=== PATIENT | female | born 1940 | race Caucasian/White ===

== ENCOUNTER 2017-07-03 17:58 | Inpatient (IN) | END 2017-07-06 17:55 | disposition home health service (06) | DRG 195 ==

== ENCOUNTER 2018-05-29 17:25 | Inpatient (IN) | payer MEDICARE, OTHER ==
[~2018-05-29] VITALS: Ht 157.5 cm; Wt 59.3 kg
[~2018-05-29 17:25] MED LIST: GUAI-637 PO; LANT3I SC; LEVO750T25 PO; SITA1TAB5 PO; [UNRECOGNIZED DRUG - OTHER] BOTH EYES
[2018-05-29] MEDS ORDERED: AZITHROMYCIN 500MG/NS (PMX) 250 ML IV STA (17:35)
[2018-05-29] MEDS ORDERED: SODIUM CHLORIDE 0.9% 1L BAG IV* STA ×2 (17:35→19:38)
[2018-05-29] MEDS ORDERED: CEFTRIAXONE 1 GM/50 ML (PMX) 50 ML IVPB STA (17:35)
[2018-05-29] MEDS ORDERED: NITROGLYCERIN (SL) 0.4 MG TAB ONE (18:00)
[2018-05-29] MEDS ORDERED: NITROGLYCERIN (SL) 0.4 MG TAB SL ONE (18:30)
[2018-05-29] MEDS ORDERED: MELO7.5T38 PO (19:45)
[2018-05-29] MEDS ORDERED: ERGO500013 PO (19:46)
[2018-05-29] MEDS ORDERED: ASPI-817 PO (19:47)
[2018-05-29] MEDS ORDERED: CANA100T PO (19:48)
--- NOTE | 2018-05-29 19:49 | ERD ---
ER Documentation Chief Complaint Chief Complaint SOB; ABDOMINAL PAIN HPI 77-year-old female with a history of diabetes and hypertension presenting with complaints of shortness of breath that has been going on chronically but worsened today acutely. She denies any associated chest pain or abdominal pain. No associated fevers or chills. She has not been coughing from what her son is telling me. History is somewhat limited due to the patient's respiratory distress. Per her son at bedside, the patient had a recent admission for pneumonia and a prior admission for "fluid in her lungs" that had to be taken out with what sounds like a chest tube. To his knowledge, she does not have any heart problems. ROS Limited due to respiratory distress Medications Home Meds Reported Medications [Blood Pressure] No Conflict Check, 1 CAP PO DAILY 05/29/18 Omeprazole* (Omeprazole*) 40 Mg Capsule.dr, 40 MG PO DAILY, #30 CAP 05/29/18 [Insulin] No Conflict Check, 18 UNITS SQ QAM PATIENT CAN'T REMEMBER HER INSULIN NAME,BUT IN HER EXTERNAL MEDS SHE HAS A ( TOUJEO 300UNIT/1ML AND TRULICITY 1.5MG/0.5ML) 05/29/18 Canagliflozin (Invokana) 100 Mg Tablet, 100 MG PO DAILY, TAB 05/29/18 Aspirin* (Aspirin* EC) 81 Mg Tablet.dr, 81 MG PO DAILY, TAB 05/29/18 Ergocalciferol (Vitamin D2) (VITAMIN D2) 50,000 Unit Capsule, 47565 UNIT PO Q MON, CAP 05/29/18 Meloxicam* (Meloxicam*) 7.5 Mg Tablet, 7.5 MG PO DAILY, #30 TAB 05/29/18 Discontinued Scripts Guaifenesin* (Robitussin*) 100 Mg/5 Ml Syrup, 200 MG PO Q4H PRN for COUGH, #1 BOTTLE Prov:ANAHI VERDUGO S. 07/06/17 [Carboxymethylcellulose Oph] 1 DROP SOLN No Conflict Check, 1 DROP BOTH EYES TID, #1 BOTTLE Prov:CHRIS VERDUGOEEP S. 07/06/17 Insulin Glargine* (Lantus*) 100 Unit/Ml Soln, 13 UNIT SC DAILY@08 for 30 Days, #1 BOTTLE Prov:ANAHI VERDUGO S. 07/06/17 Levofloxacin* (Levaquin*) 750 Mg Tablet, 750 MG PO DAILY@06, #6 TAB Prov:ANAHI VERDUGO S. 07/06/17 Sitagliptin Phos/Metformin HCl (Janumet 50-1,000 mg Tablet) 1 Each Tablet, 1 TAB PO DAILY, #30 2 Refills Prov:CHRIS VERDUGOEEP S. 07/06/17 Allergies Allergies: Coded Allergies: ketorolac (Verified Allergy, Severe, 05/29/18) PMhx/Soc History of Surgery: Yes (CSECTION) Anesthesia Reaction: No Hx Neurological Disorder: No Hx Respiratory Disorders: No Hx Cardiac Disorders: Yes (Hypertension) Hx Psychiatric Problems: No Hx Miscellaneous Medical Probl: Yes (Diabetes) Hx Alcohol Use: No Hx Substance Use: No Hx Tobacco Use: No Smoking Status: Never smoker FmHx Unable to obtain Physical Exam Vitals Vital Signs Date Temp Pulse Resp B/P (MAP) Pulse Ox O2 O2 Flow FiO2 Time Delivery Rate 05/29/18 96 100 50 19:00 05/29/18 99.4 100 25 123/91 99 BIPAP 18:30 (102) 05/29/18 105 99 50 17:50 05/29/18 99.4 110 36 131/70 55 17:26 (90) Physical Exam Const: In severe respiratory distress, no diaphoresis Head: Atraumatic Eyes: Normal Conjunctiva ENT: Dry mucous membranes. Normal External Ears, Nose and Mouth. Neck: Full range of motion. No meningismus. Resp: Significantly tachypneic. Belly breathing with retractions noted. Breath sounds are clear bilaterally with no obvious wheezing, rales, or rhonchi. Cardio: Tachycardic with regular rhythm, no murmurs. 2+ distal pulses in all 4 extremities Abd: Soft, non tender, non distended. Normal bowel sounds Skin: No petechiae or rashes Back: No midline or flank tenderness Ext: No cyanosis, or edema Neur: Awake and alert, normal speech, no facial asymmetry, moving all extr emities Psych: Normal Mood and Affect Result Diagram: 05/29/18180705/29/181807 Results 24 hrs Laboratory Tests Test 05/29/18 17:35 05/29/18 17:47 05/29/18 18:05 05/29/18 18:08 Blood Gas Blood arterial Specimen Source Arterial Blood 05/29/2018 7:20:1 Date Drawn 3 PM Arterial Blood 7.436 pH (Temp corrected) Arterial Blood 39.6 mmhg pCO2 (Temp correct) Arterial Blood 85.8 mmHG pO2 (Temp corrected) Arterial Blood 26.1 mmol/L HCO3 Arterial Blood 1.8 mmol/L Base Excess Arterial Blood 96.5 mmHG Oxygen Saturatio n Reuben Test ACCEPTAB Arterial Blood Right Radial Gas Puncture Site Arterial 0.4 % Blood Carboxyhem oglobin Arterial Blood 0.3 % Methemoglobin Blood Gas A-a O2 226.2 mmHg Differential Oxyhemoglobin 95.8 % Percent Blood Gas 37.0 C Temperature Blood Gas 14.0 Respiration Rate Blood Gas Actual 48 Respiration Rate Blood Gas MASK - BIPAP Modality FiO2 50.0 % Blood Gas 15/5 IPAP/EPAP Ratio Blood Gas MG Notified Whom Blood Gas 05/29/2018 7:30:5 Notified Time 5 PM POC Venous 2.0 mmol/L Lactate Hemoglobin A1c 10.9 % B-Type 385 PG/ML Natriuretic Peptide White Blood 13.0 10^3/ul Count Red Blood Count 4.62 10^6/ul Hemoglobin 13.9 g/dl Hematocrit 42.8 % Mean Corpuscular 92.6 fl Volume Mean Corpuscular 30.1 pg Hemoglobin Mean Corpuscular 32.5 g/dl Hemoglobin Yoli nt Red Cell 15.2 % Distribution Width Platelet Count 278 10^3/UL Mean Platelet 12.3 fl Volume Immature 0.300 % Granulocytes % Neutrophils % 63.9 % Lymphocytes % 27.8 % Monocytes % 6.9 % Eosinophils % 0.6 % Basophils % 0.5 % Nucleated Red 0.0 /100WBC Blood Cells % Immature 0.040 10^3/ul Granulocytes # Neutrophils # 8.3 10^3/ul Lymphocytes # 3.6 10^3/ul Monocytes # 0.9 10^3/ul Eosinophils # 0.1 10^3/ul Basophils # 0.1 10^3/ul Nucleated Red 0.0 10^3/ul Blood Cells # Prothrombin Time 13.1 Sec Prothrombin Time 1.0 Ratio INR 0.98 International Normalized Ratio Activated 35.3 Sec Partial Thrombop last Time Sodium Level 136 mmol/L Potassium Level 4.3 mmol/L Chloride Level 98 mmol/L Carbon Dioxide 25 mmol/L Level Anion Gap 13 Blood Urea 15 mg/dl Nitrogen Creatinine 0.62 mg/dl Est Glomerular mL/min Filtrat Rate mL/min Glucose Level 269 mg/dl Calcium Level 9.6 mg/dl Total Bilirubin 0.4 mg/dl Direct Bilirubin 0.00 mg/dl Indirect 0.4 mg/dl Bilirubin Aspartate Amino 61 IU/L Transf (AST/SGOT ) Alanine 35 IU/L Aminotransferase (ALT/SGPT) Alkaline 215 IU/L Phosphatase Troponin I < 0.012 ng/ml Total Protein 8.2 g/dl Albumin 3.7 g/dl Globulin 4.50 g/dl Albumin/Globulin 0.82 Ratio Current Medications Medications Dose Sig/Jannet Start Time Status Last (Trade) Ordered Route PRN Stop Time Admin Dose Reason Admin Sodium 1,950 ml BOLUS OVER 2 05/29/18 DC 05/29/18 Chloride HOURS STAT 17:35 18:01 (NS) IV* 05/29/18 17:38 Ceftriaxone 50 ml @ ONCE STAT 05/29/18 DC 05/29/18 Sodium 100 mls/hr IVPB 17:35 18:01 05/29/18 18:04 Azithromycin 250 ml @ ONCE STAT 05/29/18 DC 05/29/18 250 mls/hr IV 17:35 18:49 05/29/18 18:34 25 tab STK-MED 05/29/18 DC Nitroglycerin ONCE .ROUTE 18:00 05/29/18 18:01 (Nitroglyceri n (Sl Tab) 0.4 Mg) 1 tab ONCE ONCE 05/29/18 DC 05/29/18 Nitroglycerin SL 18:30 18:33 05/29/18 18:31 (Nitroglyceri n (Sl Tab) 0.4 Mg) Sodium 1,950 ml BOLUS OVER 2 05/29/18 DC 05/29/18 Chloride HOURS STAT 19:38 19:38 (NS) IV* 05/29/18 19:40 Procedures/MDM EMERGENT LABS AND DIAGNOSTIC STUDIES: Lab Results above were reviewed and interpreted by me. CBC: no anemia or evidence of infection CMP: No evidence of clinically significant electrolyte abnormality, acidosis, renal failure, hypoglycemia, liver disease, or biliary obstruction Troponin within normal limits, not indicative of cardiac ischemia Lactate within normal limits without evidence of sepsis or tissue hypoperfusion BNP is within normal limits ABG on BiPAP without evidence of acidosis or alkalosis. Normal CO2 and O2 12-lead EKG was interpreted by Flaco Fraser MD: Normal Sinus Rhythm Normal axis Normal intervals No acute ST or T wave changes suggestive of acute ischemia or STEMI. Radiology Results as interpreted by Radiology below were reviewed by Portia Fraser MD: Chest x-ray: IMPRESSION: Mild Cardiomegaly. Extensive bilateral upper lobe and lower lobe interstitial infiltrates, worsened since the prior study. Initial Nursing notes reviewed. Previous Medical Records requested via the Electronic Health Record. EMERGENCY DEPARTMENT COURSE / MEDICAL DECISION MAKING: Admit MDM: Patient presented with severe respiratory distress and oxygen saturation down to 50% on room air. She was immediately placed on supplemental oxygen, then BiPAP. Her oxygenation did improve after this, however she remained tachypneic. I do believe that some of this has to do with anxiety. In any case, sepsis workup was initiated given her history of pneumonia and high suspicion for this recurring. Her chest x-ray did show bilateral infiltrates. It is difficult to tell if this is pneumonia versus fluid overload. However the patient does not appear fluid overloaded on exam. I reviewed her medical records and her last echocardiogram did not show any significant systolic dysfunction. She does have diastolic heart failure. She was treated with IV fluids, IV antibiotics, as well as nitroglycerin. Her ABG on BiPAP was unremarkable. However patient's symptoms have not stabilized, and the patient is at risk of rapid decompensation. The patient will be admitted for careful hydration, antibiotic therapy, and infectious source control. Severe Sepsis criteria: Infectious source: End organ damage indicated by: Acute Resp Failure (sat < 92% w/o oxygen) Sepsis Management: Time of recognition of severe sepsis: 1730 Within 3 hours of recognition: Blood cultures x 2 before broad-spectrum antibiotics:Yes 30 ml/kg NS bolus Completed Initial lactate 2 Repeat lactate 1.2 Septic Shock Assessment: Any lactic acid > 4.0 - No Persistent hypotension (SBP < 90 or 40 mmHg drop, MAP < 65) despite 30 mL/kg IV fluid bolus - No Accepting Care Team Current data and ongoing care discussed. Admitting Physician: Dr. [place] Cath Lab(s): Spoke with Dr. Jovel, patient's senior professional services consultant, who states that she would be the consulting physician not the primary. Outstanding Data: Cultures Critical Care Time: 60 minutes Treatments/Evaluations: Close monitoring and treatment of unstable vital signs, cardiorespiratory, and neurologic status, while maintaining tight balance of fluid, respiratory, and cardiac interventions. This includes the administration of emergency fluid management while maintaining close respiratory support as well as the provision of immediate and broad-spectrum antibiotic therapy, while performing a simultaneous assessment for possible sources in order to direct targeted therapy. This time includes discussing the case with the patient and the patients family.This time also includes the consideration for invasive and chemical support to prevent cardiopulmonary collapse. This time does not include all procedures stated elsewhere in this record. This time also includes reviewing old records, labs and radiological studies. This time includes examining and reexamining the patient. Additionally, this time also includes arranging care with admitting and consulting physicians. Departure Diagnosis: Primary Impression: Acute respiratory failure with hypoxia Additional Impressions: Bilateral pulmonary infiltrates on chest x-ray Hyperglycemia Condition: Serious BLAKE FRASER MD May 29, 2018 19:49
[2018-05-29] MEDS ORDERED: ACETAMINOPHEN 325 MG TAB PO PRN ×2 (20:00→20:30)
[2018-05-29] MEDS ORDERED: ONDANSETRON 4 MG INJ IV PRN (20:00)
[2018-05-29] MEDS ORDERED: INSULIN SQ (20:03)
[2018-05-29] MEDS ORDERED: OMEP40CA6 PO (20:04)
[2018-05-29] MEDS ORDERED: BLOOD PRESSURE PO (20:07)
[2018-05-29] MEDS ORDERED: NACL 0.9% 3 ML SYG IV SCH (20:30)
[2018-05-29] MEDS ORDERED: BISACODYL (EC) 5 MG TAB PO PRN (20:30)
[2018-05-29] MEDS ORDERED: DOCUSATE SODIUM 100 MG CAP PO PRN (20:30)
[2018-05-29] MEDS ORDERED: GLUCOSE GEL 15 GRAM TUBE BUCCAL PRN (21:00)
[2018-05-29] MEDS ORDERED: GLUCAGON 1 MG INJ IM PRN (21:00)
[2018-05-29] MEDS ORDERED: GLUCOSE GEL 15 GRAM TUBE PO PRN ×2 (21:00)
[2018-05-29] MEDS ORDERED: DEXTROSE 50% 50 ML SYRINGE IV PRN ×2 (21:00)
[2018-05-29] MEDS ORDERED: LEVALBUTEROL (NEB) 1.25 MG/0.5 ML AMP HHN PRN (21:00)
[2018-05-29 21:11] VITALS: PULSE 91
[2018-05-29 21:16] VITALS: PULSE 86
[2018-05-29] MEDS: INSULIN ASPART [NOVOLOG] 3 ML PEN SC SCH (21:30)
[2018-05-29] MEDS ORDERED: INSULIN GLARGINE [LANTus] (100 UNITS/ML) SYG SC ONE (21:30)
[2018-05-29] MEDS: IPRATROPIUM (NEB) 0.5 MG/2.5 ML AMP HHN SCH (21:55)
[2018-05-29] MEDS: LEVALBUTEROL (NEB) 1.25 MG/0.5 ML AMP HHN SCH (21:55)
[2018-05-29 22:00] VITALS: Ht 157.5 cm; Wt 59.3 kg
--- NOTE | 2018-05-29 22:59 | HP ---
Date/Time of Note Date/Time of Note DATE: 05/29/18 TIME: 22:59 Assessment/Plan VTE Prophylaxis SCD applied (from Nsg): Yes Pharmacological prophylaxis: NA/contraindicated Pharm contraindication: low risk/ambulating Lines/Catheters IV Catheter Type (from Nrsg): Saline Lock Assessment/Plan Hospital Course This is a 77-year-old female being admitted to the telemetry floor for: #1 acute on chronic hypoxic respiratory failure: Possibly multifactorial secondary to underlying fibrosis, pneumonia, and/or possible pulmonary congestion. Given patient's history of fibrosis I feel this is most likely culprit at the current time. Will maintain the patient on BiPAP. I will start the patient on IV steroids with close monitoring of blood sugar levels. Scheduled nebulizers. Given that she is been hospitalized multiple times over the last few months and the fact that she has underlying lung disease I will put her on Zosyn and Levaquin. Will obtain sputum cultures. Will consult pulmonology. CT scan of the chest shows signs of infiltrates and possible edema versus ARDS. Patient is DNR/DNI will monitor her closely on BiPAP. We will also try a trial of Lasix 20 mg IV. #2 pulmonary fibrosis: We will need to confirm with patient's family regarding if she is on any chronic inhalers or medications for this. Will consult pulmonology. #3 community-acquired pneumonia: Given multiple recent hospital admissions as well as underlying lung disease we will put the patient on Levaquin and Zosyn please see #1. #4 cardiomegaly: There is questionable pulmonary congestion on the CT scan. W ill obtain echocardiogram to further evaluate. We will also give her a dose of Lasix 20 mg IV to see if this helps with her breathing as well. #5 diabetes mellitus: We will check hemoglobin A1c, resume home Lantus of 18 units, insulin sliding scale. We will need to adjust insulin regimen while in- house given that she is receiving steroids as well. #6 hypertension: PRN vasotec #7 DVT GI prophylaxis: SCDs, Protonix CODE STATUS: DNR/DNI. Patient does not wish to be intubated or resuscitated. She states that she witnessed her being intubated and she does not want go through that. Further treatment strategy will be implemented as per the clinical course Will consult case management to assist in obtaining any records from [facility] or [facility] regarding this patient. Result Diagram: 05/29/18 1808 05/29/18 1808 Results 24hrs Laboratory Tests Test 05/29/18 17:35 05/29/18 17:47 05/29/18 18:05 05/29/18 18:08 Blood Gas Blood arterial Specimen Source Arterial Blood 05/29/2018 7:20:1 Date Drawn 3 PM Arterial Blood pH 7.436 (Temp corrected) Arterial Blood 39.6 pCO2 (Temp correct) Arterial Blood 85.8 pO2 (Temp corrected) Arterial Blood 26.1 H HCO3 Arterial Blood 1.8 Base Excess Arterial Blood 96.5 Oxygen Saturation Reuben Test ACCEPTAB Arterial Blood Right Radial Gas Puncture Site Arterial 0.4 Blood Carboxyhemo globin Arterial Blood 0.3 Methemoglobin Blood Gas A-a O2 226.2 H Differential Oxyhemoglobin 95.8 Percent Blood Gas 37.0 Temperature Blood Gas 14.0 Respiration Rate Blood Gas Actual 48 Respiration Rate Blood Gas MASK - BIPAP Modality FiO2 50.0 Blood Gas 15/5 IPAP/EPAP Ratio Blood Gas MG Notified Whom Blood Gas 05/29/2018 7:30:5 Notified Time 5 PM POC Venous 2.0 Lactate Hemoglobin A1c 10.9 H B-Type 385 Natriuretic Peptide White Blood Count 13.0 #H Red Blood Count 4.62 Hemoglobin 13.9 Hematocrit 42.8 Mean Corpuscular 92.6 Volume Mean Corpuscular 30.1 Hemoglobin Mean Corpuscular 32.5 Hemoglobin Concen t Red Cell 15.2 H Distribution Width Platelet Count 278 # Mean Platelet 12.3 H Volume Immature 0.300 Granulocytes % Neutrophils % 63.9 Lymphocytes % 27.8 Monocytes % 6.9 Eosinophils % 0.6 Basophils % 0.5 Nucleated Red 0.0 Blood Cells % Immature 0.040 H Granulocytes # Neutrophils # 8.3 H Lymphocytes # 3.6 H Monocytes # 0.9 Eosinophils # 0.1 Basophils # 0.1 Nucleated Red 0.0 Blood Cells # Prothrombin Time 13.1 Prothrombin Time 1.0 Ratio INR International 0.98 Normalized Ratio Activated 35.3 H Partial Thrombopl ast Time Sodium Level 136 Potassium Level 4.3 Chloride Level 98 Carbon Dioxide 25 Level Anion Gap 13 Blood Urea 15 Nitrogen Creatinine 0.62 Est Glomerular Filtrat Rate mL/min Glucose Level 269 H Calcium Level 9.6 Total Bilirubin 0.4 Direct Bilirubin 0.00 Indirect 0.4 Bilirubin Aspartate Amino 61 H Transf (AST/SGOT) Alanine 35 Aminotransferase (ALT/SGPT) Alkaline 215 H Phosphatase Troponin I < 0.012 Total Protein 8.2 H Albumin 3.7 Globulin 4.50 H Albumin/Globulin 0.82 Ratio HPI/ROS Admit Date/Time Admit Date/Time May 29, 2018 at 19:47 Hx of Present Illness Chief complaint: Shortness of breath This is a 77-year-old female with a past medical history of pulmonary fibrosis who presented to the emergency department with complaints of shortness of breath. She states that this is been an on and off situation for the last few months. She states that she has been admitted to multiple hospitals including [facility]. She apparently had a lung procedure done as well which she does not know what it was but it has not seemed to help her either. She does report having productive phlegm. She denies any chest pain or nausea vomiting or diarrhea. Patient in the emergency department was noted to have a SPO2 of 55%. She was placed on BiPAP with good response. Patient was asked regarding CODE STATUS and she was adamant that she did not want to be intubated or have CPR performed her as her was intubated before in the past and she did not want to go through what he went through. Allergies: Ketorolac Medications: See TIA CARPIO Const: As per HPI Eyes : No pain discharge or redness or change in visual acuity ENT: No pain, sore throat, congestion, congestion, dysphagia or discharge Respiratory: As per HPI Cardiovascular: No chest pain, palpitation, PND, or edema GI : no change in appetite, abdominal pain, nausea, vomiting, diarrhea, constipation, or change in the color his stool Genitourinary: No dysuria, hematuria, flank pain , discharge or CVA tenderness Musculoskeletal: No joint pain, back pain, neck pain, restricted range of motion in neck or joints Skin: No rash, bruising or hives Neuro: No headache, dizziness, syncope, seizure, focal weakness Endocrine: No polyuria, polydipsia, temperature intolerance Psych: No hallucination, depression, anxiety or suicidal ideation PMH/Family/Social Past Medical History Diabetes mellitus, hypertension, pulmonary fibrosis Medications Current Medications Ondansetron HCl (Zofran Inj) 4 mg ER BRIDGE PRN IV NAUSEA/VOMITING; Start 05/29/18 at 20:00; Stop 05/30/18 at 19:59 Acetaminophen (Tylenol Tab) 650 mg ER BRIDGE PRN PO .MILD PAIN 1-3 OR TEMP; Start 05/29/18 at 20:00; Stop 05/30/18 at 19:59 IV Flush (NS 3 ml) 3 ml PER PROTOCOL IV ; Start 05/29/18 at 20:30 Acetaminophen (Tylenol Tab) 650 mg Q6H PRN PO .PAIN 1-3 OR TEMP; Start 05/29/18 at 20:30 Docusate Sodium (Colace) 100 mg Q12H PRN PO .CONSTIPATION; Start 05/29/18 at 20:30 Bisacodyl (Dulcolax) 5 mg DAILY PRN PO .CONSTIPATION; Start 05/29/18 at 20:30 Pantoprazole (Protonix Tab) 40 mg DAILY@06 PO ; Start 05/30/18 at 06:00 Enoxaparin Sodium (Lovenox) 40 mg DAILY SC ; Start 05/30/18 at 09:00 Levalbuterol (Xopenex Neb) 1.25 mg Q4H RESP THERAPY HHN Last administered on 05/29/18at 21:55; Admin Dose 1.25 MG; Start 05/29/18 at 21:00 Ipratropium Jbphh (Atrovent 0.02% (Neb)) 0.5 mg Q4HWA RESP THERAPY HHN Last administered on 05/29/18at 21:55; Admin Dose 0.5 MG; Start 05/29/18 at 21:00 Levalbuterol (Xopenex Neb) 1.25 mg Q4H RESP THERAPY PRN HHN WHEEZING; Start 05/29/18 at 21:00 Diagnostic Test (Pha) (Accu-Chek) 1 ea 02 XX ; Start 05/30/18 at 02:00 Insulin Aspart (Novolog Insulin Pen) NOVOLOG *MILD* ALGORITHM WITH MEALS BEDTIME SC ; Start 05/29/18 at 21:30 Miscellaneous Information 1 ea NOTE XX ; Start 05/29/18 at 21:00 Glucose (Glutose) 15 gm Q15M PRN PO DECREASED GLUCOSE; Start 05/29/18 at 21:00 Glucose (Glutose) 22.5 gm Q15M PRN PO DECREASED GLUCOSE; Start 05/29/18 at 21:00 Dextrose (D50w Syringe) 25 ml Q15M PRN IV DECREASED GLUCOSE; Start 05/29/18 at 21:00 Dextrose (D50w Syringe) 50 ml Q15M PRN IV DECREASED GLUCOSE; Start 05/29/18 at 21:00 Glucagon (Glucagen) 1 mg Q15M PRN IM DECREASED GLUCOSE; Start 05/29/18 at 21:00 Glucose (Glutose) 15 gm Q15M PRN BUCCAL DECREASED GLUCOSE; Start 05/29/18 at 21:00 Coded Allergies: ketorolac (Verified Allergy, Severe, 05/29/18) Past Surgical History x1 Family History Significant Family History: no pertinent family hx Social History Alcohol Use: none Smoking Status: Never smoker Drug Use: none Exam/Review of Systems Vital Signs Vitals Vital Signs Date Temp Pulse Resp B/P (MAP) Pulse Ox O2 O2 Flow FiO2 Time Delivery Rate 05/29/18 86 96 50 21:16 05/29/18 99.3 22 136/98 BIPAP 20:56 (111) Exam Exam General: Patient is currently sitting in bed she does appear to be in mild respiratory distress, she also appears to be anxious, currently on BiPAP. She is able to speak in full sentences. HEENT: Atraumatic, normocephalic. The pupils are equal, round and reactive. Extraocular motor are intact Neck: Supple with full range of motion. No rigidity or meningismus Chest: Nontender Lungs: Crackles bilaterally, coarse breath sounds, increased work of breathing, currently on BiPAP Heart: Normal S1-S2, Regular rhythm and rate. Abdomen: Soft , nontender, nondistended , bowel sounds are present. No guarding no rebound tenderness , No masses or organomegaly. No costovertebral temporal angle mass Extremities: Normal to inspection, no edema no cyanosis Neurologic: Normal mental status, speech normal, cranial nerves II through XII are intact, motor and sensory are intact, Psych: Patient does appear to be anxious Additional Comments PROCEDURE: XR Chest. CLINICAL INDICATION: Chest pain TECHNIQUE: Single portable view of the chest was obtained COMPARISON: CR CHEST 04/03/2018 FINDINGS: The heart is enlarged. There are extensive bilateral upper lobe and lower lobe interstitial infiltrates. There is a small right pleural effusion. There is no pneumothorax. RPTAT: AA IMPRESSION: Mild Cardiomegaly. Extensive bilateral upper lobe and lower lobe interstitial infiltrates, worsened since the prior study. .Jack Branham MD, MD Date Time Electronically viewed and signed by .Jack Branham MD, MD on 05/29/2018 17:58 .S/ CC: BLAKE JEFFERSON MD [id number] PROCEDURE: CT Chest Without Intravenous Contrast CLINICAL INDICATION: Hypoxia. Infiltrates. TECHNIQUE: Axial computed tomography images of the chest without intravenous contrast. Sagittal and coronal reformatted images were created and reviewed. CTDIvol (mGy) = 10.63; total DLP (mGy-cm) = 361.64. This CT exam was performed using on e or more of the following dose reduction techniques: automated exposure control, adjustment of the mA and/or kV according to patient size, and/or use of iterative reconstruction technique. DICOM images are available. COMPARISON: None FINDINGS: LUNGS: Diffuse bilateral interstitial disease. Superimposed confluent airspace disease throughout both lungs. Findings may represent infection/p neumonia versus severe pulmonary edema versus ARDS. PLEURAL SPACE: Unremarkable. Unremarkable. No pneumothorax. HEART: Cardiomegaly is present. No significant pericardial effusion. BONES/JOINTS: Subacute fracture of the right lateral fifth rib. No acute osseous abnormality. No dislocation. SOFT TISSUES: Unremarkable. VASCULATURE: Atherosclerosis of the aorta. Mild coronary arterial calcifications. LYMPH NODES: Nonspecific mediastinal lymph nodes are noted, measuring up to 9 mm short axis. IMPRESSION: Diffuse bilateral interstitial disease. Superimposed confluent airspace disease throughout both lungs. Findings may represent infection/pneumonia versus severe pulmonary edema versus ARDS. RPTAT: [facility] Justo Larkin Physician Date Time Electronically viewed and signed by Justo Larkin Physician Poly[employer]er on 05/29/2018 22:27 RmC/ CC: AARON MCRAE [id number] AARON MCRAE May 29, 2018 22:59
[2018-05-29] MEDS ORDERED: METHYLPREDNISOLONE 125 MG INJ IV ONE (23:00)
[2018-05-29 23:23] VITALS: PULSE 105
[2018-05-30] VITALS (12 sets, daily range): BP systolic 121–156; BP diastolic 58–91; PULSE 67–94; RESP 16–20
[2018-05-30] MEDS: PIPER-TAZO 3.375 GM IV (PMX) 100 ML IVPB SCH ×4 (00:51→18:29)
[2018-05-30] MEDS ORDERED: LEVOFLOXACIN 750MG/D5W (PMX) 150 ML IVPB SCH (01:00)
[2018-05-30] MEDS: LEVALBUTEROL (NEB) 1.25 MG/0.5 ML AMP HHN SCH ×7 (01:23→23:50)
[2018-05-30] MEDS: ACCU-CHEK XX SCH (02:00)
[2018-05-30] MEDS ORDERED: ACCU-CHEK XX SCH (02:00)
[2018-05-30] MEDS ORDERED: LORAZEPAM 2 MG INJ IV ONE ×2 (02:30→09:00)
[2018-05-30] MEDS ORDERED: FUROSEMIDE 20 MG INJ IV ONE (03:00)
[2018-05-30] MEDS: PANTOPRAZOLE (EC) 40 MG TAB PO SCH (06:02)
[2018-05-30] MEDS: INSULIN ASPART [NOVOLOG] 3 ML PEN SC SCH ×5 (07:55→21:44)
[2018-05-30] MEDS: IPRATROPIUM (NEB) 0.5 MG/2.5 ML AMP HHN SCH ×4 (09:50→20:28)
[2018-05-30] MEDS: ENOXAPARIN 40 MG/0.4 ML SYG SC SCH (10:02)
[2018-05-30] MEDS: METHYLPREDNISOLONE 40 MG INJ IV SCH ×3 (11:32→22:05)
--- NOTE | 2018-05-30 13:58 | CONS ---
DATE OF ADMISSION: 05/29/2018 DATE OF CONSULTATION: REASON FOR CONSULTATION: Respiratory distress. Thank you, Dr. Houston, for this consultation. HISTORY OF PRESENT ILLNESS: This is a 77-year-old lady with a history of idiopathic pulmonary fibros is, admitted with increasing respiratory distress, orthopnea, PND, and congestion. Found to have dif fuse interstitial lung disease with possible pneumonia versus pulmonary edema on chest x-ray and CT. PAST MEDICAL HISTORY: As above. MEDICATIONS: Per chart. ALLERGIES: NONE KNOWN. SOCIAL HISTORY: Nonsmoker, no alcohol, no history of drug use. FAMILY HISTORY: Noncontributory. REVIEW OF SYSTEMS: A 12-point review of systems negative other than that mentioned above. PHYSICAL EXAMINATION: GENERAL: Elderly appearing lady in mild distress with accessory muscle use. VITAL SIGNS: Currently afebrile, pulse is 79, blood pressure 132/65, O2 saturation 93% on 4 L nasal cannula. NECK: Supple. No JVD or lymphadenopathy. CARDIAC: S1, S2. No added sounds or murmurs. CHEST: Diminished air entry bilaterally. ABDOMEN: Soft, nontender. No guarding or rebound. EXTREMITIES: No cyanosis, clubbing, or edema. NEUROLOGIC: Generalized weakness. No focal deficits. LABORATORY DATA: White count 13, hemoglobin 13.9, platelets within normal limits. Chemistry: BUN 1 5, creatinine 0.62. ABG: pH 7.41, PCO2 of 41, PO2 of 70, bicarbonate was within normal limits. IMPRESSION AND PLAN: 1. Acute hypoxemic respiratory failure, likely secondary to acute exacerbation of idiopathic pulmona ry fibrosis. 2. Chronic hypoxemic respiratory failure. 3. Possible diastolic heart failure. 4. Diabetes mellitus. 5. Possible superimposed pneumonia. The patient will require: 1. Steroids. 2. Antibiotics. 3. Aspiration precautions. 4. Supplemental oxygen. 5. Glycemic management. 6. Deep venous thrombosis (DVT) and gastrointestinal (GI) prophylaxis. Of note, the patient's code status is DO NOTE RESUSCITATE (DNR)/DO NOTE INTUBATE (DNI). The patient may benefit from a Burton evaluation. Dictated By: DIANE LR MD SV/NTS Conf#: [id number] DID#: [id number] CC: AARON HOUSTON MD;*EndCC*
--- NOTE | 2018-05-30 14:46 | PN ---
Date/Time of Note Date/Time of Note DATE: 05/30/18 TIME: 14:38 Assessment/Plan VTE Prophylaxis Risk score (from Ns)>0 risk: 5 SCD applied (from Ns): Yes Pharmacological prophylaxis: LMWH Lines/Catheters IV Catheter Type (from Nrs): Peripheral IV Assessment/Plan Assessment/Plan 1. Acute on chronic respiratory failure, pulmonary fibrosis related, on O2 and steroid, follow up with pulmonology 2. Pulmonary fibrosis, on steroid 3. DM, on insulin, hyperglycemia due to steroid, lantus is increased 4. Hypertension, controlled 5. DVT prophylaxis: lovenox 6. CODE STATUS: DNR/DNI. Result Diagram: 05/29/18 1808 05/29/18 1808 Results 24hrs Laboratory Tests Test 05/29/18 17:35 05/29/18 17:47 05/29/18 18:05 05/29/18 18:08 Blood Gas Blood arterial Specimen Source Arterial Blood 05/29/2018 7:20: Date Drawn 13 PM Arterial Blood 7.436 pH (Temp corrected) Arterial Blood 39.6 pCO2 (Temp correct) Arterial Blood 85.8 pO2 (Temp corrected) Arterial Blood 26.1 H HCO3 Arterial Blood 1.8 Base Excess Arterial Blood 96.5 Oxygen Saturatio n Reuben Test ACCEPTAB Arterial Blood Right Radial Gas Puncture Site Arterial 0.4 Blood Carboxyhem oglobin Arterial Blood 0.3 Methemoglobin Blood Gas A-a O2 226.2 H Differential Oxyhemoglobin 95.8 Percent Blood Gas 37.0 Temperature Blood Gas 14.0 Respiration Rate Blood Gas Actual 48 Respiration Rate Blood Gas MASK - BIPAP Modality FiO2 50.0 Blood Gas 15/5 IPAP/EPAP Ratio Blood Gas MG Notified Whom Blood Gas 05/29/2018 7:30: Notified Time 55 PM POC Venous 2.0 Lactate Hemoglobin A1c 10.9 H B-Type 385 Natriuretic Peptide White Blood 13.0 #H Count Red Blood Count 4.62 Hemoglobin 13.9 Hematocrit 42.8 Mean Corpuscular 92.6 Volume Mean Corpuscular 30.1 Hemoglobin Mean Corpuscular 32.5 Hemoglobin Yoli nt Red Cell 15.2 H Distribution Width Platelet Count 278 # Mean Platelet 12.3 H Volume Immature 0.300 Granulocytes % Neutrophils % 63.9 Lymphocytes % 27.8 Monocytes % 6.9 Eosinophils % 0.6 Basophils % 0.5 Nucleated Red 0.0 Blood Cells % Immature 0.040 H Granulocytes # Neutrophils # 8.3 H Lymphocytes # 3.6 H Monocytes # 0.9 Eosinophils # 0.1 Basophils # 0.1 Nucleated Red 0.0 Blood Cells # Prothrombin Time 13.1 Prothrombin Time 1.0 Ratio INR 0.98 International Normalized Ratio Activated 35.3 H Partial Thrombop last Time Sodium Level 136 Potassium Level 4.3 Chloride Level 98 Carbon Dioxide 25 Level Anion Gap 13 Blood Urea 15 Nitrogen Creatinine 0.62 Est Glomerular Filtrat Rate mL/min Glucose Level 269 H Calcium Level 9.6 Total Bilirubin 0.4 Direct Bilirubin 0.00 Indirect 0.4 Bilirubin Aspartate Amino 61 H Transf (AST/SGOT ) Alanine 35 Aminotransferase (ALT/SGPT) Alkaline 215 H Phosphatase Troponin I < 0.012 Total Protein 8.2 H Albumin 3.7 Globulin 4.50 H Albumin/Globulin 0.82 Ratio Test 05/29/18 22:24 05/29/18 23:25 05/30/18 02:05 05/30/18 05:50 Lactic Acid 1.2 Level Bedside Glucose 120 Blood Gas Blood arterial Specimen Source Arterial Blood 05/30/2018 2:10: Date Drawn 34 AM Arterial Blood 7.418 pH (Temp corrected) Arterial Blood 41.4 pCO2 (Temp correct) Arterial Blood 70.7 L pO2 (Temp corrected) Arterial Blood 26.1 H HCO3 Arterial Blood 1.5 Base Excess Arterial Blood 93.8 L Oxygen Saturatio n Reuben Test ACCEPTAB Arterial Blood Right Radial Gas Puncture Site Arterial 0.5 Blood Carboxyhem oglobin Arterial Blood 0.1 Methemoglobin Blood Gas A-a O2 239.2 H Differential Oxyhemoglobin 93.2 Percent Blood Gas 37.0 Temperature Blood Gas Actual 14 Respiration Rate Blood Gas MASK - BIPAP Modality FiO2 50.0 Blood Gas High 50.0 PEEP Setting Blood Gas 15/5 IPAP/EPAP Ratio Blood Gas [facility] Notified Whom Blood Gas 05/30/2018 2:22: Notified Time 05 AM Magnesium Level 2.1 Triglycerides 75 Level Cholesterol 158 Level LDL Cholesterol, 114 Calculated HDL Cholesterol 29 L Cholesterol/HDL 5.4 Ratio Thyroid 0.361 L Stimulating Hormone (TSH) Test 05/30/18 08:25 05/30/18 11:57 05/30/18 11:59 Bedside Glucose 138 > 595 *H 252 H Subjective 24 Hr Interval Summary Free Text/Dictation lethargic, no distress Exam/Review of Systems Exam Vitals Vital Signs Date Temp Pulse Resp B/P (MAP) Pulse Ox O2 O2 Flow FiO2 Time Delivery Rate 05/30/18 70 13:39 05/30/18 20 96 Nasal 4.0 13:33 Cannula 05/30/18 97.5 132/65 11:41 (87) 05/30/18 60 05:16 Constitutional: alert Head: normocephalic, atraumatic Eyes: nl conjunctiva, EOMI, nl lids, PERRL ENMT: nl external ears & nose, nl lips & teeth, nl nasal mucosa & septum Neck: supple, non-tender Respiratory: clear to auscultation, normal air movement Cardiovascular: regular rate and rhythm, nl pulses; No bruits, No diastolic murmur, No edema, No gallop, No irregular rhythm, No jugular venous distention (JVD), No murmurs/extra sounds, No rub, No systolic murmur, No S3, No S4, No other Gastrointestinal: soft, nl liver, spleen, non-tender Musculoskeletal: nl extremities to inspection Extremities: normal pulses; No calf tenderness, No cyanosis, No clubbing, No edema, No pitting pedal edema, No palpable cord, No tenderness, No other Neurological: [employer] II-XII intact, lethargic, other (moves all extremities) Results Results 24hrs Laboratory Tests Test 05/29/18 17:35 05/29/18 17:47 05/29/18 18:05 05/29/18 18:08 Blood Gas Blood arterial Specimen Source Arterial Blood 05/29/2018 7:20: Date Drawn 13 PM Arterial Blood 7.436 pH (Temp corrected) Arterial Blood 39.6 pCO2 (Temp correct) Arterial Blood 85.8 pO2 (Temp corrected) Arterial Blood 26.1 H HCO3 Arterial Blood 1.8 Base Excess Arterial Blood 96.5 Oxygen Saturatio n Reuben Test ACCEPTAB Arterial Blood Right Radial Gas Puncture Site Arterial 0.4 Blood Carboxyhem oglobin Arterial Blood 0.3 Methemoglobin Blood Gas A-a O2 226.2 H Differential Oxyhemoglobin 95.8 Percent Blood Gas 37.0 Temperature Blood Gas 14.0 Respiration Rate Blood Gas Actual 48 Respiration Rate Blood Gas MASK - BIPAP Modality FiO2 50.0 Blood Gas 15/5 IPAP/EPAP Ratio Blood Gas MG Notified Whom Blood Gas 05/29/2018 7:30: Notified Time 55 PM POC Venous 2.0 Lactate Hemoglobin A1c 10.9 H B-Type 385 Natriuretic Peptide White Blood 13.0 #H Count Red Blood Count 4.62 Hemoglobin 13.9 Hematocrit 42.8 Mean Corpuscular 92.6 Volume Mean Corpuscular 30.1 Hemoglobin Mean Corpuscular 32.5 Hemoglobin Yoli nt Red Cell 15.2 H Distribution Width Platelet Count 278 # Mean Platelet 12.3 H Volume Immature 0.300 Granulocytes % Neutrophils % 63.9 Lymphocytes % 27.8 Monocytes % 6.9 Eosinophils % 0.6 Basophils % 0.5 Nucleated Red 0.0 Blood Cells % Immature 0.040 H Granulocytes # Neutrophils # 8.3 H Lymphocytes # 3.6 H Monocytes # 0.9 Eosinophils # 0.1 Basophils # 0.1 Nucleated Red 0.0 Blood Cells # Prothrombin Time 13.1 Prothrombin Time 1.0 Ratio INR 0.98 International Normalized Ratio Activated 35.3 H Partial Thrombop last Time Sodium Level 136 Potassium Level 4.3 Chloride Level 98 Carbon Dioxide 25 Level Anion Gap 13 Blood Urea 15 Nitrogen Creatinine 0.62 Est Glomerular Filtrat Rate mL/min Glucose Level 269 H Calcium Level 9.6 Total Bilirubin 0.4 Direct Bilirubin 0.00 Indirect 0.4 Bilirubin Aspartate Amino 61 H Transf (AST/SGOT ) Alanine 35 Aminotransferase (ALT/SGPT) Alkaline 215 H Phosphatase Troponin I < 0.012 Total Protein 8.2 H Albumin 3.7 Globulin 4.50 H Albumin/Globulin 0.82 Ratio Test 05/29/18 22:24 05/29/18 23:25 05/30/18 02:05 05/30/18 05:50 Lactic Acid 1.2 Level Bedside Glucose 120 Blood Gas Blood arterial Specimen Source Arterial Blood 05/30/2018 2:10: Date Drawn 34 AM Arterial Blood 7.418 pH (Temp corrected) Arterial Blood 41.4 pCO2 (Temp correct) Arterial Blood 70.7 L pO2 (Temp corrected) Arterial Blood 26.1 H HCO3 Arterial Blood 1.5 Base Excess Arterial Blood 93.8 L Oxygen Saturatio n Reuben Test ACCEPTAB Arterial Blood Right Radial Gas Puncture Site Arterial 0.5 Blood Carboxyhem oglobin Arterial Blood 0.1 Methemoglobin Blood Gas A-a O2 239.2 H Differential Oxyhemoglobin 93.2 Percent Blood Gas 37.0 Temperature Blood Gas Actual 14 Respiration Rate Blood Gas MASK - BIPAP Modality FiO2 50.0 Blood Gas High 50.0 PEEP Setting Blood Gas 15/5 IPAP/EPAP Ratio Blood Gas [facility] Notified Whom Blood Gas 05/30/2018 2:22: Notified Time 05 AM Magnesium Level 2.1 Triglycerides 75 Level Cholesterol 158 Level LDL Cholesterol, 114 Calculated HDL Cholesterol 29 L Cholesterol/HDL 5.4 Ratio Thyroid 0.361 L Stimulating Hormone (TSH) Test 05/30/18 08:25 05/30/18 11:57 05/30/18 11:59 Bedside Glucose 138 > 595 *H 252 H Medications Medication Current Medications Ondansetron HCl (Zofran Inj) 4 mg ER BRIDGE PRN IV NAUSEA/VOMITING; Start 05/29/18 at 20:00; Stop 05/30/18 at 19:59 Acetaminophen (Tylenol Tab) 650 mg ER BRIDGE PRN PO .MILD PAIN 1-3 OR TEMP; Start 05/29/18 at 20:00; Stop 05/30/18 at 19:59 IV Flush (NS 3 ml) 3 ml PER PROTOCOL IV ; Start 05/29/18 at 20:30 Acetaminophen (Tylenol Tab) 650 mg Q6H PRN PO .PAIN 1-3 OR TEMP; Start 05/29/18 at 20:30 Docusate Sodium (Colace) 100 mg Q12H PRN PO .CONSTIPATION; Start 05/29/18 at 20:30 Bisacodyl (Dulcolax) 5 mg DAILY PRN PO .CONSTIPATION; Start 05/29/18 at 20:30 Pantoprazole (Protonix Tab) 40 mg DAILY@06 PO Last administered on 05/30/18at 06:02; Admin Dose 40 MG; Start 05/30/18 at 06:00 Enoxaparin Sodium (Lovenox) 40 mg DAILY SC Last administered on 05/30/18at 10:02; Admin Dose 40 MG; Start 05/30/18 at 09:00 Levalbuterol (Xopenex Neb) 1.25 mg Q4H RESP THERAPY HHN Last administered on 05/30/18at 13:27; Admin Dose 1.25 MG; Start 05/29/18 at 21:00 Ipratropium Bogard (Atrovent 0.02% (Neb)) 0.5 mg Q4HWA RESP THERAPY HHN Last administered on 05/30/18at 13:26; Admin Dose 0.5 MG; Start 05/29/18 at 21:00 Levalbuterol (Xopenex Neb) 1.25 mg Q4H RESP THERAPY PRN HHN WHEEZING; Start 05/29/18 at 21:00 Miscellaneous Information 1 ea NOTE XX ; Start 05/29/18 at 21:00 Glucose (Glutose) 15 gm Q15M PRN PO DECREASED GLUCOSE; Start 05/29/18 at 21:00 Glucose (Glutose) 22.5 gm Q15M PRN PO DECREASED GLUCOSE; Start 05/29/18 at 21:00 Dextrose (D50w Syringe) 25 ml Q15M PRN IV DECREASED GLUCOSE; Start 05/29/18 at 21:00 Dextrose (D50w Syringe) 50 ml Q15M PRN IV DECREASED GLUCOSE; Start 05/29/18 at 21:00 Glucagon (Glucagen) 1 mg Q15M PRN IM DECREASED GLUCOSE; Start 05/29/18 at 21:00 Glucose (Glutose) 15 gm Q15M PRN BUCCAL DECREASED GLUCOSE; Start 05/29/18 at 21:00 Diagnostic Test (Pha) (Accu-Chek) 1 ea 02 XX ; Start 05/30/18 at 02:00 Insulin Aspart (Novolog Insulin Pen) NOVOLOG *MODERATE* ALGORITHM WITH MEALS BEDTIME SC Last administered on 05/30/18at 12:08; Admin Dose 6 UNIT; Start 05/30/18 at 07:55 Levofloxacin/ Dextrose 150 ml @ 100 mls/hr Q24H IVPB Last administered on 05/30/18at 02:12; Admin Dose 100 MLS/HR; Start 05/30/18 at 01:00 Piperacillin Sod/ Tazobactam Sod 100 ml @ 200 mls/hr Q6 IVPB Last administered on 05/30/18at 06:01; Admin Dose 200 MLS/HR; Start 05/30/18 at 00:00 Insulin Glargine (Lantus) 18 units DAILY@2000 SC ; Start 05/30/18 at 20:00 Enalaprilat (Vasotec Iv) 1.25 mg Q4H PRN IV ELEVATED SYSTOLIC BP; Start 05/30/18 at 03:00 Methylprednisolone Sodium Succinate (Solu-Medrol) 30 mg Q8 IV Last administered on 05/30/18at 11:32; Admin Dose 30 MG; Start 05/30/18 at 08:00 AUSTYN NAJERA MD May 30, 2018 14:46
--- NOTE | 2018-05-30 17:03 | RADRPT ---
Echocardiogram Report Patient Name: CARISSA TARIQPatient ID: [id number] : 1940 (77y 6m)Study Date: 05/30/2018 7:10:39 AM Gender: FAccession #: [id number] Tech: Brendan Medina RUST Location: 51 Ref.Physician: AARON MCRAE Height(Cm): BSA: Weight(Kg): Quality: AdequateAccount #: Procedures: Echocardiographic Report: Transthoracic echocardiogram with complete 2D, M-Mode, and doppler examination. Indications: Cardiomegaly. Measurements: 2D/M Mode Doppler Measurement Value Normal Range Measurement Value Normal Range LVIDd 2D 3.3 [ 3.8 - 5.2 ] cm AV Peak Severiano 1.5 [ 100.0 - 170.0 ] cm/sec LVIDs 2D 2.4 [ 2.2 - 3.5 ] cm AV Peak PG 10.0 [ 2.0 - 9.0 ] mmHg LVPWd 2D 1.1 [ 0.6 - 0.9 ] cm LVOT Peak Severiano 1.1 [ 70.0 - 110.0 ] cm/sec IVSd 2D 1.2 [ 0.6 - 0.9 ] cm LVOT Peak PG 5.0 [ 2.0 - 6.0 ] mmHg AoR Diam 2D 2.3 [ 2.3 - 3.1 ] cm MV E Peak Severiano 0.7 [ 60.0 - 130.0 ] cm/sec EDV 2D 43.2 [ 46.0 - 106.0 ] ml MV A Peak Severiano 1.0 [ 100.0 - 120.0 ] cm/sec ESV 2D 19.5 [ 14.0 - 42.0 ] ml MV E/A 0.7 [ 0.8 - 1.5 ] ratio EF 2D 54.9 [ 54.0 - 74.0 ] percent MV Decel Time 268 [ 104 - 258 ] msec LA Dimen 2D 3.0 [ 2.7 - 3.8 ] cm Lat E` Severiano 0.1 [ 10.0 - 15.0 ] cm/sec Lateral E/E` 9.7 [ 1.0 - 2.0 ] ratio MV E/A 0.7 [ 0.8 - 1.5 ] ratio TR Peak Severiano 3.6 [ 100.0 - 280.0 ] cm/sec TR Peak PG 51.0 mmHg RVSP 54.0 [ 10.0 - 36.0 ] mmHg RA Pressure 3.0 mmHg Findings: Left Ventricle: Normal left ventricular systolic function. Normal left ventricular cavity size. Mild concentric left ventricular hypertrophy. Ejection fraction is visually estimated at 65 %. Tissue Doppler/Mitral Doppler indices are consistent with impaired relaxation (Stage I diastolic dysfunction). Right Ventricle: Normal right ventricular size. Normal right ventricular systolic function. Left Atrium: The left atrium is normal in size. Right Atrium: The right atrium is normal in size. Mitral Valve: Normal appearance of the mitral valve. Moderate mitral annular calcification. Trace mitral regurgitation. Aortic Valve: No significant aortic stenosis or insufficiency. Aortic cusps appear mildly calcified. Tricuspid Valve: Normal appearance of the tricuspid valve. Estimated peak PA systolic pressure 54 mmHg. There is mild to moderate tricuspid regurgitation. Pulmonic Valve: Pulmonic valve not well visualized. Pericardium: Normal pericardium with no significant pericardial effusion. Aorta: Normal aortic root. IVC: Normal IVC with respiratory collapse, however patient on bipap. Conclusions: Normal left ventricular systolic function. Normal left ventricular cavity size. Mild concentric left ventricular hypertrophy. Ejection fraction is visually estimated at 65 %. Tissue Doppler/Mitral Doppler indices are consistent with impaired relaxation (Stage I diastolic dysfunction). Normal right ventricular size. Normal right ventricular systolic function. The left atrium is normal in size. The right atrium is normal in size. Estimated peak PA systolic pressure 54 mmHg. There is mild to moderate tricuspid regurgitation. No significant valvular stenosis or regurgitation seen of remaining visualized valves. Normal pericardium with no significant pericardial effusion. Electronically Signed By: Shad Bower 2018-05-30 17:02:48 PDT
[2018-05-30] MEDS ORDERED: INSULIN GLARGINE [LANTus] (100 UNITS/ML) SYG SC SCH (20:00)
[2018-05-30] MEDS ORDERED: INSULIN ASPART [NOVOLOG] 3 ML PEN SC ONE (21:10)
[2018-05-30] MEDS: INSULIN GLARGINE [LANTus] (100 UNITS/ML) SYG SC SCH (21:40)
[2018-05-31] VITALS (12 sets, daily range): BP systolic 132–165; BP diastolic 64–78; PULSE 67–99; RESP 20–22
[2018-05-31] MEDS: PIPER-TAZO 3.375 GM IV (PMX) 100 ML IVPB SCH ×4 (00:17→18:32)
[2018-05-31] MEDS: ACCU-CHEK XX SCH (02:00)
[2018-05-31] MEDS: LEVALBUTEROL (NEB) 1.25 MG/0.5 ML AMP HHN SCH ×5 (04:22→20:59)
[2018-05-31] MEDS: METHYLPREDNISOLONE 40 MG INJ IV SCH ×2 (06:54→13:10)
[2018-05-31] MEDS: PANTOPRAZOLE (EC) 40 MG TAB PO SCH (06:54)
[2018-05-31] MEDS: INSULIN ASPART [NOVOLOG] 3 ML PEN SC SCH ×4 (07:54→22:02)
[2018-05-31] MEDS: IPRATROPIUM (NEB) 0.5 MG/2.5 ML AMP HHN SCH ×4 (08:30→20:59)
[2018-05-31] MEDS: ENOXAPARIN 40 MG/0.4 ML SYG SC SCH (08:58)
--- NOTE | 2018-05-31 11:35 | PN ---
Date/Time of Note Date/Time of Note DATE: 05/31/18 TIME: 11:28 Assessment/Plan VTE Prophylaxis Risk score (from Ns)>0 risk: 5 SCD applied (from Ns): Yes Pharmacological prophylaxis: LMWH Lines/Catheters IV Catheter Type (from [facility], [place]): Peripheral IV Assessment/Plan Assessment/Plan 1. Acute on chronic respiratory failure, pulmonary fibrosis related, on O2 and steroid, follow up with pulmonology 2. Pneumonia, on zosyn 3. Pulmonary fibrosis, on steroid 4. DM, on insulin, hyperglycemia due to steroid, lantus is increased 5. Hypertension, controlled 6. DVT prophylaxis: lovenox 7. CODE STATUS: DNR/DNI. Result Diagram: 05/31/18 0645 05/31/1845 Results 24hrs Laboratory Tests Test 05/30/18 11:57 05/30/18 11:59 05/30/18 18:07 05/30/18 20:28 Bedside Glucose > 595 *H 252 H 299 H 464 *H Test 05/31/18 01:44 05/31/18 06:45 05/31/18 07:00 05/31/18 07:54 Bedside Glucose 250 H 140 White Blood Count 15.6 H Red Blood Count 3.88 L Hemoglobin 11.4 L Hematocrit 36.0 L Mean Corpuscular 92.8 Volume Mean Corpuscular 29.4 Hemoglobin Mean Corpuscular 31.7 L Hemoglobin Concen t Red Cell 15.2 H Distribution Width Platelet Count 274 Mean Platelet 11.9 H Volume Immature 0.400 Granulocytes % Neutrophils % 79.9 H Lymphocytes % 13.9 L Monocytes % 5.7 Eosinophils % 0.0 Basophils % 0.1 Nucleated Red 0.0 Blood Cells % Immature 0.070 H Granulocytes # Neutrophils # 12.5 H Lymphocytes # 2.2 Monocytes # 0.9 Eosinophils # 0.0 Basophils # 0.0 Nucleated Red 0.0 Blood Cells # Sodium Level 140 Potassium Level 3.9 Chloride Level 104 Carbon Dioxide 29 Level Anion Gap 7 Blood Urea 21 H Nitrogen Creatinine 0.57 Est Glomerular Filtrat Rate mL/min Glucose Level 160 # Calcium Level 8.7 Phosphorus Level 3.8 Magnesium Level 2.2 Blood Gas Blood arterial Specimen Source Arterial Blood 05/31/2018 7:59:3 Date Drawn 6 AM Arterial Blood pH 7.439 (Temp corrected) Arterial Blood 38.4 pCO2 (Temp correct) Arterial Blood 70.3 L pO2 (Temp corrected) Arterial Blood 25.4 HCO3 Arterial Blood 1.4 Base Excess Arterial Blood 93.8 L Oxygen Saturation Reuben Test ACCEPTAB Arterial Blood Right Radial Gas Puncture Site Arterial 0.5 Blood Carboxyhemo globin Arterial Blood 0.3 Methemoglobin Blood Gas A-a O2 264.7 H Differential Oxyhemoglobin 93.0 Percent Blood Gas 37.0 Temperature Blood Gas NASAL CANNULA Modality FiO2 53.0 Blood Gas TM Notified Whom Blood Gas 05/31/2018 8:13:1 Notified Time 6 AM Subjective 24 Hr Interval Summary Free Text/Dictation still with shortness of breath, cough with white sputum Exam/Review of Systems Exam Vitals Vital Signs Date Temp Pulse Resp B/P (MAP) Pulse Ox O2 O2 Flow FiO2 Time Delivery Rate 05/31/18 20 98 7.0 08:52 05/31/18 67 08:25 05/31/18 97.7 134/73 Nasal 07:32 (93) Cannula 05/31/18 60 02:20 Intake and Output 05/30/18 05/30/18 05/31/18 1515:00 23:00 07:00 IntakeIntake Total 400 ml 900 ml BalanceBalance 400 ml 900 ml Constitutional: alert, oriented, well developed Head: normocephalic, atraumatic Eyes: nl conjunctiva, EOMI, nl lids ENMT: nl external ears & nose, nl lips & teeth, nl nasal mucosa & septum Neck: supple, non-tender Respiratory: clear to auscultation, normal air movement Cardiovascular: regular rate and rhythm, nl pulses; No bruits, No diastolic murmur, No edema, No gallop, No irregular rhythm, No jugular venous distention (JVD), No murmurs/extra sounds, No rub, No systolic murmur, No S3, No S4, No other Gastrointestinal: soft, nl liver, spleen, non-tender; No ascites, No bowel sounds, No distended, No firm, No hepatomegaly, No mass, No rebound or guarding, No splenomegaly, No surgical scars, No tender, No other Musculoskeletal: nl extremities to inspection Extremities: normal pulses; No calf tenderness, No cyanosis, No clubbing, No edema, No pitting pedal edema, No palpable cord, No tenderness, No other Neurological: CHEF UNDER II-XII intact, nl mental status, nl speech, nl strength Results Results 24hrs Laboratory Tests Test 05/30/18 11:57 05/30/18 11:59 05/30/18 18:07 05/30/18 20:28 Bedside Glucose > 595 *H 252 H 299 H 464 *H Test 05/31/18 01:44 05/31/18 06:45 05/31/18 07:00 05/31/18 07:54 Bedside Glucose 250 H 140 White Blood Count 15.6 H Red Blood Count 3.88 L Hemoglobin 11.4 L Hematocrit 36.0 L Mean Corpuscular 92.8 Volume Mean Corpuscular 29.4 Hemoglobin Mean Corpuscular 31.7 L Hemoglobin Concen t Red Cell 15.2 H Distribution Width Platelet Count 274 Mean Platelet 11.9 H Volume Immature 0.400 Granulocytes % Neutrophils % 79.9 H Lymphocytes % 13.9 L Monocytes % 5.7 Eosinophils % 0.0 Basophils % 0.1 Nucleated Red 0.0 Blood Cells % Immature 0.070 H Granulocytes # Neutrophils # 12.5 H Lymphocytes # 2.2 Monocytes # 0.9 Eosinophils # 0.0 Basophils # 0.0 Nucleated Red 0.0 Blood Cells # Sodium Level 140 Potassium Level 3.9 Chloride Level 104 Carbon Dioxide 29 Level Anion Gap 7 Blood Urea 21 H Nitrogen Creatinine 0.57 Est Glomerular Filtrat Rate mL/min Glucose Level 160 # Calcium Level 8.7 Phosphorus Level 3.8 Magnesium Level 2.2 Blood Gas Blood arterial Specimen Source Arterial Blood 05/31/2018 7:59:3 Date Drawn 6 AM Arterial Blood pH 7.439 (Temp corrected) Arterial Blood 38.4 pCO2 (Temp correct) Arterial Blood 70.3 L pO2 (Temp corrected) Arterial Blood 25.4 HCO3 Arterial Blood 1.4 Base Excess Arterial Blood 93.8 L Oxygen Saturation Reuben Test ACCEPTAB Arterial Blood Right Radial Gas Puncture Site Arterial 0.5 Blood Carboxyhemo globin Arterial Blood 0.3 Methemoglobin Blood Gas A-a O2 264.7 H Differential Oxyhemoglobin 93.0 Percent Blood Gas 37.0 Temperature Blood Gas NASAL CANNULA Modality FiO2 53.0 Blood Gas TM Notified Whom Blood Gas 05/31/2018 8:13:1 Notified Time 6 AM Medications Medication Current Medications IV Flush (NS 3 ml) 3 ml PER PROTOCOL IV ; Start 05/29/18 at 20:30 Acetaminophen (Tylenol Tab) 650 mg Q6H PRN PO .PAIN 1-3 OR TEMP; Start 05/29/18 at 20:30 Docusate Sodium (Colace) 100 mg Q12H PRN PO .CONSTIPATION; Start 05/29/18 at 20:30 Bisacodyl (Dulcolax) 5 mg DAILY PRN PO .CONSTIPATION; Start 05/29/18 at 20:30 Pantoprazole (Protonix Tab) 40 mg DAILY@06 PO Last administered on 05/31/18at 06:54; Admin Dose 40 MG; Start 05/30/18 at 06:00 Enoxaparin Sodium (Lovenox) 40 mg DAILY SC Last administered on 05/31/18at 08:58; Admin Dose 40 MG; Start 05/30/18 at 09:00 Levalbuterol (Xopenex Neb) 1.25 mg Q4H RESP THERAPY HHN Last administered on 05/31/18at 08:30; Admin Dose 1.25 MG; Start 05/29/18 at 21:00 Ipratropium [place] (Atrovent 0.02% (Neb)) 0.5 mg Q4HWA RESP THERAPY HHN Last administered on 05/31/18at 08:30; Admin Dose 0.5 MG; Start 05/29/18 at 21:00 Levalbuterol (Xopenex Neb) 1.25 mg Q4H RESP THERAPY PRN HHN WHEEZING; Start 05/29/18 at 21:00 Miscellaneous Information 1 ea NOTE XX ; Start 05/29/18 at 21:00 Glucose (Glutose) 15 gm Q15M PRN PO DECREASED GLUCOSE; Start 05/29/18 at 21:00 Glucose (Glutose) 22.5 gm Q15M PRN PO DECREASED GLUCOSE; Start 05/29/18 at 21:00 Dextrose (D50w Syringe) 25 ml Q15M PRN IV DECREASED GLUCOSE; Start 05/29/18 at 21:00 Dextrose (D50w Syringe) 50 ml Q15M PRN IV DECREASED GLUCOSE; Start 05/29/18 at 21:00 Glucagon (Glucagen) 1 mg Q15M PRN IM DECREASED GLUCOSE; Start 05/29/18 at 21:00 Glucose (Glutose) 15 gm Q15M PRN BUCCAL DECREASED GLUCOSE; Start 05/29/18 at 21:00 Diagnostic Test (Pha) (Accu-Chek) 1 ea 02 XX Last administered on 05/31/18at 0 2:00; Admin Dose 1 EA; Start 05/30/18 at 02:00 Insulin Aspart (Novolog Insulin Pen) NOVOLOG *MODERATE* ALGORITHM WITH MEALS BEDTIME SC Last administered on 05/30/18at 21:44; Admin Dose 4 UNIT; Start 05/30/18 at 07:55 Piperacillin Sod/ Tazobactam Sod 100 ml @ 200 mls/hr Q6 IVPB Last administered on 05/31/18at 06:54; Admin Dose 200 MLS/HR; Start 05/30/18 at 00:00 Insulin Glargine (Lantus) 18 units DAILY@2000 SC Last administered on 05/30/18at 21:40; Admin Dose 18 UNITS; Start 05/30/18 at 20:00 Enalaprilat (Vasotec Iv) 1.25 mg Q4H PRN IV ELEVATED SYSTOLIC BP; Start 05/30/18 at 03:00 Methylprednisolone Sodium Succinate (Solu-Medrol) 30 mg Q8 IV Last administered on 05/31/18at 06:54; Admin Dose 30 MG; Start 05/30/18 at 08:00 Guaifenesin/ Dextromethorphan (Robitussin Dm Liquid Cup) 5 ml Q4H PRN PO COUGH; Start 05/31/18 at 00:30 AUSTYN NAJERA MD May 31, 2018 11:35
[2018-05-31] MEDS: GUAIFENESIN/DM 5ML CUP PO PRN (12:02)
--- NOTE | 2018-05-31 13:43 | CONS ---
Consult Date/Type/Reason Admit Date/Time May 29, 2018 at 19:47 Initial Consult Date Type of Consult Pulmonary Date/Time of Note DATE: 05/31/18 TIME: 13:42 Subjective still with some shortness of breath but better. Objective Vital Signs Date Temp Pulse Resp B/P (MAP) Pulse Ox O2 O2 Flow FiO2 Time Delivery Rate 05/31/18 75 12:32 05/31/18 97.2 22 135/64 92 Nasal 11:30 (87) Cannula 05/31/18 7.0 08:52 05/31/18 60 02:20 Intake and Output 05/30/18 05/30/18 05/31/18 1515:00 23:00 07:00 IntakeIntake Total 400 ml 900 ml BalanceBalance 400 ml 900 ml Exam PHYSICAL EXAMINATION: GENERAL: Elderly appearing lady in mild distress with accessory muscle use. VITAL SIGNS: NECK: Supple. No JVD or lymphadenopathy. CARDIAC: S1, S2. No added sounds or murmurs. CHEST: Diminished air entry bilaterally. ABDOMEN: Soft, nontender. No guarding or rebound. EXTREMITIES: No cyanosis, clubbing, or edema. NEUROLOGIC: Generalized weakness. No focal deficits. Results/Medications Result Diagram: 05/31/18 0645 05/31/18 0645 Results 24 hrs Laboratory Tests Test 05/30/18 18:07 05/30/18 20:28 05/31/18 01:44 05/31/18 06:45 Bedside Glucose 299 H 464 *H 250 H White Blood Count 15.6 H Red Blood Count 3.88 L Hemoglobin 11.4 L Hematocrit 36.0 L Mean Corpuscular 92.8 Volume Mean Corpuscular 29.4 Hemoglobin Mean Corpuscular 31.7 L Hemoglobin Concen t Red Cell 15.2 H Distribution Width Platelet Count 274 Mean Platelet 11.9 H Volume Immature 0.400 Granulocytes % Neutrophils % 79.9 H Lymphocytes % 13.9 L Monocytes % 5.7 Eosinophils % 0.0 Basophils % 0.1 Nucleated Red 0.0 Blood Cells % Immature 0.070 H Granulocytes # Neutrophils # 12.5 H Lymphocytes # 2.2 Monocytes # 0.9 Eosinophils # 0.0 Basophils # 0.0 Nucleated Red 0.0 Blood Cells # Sodium Level 140 Potassium Level 3.9 Chloride Level 104 Carbon Dioxide 29 Level Anion Gap 7 Blood Urea 21 H Nitrogen Creatinine 0.57 Est Glomerular Filtrat Rate mL/min Glucose Level 160 # Calcium Level 8.7 Phosphorus Level 3.8 Magnesium Level 2.2 Test 05/31/18 07:00 05/31/18 07:54 05/31/18 11:48 Blood Gas Blood arterial Specimen Source Arterial Blood 05/31/2018 7:59:3 Date Drawn 6 AM Arterial Blood pH 7.439 (Temp corrected) Arterial Blood 38.4 pCO2 (Temp correct) Arterial Blood 70.3 L pO2 (Temp corrected) Arterial Blood 25.4 HCO3 Arterial Blood 1.4 Base Excess Arterial Blood 93.8 L Oxygen Saturation Reuben Test ACCEPTAB Arterial Blood Right Radial Gas Puncture Site Arterial 0.5 Blood Carboxyhemo globin Arterial Blood 0.3 Methemoglobin Blood Gas A-a O2 264.7 H Differential Oxyhemoglobin 93.0 Percent Blood Gas 37.0 Temperature Blood Gas NASAL CANNULA Modality FiO2 53.0 Blood Gas TM Notified Whom Blood Gas 05/31/2018 8:13:1 Notified Time 6 AM Bedside Glucose 140 210 Medications Current Medications IV Flush (NS 3 ml) 3 ml PER PROTOCOL IV ; Start 05/29/18 at 20:30 Acetaminophen (Tylenol Tab) 650 mg Q6H PRN PO .PAIN 1-3 OR TEMP; Start 05/29/18 at 20:30 Docusate Sodium (Colace) 100 mg Q12H PRN PO .CONSTIPATION; Start 05/29/18 at 20:30 Bisacodyl (Dulcolax) 5 mg DAILY PRN PO .CONSTIPATION; Start 05/29/18 at 20:30 Pantoprazole (Protonix Tab) 40 mg DAILY@06 PO Last administered on 05/31/18at 06 :54; Admin Dose 40 MG; Start 05/30/18 at 06:00 Enoxaparin Sodium (Lovenox) 40 mg DAILY SC Last administered on 05/31/18at 08:58; Admin Dose 40 MG; Start 05/30/18 at 09:00 Levalbuterol (Xopenex Neb) 1.25 mg Q4H RESP THERAPY HHN Last administered on 05/31/18at 13:39; Admin Dose 1.25 MG; Start 05/29/18 at 21:00 Ipratropium [place] (Atrovent 0.02% (Neb)) 0.5 mg Q4HWA RESP THERAPY HHN Last administered on 05/31/18 13:39; Admin Dose 0.5 MG; Start 05/29/18 at 21:00 Levalbuterol (Xopenex Neb) 1.25 mg Q4H RESP THERAPY PRN HHN WHEEZING; Start 05/29/18 at 21:00 Miscellaneous Information 1 ea NOTE XX ; Start 05/29/18 at 21:00 Glucose (Glutose) 15 gm Q15M PRN PO DECREASED GLUCOSE; Start 05/29/18 at 21:00 Glucose (Glutose) 22.5 gm Q15M PRN PO DECREASED GLUCOSE; Start 05/29/18 at 21:00 Dextrose (D50w Syringe) 25 ml Q15M PRN IV DECREASED GLUCOSE; Start 05/29/18 at 21:00 Dextrose (D50w Syringe) 50 ml Q15M PRN IV DECREASED GLUCOSE; Start 05/29/18 at 21:00 Glucagon (Glucagen) 1 mg Q15M PRN IM DECREASED GLUCOSE; Start 05/29/18 at 21:00 Glucose (Glutose) 15 gm Q15M PRN BUCCAL DECREASED GLUCOSE; Start 05/29/18 at 21:00 Diagnostic Test (Pha) (Accu-Chek) 1 ea 02 XX Last administered on 05/31/18at 02:00; Admin Dose 1 EA; Start 05/30/18 at 02:00 Insulin Aspart (Novolog Insulin Pen) NOVOLOG *MODERATE* ALGORITHM WITH MEALS BEDTIME SC Last administered on 05/31/18at 11:59; Admin Dose 4 UNIT; Start 05/30/18 at 07:55 Piperacillin Sod/ Tazobactam Sod 100 ml @ 200 mls/hr Q6 IVPB Last administered on 05/31/18at 12:02; Admin Dose 200 MLS/HR; Start 05/30/18 at 00:00 Insulin Glargine (Lantus) 18 units DAILY@2000 SC Last administered on 05/30/18 21:40; Admin Dose 18 UNITS; Start 05/30/18 at 20:00 Enalaprilat (Vasotec Iv) 1.25 mg Q4H PRN IV ELEVATED SYSTOLIC BP; Start 05/30/18 at 03:00 Methylprednisolone Sodium Succinate (Solu-Medrol) 30 mg Q8 IV Last administered on 05/31/18at 13:10; Admin Dose 30 MG; Start 05/30/18 at 08:00 Guaifenesin/ Dextromethorphan (Robitussin Dm Liquid Cup) 5 ml Q4H PRN PO COUGH Last administered on 05/31/18at 12:02; Admin Dose 5 ML; Start 05/31/18 at 00:30 Assessment/Plan Hospital Course (Demo Recall) IMPRESSION AND PLAN: 1. Acute hypoxemic respiratory failure, likely secondary to acute exacerbation of idiopathic pulmonary fibrosis. 2. Chronic hypoxemic respiratory failure. 3. Possible diastolic heart failure. 4. Diabetes mellitus. 5. Possible superimposed pneumonia. The patient will require: 1. Steroids. 2. Antibiotics. 3. Aspiration precautions. 4. Supplemental oxygen. 5. Glycemic management. 6. Deep venous thrombosis (DVT) and gastrointestinal (GI) prophylaxis. lorna [email or web address]. DIANE LR MD, [facility] May 31, 2018 13:43
[2018-05-31] MEDS: FUROSEMIDE 40 MG INJ IV SCH (17:03)
[2018-05-31] MEDS: INSULIN GLARGINE [LANTus] (100 UNITS/ML) SYG SC SCH (20:14)
[2018-06-01] VITALS (11 sets, daily range): BP systolic 138–169; BP diastolic 65–87; PULSE 60–88; RESP 17–20
[2018-06-01] MEDS: METHYLPREDNISOLONE 40 MG INJ IV SCH ×4 (00:34→21:09)
[2018-06-01] MEDS: PIPER-TAZO 3.375 GM IV (PMX) 100 ML IVPB SCH ×4 (00:34→17:11)
[2018-06-01] MEDS: LEVALBUTEROL (NEB) 1.25 MG/0.5 ML AMP HHN SCH ×6 (01:24→20:05)
[2018-06-01] MEDS: ACCU-CHEK XX SCH (01:32)
[2018-06-01] MEDS: PANTOPRAZOLE (EC) 40 MG TAB PO SCH (05:53)
[2018-06-01] MEDS: ENOXAPARIN 40 MG/0.4 ML SYG SC SCH (08:12)
[2018-06-01] MEDS: FUROSEMIDE 40 MG INJ IV SCH (08:18)
[2018-06-01] MEDS: IPRATROPIUM (NEB) 0.5 MG/2.5 ML AMP HHN SCH ×4 (08:39→20:05)
[2018-06-01] MEDS: INSULIN ASPART [NOVOLOG] 3 ML PEN SC SCH ×5 (09:07→21:12)
--- NOTE | 2018-06-01 09:43 | CONS ---
Assessment/Plan Assessment/Plan Assessment/Plan (Daily) Assessment and recommendations; 1. Patient with history of IPF admitted for IPF exacerbation with possibly superimposed pneumonia, difficult to make out for any acute infiltrative changes on a background of diffuse fibrotic changes. Patient however clinically still in a tenuous condition on high flow nasal cannula at 70% FiO2. Continue current supportive care. Prognosis is very poor. Consultation Date/Type/Reason Admit Date/Time May 29, 2018 at 19:47 Initial Consult Date Type of Consult Pulmonary Reason for Consultation Patient's condition is tenuous at best. Still on fairly high FiO2 via high flow nasal cannula. Patient however denies any shortness of breath at rest. Any coughing or wheezing. General exam; elderly lady, awake and alert. Currently in no distress. Date/Time of Note DATE: 06/01/18 TIME: 09:41 Exam/Review of Systems Exam Vitals Vital Signs Date Temp Pulse Resp B/P (MAP) Pulse Ox O2 O2 Flow FiO2 Time Delivery Rate 06/01/18 70 08:41 06/01/18 74 20 97 08:39 06/01/18 98.3 169/84 Nasal 08:10 (112) Cannula 05/31/18 15.0 21:41 Intake and Output 05/31/18 05/31/18 06/01/18 1414:59 22:59 06:59 IntakeIntake Total 100 ml 820 ml BalanceBalance 100 ml 820 ml Exam H EENT exam; supple neck, no JVD. No lymphadenopathy. Midline trachea. No thyromegaly. Patient has few remaining carious teeth. Chest exam; bilateral crackles. S1-S2 audible, no murmurs. Regular rhythm. Abdomen exam; soft, no organomegaly. Bowel sounds audible. Scaphoid. Extremity exam; no peripheral edema clubbing. [employer] exam; no focal deficit. Results Result Diagram: 06/01/18 0625 06/01/18 0625 Results 24hrs Laboratory Tests Test 05/31/18 11:48 05/31/18 17:04 05/31/18 20:39 05/31/18 23:00 Bedside Glucose 210 141 308 H Blood Gas Blood arterial Specimen Source Arterial Blood 05/31/2018 11:32: Date Drawn 27 PM Arterial Blood pH 7.426 (Temp corrected) Arterial Blood 46.1 H pCO2 (Temp correct) Arterial Blood 275.3 H pO2 (Temp corrected) Arterial Blood 29.6 H HCO3 Arterial Blood 4.5 H Base Excess Arterial Blood 99.2 Oxygen Saturation Reuben Test ACCEPTAB Arterial Blood Right Radial Gas Puncture Site Arterial 0.3 Blood Carboxyhemo globin Arterial Blood 0.2 Methemoglobin Blood Gas A-a O2 391.6 H Differential Oxyhemoglobin 98.7 Percent Blood Gas 37.0 Temperature Blood Gas Actual 22 Respiration Rate Blood Gas HFNC Modality FiO2 100.0 Blood Gas KB Notified Whom Blood Gas 05/31/2018 11:43: Notified Time 22 PM Test 06/01/18 01:24 06/01/18 06:25 06/01/18 07:48 Bedside Glucose 260 H 153 White Blood Count 13.0 H Red Blood Count 4.21 Hemoglobin 12.1 Hematocrit 38.6 Mean Corpuscular 91.7 Volume Mean Corpuscular 28.7 L Hemoglobin Mean Corpuscular 31.3 L Hemoglobin Concen t Red Cell 15.2 H Distribution Width Platelet Count 286 Mean Platelet 11.4 H Volume Immature 0.500 H Granulocytes % Neutrophils % 71.1 Lymphocytes % 22.9 Monocytes % 5.3 Eosinophils % 0.1 Basophils % 0.1 Nucleated Red 0.0 Blood Cells % Immature 0.060 H Granulocytes # Neutrophils # 9.2 H Lymphocytes # 3.0 H Monocytes # 0.7 Eosinophils # 0.0 Basophils # 0.0 Nucleated Red 0.0 Blood Cells # Sodium Level 140 Potassium Level 3.4 L Chloride Level 102 Carbon Dioxide 33 H Level Anion Gap 5 Blood Urea 18 Nitrogen Creatinine 0.56 Est Glomerular Filtrat Rate mL/min Glucose Level 194 Calcium Level 9.0 Total Bilirubin 0.2 Direct Bilirubin 0.00 Indirect 0.2 Bilirubin Aspartate Amino 33 Transf (AST/SGOT) Alanine 32 Aminotransferase (ALT/SGPT) Alkaline 125 H Phosphatase Total Protein 6.7 Albumin 2.9 L Globulin 3.80 H Albumin/Globulin 0.76 Ratio Medications Medication Current Medications IV Flush (NS 3 ml) 3 ml PER PROTOCOL IV ; Start 05/29/18 at 20:30 Acetaminophen (Tylenol Tab) 650 mg Q6H PRN PO .PAIN 1-3 OR TEMP; Start 05/29/18 at 20:30 Docusate Sodium (Colace) 100 mg Q12H PRN PO .CONSTIPATION; Start 05/29/18 at 20:30 Bisacodyl (Dulcolax) 5 mg DAILY PRN PO .CONSTIPATION; Start 05/29/18 at 20:30 Pantoprazole (Protonix Tab) 40 mg DAILY@06 PO Last administered on 06/01/18at 05:53; Admin Dose 40 MG; Start 05/30/18 at 06:00 Enoxaparin Sodium (Lovenox) 40 mg DAILY SC Last administered on 06/01/18at 08:12; Admin Dose 40 MG; Start 05/30/18 at 09:00 Levalbuterol (Xopenex Neb) 1.25 mg Q4H RESP THERAPY HHN Last administered on 06/01/18at 08:39; Admin Dose 1.25 MG; Start 05/29/18 at 21:00 Ipratropium [place] (Atrovent 0.02% (Neb)) 0.5 mg Q4HWA RESP THERAPY HHN Last administered on 06/01/18at 08:39; Admin Dose 0.5 MG; Start 05/29/18 at 21:00 Levalbuterol (Xopenex Neb) 1.25 mg Q4H RESP THERAPY PRN HHN WHEEZING; Start 05/29/18 at 21:00 Miscellaneous Information 1 ea NOTE XX ; Start 05/29/18 at 21:00 Glucose (Glutose) 15 gm Q15M PRN PO DECREASED GLUCOSE; Start 05/29/18 at 21:00 Glucose (Glutose) 22.5 gm Q15M PRN PO DECREASED GLUCOSE; Start 05/29/18 at 21:00 Dextrose (D50w Syringe) 25 ml Q15M PRN IV DECREASED GLUCOSE; Start 05/29/18 at 21:00 Dextrose (D50w Syringe) 50 ml Q15M PRN IV DECREASED GLUCOSE; Start 05/29/18 at 21:00 Glucagon (Glucagen) 1 mg Q15M PRN IM DECREASED GLUCOSE; Start 05/29/18 at 21:00 Glucose (Glutose) 15 gm Q15M PRN BUCCAL DECREASED GLUCOSE; Start 05/29/18 at 21:00 Diagnostic Test (Pha) (Accu-Chek) 1 ea 02 XX Last administered on 06/01/18at 01:32; Admin Dose 1 EA; Start 05/30/18 at 02:00 Insulin Aspart (Novolog Insulin Pen) NOVOLOG *MODERATE* ALGORITHM WITH MEALS BEDTIME SC Last administered on 06/01/18 09:07; Admin Dose 2 UNIT; Start 05/30/18 at 07:55 Piperacillin Sod/ Tazobactam Sod 100 ml @ 200 mls/hr Q6 IVPB Last administered on 06/01/18 05:53; Admin Dose 200 MLS/HR; Start 05/30/18 at 00:00 Insulin Glargine (Lantus) 18 units DAILY@2000 SC Last administered on 05/31/18 20:14; Admin Dose 18 UNITS; Start 05/30/18 at 20:00 Enalaprilat (Vasotec Iv) 1.25 mg Q4H PRN IV ELEVATED SYSTOLIC BP; Start 05/30/18 at 03:00 Methylprednisolone Sodium Succinate (Solu-Medrol) 30 mg Q8 IV Last administered on 06/01/18 05:53; Admin Dose 30 MG; Start 05/30/18 at 08:00 Guaifenesin/ Dextromethorphan (Robitussin Dm Liquid Cup) 5 ml Q4H PRN PO COUGH Last administered on 05/31/18 12:02; Admin Dose 5 ML; Start 05/31/18 at 00:30 Furosemide (Lasix) 40 mg DAILY IV Last administered on 06/01/18 08:18; Admin Dose 40 MG; Start 05/31/18 at 14:00 Potassium Chloride 100 ml @ 50 mls/hr Q2H IVPB ; Start 06/01/18 at 09:45; Stop 06/01/18 at 13:44 LLUVIA MARQUEZ Jun 01, 2018 09:43
[2018-06-01] MEDS: POTASSIUM CHLORIDE 100 ML IVPB SCH ×3 (10:01→15:39)
--- NOTE | 2018-06-01 13:50 | PN ---
Date/Time of Note Date/Time of Note DATE: 06/01/18 TIME: 13:42 Assessment/Plan VTE Prophylaxis Risk score (from Ns)>0 risk: 3 SCD applied (from Ns): Yes Pharmacological prophylaxis: LMWH Lines/Catheters IV Catheter Type (from Nrs): Peripheral IV Assessment/Plan Assessment/Plan 1. Acute on chronic respiratory failure - secondary to pulmonary fibrosis - Pulmonology on board and appreciate recommendations. continue current treatment. On high flow 70% but appears in distress and will request RT to increase to 80%. Titrate down as tolerated - Continue on IV steroids, nebs, and antibiotics 2. Pneumonia - on antibiotics. With cough but clear sputum - supportive care 3. hx IPF - steroids, nebs 4. Diabetes mellitus - will continue insulin, ISS and accuchecks - will add Novolog 70/30 to be given with solumedrol doses 5. HTN - stable 6. Disposition - Continue weaning O2 as tolerated. Pending [place] evaluation. If patient continues with high FIO2 requirement, may need to discuss palliative options with family Result Diagram: 06/01/1825 06/01/1825 Results 24hrs Laboratory Tests Test 05/31/18 17:04 05/31/18 20:39 05/31/18 23:00 06/01/18 01:24 Bedside Glucose 141 308 H 260 H Blood Gas Blood arterial Specimen Source Arterial Blood 05/31/2018 11:32: Date Drawn 27 PM Arterial Blood pH 7.426 (Temp corrected) Arterial Blood 46.1 H pCO2 (Temp correct) Arterial Blood 275.3 H pO2 (Temp corrected) Arterial Blood 29.6 H HCO3 Arterial Blood 4.5 H Base Excess Arterial Blood 99.2 Oxygen Saturation Reuben Test ACCEPTAB Arterial Blood Right Radial Gas Puncture Site Arterial 0.3 Blood Carboxyhemo globin Arterial Blood 0.2 Methemoglobin Blood Gas A-a O2 391.6 H Differential Oxyhemoglobin 98.7 Percent Blood Gas 37.0 Temperature Blood Gas Actual 22 Respiration Rate Blood Gas HFNC Modality FiO2 100.0 Blood Gas KB Notified Whom Blood Gas 05/31/2018 11:43: Notified Time 22 PM Test 06/01/18 06:25 06/01/18 07:48 06/01/18 11:56 White Blood Count 13.0 H Red Blood Count 4.21 Hemoglobin 12.1 Hematocrit 38.6 Mean Corpuscular 91.7 Volume Mean Corpuscular 28.7 L Hemoglobin Mean Corpuscular 31.3 L Hemoglobin Concen t Red Cell 15.2 H Distribution Width Platelet Count 286 Mean Platelet 11.4 H Volume Immature 0.500 H Granulocytes % Neutrophils % 71.1 Lymphocytes % 22.9 Monocytes % 5.3 Eosinophils % 0.1 Basophils % 0.1 Nucleated Red 0.0 Blood Cells % Immature 0.060 H Granulocytes # Neutrophils # 9.2 H Lymphocytes # 3.0 H Monocytes # 0.7 Eosinophils # 0.0 Basophils # 0.0 Nucleated Red 0.0 Blood Cells # Sodium Level 140 Potassium Level 3.4 L Chloride Level 102 Carbon Dioxide 33 H Level Anion Gap 5 Blood Urea 18 Nitrogen Creatinine 0.56 Est Glomerular Filtrat Rate mL/min Glucose Level 194 Calcium Level 9.0 Total Bilirubin 0.2 Direct Bilirubin 0.00 Indirect 0.2 Bilirubin Aspartate Amino 33 Transf (AST/SGOT) Alanine 32 Aminotransferase (ALT/SGPT) Alkaline 125 H Phosphatase Total Protein 6.7 Albumin 2.9 L Globulin 3.80 H Albumin/Globulin 0.76 Ratio Bedside Glucose 153 304 H Subjective 24 Hr Interval Summary Free Text/Dictation Patient complaining of cough with clear sputum and "spasms" in her abdomen. After FIO2 decreased, patient experienced abdominal spasms with inhalation. Exam/Review of Systems Exam Vitals Vital Signs Date Temp Pulse Resp B/P (MAP) Pulse Ox O2 O2 Flow FiO2 Time Delivery Rate 06/01/18 99 80 13:28 06/01/18 78 20 13:28 06/01/18 98.4 149/72 Nasal 12:00 (97) Cannula 05/31/18 15.0 21:41 Intake and Output 05/31/18 05/31/18 06/01/18 1515:00 23:00 07:00 IntakeIntake Total 100 ml 820 ml BalanceBalance 100 ml 820 ml Exam General: Patient is a pleasant female, mild respiratory discomfort Neck: Supple Chest: Nontender Lungs: Diminished, crackles bilaterally. no wheezing Heart: Normal S1-S2, Regular rhythm and rate. No murmur, S3, or S4 Abdomen: Soft , nontender, nondistended , bowel sounds are present. No guarding no rebound tenderness Extremities: Normal to inspection, no edema no cyanosis Results Results 24hrs Laboratory Tests Test 05/31/18 17:04 05/31/18 20:39 05/31/18 23:00 06/01/18 01:24 Bedside Glucose 141 308 H 260 H Blood Gas Blood arterial Specimen Source Arterial Blood 05/31/2018 11:32: Date Drawn 27 PM Arterial Blood pH 7.426 (Temp corrected) Arterial Blood 46.1 H pCO2 (Temp correct) Arterial Blood 275.3 H pO2 (Temp corrected) Arterial Blood 29.6 H HCO3 Arterial Blood 4.5 H Base Excess Arterial Blood 99.2 Oxygen Saturation Reuben Test ACCEPTAB Arterial Blood Right Radial Gas Puncture Site Arterial 0.3 Blood Carboxyhemo globin Arterial Blood 0.2 Methemoglobin Blood Gas A-a O2 391.6 H Differential Oxyhemoglobin 98.7 Percent Blood Gas 37.0 Temperature Blood Gas Actual 22 Respiration Rate Blood Gas HFNC Modality FiO2 100.0 Blood Gas KB Notified Whom Blood Gas 05/31/2018 11:43: Notified Time 22 PM Test 06/01/18 06:25 06/01/18 07:48 06/01/18 11:56 White Blood Count 13.0 H Red Blood Count 4.21 Hemoglobin 12.1 Hematocrit 38.6 Mean Corpuscular 91.7 Volume Mean Corpuscular 28.7 L Hemoglobin Mean Corpuscular 31.3 L Hemoglobin Concen t Red Cell 15.2 H Distribution Width Platelet Count 286 Mean Platelet 11.4 H Volume Immature 0.500 H Granulocytes % Neutrophils % 71.1 Lymphocytes % 22.9 Monocytes % 5.3 Eosinophils % 0.1 Basophils % 0.1 Nucleated Red 0.0 Blood Cells % Immature 0.060 H Granulocytes # Neutrophils # 9.2 H Lymphocytes # 3.0 H Monocytes # 0.7 Eosinophils # 0.0 Basophils # 0.0 Nucleated Red 0.0 Blood Cells # Sodium Level 140 Potassium Level 3.4 L Chloride Level 102 Carbon Dioxide 33 H Level Anion Gap 5 Blood Urea 18 Nitrogen Creatinine 0.56 Est Glomerular Filtrat Rate mL/min Glucose Level 194 Calcium Level 9.0 Total Bilirubin 0.2 Direct Bilirubin 0.00 Indirect 0.2 Bilirubin Aspartate Amino 33 Transf (AST/SGOT) Alanine 32 Aminotransferase (ALT/SGPT) Alkaline 125 H Phosphatase Total Protein 6.7 Albumin 2.9 L Globulin 3.80 H Albumin/Globulin 0.76 Ratio Bedside Glucose 153 304 H Medications Medication Current Medications IV Flush (NS 3 ml) 3 ml PER PROTOCOL IV ; Start 05/29/18 at 20:30 Acetaminophen (Tylenol Tab) 650 mg Q6H PRN PO .PAIN 1-3 OR TEMP; Start 05/29/18 at 20:30 Docusate Sodium (Colace) 100 mg Q12H PRN PO .CONSTIPATION; Start 05/29/18 at 20:30 Bisacodyl (Dulcolax) 5 mg DAILY PRN PO .CONSTIPATION; Start 05/29/18 at 20:30 Pantoprazole (Protonix Tab) 40 mg DAILY@06 PO Last administered on 06/01/18at 05:53; Admin Dose 40 MG; Start 05/30/18 at 06:00 Enoxaparin Sodium (Lovenox) 40 mg DAILY SC Last administered on 06/01/18at 08:12; Admin Dose 40 MG; Start 05/30/18 at 09:00 Levalbuterol (Xopenex Neb) 1.25 mg Q4H RESP THERAPY HHN Last administered on 06/01/18at 13:27; Admin Dose 1.25 MG; Start 05/29/18 at 21:00 Ipratropium [place] (Atrovent 0.02% (Neb)) 0.5 mg Q4HWA RESP THERAPY HHN Last administered on 06/01/18at 13:27; Admin Dose 0.5 MG; Start 05/29/18 at 21:00 Levalbuterol (Xopenex Neb) 1.25 mg Q4H RESP THERAPY PRN HHN WHEEZING; Start 05/29/18 at 21:00 Miscellaneous Information 1 ea NOTE XX ; Start 05/29/18 at 21:00 Glucose (Glutose) 15 gm Q15M PRN PO DECREASED GLUCOSE; Start 05/29/18 at 21:00 Glucose (Glutose) 22.5 gm Q15M PRN PO DECREASED GLUCOSE; Start 05/29/18 at 21:00 Dextrose (D50w Syringe) 25 ml Q15M PRN IV DECREASED GLUCOSE; Start 05/29/18 at 21:00 Dextrose (D50w Syringe) 50 ml Q15M PRN IV DECREASED GLUCOSE; Start 05/29/18 at 21:00 Glucagon (Glucagen) 1 mg Q15M PRN IM DECREASED GLUCOSE; Start 05/29/18 at 21:00 Glucose (Glutose) 15 gm Q15M PRN BUCCAL DECREASED GLUCOSE; Start 05/29/18 at 21:00 Diagnostic Test (Pha) (Accu-Chek) 1 ea 02 XX Last administered on 06/01/18at 01:32; Admin Dose 1 EA; Start 05/30/18 at 02:00 Insulin Aspart (Novolog Insulin Pen) NOVOLOG *MODERATE* ALGORITHM WITH MEALS BEDTIME SC Last administered on 06/01/18 12:15; Admin Dose 10 UNIT; Start 05/30/18 at 07:55 Piperacillin Sod/ Tazobactam Sod 100 ml @ 200 mls/hr Q6 IVPB Last administered on 06/01/18 13:24; Admin Dose 200 MLS/HR; Start 05/30/18 at 00:00 Insulin Glargine (Lantus) 18 units DAILY@2000 SC Last administered on 05/31/18 20:14; Admin Dose 18 UNITS; Start 05/30/18 at 20:00 Enalaprilat (Vasotec Iv) 1.25 mg Q4H PRN IV ELEVATED SYSTOLIC BP; Start 05/30/18 at 03:00 Methylprednisolone Sodium Succinate (Solu-Medrol) 30 mg Q8 IV Last administered on 06/01/18 05:53; Admin Dose 30 MG; Start 05/30/18 at 08:00 Guaifenesin/ Dextromethorphan (Robitussin Dm Liquid Cup) 5 ml Q4H PRN PO COUGH Last administered on 05/31/18 12:02; Admin Dose 5 ML; Start 05/31/18 at 00:30 Furosemide (Lasix) 40 mg DAILY IV Last administered on 06/01/18 08:18; Admin Dose 40 MG; Start 05/31/18 at 14:00 Potassium Chloride 100 ml @ 50 mls/hr Q2H IVPB Last administered on 06/01/18 10:01; Admin Dose 50 MLS/HR; Start 06/01/18 at 09:45; Stop 06/01/18 at 13:44 MYRON HERNANDEZ MD Jun 01, 2018 13:50
[2018-06-01] MEDS ORDERED: INSULIN ASP PROT/ASPART (70/30) PEN SC SCH (14:00)
--- NOTE | 2018-06-01 14:13 | CONS ---
Assessment/Plan Assessment/Plan Hospital Course (Demo Recall) 77-year-old female with pulmonary fibrosis, HTN, type 2 DM who presented to the emergency department with complaints of shortness of breath. Recently she has been admitted to multiple hospitals including [facility] for similar complaints. She is now being admitted for increasing respiratory distress, orthopnea, PND, and congestion. Found to have diffuse interstitial lung disease with possible pneumonia versus pulmonary edema on chest x-ray and CT. Endocrine consulted for management of type 2 DM in the setting of steroid induced hyperglycemia. At home she takes 2 oral antihyperglycemic agents, one of them being invokana but at the time of interview she could not recall the name of the other medication. Type 2 DM with steroid induced hyperglycemia, currently on solumedrol -will discontinue Novolog mix 70/30 -continue [id number] units sc daily and moderate dose novolog correction scale AC and HS -start novolog 10 units TIDAC -check FS AC and HS -will monitor FS and adjust FS accordingly -once solumedrol dose decreases her insulin requirements will likely decrease Consultation Date/Type/Reason Admit Date/Time May 29, 2018 at 19:47 Date/Time of Note DATE: 06/01/18 TIME: 14:11 Hx of Present Illness 77-year-old female with pulmonary fibrosis, HTN, type 2 DM who presented to the emergency department with complaints of shortness of breath. Recently she has been admitted to multiple hospitals including [facility] for similar complaints. She is now being admitted for increasing respiratory distress, orthopnea, PND, and congestion. Found to have diffuse interstitial lung disease with possible pneumonia versus pulmonary edema on chest x-ray and CT. Endocrine consulted for management of type 2 DM in the setting of steroid induced hyperglycemia. At home she takes 2 oral antihyperglycemic agents, one of them being invokana but at the time of interview she could not recall the name of the other medication. Past Medical History Medical History: diabetes, hypertension, other (Idiopathic pulmonary fibrosis ) Home Meds Reported Medications [Blood Pressure] No Conflict Check, 1 CAP PO DAILY 05/29/18 Omeprazole* (Omeprazole*) 40 Mg Capsule.dr, 40 MG PO DAILY, #30 CAP 05/29/18 [Insulin] No Conflict Check, 18 UNITS SQ QAM PATIENT CAN'T REMEMBER HER INSULIN NAME,BUT IN HER EXTERNAL MEDS SHE HAS A ( TOUJEO 300UNIT/1ML AND TRULICITY 1.5MG/0.5ML) 05/29/18 Canagliflozin (Invokana) 100 Mg Tablet, 100 MG PO DAILY, TAB 05/29/18 Aspirin* (Aspirin* EC) 81 Mg Tablet.dr, 81 MG PO DAILY, TAB 05/29/18 Ergocalciferol (Vitamin D2) (VITAMIN D2) 50,000 Unit Capsule, 21998 UNIT PO Q MON, CAP 05/29/18 Meloxicam* (Meloxicam*) 7.5 Mg Tablet, 7.5 MG PO DAILY, #30 TAB 05/29/18 Discontinued Scripts Guaifenesin* (Robitussin*) 100 Mg/5 Ml Syrup, 200 MG PO Q4H PRN for COUGH, #1 BOTTLE Prov:ANAHI VERDUGO S. 07/06/17 [Carboxymethylcellulose Oph] 1 DROP SOLN No Conflict Check, 1 DROP BOTH EYES TID, #1 BOTTLE Prov:ANAHI VERDUGO S. 07/06/17 Insulin Glargine* (Lantus*) 100 Unit/Ml Soln, 13 UNIT SC DAILY@08 for 30 Days, #1 BOTTLE Prov:ANAHI VERDUGO S. 07/06/17 Levofloxacin* (Levaquin*) 750 Mg Tablet, 750 MG PO DAILY@06, #6 TAB Prov:ANAHI VERDUGO S. 07/06/17 Sitagliptin Phos/Metformin HCl (Janumet 50-1,000 mg Tablet) 1 Each Tablet, 1 TAB PO DAILY, #30 2 Refills Prov:ANAHI VERDUGO S. 07/06/17 Medications Current Medications IV Flush (NS 3 ml) 3 ml PER PROTOCOL IV ; Start 05/29/18 at 20:30 Acetaminophen (Tylenol Tab) 650 mg Q6H PRN PO .PAIN 1-3 OR TEMP; Start 05/29/18 at 20:30 Docusate Sodium (Colace) 100 mg Q12H PRN PO .CONSTIPATION; Start 05/29/18 at 20:30 Bisacodyl (Dulcolax) 5 mg DAILY PRN PO .CONSTIPATION; Start 05/29/18 at 20:30 Pantoprazole (Protonix Tab) 40 mg DAILY@06 PO Last administered on 06/01/18at 05:53; Admin Dose 40 MG; Start 05/30/18 at 06:00 Enoxaparin Sodium (Lovenox) 40 mg DAILY SC Last administered on 06/01/18at 08:12; Admin Dose 40 MG; Start 05/30/18 at 09:00 Levalbuterol (Xopenex Neb) 1.25 mg Q4H RESP THERAPY HHN Last administered on 06/01/18at 13:27; Admin Dose 1.25 MG; Start 05/29/18 at 21:00 Ipratropium [place] (Atrovent 0.02% (Neb)) 0.5 mg Q4HWA RESP THERAPY HHN Last administered on 06/01/18at 13:27; Admin Dose 0.5 MG; Start 05/29/18 at 21:00 Levalbuterol (Xopenex Neb) 1.25 mg Q4H RESP THERAPY PRN HHN WHEEZING; Start 05/29/18 at 21:00 Miscellaneous Information 1 ea NOTE XX ; Start 05/29/18 at 21:00 Glucose (Glutose) 15 gm Q15M PRN PO DECREASED GLUCOSE; Start 05/29/18 at 21:00 Glucose (Glutose) 22.5 gm Q15M PRN PO DECREASED GLUCOSE; Start 05/29/18 at 21:00 Dextrose (D50w Syringe) 25 ml Q15M PRN IV DECREASED GLUCOSE; Start 05/29/18 at 21:00 Dextrose (D50w Syringe) 50 ml Q15M PRN IV DECREASED GLUCOSE; Start 05/29/18 at 21:00 Glucagon (Glucagen) 1 mg Q15M PRN IM DECREASED GLUCOSE; Start 05/29/18 at 21:00 Glucose (Glutose) 15 gm Q15M PRN BUCCAL DECREASED GLUCOSE; Start 05/29/18 at 21:00 Diagnostic Test (Pha) (Accu-Chek) 1 ea 02 XX Last administered on 06/01/18at 01:32; Admin Dose 1 EA; Start 05/30/18 at 02:00 Insulin Aspart (Novolog Insulin Pen) NOVOLOG *MODERATE* ALGORITHM WITH MEALS BEDTIME SC Last administered on 06/01/18at 12:15; Admin Dose 10 UNIT; Start 05/30/18 at 07:55 Piperacillin Sod/ Tazobactam Sod 100 ml @ 200 mls/hr Q6 IVPB Last administered on 06/01/18at 13:24; Admin Dose 200 MLS/HR; Start 05/30/18 at 00:00 Insulin Glargine (Lantus) 18 units DAILY@2000 SC Last administered on 05/31/18at 20:14; Admin Dose 18 UNITS; Start 05/30/18 at 20:00 Enalaprilat (Vasotec Iv) 1.25 mg Q4H PRN IV ELEVATED SYSTOLIC BP; Start 05/30/18 at 03:00 Methylprednisolone Sodium Succinate (Solu-Medrol) 30 mg Q8 IV Last administered on 06/01/18at 05:53; Admin Dose 30 MG; Start 05/30/18 at 08:00 Guaifenesin/ Dextromethorphan (Robitussin Dm Liquid Cup) 5 ml Q4H PRN PO COUGH Last administered on 05/31/18at 12:02; Admin Dose 5 ML; Start 05/31/18 at 00:30 Furosemide (Lasix) 40 mg DAILY IV Last administered on 06/01/18at 08:18; Admin Dose 40 MG; Start 05/31/18 at 14:00 Insulin Aspart Prota 70%/Aspart 30% (Novolog Mix (70/ 30) Flexpen) 10 unit Q8 SC ; Start 06/01/18 at 14:00 Allergies: Coded Allergies: ketorolac (Verified Allergy, Severe, 05/29/18) Past Surgical History Past Surgical Hx: other Family History Significant Family History: no pertinent family hx Social History Alcohol Use: none Smoking Status: Never smoker Drug Use: none Exam/Review of Systems Exam Vitals Vital Signs Date Temp Pulse Resp B/P (MAP) Pulse Ox O2 O2 Flow FiO2 Time Delivery Rate 06/01/18 99 80 13:28 06/01/18 78 20 13:28 06/01/18 98.4 149/72 Nasal 12:00 (97) Cannula 05/31/18 15.0 21:41 Intake and Output 05/31/18 05/31/18 06/01/18 1515:00 23:00 07:00 IntakeIntake Total 100 ml 820 ml BalanceBalance 100 ml 820 ml Exam General: In mild respiratory distress. Skin appropriate for ethnicity Eye: Extraocular movements are intact, Normal conjunctiva. HENT: Normocephalic, atraumatic. Respiratory: Decreased breath sounds bilaterally, mild expiratory wheeze bilaterally, symmetrical chest wall expansion. Cardiovascular: S1, S2. No murmur. No LE edema Gastrointestinal: Soft, Non-tender, Non-distended, Normal bowel sounds. Integumentary: Warm to touch. Neurologic: Alert, Oriented. Cognition and Speech: Speech clear and coherent, Functional cognition intact. Psychiatric: Cooperative, Appropriate mood & affect. Results Result Diagram: 06/01/18 0625 06/01/18 0625 Results 24hrs Laboratory Tests Test 05/31/18 17:04 05/31/18 20:39 05/31/18 23:00 06/01/18 01:24 Bedside Glucose 141 308 H 260 H Blood Gas Blood arterial Specimen Source Arterial Blood 05/31/2018 11:32: Date Drawn 27 PM Arterial Blood pH 7.426 (Temp corrected) Arterial Blood 46.1 H pCO2 (Temp correct) Arterial Blood 275.3 H pO2 (Temp corrected) Arterial Blood 29.6 H HCO3 Arterial Blood 4.5 H Base Excess Arterial Blood 99.2 Oxygen Saturation Reuben Test ACCEPTAB Arterial Blood Right Radial Gas Puncture Site Arterial 0.3 Blood Carboxyhemo globin Arterial Blood 0.2 Methemoglobin Blood Gas A-a O2 391.6 H Differential Oxyhemoglobin 98.7 Percent Blood Gas 37.0 Temperature Blood Gas Actual 22 Respiration Rate Blood Gas HFNC Modality FiO2 100.0 Blood Gas KB Notified Whom Blood Gas 05/31/2018 11:43: Notified Time 22 PM Test 06/01/18 06:25 06/01/18 07:48 06/01/18 11:56 White Blood Count 13.0 H Red Blood Count 4.21 Hemoglobin 12.1 Hematocrit 38.6 Mean Corpuscular 91.7 Volume Mean Corpuscular 28.7 L Hemoglobin Mean Corpuscular 31.3 L Hemoglobin Concen t Red Cell 15.2 H Distribution Width Platelet Count 286 Mean Platelet 11.4 H Volume Immature 0.500 H Granulocytes % Neutrophils % 71.1 Lymphocytes % 22.9 Monocytes % 5.3 Eosinophils % 0.1 Basophils % 0.1 Nucleated Red 0.0 Blood Cells % Immature 0.060 H Granulocytes # Neutrophils # 9.2 H Lymphocytes # 3.0 H Monocytes # 0.7 Eosinophils # 0.0 Basophils # 0.0 Nucleated Red 0.0 Blood Cells # Sodium Level 140 Potassium Level 3.4 L Chloride Level 102 Carbon Dioxide 33 H Level Anion Gap 5 Blood Urea 18 Nitrogen Creatinine 0.56 Est Glomerular Filtrat Rate mL/min Glucose Level 194 Calcium Level 9.0 Total Bilirubin 0.2 Direct Bilirubin 0.00 Indirect 0.2 Bilirubin Aspartate Amino 33 Transf (AST/SGOT) Alanine 32 Aminotransferase (ALT/SGPT) Alkaline 125 H Phosphatase Total Protein 6.7 Albumin 2.9 L Globulin 3.80 H Albumin/Globulin 0.76 Ratio Bedside Glucose 153 304 H Medications Medication Current Medications IV Flush (NS 3 ml) 3 ml PER PROTOCOL IV ; Start 05/29/18 at 20:30 Acetaminophen (Tylenol Tab) 650 mg Q6H PRN PO .PAIN 1-3 OR TEMP; Start 05/29/18 at 20:30 Docusate Sodium (Colace) 100 mg Q12H PRN PO .CONSTIPATION; Start 05/29/18 at 20:30 Bisacodyl (Dulcolax) 5 mg DAILY PRN PO .CONSTIPATION; Start 05/29/18 at 20:30 Pantoprazole (Protonix Tab) 40 mg DAILY@06 PO Last administered on 06/01/18at 05:53; Admin Dose 40 MG; Start 05/30/18 at 06:00 Enoxaparin Sodium (Lovenox) 40 mg DAILY SC Last administered on 06/01/18at 08:12; Admin Dose 40 MG; Start 05/30/18 at 09:00 Levalbuterol (Xopenex Neb) 1.25 mg Q4H RESP THERAPY HHN Last administered on 06/01/18at 13:27; Admin Dose 1.25 MG; Start 05/29/18 at 21:00 Ipratropium [place] (Atrovent 0.02% (Neb)) 0.5 mg Q4HWA RESP THERAPY HHN Last administered on 06/01/18at 13:27; Admin Dose 0.5 MG; Start 05/29/18 at 21:00 Levalbuterol (Xopenex Neb) 1.25 mg Q4H RESP THERAPY PRN HHN WHEEZING; Start 05/29/18 at 21:00 Miscellaneous Information 1 ea NOTE XX ; Start 05/29/18 at 21:00 Glucose (Glutose) 15 gm Q15M PRN PO DECREASED GLUCOSE; Start 05/29/18 at 21:00 Glucose (Glutose) 22.5 gm Q15M PRN PO DECREASED GLUCOSE; Start 05/29/18 at 21:00 Dextrose (D50w Syringe) 25 ml Q15M PRN IV DECREASED GLUCOSE; Start 05/29/18 at 21:00 Dextrose (D50w Syringe) 50 ml Q15M PRN IV DECREASED GLUCOSE; Start 05/29/18 at 21:00 Glucagon (Glucagen) 1 mg Q15M PRN IM DECREASED GLUCOSE; Start 05/29/18 at 21:00 Glucose (Glutose) 15 gm Q15M PRN BUCCAL DECREASED GLUCOSE; Start 05/29/18 at 21:00 Diagnostic Test (Pha) (Accu-Chek) 1 ea 02 XX Last administered on 06/01/18at 01:32; Admin Dose 1 EA; Start 05/30/18 at 02:00 Insulin Aspart (Novolog Insulin Pen) NOVOLOG *MODERATE* ALGORITHM WITH MEALS BEDTIME SC Last administered on 06/01/18 12:15; Admin Dose 10 UNIT; Start 05/30/18 at 07:55 Piperacillin Sod/ Tazobactam Sod 100 ml @ 200 mls/hr Q6 IVPB Last administered on 06/01/18 13:24; Admin Dose 200 MLS/HR; Start 05/30/18 at 00:00 Insulin Glargine (Lantus) 18 units DAILY@2000 SC Last administered on 05/31/18 20:14; Admin Dose 18 UNITS; Start 05/30/18 at 20:00 Enalaprilat (Vasotec Iv) 1.25 mg Q4H PRN IV ELEVATED SYSTOLIC BP; Start 05/30/18 at 03:00 Methylprednisolone Sodium Succinate (Solu-Medrol) 30 mg Q8 IV Last administered on 06/01/18 05:53; Admin Dose 30 MG; Start 05/30/18 at 08:00 Guaifenesin/ Dextromethorphan (Robitussin Dm Liquid Cup) 5 ml Q4H PRN PO COUGH Last administered on 05/31/18 12:02; Admin Dose 5 ML; Start 05/31/18 at 00:30 Furosemide (Lasix) 40 mg DAILY IV Last administered on 06/01/18 08:18; Admin Dose 40 MG; Start 05/31/18 at 14:00 Insulin Aspart Prota 70%/Aspart 30% (Novolog Mix (70/ 30) Flexpen) 10 unit Q8 SC ; Start 06/01/18 at 14:00 CARL NAJERA MD Jun 01, 2018 14:12
[2018-06-01] MEDS ORDERED: POTASSIUM CHLORIDE 20 MEQ POWDER FOR ORAL SOLN PO ONE (17:00)
[2018-06-01] MEDS: GUAIFENESIN/DM 5ML CUP PO PRN (17:10)
[2018-06-01] MEDS: INSULIN GLARGINE [LANTus] (100 UNITS/ML) SYG SC SCH (21:12)
[2018-06-01] MEDS ORDERED: INSULIN ASPART [NOVOLOG] 3 ML PEN SC ONE (21:30)
[2018-06-01] MEDS ORDERED: ACCU-CHEK XX ONE (23:30)
[2018-06-02] VITALS (11 sets, daily range): BP systolic 131–176; BP diastolic 67–86; PULSE 53–80; RESP 18–20
[2018-06-02] MEDS: LEVALBUTEROL (NEB) 1.25 MG/0.5 ML AMP HHN SCH ×7 (00:25→21:36)
[2018-06-02] MEDS: PIPER-TAZO 3.375 GM IV (PMX) 100 ML IVPB SCH ×5 (00:31→23:19)
[2018-06-02] MEDS: ENALAPRILAT 1.25 MG INJ IV PRN (01:32)
[2018-06-02] MEDS: ACCU-CHEK XX SCH (01:43)
[2018-06-02] MEDS: PANTOPRAZOLE (EC) 40 MG TAB PO SCH (05:52)
[2018-06-02] MEDS: METHYLPREDNISOLONE 40 MG INJ IV SCH ×3 (05:52→21:34)
--- NOTE | 2018-06-02 08:29 | CONS ---
Assessment/Plan Assessment/Plan Assessment/Plan (Daily) Assessment and recommendations; 1. patient admitted with IPF exacerbation with possibly superimposed bilateral pneumonia with interval clinical improvement. Currently on 50% FiO2 via high flow nasal cannula. Continue current supportive care. Wean down FiO2 as tolerated. Consider transfer to rehab center. Consultation Date/Type/Reason Admit Date/Time May 29, 2018 at 19:47 Initial Consult Date Type of Consult Pulmonary Date/Time of Note DATE: 06/02/18 TIME: 08:27 24 HR Interval Summary Free Text/Dictation Patient's condition is improving. Currently on 50% FiO2 via high flow nasal cannula, down from 80% FiO2 yesterday. Patient denies any shortness of breath, coughing, wheezing. General exam; elderly female, awake alert, currently in no distress. Exam/Review of Systems Exam Vitals Vital Signs Date Temp Pulse Resp B/P (MAP) Pulse Ox O2 O2 Flow FiO2 Time Delivery Rate 06/02/18 98.2 57 18 156/79 91 Room Air 07:47 (104) 06/02/18 50 05:09 05/31/18 15.0 21:41 Intake and Output 06/01/18 06/01/18 06/02/18 1515:00 23:00 07:00 IntakeIntake Total 850 ml 700 ml OutputOutput Total 1000 ml BalanceBalance -150 ml 700 ml Exam H EENT exam; supple neck, no JVD. No lymphadenopathy. Midline trachea. No thyromegaly. Patient has 2 remaining carious teeth. Chest exam; bilateral crackles. S1-S2 audible, no murmurs. Regular rhythm. Abdomen exam; soft, nontender. No organomegaly. Bowel sounds audible. Extremity exam; no peripheral edema clubbing. 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 Results Result Diagram: 06/01/18 0625 06/01/18 0625 Results 24hrs Laboratory Tests Test 06/01/18 11:56 06/01/18 17:22 06/01/18 20:58 06/01/18 21:00 Bedside Glucose 304 H 244 H 525 *H 350 H Test 06/01/18 23:40 06/02/18 01:36 06/02/18 07:03 06/02/18 08:19 Bedside Glucose 309 H 234 H 210 White Blood Count Pending Red Blood Count Pending Hemoglobin Pending Hematocrit Pending Mean Corpuscular Pending Volume Mean Corpuscular Pending Hemoglobin Mean Corpuscular Pending Hemoglobin Concent Red Cell Pending Distribution Width Platelet Count Pending Mean Platelet Volume Pending Medications Medication Current Medications IV Flush (NS 3 ml) 3 ml PER PROTOCOL IV ; Start 05/29/18 at 20:30 Acetaminophen (Tylenol Tab) 650 mg Q6H PRN PO .PAIN 1-3 OR TEMP; Start 05/29/18 at 20:30 Docusate Sodium (Colace) 100 mg Q12H PRN PO .CONSTIPATION; Start 05/29/18 at 20:30 Bisacodyl (Dulcolax) 5 mg DAILY PRN PO .CONSTIPATION; Start 05/29/18 at 20:30 Pantoprazole (Protonix Tab) 40 mg DAILY@06 PO Last administered on 06/02/18at 05:52; Admin Dose 40 MG; Start 05/30/18 at 06:00 Enoxaparin Sodium (Lovenox) 40 mg DAILY SC Last administered on 06/01/18at 08:12; Admin Dose 40 MG; Start 05/30/18 at 09:00 Levalbuterol (Xopenex Neb) 1.25 mg Q4H RESP THERAPY HHN Last administered on 06/02/18at 05:09; Admin Dose 1.25 MG; Start 05/29/18 at 21:00 Ipratropium [place] (Atrovent 0.02% (Neb)) 0.5 mg Q4HWA RESP THERAPY HHN Last administered on 06/01/18at 20:05; Admin Dose 0.5 MG; Start 05/29/18 at 21:00 Levalbuterol (Xopenex Neb) 1.25 mg Q4H RESP THERAPY PRN HHN WHEEZING; Start 05/29/18 at 21:00 Miscellaneous Information 1 ea NOTE XX ; Start 05/29/18 at 21:00 Glucose (Glutose) 15 gm Q15M PRN PO DECREASED GLUCOSE; Start 05/29/18 at 21:00 Glucose (Glutose) 22.5 gm Q15M PRN PO DECREASED GLUCOSE; Start 05/29/18 at 21:00 Dextrose (D50w Syringe) 25 ml Q15M PRN IV DECREASED GLUCOSE; Start 05/29/18 at 21:00 Dextrose (D50w Syringe) 50 ml Q15M PRN IV DECREASED GLUCOSE; Start 05/29/18 at 21:00 Glucagon (Glucagen) 1 mg Q15M PRN IM DECREASED GLUCOSE; Start 05/29/18 at 21:00 Glucose (Glutose) 15 gm Q15M PRN BUCCAL DECREASED GLUCOSE; Start 05/29/18 at 21:00 Diagnostic Test (Pha) (Accu-Chek) 1 ea 02 XX Last administered on 06/02/18 01:43; Admin Dose 1 EA; Start 05/30/18 at 02:00 Insulin Aspart (Novolog Insulin Pen) NOVOLOG *MODERATE* ALGORITHM WITH MEALS BEDTIME SC Last administered on 06/01/18 21:12; Admin Dose 4 UNIT; Start 05/30/18 at 07:55 Piperacillin Sod/ Tazobactam Sod 100 ml @ 200 mls/hr Q6 IVPB Last administered on 06/02/18 05:46; Admin Dose 200 MLS/HR; Start 05/30/18 at 00:00 Insulin Glargine (Lantus) 18 units DAILY@2000 SC Last administered on 06/01/18 21:12; Admin Dose 18 UNITS; Start 05/30/18 at 20:00 Enalaprilat (Vasotec Iv) 1.25 mg Q4H PRN IV ELEVATED SYSTOLIC BP Last administered on 06/02/18 01:32; Admin Dose 1.25 MG; Start 05/30/18 at 03:00 Methylprednisolone Sodium Succinate (Solu-Medrol) 30 mg Q8 IV Last administered on 06/02/18 05:52; Admin Dose 30 MG; Start 05/30/18 at 08:00 Guaifenesin/ Dextromethorphan (Robitussin Dm Liquid Cup) 5 ml Q4H PRN PO COUGH Last administered on 06/01/18 17:10; Admin Dose 5 ML; Start 05/31/18 at 00:30 Furosemide (Lasix) 40 mg DAILY IV Last administered on 06/01/18 08:18; Admin Dose 40 MG; Start 05/31/18 at 14:00 Insulin Aspart (Novolog Insulin Pen) 10 unit WITH MEALS SC Last administered on 06/01/18 17:25; Admin Dose 10 UNIT; Start 06/01/18 at 17:55 LLUVIA MARQUEZ Jun 02, 2018 08:29
[2018-06-02] MEDS: INSULIN ASPART [NOVOLOG] 3 ML PEN SC SCH ×7 (08:33→20:51)
[2018-06-02] MEDS: ENOXAPARIN 40 MG/0.4 ML SYG SC SCH (08:35)
[2018-06-02] MEDS: FUROSEMIDE 40 MG INJ IV SCH (08:36)
[2018-06-02] MEDS: IPRATROPIUM (NEB) 0.5 MG/2.5 ML AMP HHN SCH ×5 (09:51→21:36)
--- NOTE | 2018-06-02 13:28 | PN ---
Date/Time of Note Date/Time of Note DATE: 06/02/18 TIME: 13:23 Assessment/Plan VTE Prophylaxis Risk score (from Ns)>0 risk: 4 SCD applied (from Ns): Yes Pharmacological prophylaxis: LMWH Lines/Catheters IV Catheter Type (from Nrs): Peripheral IV Urinary Cath still in place: No Assessment/Plan Assessment/Plan 1. Acute on chronic respiratory failure- improving - Patient is tolerating 50% O2 but experiencing abdominal spasms with each inspiration. Will try Baclofen as needed for relief. monitor for sedation - secondary to pulmonary fibrosis - Pulmonology on board and appreciate recommendations. continue current treatment. - Continue on IV steroids, nebs, and antibiotics 2. Pneumonia - on antibiotics. - supportive care 3. hx IPF - steroids, nebs 4. Diabetes mellitus - Endocrinology on board for management of hyperglycemia in setting of steroid use 5. HTN - stable 6. Disposition - Continue weaning O2 as tolerated. Pending [place] evaluation. Result Diagram: 06/02/18 0703 06/02/18 0703 Results 24hrs Laboratory Tests Test 06/01/18 17:22 06/01/18 20:58 06/01/18 21:00 06/01/18 23:40 Bedside Glucose 244 H 525 *H 350 H 309 H Test 06/02/18 01:36 06/02/18 07:03 06/02/18 08:19 06/02/18 12:11 Bedside Glucose 234 H 210 253 H White Blood Count 10.9 H Red Blood Count 4.21 Hemoglobin 12.5 Hematocrit 39.2 Mean Corpuscular 93.1 Volume Mean Corpuscular 29.7 Hemoglobin Mean Corpuscular 31.9 L Hemoglobin Concent Red Cell 14.6 H Distribution Width Platelet Count 280 Mean Platelet Volume 12.0 H Immature 0.500 H Granulocytes % Neutrophils % 71.6 Lymphocytes % 22.5 Monocytes % 5.3 Eosinophils % 0.0 Basophils % 0.1 Nucleated Red Blood 0.0 Cells % Immature 0.050 H Granulocytes # Neutrophils # 7.8 H Lymphocytes # 2.5 Monocytes # 0.6 Eosinophils # 0.0 Basophils # 0.0 Nucleated Red Blood 0.0 Cells # Sodium Level 137 Potassium Level 3.9 Chloride Level 98 Carbon Dioxide Level 31 Anion Gap 8 Blood Urea Nitrogen 23 H Creatinine 0.53 Est Glomerular Filtrat Rate mL/min Glucose Level 223 H Calcium Level 8.8 Total Bilirubin 0.4 Direct Bilirubin 0.00 Indirect Bilirubin 0.4 Aspartate Amino 36 Transf (AST/SGOT) Alanine 29 Aminotransferase (AL T/SGPT) Alkaline Phosphatase 112 Total Protein 6.5 Albumin 3.0 L Globulin 3.50 H Albumin/Globulin 0.85 Ratio Subjective 24 Hr Interval Summary Free Text/Dictation Patient complaining of discomfort in abdominal area given spasms noted with each inspiration. Denies any respiratory distress. Exam/Review of Systems Exam Vitals Vital Signs Date Temp Pulse Resp B/P (MAP) Pulse Ox O2 O2 Flow FiO2 Time Delivery Rate 06/02/18 80 12:01 06/02/18 98.6 18 145/73 92 Nasal 11:42 (97) Cannula 06/02/18 50 09:52 05/31/18 15.0 21:41 Intake and Output 06/01/18 06/01/18 06/02/18 1515:00 23:00 07:00 IntakeIntake Total 850 ml 700 ml OutputOutput Total 1000 ml BalanceBalance -150 ml 700 ml Exam General: Patient is a pleasant female, discomfort due to abdominal spasms Neck: Supple Chest: Nontender Lungs: Diminished, crackles bilaterally. no wheezing Heart: Normal S1-S2, Regular rhythm and rate. No murmur, S3, or S4 Abdomen: Soft , mildly tender, spasms noted with inspiration, nondistended , bowel sounds are present. No guarding no rebound tenderness Extremities: Normal to inspection, no edema no cyanosis Results Results 24hrs Laboratory Tests Test 06/01/18 17:22 06/01/18 20:58 06/01/18 21:00 06/01/18 23:40 Bedside Glucose 244 H 525 *H 350 H 309 H Test 06/02/18 01:36 06/02/18 07:03 06/02/18 08:19 06/02/18 12:11 Bedside Glucose 234 H 210 253 H White Blood Count 10.9 H Red Blood Count 4.21 Hemoglobin 12.5 Hematocrit 39.2 Mean Corpuscular 93.1 Volume Mean Corpuscular 29.7 Hemoglobin Mean Corpuscular 31.9 L Hemoglobin Concent Red Cell 14.6 H Distribution Width Platelet Count 280 Mean Platelet Volume 12.0 H Immature 0.500 H Granulocytes % Neutrophils % 71.6 Lymphocytes % 22.5 Monocytes % 5.3 Eosinophils % 0.0 Basophils % 0.1 Nucleated Red Blood 0.0 Cells % Immature 0.050 H Granulocytes # Neutrophils # 7.8 H Lymphocytes # 2.5 Monocytes # 0.6 Eosinophils # 0.0 Basophils # 0.0 Nucleated Red Blood 0.0 Cells # Sodium Level 137 Potassium Level 3.9 Chloride Level 98 Carbon Dioxide Level 31 Anion Gap 8 Blood Urea Nitrogen 23 H Creatinine 0.53 Est Glomerular Filtrat Rate mL/min Glucose Level 223 H Calcium Level 8.8 Total Bilirubin 0.4 Direct Bilirubin 0.00 Indirect Bilirubin 0.4 Aspartate Amino 36 Transf (AST/SGOT) Alanine 29 Aminotransferase (AL T/SGPT) Alkaline Phosphatase 112 Total Protein 6.5 Albumin 3.0 L Globulin 3.50 H Albumin/Globulin 0.85 Ratio Medications Medication Current Medications IV Flush (NS 3 ml) 3 ml PER PROTOCOL IV ; Start 05/29/18 at 20:30 Acetaminophen (Tylenol Tab) 650 mg Q6H PRN PO .PAIN 1-3 OR TEMP; Start 05/29/18 at 20:30 Docusate Sodium (Colace) 100 mg Q12H PRN PO .CONSTIPATION; Start 05/29/18 at 20:30 Bisacodyl (Dulcolax) 5 mg DAILY PRN PO .CONSTIPATION; Start 05/29/18 at 20:30 Pantoprazole (Protonix Tab) 40 mg DAILY@06 PO Last administered on 06/02/18at 05:52; Admin Dose 40 MG; Start 05/30/18 at 06:00 Enoxaparin Sodium (Lovenox) 40 mg DAILY SC Last administered on 06/02/18at 08:35; Admin Dose 40 MG; Start 05/30/18 at 09:00 Levalbuterol (Xopenex Neb) 1.25 mg Q4H RESP THERAPY HHN Last administered on 06/02/18at 12:08; Admin Dose 1.25 MG; Start 05/29/18 at 21:00 Ipratropium [place] (Atrovent 0.02% (Neb)) 0.5 mg Q4HWA RESP THERAPY HHN Last administered on 06/02/18at 12:08; Admin Dose 0.5 MG; Start 05/29/18 at 21:00 Levalbuterol (Xopenex Neb) 1.25 mg Q4H RESP THERAPY PRN HHN WHEEZING; Start 05/29/18 at 21:00 Miscellaneous Information 1 ea NOTE XX ; Start 05/29/18 at 21:00 Glucose (Glutose) 15 gm Q15M PRN PO DECREASED GLUCOSE; Start 05/29/18 at 21:00 Glucose (Glutose) 22.5 gm Q15M PRN PO DECREASED GLUCOSE; Start 05/29/18 at 21 :00 Dextrose (D50w Syringe) 25 ml Q15M PRN IV DECREASED GLUCOSE; Start 05/29/18 at 21:00 Dextrose (D50w Syringe) 50 ml Q15M PRN IV DECREASED GLUCOSE; Start 05/29/18 at 21:00 Glucagon (Glucagen) 1 mg Q15M PRN IM DECREASED GLUCOSE; Start 05/29/18 at 21:00 Glucose (Glutose) 15 gm Q15M PRN BUCCAL DECREASED GLUCOSE; Start 05/29/18 at 21:00 Diagnostic Test (Pha) (Accu-Chek) 1 ea 02 XX Last administered on 06/02/18at 01:43; Admin Dose 1 EA; Start 05/30/18 at 02:00 Insulin Aspart (Novolog Insulin Pen) NOVOLOG *MODERATE* ALGORITHM WITH MEALS BEDTIME SC Last administered on 06/02/18at 12:20; Admin Dose 6 UNIT; Start 05/30/18 at 07:55 Piperacillin Sod/ Tazobactam Sod 100 ml @ 200 mls/hr Q6 IVPB Last administered on 06/02/18at 12:20; Admin Dose 200 MLS/HR; Start 05/30/18 at 00:00 Enalaprilat (Vasotec Iv) 1.25 mg Q4H PRN IV ELEVATED SYSTOLIC BP Last administered on 06/02/18at 01:32; Admin Dose 1.25 MG; Start 05/30/18 at 03:00 Methylprednisolone Sodium Succinate (Solu-Medrol) 30 mg Q8 IV Last administered on 06/02/18at 05:52; Admin Dose 30 MG; Start 05/30/18 at 08:00 Guaifenesin/ Dextromethorphan (Robitussin Dm Liquid Cup) 5 ml Q4H PRN PO COUGH Last administered on 06/01/18at 17:10; Admin Dose 5 ML; Start 05/31/18 at 00:30 Furosemide (Lasix) 40 mg DAILY IV Last administered on 06/02/18at 08:36; Admin Dose 40 MG; Start 05/31/18 at 14:00 Insulin Aspart (Novolog Insulin Pen) 18 unit WITH MEALS SC Last administered on 06/02/18at 12:18; Admin Dose 18 UNIT; Start 06/02/18 at 11:50 Insulin Glargine (Lantus) 20 units DAILY@2000 SC ; Start 06/02/18 at 20:00 MYRON HERNANDEZ MD Jun 02, 2018 13:28
[2018-06-02] MEDS: BACLOFEN 10 MG TAB PO PRN (15:07)
--- NOTE | 2018-06-02 15:28 | CONS ---
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 Persistent hyperglycemia noted yesterday and this morning. She feels well and offers no complaints. Exam/Review of Systems Exam Vitals Vital Signs Date Temp Pulse Resp B/P (MAP) Pulse Ox O2 O2 Flow FiO2 Time Delivery Rate 06/02/18 96 50 12:08 06/02/18 71 26 12:08 06/02/18 98.6 145/73 Nasal 11:42 (97) Cannula 05/31/18 15.0 21:41 Intake and Output 06/01/18 06/01/18 06/02/18 1515:00 23:00 07:00 IntakeIntake Total 850 ml 700 ml OutputOutput Total 1000 ml BalanceBalance -150 ml 700 ml Exam General: Resting in bed, appears comfortable. Skin appropriate for ethnicity Eye: Extraocular movements are intact, Normal conjunctiva. HENT: Normocephalic, atraumatic. Respiratory: Decreased breath sounds bilaterally, symmetrical chest wall expansion. Cardiovascular: S1, S2. No murmur. No LE edema Gastrointestinal: Soft, Non-tender, Non-distended, Normal bowel sounds. Integumentary: Warm to touch. Neurologic: Alert, Oriented. Cognition and Speech: Speech clear and coherent, Functional cognition intact. Psychiatric: Cooperative, Appropriate mood & affect. Results Result Diagram: 06/02/18 0703 06/02/18 0703 Results 24hrs Laboratory Tests Test 06/01/18 17:22 06/01/18 20:58 06/01/18 21:00 06/01/18 23:40 Bedside Glucose 244 H 525 *H 350 H 309 H Test 06/02/18 01:36 06/02/18 07:03 06/02/18 08:06/02/18 12:11 Bedside Glucose 234 H 210 253 H White Blood Count 10.9 H Red Blood Count 4.21 Hemoglobin 12.5 Hematocrit 39.2 Mean Corpuscular 93.1 Volume Mean Corpuscular 29.7 Hemoglobin Mean Corpuscular 31.9 L Hemoglobin Concent Red Cell 14.6 H Distribution Width Platelet Count 280 Mean Platelet Volume 12.0 H Immature 0.500 H Granulocytes % Neutrophils % 71.6 Lymphocytes % 22.5 Monocytes % 5.3 Eosinophils % 0.0 Basophils % 0.1 Nucleated Red Blood 0.0 Cells % Immature 0.050 H Granulocytes # Neutrophils # 7.8 H Lymphocytes # 2.5 Monocytes # 0.6 Eosinophils # 0.0 Basophils # 0.0 Nucleated Red Blood 0.0 Cells # Sodium Level 137 Potassium Level 3.9 Chloride Level 98 Carbon Dioxide Level 31 Anion Gap 8 Blood Urea Nitrogen 23 H Creatinine 0.53 Est Glomerular Filtrat Rate mL/min Glucose Level 223 H Calcium Level 8.8 Total Bilirubin 0.4 Direct Bilirubin 0.00 Indirect Bilirubin 0.4 Aspartate Amino 36 Transf (AST/SGOT) Alanine 29 Aminotransferase (AL T/SGPT) Alkaline Phosphatase 112 Total Protein 6.5 Albumin 3.0 L Globulin 3.50 H Albumin/Globulin 0.85 Ratio Medications Medication Current Medications IV Flush (NS 3 ml) 3 ml PER PROTOCOL IV ; Start 05/29/18 at 20:30 Acetaminophen (Tylenol Tab) 650 mg Q6H PRN PO .PAIN 1-3 OR TEMP; Start 05/29/18 at 20:30 Docusate Sodium (Colace) 100 mg Q12H PRN PO .CONSTIPATION; Start 05/29/18 at 20:30 Bisacodyl (Dulcolax) 5 mg DAILY PRN PO .CONSTIPATION; Start 05/29/18 at 20:30 Pantoprazole (Protonix Tab) 40 mg DAILY@06 PO Last administered on 06/02/18at 05:52; Admin Dose 40 MG; Start 05/30/18 at 06:00 Enoxaparin Sodium (Lovenox) 40 mg DAILY SC Last administered on 06/02/18at 08:35; Admin Dose 40 MG; Start 05/30/18 at 09:00 Levalbuterol (Xopenex Neb) 1.25 mg Q4H RESP THERAPY HHN Last administered on 06/02/18at 12:08; Admin Dose 1.25 MG; Start 05/29/18 at 21:00 Ipratropium [place] (Atrovent 0.02% (Neb)) 0.5 mg Q4HWA RESP THERAPY HHN Last administered on 06/02/18at 12:08; Admin Dose 0.5 MG; Start 05/29/18 at 21:00 Levalbuterol (Xopenex Neb) 1.25 mg Q4H RESP THERAPY PRN HHN WHEEZING; Start 05/29/18 at 21:00 Miscellaneous Information 1 ea NOTE XX ; Start 05/29/18 at 21:00 Glucose (Glutose) 15 gm Q15M PRN PO DECREASED GLUCOSE; Start 05/29/18 at 21:00 Glucose (Glutose) 22.5 gm Q15M PRN PO DECREASED GLUCOSE; Start 05/29/18 at 21:00 Dextrose (D50w Syringe) 25 ml Q15M PRN IV DECREASED GLUCOSE; Start 05/29/18 at 21:00 Dextrose (D50w Syringe) 50 ml Q15M PRN IV DECREASED GLUCOSE; Start 05/29/18 at 21:00 Glucagon (Glucagen) 1 mg Q15M PRN IM DECREASED GLUCOSE; Start 05/29/18 at 21:00 Glucose (Glutose) 15 gm Q15M PRN BUCCAL DECREASED GLUCOSE; Start 05/29/18 at 21:00 Diagnostic Test (Pha) (Accu-Chek) 1 ea 02 XX Last administered on 06/02/18at 01:43; Admin Dose 1 EA; Start 05/30/18 at 02:00 Insulin Aspart (Novolog Insulin Pen) NOVOLOG *MODERATE* ALGORITHM WITH MEALS BEDTIME SC Last administered on 06/02/18at 12:20; Admin Dose 6 UNIT; Start 05/30/18 at 07:55 Piperacillin Sod/ Tazobactam Sod 100 ml @ 200 mls/hr Q6 IVPB Last administered on 06/02/18 12:20; Admin Dose 200 MLS/HR; Start 05/30/18 at 00:00 Enalaprilat (Vasotec Iv) 1.25 mg Q4H PRN IV ELEVATED SYSTOLIC BP Last administered on 06/02/18at 01:32; Admin Dose 1.25 MG; Start 05/30/18 at 03:00 Methylprednisolone Sodium Succinate (Solu-Medrol) 30 mg Q8 IV Last administered on 06/02/18 14:12; Admin Dose 30 MG; Start 05/30/18 at 08:00 Guaifenesin/ Dextromethorphan (Robitussin Dm Liquid Cup) 5 ml Q4H PRN PO COUGH Last administered on 06/01/18 17:10; Admin Dose 5 ML; Start 05/31/18 at 00:30 Furosemide (Lasix) 40 mg DAILY IV Last administered on 06/02/18at 08:36; Admin Dose 40 MG; Start 05/31/18 at 14:00 Insulin Aspart (Novolog Insulin Pen) 18 unit WITH MEALS SC Last administered on 06/02/18 12:18; Admin Dose 18 UNIT; Start 06/02/18 at 11:50 Insulin Glargine (Lantus) 20 units DAILY@2000 SC ; Start 06/02/18 at 20:00 Baclofen (Lioresal) 5 mg TID PRN PO abdominal spasms Last administered on 06/02/18at 15:07; Admin Dose 5 MG; Start 06/02/18 at 13:30 CARL NAJERA MD Jun 02, 2018 15:28
[2018-06-02] MEDS ORDERED: INSULIN GLARGINE [LANTus] (100 UNITS/ML) SYG SC SCH (20:00)
[2018-06-02] MEDS: GUAIFENESIN/DM 5ML CUP PO PRN (22:41)
[2018-06-03] VITALS (11 sets, daily range): BP systolic 110–190; BP diastolic 57–90; PULSE 53–84; RESP 18–20
[2018-06-03] MEDS: LEVALBUTEROL (NEB) 1.25 MG/0.5 ML AMP HHN SCH ×7 (00:17→21:19)
[2018-06-03] MEDS: ACCU-CHEK XX SCH (02:24)
[2018-06-03] MEDS: ENALAPRILAT 1.25 MG INJ IV PRN (04:32)
[2018-06-03] MEDS: PANTOPRAZOLE (EC) 40 MG TAB PO SCH (05:03)
[2018-06-03] MEDS: PIPER-TAZO 3.375 GM IV (PMX) 100 ML IVPB SCH ×3 (05:03→17:57)
[2018-06-03] MEDS: METHYLPREDNISOLONE 40 MG INJ IV SCH ×3 (05:05→21:04)
[2018-06-03] MEDS ORDERED: hydrALAzine 20 MG INJ IV ONE (07:00)
[2018-06-03] MEDS: INSULIN ASPART [NOVOLOG] 3 ML PEN SC SCH ×7 (07:36→21:00)
[2018-06-03] MEDS: FUROSEMIDE 40 MG INJ IV SCH (08:17)
[2018-06-03] MEDS: ENOXAPARIN 40 MG/0.4 ML SYG SC SCH (08:18)
[2018-06-03] MEDS: IPRATROPIUM (NEB) 0.5 MG/2.5 ML AMP HHN SCH ×4 (08:58→21:19)
[2018-06-03] MEDS: BACLOFEN 10 MG TAB PO PRN (10:11)
--- NOTE | 2018-06-03 11:02 | PN ---
Date/Time of Note Date/Time of Note DATE: 06/03/18 TIME: 10:59 Assessment/Plan VTE Prophylaxis Risk score (from Ns)>0 risk: 5 SCD applied (from Ns): Yes Pharmacological prophylaxis: LMWH Lines/Catheters IV Catheter Type (from [facility] [place] Urinary Cath still in place: No Assessment/Plan Assessment/Plan 1. Acute on chronic respiratory failure, pulmonary fibrosis related, still on 30 L/min O2 and steroid, follow up with pulmonology 2. Pneumonia, on zosyn 3. Pulmonary fibrosis, on steroid 4. DM, on insulin, hyperglycemia due to steroid, better controlled 5. Hypertension, controlled 6. DVT prophylaxis: lovenox 7. CODE STATUS: DNR/DNI. 8. Abdominal US for pulsatile feeling on abdomen Result Diagram: 06/03/18 0651 06/03/18 0651 Results 24hrs Laboratory Tests Test 06/02/18 12:11 06/02/18 17:26 06/02/18 20:35 06/03/18 02:07 Bedside Glucose 253 H 204 385 H 265 H Test 06/03/18 06:51 06/03/18 07:31 White Blood Count 10.2 Red Blood Count 4.28 Hemoglobin 12.5 Hematocrit 39.4 Mean Corpuscular 92.1 Volume Mean Corpuscular 29.2 Hemoglobin Mean Corpuscular 31.7 L Hemoglobin Concent Red Cell 14.4 Distribution Width Platelet Count 298 Mean Platelet Volume 11.4 H Immature 0.400 Granulocytes % Neutrophils % 75.7 Lymphocytes % 19.7 Monocytes % 4.1 Eosinophils % 0.0 Basophils % 0.1 Nucleated Red Blood 0.0 Cells % Immature 0.040 H Granulocytes # Neutrophils # 7.7 H Lymphocytes # 2.0 Monocytes # 0.4 Eosinophils # 0.0 Basophils # 0.0 Nucleated Red Blood 0.0 Cells # Sodium Level 136 Potassium Level 3.9 Chloride Level 100 Carbon Dioxide Level 31 Anion Gap 5 Blood Urea Nitrogen 26 H Creatinine 0.48 Est Glomerular Filtrat Rate mL/min Glucose Level 219 Calcium Level 9.0 Total Bilirubin 0.4 Direct Bilirubin 0.00 Indirect Bilirubin 0.4 Aspartate Amino 34 Transf (AST/SGOT) Alanine 38 Aminotransferase (AL T/SGPT) Alkaline Phosphatase 105 Total Protein 6.4 Albumin 2.8 L Globulin 3.60 H Albumin/Globulin 0.77 Ratio Bedside Glucose 180 Subjective 24 Hr Interval Summary Free Text/Dictation pulsatile feeling on abdomen, no pain Exam/Review of Systems Exam Vitals Vital Signs Date Temp Pulse Resp B/P (MAP) Pulse Ox O2 O2 Flow FiO2 Time Delivery Rate 06/03/18 98 45 08:59 06/03/18 71 08:01 06/03/18 98.3 20 113/57 07:30 (75) 06/03/18 Nasal 00:17 Cannula 05/31/18 15.0 21:41 Intake and Output 06/02/18 06/02/18 06/03/18 1515:00 23:00 07:00 IntakeIntake Total 100 ml 700 ml 850 ml BalanceBalance 100 ml 700 ml 850 ml Constitutional: alert, oriented, well developed Head: normocephalic, atraumatic Eyes: nl conjunctiva, EOMI, nl lids ENMT: nl external ears & nose, nl lips & teeth, nl nasal mucosa & septum Neck: supple, non-tender Respiratory: clear to auscultation, normal air movement Cardiovascular: regular rate and rhythm, nl pulses; No bruits, No diastolic murmur, No edema, No gallop, No irregular rhythm, No jugular venous distention (JVD), No murmurs/extra sounds, No rub, No systolic murmur, No S3, No S4, No other Gastrointestinal: soft, nl liver, spleen, non-tender Musculoskeletal: nl extremities to inspection Extremities: normal pulses; No calf tenderness, No cyanosis, No clubbing, No edema, No pitting pedal edema, No palpable cord, No tenderness, No other Neurological: [employer]IC[employer] II-XII intact, nl mental status, nl speech, nl strength Results Results 24hrs Laboratory Tests Test 06/02/18 12:11 06/02/18 17:26 06/02/18 20:35 06/03/18 02:07 Bedside Glucose 253 H 204 385 H 265 H Test 06/03/18 06:51 06/03/18 07:31 White Blood Count 10.2 Red Blood Count 4.28 Hemoglobin 12.5 Hematocrit 39.4 Mean Corpuscular 92.1 Volume Mean Corpuscular 29.2 Hemoglobin Mean Corpuscular 31.7 L Hemoglobin Concent Red Cell 14.4 Distribution Width Platelet Count 298 Mean Platelet Volume 11.4 H Immature 0.400 Granulocytes % Neutrophils % 75.7 Lymphocytes % 19.7 Monocytes % 4.1 Eosinophils % 0.0 Basophils % 0.1 Nucleated Red Blood 0.0 Cells % Immature 0.040 H Granulocytes # Neutrophils # 7.7 H Lymphocytes # 2.0 Monocytes # 0.4 Eosinophils # 0.0 Basophils # 0.0 Nucleated Red Blood 0.0 Cells # Sodium Level 136 Potassium Level 3.9 Chloride Level 100 Carbon Dioxide Level 31 Anion Gap 5 Blood Urea Nitrogen 26 H Creatinine 0.48 Est Glomerular Filtrat Rate mL/min Glucose Level 219 Calcium Level 9.0 Total Bilirubin 0.4 Direct Bilirubin 0.00 Indirect Bilirubin 0.4 Aspartate Amino 34 Transf (AST/SGOT) Alanine 38 Aminotransferase (AL T/SGPT) Alkaline Phosphatase 105 Total Protein 6.4 Albumin 2.8 L Globulin 3.60 H Albumin/Globulin 0.77 Ratio Bedside Glucose 180 Medications Medication Current Medications IV Flush (NS 3 ml) 3 ml PER PROTOCOL IV ; Start 05/29/18 at 20:30 Acetaminophen (Tylenol Tab) 650 mg Q6H PRN PO .PAIN 1-3 OR TEMP; Start 05/29/18 at 20:30 Docusate Sodium (Colace) 100 mg Q12H PRN PO .CONSTIPATION; Start 05/29/18 at 20:30 Bisacodyl (Dulcolax) 5 mg DAILY PRN PO .CONSTIPATION; Start 05/29/18 at 20:30 Pantoprazole (Protonix Tab) 40 mg DAILY@06 PO Last administered on 06/03/18at 05:03; Admin Dose 40 MG; Start 05/30/18 at 06:00 Enoxaparin Sodium (Lovenox) 40 mg DAILY SC Last administered on 06/03/18at 08:18; Admin Dose 40 MG; Start 05/30/18 at 09:00 Levalbuterol (Xopenex Neb) 1.25 mg Q4H RESP THERAPY HHN Last administered on 06/03/18at 04:56; Admin Dose 1.25 MG; Start 05/29/18 at 21:00 Ipratropium [place] (Atrovent 0.02% (Neb)) 0.5 mg Q4HWA RESP THERAPY HHN Last administered on 06/02/18at 21:36; Admin Dose 0.5 MG; Start 05/29/18 at 21:00 Levalbuterol (Xopenex Neb) 1.25 mg Q4H RESP THERAPY PRN HHN WHEEZING; Start 05/29/18 at 21:00 Miscellaneous Information 1 ea NOTE XX ; Start 05/29/18 at 21:00 Glucose (Glutose) 15 gm Q15M PRN PO DECREASED GLUCOSE; Start 05/29/18 at 21:00 Glucose (Glutose) 22.5 gm Q15M PRN PO DECREASED GLUCOSE; Start 05/29/18 at 21:00 Dextrose (D50w Syringe) 25 ml Q15M PRN IV DECREASED GLUCOSE; Start 05/29/18 at 21:00 Dextrose (D50w Syringe) 50 ml Q15M PRN IV DECREASED GLUCOSE; Start 05/29/18 at 21:00 Glucagon (Glucagen) 1 mg Q15M PRN IM DECREASED GLUCOSE; Start 05/29/18 at 21:00 Glucose (Glutose) 15 gm Q15M PRN BUCCAL DECREASED GLUCOSE; Start 05/29/18 at 21:00 Diagnostic Test (Pha) (Accu-Chek) 1 ea 02 XX Last administered on 06/03/18at 02:24; Admin Dose 1 EA; Start 05/30/18 at 02:00 Insulin Aspart (Novolog Insulin Pen) NOVOLOG *MODERATE* ALGORITHM WITH MEALS BEDTIME SC Last administered on 06/03/18at 07:36; Admin Dose 2 UNIT; Start 05/30/18 at 07:55 Piperacillin Sod/ Tazobactam Sod 100 ml @ 200 mls/hr Q6 IVPB Last administered on 06/03/18at 05:03; Admin Dose 200 MLS/HR; Start 05/30/18 at 00:00 Enalaprilat (Vasotec Iv) 1.25 mg Q4H PRN IV ELEVATED SYSTOLIC BP Last administered on 06/03/18at 04:32; Admin Dose 1.25 MG; Start 05/30/18 at 03:00 Methylprednisolone Sodium Succinate (Solu-Medrol) 30 mg Q8 IV Last administered on 06/03/18at 05:05; Admin Dose 30 MG; Start 05/30/18 at 08:00 Guaifenesin/ Dextromethorphan (Robitussin Dm Liquid Cup) 5 ml Q4H PRN PO COUGH Last administered on 06/02/18at 22:41; Admin Dose 5 ML; Start 05/31/18 at 00:30 Furosemide (Lasix) 40 mg DAILY IV Last administered on 06/03/18at 08:17; Admin Dose 40 MG; Start 05/31/18 at 14:00 Insulin Aspart (Novolog Insulin Pen) 18 unit WITH MEALS SC Last administered on 06/03/18at 07:37; Admin Dose 18 UNIT; Start 06/02/18 at 11:50 Insulin Glargine (Lantus) 20 units DAILY@2000 SC Last administered on 06/02/18at 20:52; Admin Dose 20 UNITS; Start 06/02/18 at 20:00 Baclofen (Lioresal) 5 mg TID PRN PO abdominal spasms Last administered on 06/03/18at 10:11; Admin Dose 5 MG; Start 06/02/18 at 13:30 AUSTYN NAJERA MD Jun 03, 2018 11:02
--- NOTE | 2018-06-03 14:23 | CONS ---
Consult Date/Type/Reason Admit Date/Time May 29, 2018 at 19:47 Initial Consult Date Type of Consult Pulmonary Date/Time of Note DATE: 06/03/18 TIME: 14:15 Subjective Patient comfortable. Still continues high flow O2. Objective Vital Signs Date Temp Pulse Resp B/P (MAP) Pulse Ox O2 O2 Flow FiO2 Time Delivery Rate 06/03/18 98 45 13:50 06/03/18 68 34 13:50 06/03/18 98.4 127/57 12:01 (80) 06/03/18 Nasal 00:17 Cannula 05/31/18 15.0 21:41 Intake and Output 06/02/18 06/02/18 06/03/18 1515:00 23:00 07:00 IntakeIntake Total 100 ml 700 ml 850 ml BalanceBalance 100 ml 700 ml 850 ml Exam PHYSICAL EXAMINATION: GENERAL: Elderly lady on high flow O2 VITAL SIGNS: NECK: Supple. No JVD or lymphadenopathy. CARDIAC: S1, S2, no added sounds or murmurs. CHEST: Diminished air entry bilaterally. Bilateral rales ABDOMEN: Soft, nontender. No guarding or rebound. EXTREMITIES: No cyanosis, clubbing, or edema. NEUROLOGIC: Grossly intact. No focal deficits. Vent Setting Fraction of Inspired Oxygen pe: 45 Results/Medications Result Diagram: 06/03/18 0651 06/03/18 0651 Results 24 hrs Laboratory Tests Test 06/02/18 17:26 06/02/18 20:35 06/03/18 02:07 06/03/18 06:51 Bedside Glucose 204 385 H 265 H White Blood Count 10.2 Red Blood Count 4.28 Hemoglobin 12.5 Hematocrit 39.4 Mean Corpuscular 92.1 Volume Mean Corpuscular 29.2 Hemoglobin Mean Corpuscular 31.7 L Hemoglobin Concent Red Cell 14.4 Distribution Width Platelet Count 298 Mean Platelet 11.4 H Volume Immature 0.400 Granulocytes % Neutrophils % 75.7 Lymphocytes % 19.7 Monocytes % 4.1 Eosinophils % 0.0 Basophils % 0.1 Nucleated Red 0.0 Blood Cells % Immature 0.040 H Granulocytes # Neutrophils # 7.7 H Lymphocytes # 2.0 Monocytes # 0.4 Eosinophils # 0.0 Basophils # 0.0 Nucleated Red 0.0 Blood Cells # Sodium Level 136 Potassium Level 3.9 Chloride Level 100 Carbon Dioxide 31 Level Anion Gap 5 Blood Urea 26 H Nitrogen Creatinine 0.48 Est Glomerular Filtrat Rate mL/min Glucose Level 219 Calcium Level 9.0 Total Bilirubin 0.4 Direct Bilirubin 0.00 Indirect Bilirubin 0.4 Aspartate Amino 34 Transf (AST/SGOT) Alanine 38 Aminotransferase ( ALT/SGPT) Alkaline 105 Phosphatase Total Protein 6.4 Albumin 2.8 L Globulin 3.60 H Albumin/Globulin 0.77 Ratio Test 06/03/18 07:31 06/03/18 11:47 06/03/18 12:29 Bedside Glucose 180 288 H Lab Scanned Report REFERENCE LAB Medications Current Medications IV Flush (NS 3 ml) 3 ml PER PROTOCOL IV ; Start 05/29/18 at 20:30 Acetaminophen (Tylenol Tab) 650 mg Q6H PRN PO .PAIN 1-3 OR TEMP; Start 05/29/18 at 20:30 Docusate Sodium (Colace) 100 mg Q12H PRN PO .CONSTIPATION; Start 05/29/18 at 20:30 Bisacodyl (Dulcolax) 5 mg DAILY PRN PO .CONSTIPATION; Start 05/29/18 at 20:30 Pantoprazole (Protonix Tab) 40 mg DAILY@06 PO Last administered on 06/03/18at 05:03; Admin Dose 40 MG; Start 05/30/18 at 06:00 Enoxaparin Sodium (Lovenox) 40 mg DAILY SC Last administered on 06/03/18at 08 :18; Admin Dose 40 MG; Start 05/30/18 at 09:00 Levalbuterol (Xopenex Neb) 1.25 mg Q4H RESP THERAPY HHN Last administered on 06/03/18at 13:52; Admin Dose 1.25 MG; Start 05/29/18 at 21:00 Ipratropium [place] (Atrovent 0.02% (Neb)) 0.5 mg Q4HWA RESP THERAPY HHN Last administered on 06/03/18at 13:52; Admin Dose 0.5 MG; Start 05/29/18 at 21:00 Levalbuterol (Xopenex Neb) 1.25 mg Q4H RESP THERAPY PRN HHN WHEEZING; Start 05/29/18 at 21:00 Miscellaneous Information 1 ea NOTE XX ; Start 05/29/18 at 21:00 Glucose (Glutose) 15 gm Q15M PRN PO DECREASED GLUCOSE; Start 05/29/18 at 21:00 Glucose (Glutose) 22.5 gm Q15M PRN PO DECREASED GLUCOSE; Start 05/29/18 at 21:00 Dextrose (D50w Syringe) 25 ml Q15M PRN IV DECREASED GLUCOSE; Start 05/29/18 at 21:00 Dextrose (D50w Syringe) 50 ml Q15M PRN IV DECREASED GLUCOSE; Start 05/29/18 at 21:00 Glucagon (Glucagen) 1 mg Q15M PRN IM DECREASED GLUCOSE; Start 05/29/18 at 21:00 Glucose (Glutose) 15 gm Q15M PRN BUCCAL DECREASED GLUCOSE; Start 05/29/18 at 21:00 Diagnostic Test (Pha) (Accu-Chek) 1 ea 02 XX Last administered on 06/03/18 02:24; Admin Dose 1 EA; Start 05/30/18 at 02:00 Insulin Aspart (Novolog Insulin Pen) NOVOLOG *MODERATE* ALGORITHM WITH MEALS BEDTIME SC Last administered on 06/03/18 11:58; Admin Dose 8 UNIT; Start 05/30/18 at 07:55 Piperacillin Sod/ Tazobactam Sod 100 ml @ 200 mls/hr Q6 IVPB Last administered on 06/03/18 13:06; Admin Dose 200 MLS/HR; Start 05/30/18 at 00:00 Enalaprilat (Vasotec Iv) 1.25 mg Q4H PRN IV ELEVATED SYSTOLIC BP Last administered on 06/03/18 04:32; Admin Dose 1.25 MG; Start 05/30/18 at 03:00 Methylprednisolone Sodium Succinate (Solu-Medrol) 30 mg Q8 IV Last administered on 06/03/18 13:06; Admin Dose 30 MG; Start 05/30/18 at 08:00 Guaifenesin/ Dextromethorphan (Robitussin Dm Liquid Cup) 5 ml Q4H PRN PO COUGH Last administered on 06/02/18 22:41; Admin Dose 5 ML; Start 05/31/18 at 00:30 Furosemide (Lasix) 40 mg DAILY IV Last administered on 06/03/18 08:17; Admin Dose 40 MG; Start 05/31/18 at 14:00 Insulin Aspart (Novolog Insulin Pen) 18 unit WITH MEALS SC Last administered on 4/22/19at 11:59; Admin Dose 18 UNIT; Start 06/02/18 at 11:50 Insulin Glargine (Lantus) 20 units DAILY@2000 SC Last administered on 06/02/18at 20:52; Admin Dose 20 UNITS; Start 06/02/18 at 20:00 Baclofen (Lioresal) 5 mg TID PRN PO abdominal spasms Last administered on 06/03/18at 10:11; Admin Dose 5 MG; Start 06/02/18 at 13:30 Assessment/Plan Hospital Course (Demo Recall) IMPRESSION 1. Acute hypoxemic respiratory failure, likely secondary to acute exacerbation of idiopathic pulmonary fibrosis. 2. Chronic hypoxemic respiratory failure. 3. Possible diastolic heart failure. 4. Diabetes mellitus. 5. Possible superimposed pneumonia. Plan 1. Steroids. 2. Antibiotics. 3. Aspiration precautions. 4. Supplemental oxygen. 5. Glycemic management. 6. Deep venous thrombosis (DVT) and gastrointestinal (GI) prophylaxis. lorna [email or web address]. DIANE LR MD, [facility] Jun 03, 2018 14:23
--- NOTE | 2018-06-03 17:46 | CONS ---
Assessment/Plan Assessment/Plan Problems: (1) Hyperglycemia Status: Acute Comment: Going to tie dosing of NPH insulin to the Solu-Medrol and continue with her other insulins. This should allow us to cover for the steroid-induced derangements and keep the sugars relatively controlled Consultation Date/Type/Reason Admit Date/Time May 29, 2018 at 19:47 Initial Consult Date June 01 2018 Type of Consult Endocrinology Reason for Consultation Steroid-induced hyperglycemia in a patient with known diabetes mellitus type 2 on a multiple daily injection regimen Requesting Provider: MYRON HERNANDEZ MD Date/Time of Note DATE: 06/03/18 TIME: 17:43 24 HR Interval Summary Free Text/Dictation Elderly female reports that she is still having shortness of breath. Detailed Summary Endocrine: no complaints Exam/Review of Systems Exam Vitals Vital Signs Date Temp Pulse Resp B/P (MAP) Pulse Ox O2 O2 Flow FiO2 Time Delivery Rate 06/03/18 84 16:01 06/03/18 98.0 18 132/59 98 15:51 (83) 06/03/18 45 13:50 06/03/18 Nasal 00:17 Cannula 05/31/18 15.0 21:41 Intake and Output 06/02/18 06/02/18 06/03/18 1515:00 23:00 07:00 IntakeIntake Total 100 ml 700 ml 850 ml BalanceBalance 100 ml 700 ml 850 ml Constitutional: alert, oriented Respiratory: crackles/rales Cardiovascular: regular rate and rhythm, nl pulses Results Result Diagram: 06/03/18 0651 06/03/18 0651 Results 24hrs Laboratory Tests Test 06/02/18 20:35 06/03/18 02:07 06/03/18 06:51 06/03/18 07:31 Bedside Glucose 385 H 265 H 180 White Blood Count 10.2 Red Blood Count 4.28 Hemoglobin 12.5 Hematocrit 39.4 Mean Corpuscular 92.1 Volume Mean Corpuscular 29.2 Hemoglobin Mean Corpuscular 31.7 L Hemoglobin Concent Red Cell 14.4 Distribution Width Platelet Count 298 Mean Platelet 11.4 H Volume Immature 0.400 Granulocytes % Neutrophils % 75.7 Lymphocytes % 19.7 Monocytes % 4.1 Eosinophils % 0.0 Basophils % 0.1 Nucleated Red 0.0 Blood Cells % Immature 0.040 H Granulocytes # Neutrophils # 7.7 H Lymphocytes # 2.0 Monocytes # 0.4 Eosinophils # 0.0 Basophils # 0.0 Nucleated Red 0.0 Blood Cells # Sodium Level 136 Potassium Level 3.9 Chloride Level 100 Carbon Dioxide 31 Level Anion Gap 5 Blood Urea 26 H Nitrogen Creatinine 0.48 Est Glomerular Filtrat Rate mL/min Glucose Level 219 Calcium Level 9.0 Total Bilirubin 0.4 Direct Bilirubin 0.00 Indirect Bilirubin 0.4 Aspartate Amino 34 Transf (AST/SGOT) Alanine 38 Aminotransferase ( ALT/SGPT) Alkaline 105 Phosphatase Total Protein 6.4 Albumin 2.8 L Globulin 3.60 H Albumin/Globulin 0.77 Ratio Test 06/03/18 11:47 06/03/18 12:29 06/03/18 17:06 Bedside Glucose 288 H 140 Lab Scanned Report REFERENCE LAB Medications Medication Current Medications IV Flush (NS 3 ml) 3 ml PER PROTOCOL IV ; Start 05/29/18 at 20:30 Acetaminophen (Tylenol Tab) 650 mg Q6H PRN PO .PAIN 1-3 OR TEMP; Start 05/29/18 at 20:30 Docusate Sodium (Colace) 100 mg Q12H PRN PO .CONSTIPATION; Start 05/29/18 at 20:30 Bisacodyl (Dulcolax) 5 mg DAILY PRN PO .CONSTIPATION; Start 05/29/18 at 20:30 Pantoprazole (Protonix Tab) 40 mg DAILY@06 PO Last administered on 06/03/18at 05:03; Admin Dose 40 MG; Start 05/30/18 at 06:00 Enoxaparin Sodium (Lovenox) 40 mg DAILY SC Last administered on 06/03/18at 08:18; Admin Dose 40 MG; Start 05/30/18 at 09:00 Levalbuterol (Xopenex Neb) 1.25 mg Q4H RESP THERAPY HHN Last administered on 06/03/18 13:52; Admin Dose 1.25 MG; Start 05/29/18 at 21:00 Ipratropium [place] (Atrovent 0.02% (Neb)) 0.5 mg Q4HWA RESP THERAPY HHN Last administered on 06/03/18 13:52; Admin Dose 0.5 MG; Start 05/29/18 at 21:00 Levalbuterol (Xopenex Neb) 1.25 mg Q4H RESP THERAPY PRN HHN WHEEZING; Start 05/29/18 at 21:00 Miscellaneous Information 1 ea NOTE XX ; Start 05/29/18 at 21:00 Glucose (Glutose) 15 gm Q15M PRN PO DECREASED GLUCOSE; Start 05/29/18 at 21:00 Glucose (Glutose) 22.5 gm Q15M PRN PO DECREASED GLUCOSE; Start 05/29/18 at 21 :00 Dextrose (D50w Syringe) 25 ml Q15M PRN IV DECREASED GLUCOSE; Start 05/29/18 at 21:00 Dextrose (D50w Syringe) 50 ml Q15M PRN IV DECREASED GLUCOSE; Start 05/29/18 at 21:00 Glucagon (Glucagen) 1 mg Q15M PRN IM DECREASED GLUCOSE; Start 05/29/18 at 21:00 Glucose (Glutose) 15 gm Q15M PRN BUCCAL DECREASED GLUCOSE; Start 05/29/18 at 21:00 Diagnostic Test (Pha) (Accu-Chek) 1 ea 02 XX Last administered on 06/03/18at 02:24; Admin Dose 1 EA; Start 05/30/18 at 02:00 Insulin Aspart (Novolog Insulin Pen) NOVOLOG *MODERATE* ALGORITHM WITH MEALS BEDTIME SC Last administered on 06/03/18at 11:58; Admin Dose 8 UNIT; Start 05/30/18 at 07:55 Piperacillin Sod/ Tazobactam Sod 100 ml @ 200 mls/hr Q6 IVPB Last administered on 06/03/18 13:06; Admin Dose 200 MLS/HR; Start 05/30/18 at 00:00 Enalaprilat (Vasotec Iv) 1.25 mg Q4H PRN IV ELEVATED SYSTOLIC BP Last administered on 06/03/18at 04:32; Admin Dose 1.25 MG; Start 05/30/18 at 03:00 Methylprednisolone Sodium Succinate (Solu-Medrol) 30 mg Q8 IV Last administered on 06/03/18 13:06; Admin Dose 30 MG; Start 05/30/18 at 08:00 Guaifenesin/ Dextromethorphan (Robitussin Dm Liquid Cup) 5 ml Q4H PRN PO COUGH Last administered on 06/02/18at 22:41; Admin Dose 5 ML; Start 05/31/18 at 00:30 Furosemide (Lasix) 40 mg DAILY IV Last administered on 06/03/18at 08:17; Admin Dose 40 MG; Start 05/31/18 at 14:00 Insulin Aspart (Novolog Insulin Pen) 18 unit WITH MEALS SC Last administered on 06/03/18at 17:13; Admin Dose 18 UNIT; Start 06/02/18 at 11:50 Insulin Glargine (Lantus) 20 units DAILY@2000 SC Last administered on 06/02/18at 20:52; Admin Dose 20 UNITS; Start 06/02/18 at 20:00 Baclofen (Lioresal) 5 mg TID PRN PO abdominal spasms Last administered on 06/03/18at 10:11; Admin Dose 5 MG; Start 06/02/18 at 13:30 JORDI WANG MD Jun 03, 2018 17:46
[2018-06-03] MEDS: NPH, HUMAN INSULIN ISOPHANE 3ML VIAL SC SCH (21:14)
[2018-06-03] MEDS: INSULIN GLARGINE [LANTus] (100 UNITS/ML) SYG SC SCH (21:14)
[2018-06-04] VITALS (12 sets, daily range): BP systolic 128–171; BP diastolic 66–81; PULSE 54–87; RESP 18–22
[2018-06-04] MEDS: PIPER-TAZO 3.375 GM IV (PMX) 100 ML IVPB SCH ×5 (00:25→23:06)
[2018-06-04] MEDS: LEVALBUTEROL (NEB) 1.25 MG/0.5 ML AMP HHN SCH ×6 (00:54→21:27)
[2018-06-04] MEDS: ACCU-CHEK XX SCH (02:00)
[2018-06-04] MEDS ORDERED: hydrALAzine 20 MG INJ IV ONE (04:00)
[2018-06-04] MEDS: METHYLPREDNISOLONE 40 MG INJ IV SCH ×3 (06:10→22:03)
[2018-06-04] MEDS: PANTOPRAZOLE (EC) 40 MG TAB PO SCH (06:14)
[2018-06-04] MEDS: NPH, HUMAN INSULIN ISOPHANE 3ML VIAL SC SCH ×3 (07:01→22:15)
[2018-06-04] MEDS: INSULIN ASPART [NOVOLOG] 3 ML PEN SC SCH ×7 (07:29→22:15)
[2018-06-04] MEDS: ENOXAPARIN 40 MG/0.4 ML SYG SC SCH (08:26)
[2018-06-04] MEDS: BACLOFEN 10 MG TAB PO PRN ×2 (08:27→11:10)
[2018-06-04] MEDS: FUROSEMIDE 40 MG INJ IV SCH (08:28)
[2018-06-04] MEDS: IPRATROPIUM (NEB) 0.5 MG/2.5 ML AMP HHN SCH ×4 (09:04→21:27)
--- NOTE | 2018-06-04 13:08 | PN ---
Date/Time of Note Date/Time of Note DATE: 06/04/18 TIME: 13:06 Assessment/Plan VTE Prophylaxis Risk score (from Ns)>0 risk: 5 SCD applied (from Ns): Yes Pharmacological prophylaxis: LMWH Lines/Catheters IV Catheter Type (from Nrs): Saline Lock Urinary Cath still in place: No Assessment/Plan Assessment/Plan 1. Acute on chronic respiratory failure, pulmonary fibrosis related, still on 30 L/min O2 and steroid, follow up with pulmonology 2. Pneumonia, on zosyn 3. Pulmonary fibrosis, on steroid 4. DM, on insulin, hyperglycemia due to steroid, better controlled 5. Hypertension, controlled 6. DVT prophylaxis: lovenox 7. CODE STATUS: DNR/DNI. Result Diagram: 06/04/1861906/04/18619 Results 24hrs Laboratory Tests Test 06/03/18 17:06 06/03/18 21:02 06/04/18 06:13 06/04/18 06:20 Bedside Glucose 140 160 175 White Blood Count 11.9 H Red Blood Count 4.68 Hemoglobin 13.9 Hematocrit 43.1 Mean Corpuscular 92.1 Volume Mean Corpuscular 29.7 Hemoglobin Mean Corpuscular 32.3 Hemoglobin Concent Red Cell 14.6 H Distribution Width Platelet Count 363 # Mean Platelet Volume 11.9 H Immature 0.500 H Granulocytes % Neutrophils % 68.4 Lymphocytes % 26.0 Monocytes % 5.0 Eosinophils % 0.0 Basophils % 0.1 Nucleated Red Blood 0.0 Cells % Immature 0.060 H Granulocytes # Neutrophils # 8.1 H Lymphocytes # 3.1 H Monocytes # 0.6 Eosinophils # 0.0 Basophils # 0.0 Nucleated Red Blood 0.0 Cells # Sodium Level 139 Potassium Level 4.0 Chloride Level 99 Carbon Dioxide Level 35 H Anion Gap 5 Blood Urea Nitrogen 31 H Creatinine 0.61 Est Glomerular Filtrat Rate mL/min Glucose Level 207 Calcium Level 9.4 Total Bilirubin 0.3 Direct Bilirubin 0.00 Indirect Bilirubin 0.3 Aspartate Amino 28 Transf (AST/SGOT) Alanine 40 Aminotransferase (AL T/SGPT) Alkaline Phosphatase 101 Total Protein 6.7 Albumin 2.9 L Globulin 3.80 H Albumin/Globulin 0.76 Ratio Test 06/04/18 07:23 06/04/18 11:47 Bedside Glucose 178 284 H Subjective 24 Hr Interval Summary Free Text/Dictation still with shortness of breath Exam/Review of Systems Exam Vitals Vital Signs Date Temp Pulse Resp B/P (MAP) Pulse Ox O2 O2 Flow FiO2 Time Delivery Rate 06/04/18 98.0 74 18 148/75 95 11:51 (99) 06/04/18 40 09:11 06/03/18 Nasal 00:17 Cannula 05/31/18 15.0 21:41 Intake and Output 06/03/18 06/03/18 06/04/18 1414:59 22:59 06:59 IntakeIntake Total 100 ml 800 ml 200 ml OutputOutput Total 1200 ml BalanceBalance 100 ml -400 ml 200 ml Constitutional: alert, oriented, well developed Psych: no complaints, nl mood/affect Head: normocephalic, atraumatic Eyes: nl conjunctiva, EOMI, nl lids, PERRL ENMT: nl external ears & nose, nl lips & teeth, nl nasal mucosa & septum Neck: supple, non-tender Respiratory: clear to auscultation, normal air movement Cardiovascular: regular rate and rhythm, nl pulses; No bruits, No diastolic murmur, No edema, No gallop, No irregular rhythm, No jugular venous distention (JVD), No murmurs/extra sounds, No rub, No systolic murmur, No S3, No S4, No other Gastrointestinal: soft, nl liver, spleen, non-tender Musculoskeletal: nl extremities to inspection Extremities: normal pulses; No calf tenderness, No cyanosis, No clubbing, No edema, No pitting pedal edema, No palpable cord, No tenderness, No other Neurological: REMODELER II-XII intact, nl mental status, nl speech, nl strength Results Results 24hrs Laboratory Tests Test 06/03/18 17:06 06/03/18 21:02 06/04/18 06:13 06/04/18 06:20 Bedside Glucose 140 160 175 White Blood Count 11.9 H Red Blood Count 4.68 Hemoglobin 13.9 Hematocrit 43.1 Mean Corpuscular 92.1 Volume Mean Corpuscular 29.7 Hemoglobin Mean Corpuscular 32.3 Hemoglobin Concent Red Cell 14.6 H Distribution Width Platelet Count 363 # Mean Platelet Volume 11.9 H Immature 0.500 H Granulocytes % Neutrophils % 68.4 Lymphocytes % 26.0 Monocytes % 5.0 Eosinophils % 0.0 Basophils % 0.1 Nucleated Red Blood 0.0 Cells % Immature 0.060 H Granulocytes # Neutrophils # 8.1 H Lymphocytes # 3.1 H Monocytes # 0.6 Eosinophils # 0.0 Basophils # 0.0 Nucleated Red Blood 0.0 Cells # Sodium Level 139 Potassium Level 4.0 Chloride Level 99 Carbon Dioxide Level 35 H Anion Gap 5 Blood Urea Nitrogen 31 H Creatinine 0.61 Est Glomerular Filtrat Rate mL/min Glucose Level 207 Calcium Level 9.4 Total Bilirubin 0.3 Direct Bilirubin 0.00 Indirect Bilirubin 0.3 Aspartate Amino 28 Transf (AST/SGOT) Alanine 40 Aminotransferase (AL T/SGPT) Alkaline Phosphatase 101 Total Protein 6.7 Albumin 2.9 L Globulin 3.80 H Albumin/Globulin 0.76 Ratio Test 06/04/18 07:23 06/04/18 11:47 Bedside Glucose 178 284 H Medications Medication Current Medications IV Flush (NS 3 ml) 3 ml PER PROTOCOL IV ; Start 05/29/18 at 20:30 Acetaminophen (Tylenol Tab) 650 mg Q6H PRN PO .PAIN 1-3 OR TEMP; Start 05/29/18 at 20:30 Docusate Sodium (Colace) 100 mg Q12H PRN PO .CONSTIPATION; Start 05/29/18 at 20:30 Bisacodyl (Dulcolax) 5 mg DAILY PRN PO .CONSTIPATION; Start 05/29/18 at 20:30 Pantoprazole (Protonix Tab) 40 mg DAILY@06 PO Last administered on 06/04/18at 06:14; Admin Dose 40 MG; Start 05/30/18 at 06:00 Enoxaparin Sodium (Lovenox) 40 mg DAILY SC Last administered on 06/04/18 08:26; Admin Dose 40 MG; Start 05/30/18 at 09:00 Levalbuterol (Xopenex Neb) 1.25 mg Q4H RESP THERAPY HHN Last administered on 06/04/18 09:04; Admin Dose 1.25 MG; Start 05/29/18 at 21:00 Ipratropium [place] (Atrovent 0.02% (Neb)) 0.5 mg Q4HWA RESP THERAPY HHN Last administered on 06/04/18 09:04; Admin Dose 0.5 MG; Start 05/29/18 at 21:00 Levalbuterol (Xopenex Neb) 1.25 mg Q4H RESP THERAPY PRN HHN WHEEZING; Start 05/29/18 at 21:00 Miscellaneous Information 1 ea NOTE XX ; Start 05/29/18 at 21:00 Glucose (Glutose) 15 gm Q15M PRN PO DECREASED GLUCOSE; Start 05/29/18 at 21:00 Glucose (Glutose) 22.5 gm Q15M PRN PO DECREASED GLUCOSE; Start 05/29/18 at 21:00 Dextrose (D50w Syringe) 25 ml Q15M PRN IV DECREASED GLUCOSE; Start 05/29/18 at 21:00 Dextrose (D50w Syringe) 50 ml Q15M PRN IV DECREASED GLUCOSE; Start 05/29/18 at 21:00 Glucagon (Glucagen) 1 mg Q15M PRN IM DECREASED GLUCOSE; Start 05/29/18 at 21:00 Glucose (Glutose) 15 gm Q15M PRN BUCCAL DECREASED GLUCOSE; Start 05/29/18 at 21:00 Diagnostic Test (Pha) (Accu-Chek) 1 ea 02 XX Last administered on 06/03/18at 02:24; Admin Dose 1 EA; Start 05/30/18 at 02:00 Insulin Aspart (Novolog Insulin Pen) NOVOLOG *MODERATE* ALGORITHM WITH MEALS BEDTIME SC Last administered on 06/04/18at 11:49; Admin Dose 8 UNIT; Start 05/30/18 at 07:55 Piperacillin Sod/ Tazobactam Sod 100 ml @ 200 mls/hr Q6 IVPB Last administered on 06/04/18at 11:10; Admin Dose 200 MLS/HR; Start 05/30/18 at 00:00 Enalaprilat (Vasotec Iv) 1.25 mg Q4H PRN IV ELEVATED SYSTOLIC BP Last administered on 06/03/18at 04:32; Admin Dose 1.25 MG; Start 05/30/18 at 03:00 Methylprednisolone Sodium Succinate (Solu-Medrol) 30 mg Q8 IV Last administered on 06/04/18at 06:10; Admin Dose 30 MG; Start 05/30/18 at 08:00 Guaifenesin/ Dextromethorphan (Robitussin Dm Liquid Cup) 5 ml Q4H PRN PO COUGH Last administered on 06/02/18at 22:41; Admin Dose 5 ML; Start 05/31/18 at 00:30 Furosemide (Lasix) 40 mg DAILY IV Last administered on 06/04/18at 08:28; Admin Dose 40 MG; Start 05/31/18 at 14:00 Baclofen (Lioresal) 5 mg TID PRN PO abdominal spasms Last administered on 06/04/18at 11:10; Admin Dose 5 MG; Start 06/02/18 at 13:30 Insulin Human NPH (Humulin N) 8 unit Q8 SC Last administered on 06/04/18at 07:01; Admin Dose 8 UNIT; Start 06/03/18 at 22:00 Insulin Aspart (Novolog Insulin Pen) 15 unit WITH MEALS SC Last administered on 06/04/18at 11:50; Admin Dose 15 UNIT; Start 06/04/18 at 07:55 Insulin Glargine (Lantus) 18 units DAILY@2000 SC Last administered on 06/03/18at 21:14; Admin Dose 18 UNITS; Start 06/03/18 at 20:00 AUSTYN NAJERA MD Jun 04, 2018 13:08
--- NOTE | 2018-06-04 15:19 | CONS ---
Consult Date/Type/Reason Admit Date/Time May 29, 2018 at 19:47 Initial Consult Date Type of Consult Pulmonary Requesting Provider: MYRON HERNANDEZ MD Date/Time of Note DATE: 06/04/18 TIME: 15:18 Subjective Patient is comfortable this morning Objective Vital Signs Date Temp Pulse Resp B/P (MAP) Pulse Ox O2 O2 Flow FiO2 Time Delivery Rate 06/04/18 92 26 94 13:30 06/04/18 40 13:30 06/04/18 98.0 148/75 11:51 (99) 06/03/18 Nasal 00:17 Cannula 05/31/18 15.0 21:41 Intake and Output 06/03/18 06/03/18 06/04/18 1515:00 23:00 07:00 IntakeIntake Total 100 ml 800 ml 200 ml OutputOutput Total 1200 ml BalanceBalance 100 ml -400 ml 200 ml Exam PHYSICAL EXAMINATION: GENERAL: Elderly lady on high flow O2 VITAL SIGNS: NECK: Supple. No JVD or lymphadenopathy. CARDIAC: S1, S2, no added sounds or murmurs. CHEST: Diminished air entry bilaterally. Bilateral rales ABDOMEN: Soft, nontender. No guarding or rebound. EXTREMITIES: No cyanosis, clubbing, or edema. NEUROLOGIC: Grossly intact. No focal deficits. Vent Setting Fraction of Inspired Oxygen pe: 40 Results/Medications Result Diagram: 06/04/18 0620 06/04/18 0620 Results 24 hrs Laboratory Tests Test 06/03/18 17:06 06/03/18 21:02 06/04/18 06:13 06/04/18 06:20 Bedside Glucose 140 160 175 White Blood Count 11.9 H Red Blood Count 4.68 Hemoglobin 13.9 Hematocrit 43.1 Mean Corpuscular 92.1 Volume Mean Corpuscular 29.7 Hemoglobin Mean Corpuscular 32.3 Hemoglobin Concent Red Cell 14.6 H Distribution Width Platelet Count 363 # Mean Platelet Volume 11.9 H Immature 0.500 H Granulocytes % Neutrophils % 68.4 Lymphocytes % 26.0 Monocytes % 5.0 Eosinophils % 0.0 Basophils % 0.1 Nucleated Red Blood 0.0 Cells % Immature 0.060 H Granulocytes # Neutrophils # 8.1 H Lymphocytes # 3.1 H Monocytes # 0.6 Eosinophils # 0.0 Basophils # 0.0 Nucleated Red Blood 0.0 Cells # Sodium Level 139 Potassium Level 4.0 Chloride Level 99 Carbon Dioxide Level 35 H Anion Gap 5 Blood Urea Nitrogen 31 H Creatinine 0.61 Est Glomerular Filtrat Rate mL/min Glucose Level 207 Calcium Level 9.4 Total Bilirubin 0.3 Direct Bilirubin 0.00 Indirect Bilirubin 0.3 Aspartate Amino 28 Transf (AST/SGOT) Alanine 40 Aminotransferase (AL T/SGPT) Alkaline Phosphatase 101 Total Protein 6.7 Albumin 2.9 L Globulin 3.80 H Albumin/Globulin 0.76 Ratio Test 06/04/18 07:23 06/04/18 11:47 Bedside Glucose 178 284 H Medications Current Medications IV Flush (NS 3 ml) 3 ml PER PROTOCOL IV ; Start 05/29/18 at 20:30 Acetaminophen (Tylenol Tab) 650 mg Q6H PRN PO .PAIN 1-3 OR TEMP; Start 05/29/18 at 20:30 Docusate Sodium (Colace) 100 mg Q12H PRN PO .CONSTIPATION; Start 05/29/18 at 20:30 Bisacodyl (Dulcolax) 5 mg DAILY PRN PO .CONSTIPATION; Start 05/29/18 at 20:30 Pantoprazole (Protonix Tab) 40 mg DAILY@06 PO Last administered on 06/04/18at 06:14; Admin Dose 40 MG; Start 05/30/18 at 06:00 Enoxaparin Sodium (Lovenox) 40 mg DAILY SC Last administered on 06/04/18at 08:26; Admin Dose 40 MG; Start 05/30/18 at 09:00 Levalbuterol (Xopenex Neb) 1.25 mg Q4H RESP THERAPY HHN Last administered on 06/04/18at 13:28; Admin Dose 1.25 MG; Start 05/29/18 at 21:00 Ipratropium [place] (Atrovent 0.02% (Neb)) 0.5 mg Q4HWA RESP THERAPY HHN Last administered on 06/04/18at 13:28; Admin Dose 0.5 MG; Start 05/29/18 at 21:00 Levalbuterol (Xopenex Neb) 1.25 mg Q4H RESP THERAPY PRN HHN WHEEZING; Start 05/29/18 at 21:00 Miscellaneous Information 1 ea NOTE XX ; Start 05/29/18 at 21:00 Glucose (Glutose) 15 gm Q15M PRN PO DECREASED GLUCOSE; Start 05/29/18 at 21:00 Glucose (Glutose) 22.5 gm Q15M PRN PO DECREASED GLUCOSE; Start 05/29/18 at 21:00 Dextrose (D50w Syringe) 25 ml Q15M PRN IV DECREASED GLUCOSE; Start 05/29/18 at 21:00 Dextrose (D50w Syringe) 50 ml Q15M PRN IV DECREASED GLUCOSE; Start 05/29/18 at 21:00 Glucagon (Glucagen) 1 mg Q15M PRN IM DECREASED GLUCOSE; Start 05/29/18 at 21:00 Glucose (Glutose) 15 gm Q15M PRN BUCCAL DECREASED GLUCOSE; Start 05/29/18 at 21:00 Diagnostic Test (Pha) (Accu-Chek) 1 ea 02 XX Last administered on 06/03/18 02: 24; Admin Dose 1 EA; Start 05/30/18 at 02:00 Insulin Aspart (Novolog Insulin Pen) NOVOLOG *MODERATE* ALGORITHM WITH MEALS BEDTIME SC Last administered on 06/04/18 11:49; Admin Dose 8 UNIT; Start at 07:55 Piperacillin Sod/ Tazobactam Sod 100 ml @ 200 mls/hr Q6 IVPB Last administered on 06/04/18 11:10; Admin Dose 200 MLS/HR; Start 05/30/18 at 00:00 Enalaprilat (Vasotec Iv) 1.25 mg Q4H PRN IV ELEVATED SYSTOLIC BP Last administered on 06/03/18 04:32; Admin Dose 1.25 MG; Start 05/30/18 at 03:00 Methylprednisolone Sodium Succinate (Solu-Medrol) 30 mg Q8 IV Last administered on 06/04/18 13:36; Admin Dose 30 MG; Start 05/30/18 at 08:00 Guaifenesin/ Dextromethorphan (Robitussin Dm Liquid Cup) 5 ml Q4H PRN PO COUGH Last administered on 06/02/18 22:41; Admin Dose 5 ML; Start 05/31/18 at 00:30 Furosemide (Lasix) 40 mg DAILY IV Last administered on 06/04/18 08:28; Admin Dose 40 MG; Start 05/31/18 at 14:00 Baclofen (Lioresal) 5 mg TID PRN PO abdominal spasms Last administered on 06/04/18 11:10; Admin Dose 5 MG; Start 06/02/18 at 13:30 Insulin Human NPH (Humulin N) 8 unit Q8 SC Last administered on 06/04/18 14:40; Admin Dose 8 UNIT; Start 06/03/18 at 22:00 Insulin Aspart (Novolog Insulin Pen) 15 unit WITH MEALS SC Last administered on 06/04/18 11:50; Admin Dose 15 UNIT; Start 06/04/18 at 07:55 Insulin Glargine (Lantus) 18 units DAILY@2000 SC Last administered on 06/03/18 21:14; Admin Dose 18 UNITS; Start 06/03/18 at 20:00 Assessment/Plan Hospital Course (Demo Recall) IMPRESSION 1. Acute hypoxemic respiratory failure, likely secondary to acute exacerbation of idiopathic pulmonary fibrosis. 2. Chronic hypoxemic respiratory failure. 3. Possible diastolic heart failure. 4. Diabetes mellitus. 5. Possible superimposed pneumonia. Plan 1. Steroids. DC dose 2. Antibiotics. 3. Aspiration precautions. 4. Supplemental oxygen. 5. Glycemic management. 6. Deep venous thrombosis (DVT) and gastrointestinal (GI) prophylaxis. rothman evjimmie pending. DIANE LR MD, [facility] Jun 04, 2018 15:19
--- NOTE | 2018-06-04 18:22 | CONS ---
Assessment/Plan Assessment/Plan Problems: (1) Hyperglycemia Status: Acute Comment: Glycemia is improved. I will adjust the dosing on the NPH and follow her along. Consultation Date/Type/Reason Admit Date/Time May 29, 2018 at 19:47 Initial Consult Date June 01 2018 Type of Consult Endocrinology Reason for Consultation Diabetes mellitus type 2 out of control driven by dosing of steroids Requesting Provider: MYRON HERNANDEZ MD Date/Time of Note DATE: 06/04/18 TIME: 18:20 24 HR Interval Summary Free Text/Dictation Patient reports no new complaints but remains short of breath Exam/Review of Systems Exam Vitals Vital Signs Date Temp Pulse Resp B/P (MAP) Pulse Ox O2 O2 Flow FiO2 Time Delivery Rate 06/04/18 68 20 98 17:14 06/04/18 40 17:14 06/04/18 98.1 128/67 15:32 (87) 06/03/18 Nasal 00:17 Cannula 05/31/18 15.0 21:41 Intake and Output 06/03/18 06/03/18 06/04/18 1515:00 23:00 07:00 IntakeIntake Total 100 ml 800 ml 200 ml OutputOutput Total 1200 ml BalanceBalance 100 ml -400 ml 200 ml Exam No change in exam Constitutional: alert, oriented Results Result Diagram: 06/04/18 0620 06/04/18 0620 Results 24hrs Laboratory Tests Test 06/03/18 21:02 06/04/18 06:13 06/04/18 06:20 06/04/18 07:23 Bedside Glucose 160 175 178 White Blood Count 11.9 H Red Blood Count 4.68 Hemoglobin 13.9 Hematocrit 43.1 Mean Corpuscular 92.1 Volume Mean Corpuscular 29.7 Hemoglobin Mean Corpuscular 32.3 Hemoglobin Concent Red Cell 14.6 H Distribution Width Platelet Count 363 # Mean Platelet Volume 11.9 H Immature 0.500 H Granulocytes % Neutrophils % 68.4 Lymphocytes % 26.0 Monocytes % 5.0 Eosinophils % 0.0 Basophils % 0.1 Nucleated Red Blood 0.0 Cells % Immature 0.060 H Granulocytes # Neutrophils # 8.1 H Lymphocytes # 3.1 H Monocytes # 0.6 Eosinophils # 0.0 Basophils # 0.0 Nucleated Red Blood 0.0 Cells # Sodium Level 139 Potassium Level 4.0 Chloride Level 99 Carbon Dioxide Level 35 H Anion Gap 5 Blood Urea Nitrogen 31 H Creatinine 0.61 Est Glomerular Filtrat Rate mL/min Glucose Level 207 Calcium Level 9.4 Total Bilirubin 0.3 Direct Bilirubin 0.00 Indirect Bilirubin 0.3 Aspartate Amino 28 Transf (AST/SGOT) Alanine 40 Aminotransferase (AL T/SGPT) Alkaline Phosphatase 101 Total Protein 6.7 Albumin 2.9 L Globulin 3.80 H Albumin/Globulin 0.76 Ratio Test 06/04/18 11:47 06/04/18 17:31 Bedside Glucose 284 H 170 Medications Medication Current Medications IV Flush (NS 3 ml) 3 ml PER PROTOCOL IV ; Start 05/29/18 at 20:30 Acetaminophen (Tylenol Tab) 650 mg Q6H PRN PO .PAIN 1-3 OR TEMP; Start 05/29/18 at 20:30 Docusate Sodium (Colace) 100 mg Q12H PRN PO .CONSTIPATION; Start 05/29/18 at 20:30 Bisacodyl (Dulcolax) 5 mg DAILY PRN PO .CONSTIPATION; Start 05/29/18 at 20:30 Pantoprazole (Protonix Tab) 40 mg DAILY@06 PO Last administered on 06/04/18at 06:14; Admin Dose 40 MG; Start 05/30/18 at 06:00 Enoxaparin Sodium (Lovenox) 40 mg DAILY SC Last administered on 06/04/18at 08:26; Admin Dose 40 MG; Start 05/30/18 at 09:00 Levalbuterol (Xopenex Neb) 1.25 mg Q4H RESP THERAPY HHN Last administered on 06/04/18at 17:13; Admin Dose 1.25 MG; Start 05/29/18 at 21:00 Ipratropium [place] (Atrovent 0.02% (Neb)) 0.5 mg Q4HWA RESP THERAPY HHN Last administered on 06/04/18at 17:13; Admin Dose 0.5 MG; Start 05/29/18 at 21:00 Levalbuterol (Xopenex Neb) 1.25 mg Q4H RESP THERAPY PRN HHN WHEEZING; Start 05/29/18 at 21:00 Miscellaneous Information 1 ea NOTE XX ; Start 05/29/18 at 21:00 Glucose (Glutose) 15 gm Q15M PRN PO DECREASED GLUCOSE; Start 05/29/18 at 21:00 Glucose (Glutose) 22.5 gm Q15M PRN PO DECREASED GLUCOSE; Start 05/29/18 at 21:00 Dextrose (D50w Syringe) 25 ml Q15M PRN IV DECREASED GLUCOSE; Start 05/29/18 at 21:00 Dextrose (D50w Syringe) 50 ml Q15M PRN IV DECREASED GLUCOSE; Start 05/29/18 at 21:00 Glucagon (Glucagen) 1 mg Q15M PRN IM DECREASED GLUCOSE; Start 05/29/18 at 21:00 Glucose (Glutose) 15 gm Q15M PRN BUCCAL DECREASED GLUCOSE; Start 05/29/18 at 21:00 Diagnostic Test (Pha) (Accu-Chek) 1 ea 02 XX Last administered on 06/03/18 02:24; Admin Dose 1 EA; Start 05/30/18 at 02:00 Insulin Aspart (Novolog Insulin Pen) NOVOLOG *MODERATE* ALGORITHM WITH MEALS BEDTIME SC Last administered on 06/04/18 17:36; Admin Dose 2 UNIT; Start 05/30/18 at 07:55 Piperacillin Sod/ Tazobactam Sod 100 ml @ 200 mls/hr Q6 IVPB Last administered on 06/04/18 17:32; Admin Dose 200 MLS/HR; Start 05/30/18 at 00:00 Enalaprilat (Vasotec Iv) 1.25 mg Q4H PRN IV ELEVATED SYSTOLIC BP Last administered on 06/03/18 04:32; Admin Dose 1.25 MG; Start 05/30/18 at 03:00 Methylprednisolone Sodium Succinate (Solu-Medrol) 30 mg Q8 IV Last administered on 06/04/18 13:36; Admin Dose 30 MG; Start 05/30/18 at 08:00 Guaifenesin/ Dextromethorphan (Robitussin Dm Liquid Cup) 5 ml Q4H PRN PO COUGH Last administered on 06/02/18 22:41; Admin Dose 5 ML; Start 05/31/18 at 00:30 Furosemide (Lasix) 40 mg DAILY IV Last administered on 06/04/18 08:28; Admin Dose 40 MG; Start 05/31/18 at 14:00 Baclofen (Lioresal) 5 mg TID PRN PO abdominal spasms Last administered on 4/23/19at 11:10; Admin Dose 5 MG; Start 06/02/18 at 13:30 Insulin Human NPH (Humulin N) 8 unit Q8 SC Last administered on 06/04/18at 14:40; Admin Dose 8 UNIT; Start 06/03/18 at 22:00 Insulin Aspart (Novolog Insulin Pen) 15 unit WITH MEALS SC Last administered on 06/04/18at 17:35; Admin Dose 15 UNIT; Start 06/04/18 at 07:55 Insulin Glargine (Lantus) 18 units DAILY@2000 SC Last administered on 06/03/18at 21:14; Admin Dose 18 UNITS; Start 06/03/18 at 20:00 JORDI WANG MD Jun 04, 2018 18:21
[2018-06-04] MEDS: INSULIN GLARGINE [LANTus] (100 UNITS/ML) SYG SC SCH (22:15)
[2018-06-05] VITALS (11 sets, daily range): BP systolic 124–154; BP diastolic 67–71; PULSE 55–96; RESP 22
[2018-06-05] MEDS: ACCU-CHEK XX SCH (02:00)
[2018-06-05] MEDS: LEVALBUTEROL (NEB) 1.25 MG/0.5 ML AMP HHN SCH ×7 (02:00→23:59)
[2018-06-05] MEDS: METHYLPREDNISOLONE 40 MG INJ IV SCH ×3 (05:30→21:24)
[2018-06-05] MEDS: PIPER-TAZO 3.375 GM IV (PMX) 100 ML IVPB SCH (05:30)
[2018-06-05] MEDS: PANTOPRAZOLE (EC) 40 MG TAB PO SCH (05:30)
[2018-06-05] MEDS: NPH, HUMAN INSULIN ISOPHANE 3ML VIAL SC SCH ×3 (05:55→21:31)
[2018-06-05] MEDS: INSULIN ASPART [NOVOLOG] 3 ML PEN SC SCH ×7 (07:59→20:41)
[2018-06-05] MEDS: FUROSEMIDE 40 MG INJ IV SCH (08:07)
[2018-06-05] MEDS: ENOXAPARIN 40 MG/0.4 ML SYG SC SCH (08:10)
[2018-06-05] MEDS: GUAIFENESIN/DM 5ML CUP PO PRN (09:32)
[2018-06-05] MEDS: IPRATROPIUM (NEB) 0.5 MG/2.5 ML AMP HHN SCH ×4 (09:38→20:20)
--- NOTE | 2018-06-05 10:30 | CONS ---
Assessment/Plan Assessment/Plan Assessment/Plan (Daily) Assessment and recommendations; 1. Patient admitted with IPF exacerbation with significant interval improvement, still requiring high flow nasal cannula at 50% FiO2, 40 L/min. 2. Possibly some element of superimposed pneumonia. Discontinue Zosyn. Continue other supportive measures. Patient awaiting transfer to rehab center. Prognosis is guarded to poor. Consultation Date/Type/Reason Admit Date/Time May 29, 2018 at 19:47 Initial Consult Date Type of Consult Pulmonary Requesting Provider: MYRON HERNANDEZ MD Date/Time of Note DATE: 06/05/18 TIME: 10:29 24 HR Interval Summary Free Text/Dictation Patient's condition is stable overall. Denies any shortness of breath at rest. Any coughing, wheezing, sputum production. Any fever or chills. General exam; elderly lady, sitting in a chair by bedside. Awake and alert. Currently in no distress. Exam/Review of Systems Exam Vitals Vital Signs Date Temp Pulse Resp B/P (MAP) Pulse Ox O2 O2 Flow FiO2 Time Delivery Rate 06/05/18 95 50 09:44 06/05/18 82 20 Nasal 09:43 Cannula 06/05/18 97.9 153/71 07:32 (98) Intake and Output 06/04/18 06/04/18 06/05/18 1515:00 23:00 07:00 IntakeIntake Total 500 ml 600 ml 400 ml OutputOutput Total 1200 ml BalanceBalance 500 ml -600 ml 400 ml Exam H EENT exam; supple neck, no JVD. No lymphadenopathy. Midline trachea. No thyromegaly. Pharynx is clear. Patient has a few remaining carious teeth. Chest exam; bilateral crackles. S1-S2 audible, no murmurs. Regular rhythm. Abdomen exam; soft, nontender. No organomegaly. Bowel sounds audible. Extremity exam; no peripheral edema. 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 Results Result Diagram: 06/05/18 0645 06/04/18 0620 Results 24hrs Laboratory Tests Test 06/04/18 11:47 06/04/18 17:31 06/04/18 21:57 06/05/18 03:10 Bedside Glucose 284 H 170 292 H 213 Test 06/05/18 05:32 06/05/18 06:45 06/05/18 07:36 Bedside Glucose 172 189 White Blood Count 10.8 Red Blood Count 4.47 Hemoglobin 13.0 Hematocrit 40.8 Mean Corpuscular 91.3 Volume Mean Corpuscular 29.1 Hemoglobin Mean Corpuscular 31.9 L Hemoglobin Concent Red Cell 14.7 H Distribution Width Platelet Count 335 Mean Platelet Volume 11.7 H Immature 0.400 Granulocytes % Neutrophils % 73.5 Lymphocytes % 21.5 Monocytes % 4.5 Eosinophils % 0.0 Basophils % 0.1 Nucleated Red Blood 0.0 Cells % Immature 0.040 H Granulocytes # Neutrophils # 8.0 H Lymphocytes # 2.3 Monocytes # 0.5 Eosinophils # 0.0 Basophils # 0.0 Nucleated Red Blood 0.0 Cells # Medications Medication Current Medications IV Flush (NS 3 ml) 3 ml PER PROTOCOL IV ; Start 05/29/18 at 20:30 Acetaminophen (Tylenol Tab) 650 mg Q6H PRN PO .PAIN 1-3 OR TEMP; Start 05/29/18 at 20:30 Docusate Sodium (Colace) 100 mg Q12H PRN PO .CONSTIPATION; Start 05/29/18 at 20:30 Bisacodyl (Dulcolax) 5 mg DAILY PRN PO .CONSTIPATION; Start 05/29/18 at 20:30 Pantoprazole (Protonix Tab) 40 mg DAILY@06 PO Last administered on 06/05/18at 05:30; Admin Dose 40 MG; Start 05/30/18 at 06:00 Enoxaparin Sodium (Lovenox) 40 mg DAILY SC Last administered on 06/05/18at 08:10; Admin Dose 40 MG; Start 05/30/18 at 09:00 Levalbuterol (Xopenex Neb) 1.25 mg Q4H RESP THERAPY HHN Last administered on 06/05/18at 09:40; Admin Dose 1.25 MG; Start 05/29/18 at 21:00 Ipratropium [place] (Atrovent 0.02% (Neb)) 0.5 mg Q4HWA RESP THERAPY HHN Last administered on 06/05/18at 09:38; Admin Dose 0.5 MG; Start 05/29/18 at 21:00 Levalbuterol (Xopenex Neb) 1.25 mg Q4H RESP THERAPY PRN HHN WHEEZING; Start 05/29/18 at 21:00 Miscellaneous Information 1 ea NOTE XX ; Start 05/29/18 at 21:00 Glucose (Glutose) 15 gm Q15M PRN PO DECREASED GLUCOSE; Start 05/29/18 at 21:00 Glucose (Glutose) 22.5 gm Q15M PRN PO DECREASED GLUCOSE; Start 05/29/18 at 21:00 Dextrose (D50w Syringe) 25 ml Q15M PRN IV DECREASED GLUCOSE; Start 05/29/18 at 21:00 Dextrose (D50w Syringe) 50 ml Q15M PRN IV DECREASED GLUCOSE; Start 05/29/18 at 21:00 Glucagon (Glucagen) 1 mg Q15M PRN IM DECREASED GLUCOSE; Start 05/29/18 at 21:00 Glucose (Glutose) 15 gm Q15M PRN BUCCAL DECREASED GLUCOSE; Start 05/29/18 at 21:00 Diagnostic Test (Pha) (Accu-Chek) 1 ea 02 XX Last administered on 06/03/18at 02:24; Admin Dose 1 EA; Start 05/30/18 at 02:00 Insulin Aspart (Novolog Insulin Pen) NOVOLOG *MODERATE* ALGORITHM WITH MEALS BEDTIME SC Last administered on 06/05/18 07:59; Admin Dose 4 UNIT; Start 05/30/18 at 07:55 Piperacillin Sod/ Tazobactam Sod 100 ml @ 200 mls/hr Q6 IVPB Last administered on 06/05/18 05:30; Admin Dose 200 MLS/HR; Start 05/30/18 at 00:00 Enalaprilat (Vasotec Iv) 1.25 mg Q4H PRN IV ELEVATED SYSTOLIC BP Last administered on 06/03/18 04:32; Admin Dose 1.25 MG; Start 05/30/18 at 03:00 Methylprednisolone Sodium Succinate (Solu-Medrol) 30 mg Q8 IV Last administered on 06/05/18 05:30; Admin Dose 30 MG; Start 05/30/18 at 08:00 Guaifenesin/ Dextromethorphan (Robitussin Dm Liquid Cup) 5 ml Q4H PRN PO COUGH Last administered on 06/05/18 09:32; Admin Dose 5 ML; Start 05/31/18 at 00:30 Furosemide (Lasix) 40 mg DAILY IV Last administered on 06/05/18 08:07; Admin Dose 40 MG; Start 05/31/18 at 14:00 Baclofen (Lioresal) 5 mg TID PRN PO abdominal spasms Last administered on 06/04/18at 11:10; Admin Dose 5 MG; Start 06/02/18 at 13:30 Insulin Aspart (Novolog Insulin Pen) 15 unit WITH MEALS SC Last administered on 06/05/18at 07:59; Admin Dose 15 UNIT; Start 06/04/18 at 07:55 Insulin Glargine (Lantus) 18 units DAILY@2000 SC Last administered on 06/04/18at 22:15; Admin Dose 18 UNITS; Start 06/03/18 at 20:00 Insulin Human NPH (Humulin N) 10 unit Q8 SC Last administered on 06/05/18at 05:55; Admin Dose 10 UNIT; Start 06/04/18 at 22:00 LLUVIA MARQUEZ Jun 05, 2018 10:30
--- NOTE | 2018-06-05 13:26 | PN ---
Date/Time of Note Date/Time of Note DATE: 06/05/18 TIME: 13:23 Assessment/Plan VTE Prophylaxis Risk score (from [facility] [place])>0 risk: 5 SCD applied (from [facility]): Yes Pharmacological prophylaxis: LMWH Lines/Catheters IV Catheter Type (from [facility]): [place] Urinary Cath still in place: No Assessment/Plan Assessment/Plan 1. Acute on chronic respiratory failure, pulmonary fibrosis related, on 35 L/min O2 2. Pneumonia, treated 3. Pulmonary fibrosis, on steroid 4. DM, on insulin 5. Hypertension, controlled 6. DVT prophylaxis: lovenox 7. CODE STATUS: DNR/DNI. 8. Discharge plan to [facility] Result Diagram: 06/05/18 0645 06/04/18 0620 Results 24hrs Laboratory Tests Test 06/04/18 17:31 06/04/18 21:57 06/05/18 03:10 06/05/18 05:32 Bedside Glucose 170 292 H 213 172 Test 06/05/18 06:45 06/05/18 07:36 06/05/18 12:11 White Blood Count 10.8 Red Blood Count 4.47 Hemoglobin 13.0 Hematocrit 40.8 Mean Corpuscular 91.3 Volume Mean Corpuscular 29.1 Hemoglobin Mean Corpuscular 31.9 L Hemoglobin Concent Red Cell 14.7 H Distribution Width Platelet Count 335 Mean Platelet Volume 11.7 H Immature 0.400 Granulocytes % Neutrophils % 73.5 Lymphocytes % 21.5 Monocytes % 4.5 Eosinophils % 0.0 Basophils % 0.1 Nucleated Red Blood 0.0 Cells % Immature 0.040 H Granulocytes # Neutrophils # 8.0 H Lymphocytes # 2.3 Monocytes # 0.5 Eosinophils # 0.0 Basophils # 0.0 Nucleated Red Blood 0.0 Cells # Bedside Glucose 189 208 Subjective 24 Hr Interval Summary Free Text/Dictation shortness of breath, afebrile Exam/Review of Systems Exam Vitals Vital Signs Date Temp Pulse Resp B/P (MAP) Pulse Ox O2 O2 Flow FiO2 Time Delivery Rate 06/05/18 66 12:45 06/05/18 95 50 11:19 06/05/18 97.7 22 129/68 High Flow 11:14 (88) Intake and Output 06/04/18 06/04/18 06/05/18 1414:59 22:59 06:59 IntakeIntake Total 500 ml 600 ml 400 ml OutputOutput Total 1200 ml BalanceBalance 500 ml -600 ml 400 ml Constitutional: alert, oriented, well developed Psych: no complaints, nl mood/affect Head: normocephalic, atraumatic Eyes: nl conjunctiva, EOMI, nl lids ENMT: nl external ears & nose, nl lips & teeth, nl nasal mucosa & septum Neck: supple, non-tender Respiratory: clear to auscultation, normal air movement; No congested cough, No crackles/rales, No diminished breath sounds, No intercostal retraction, No labored breathing, No respirations, No tactile fremitus, No wheezing, No other Cardiovascular: regular rate and rhythm, nl pulses; No bruits, No diastolic murmur, No edema, No gallop, No irregular rhythm, No jugular venous distention (JVD), No murmurs/extra sounds, No rub, No systolic murmur, No S3, No S4, No other Gastrointestinal: nl liver, spleen, non-tender; No soft, No ascites, No bowel sounds, No distended, No firm, No hepatomegaly, No mass, No rebound or guarding, No splenomegaly, No surgical scars, No tender, No other Musculoskeletal: nl extremities to inspection Extremities: normal pulses; No calf tenderness, No cyanosis, No clubbing, No edema, No pitting pedal edema, No palpable cord, No tenderness, No other Neurological: 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 intact, nl mental status, nl speech Results Results 24hrs Laboratory Tests Test 06/04/18 17:31 06/04/18 21:57 06/05/18 03:10 06/05/18 05:32 Bedside Glucose 170 292 H 213 172 Test 06/05/18 06:45 06/05/18 07:36 06/05/18 12:11 White Blood Count 10.8 Red Blood Count 4.47 Hemoglobin 13.0 Hematocrit 40.8 Mean Corpuscular 91.3 Volume Mean Corpuscular 29.1 Hemoglobin Mean Corpuscular 31.9 L Hemoglobin Concent Red Cell 14.7 H Distribution Width Platelet Count 335 Mean Platelet Volume 11.7 H Immature 0.400 Granulocytes % Neutrophils % 73.5 Lymphocytes % 21.5 Monocytes % 4.5 Eosinophils % 0.0 Basophils % 0.1 Nucleated Red Blood 0.0 Cells % Immature 0.040 H Granulocytes # Neutrophils # 8.0 H Lymphocytes # 2.3 Monocytes # 0.5 Eosinophils # 0.0 Basophils # 0.0 Nucleated Red Blood 0.0 Cells # Bedside Glucose 189 208 Medications Medication Current Medications IV Flush (NS 3 ml) 3 ml PER PROTOCOL IV ; Start 05/29/18 at 20:30 Acetaminophen (Tylenol Tab) 650 mg Q6H PRN PO .PAIN 1-3 OR TEMP; Start 05/29/18 at 20:30 Docusate Sodium (Colace) 100 mg Q12H PRN PO .CONSTIPATION; Start 05/29/18 at 20:30 Bisacodyl (Dulcolax) 5 mg DAILY PRN PO .CONSTIPATION; Start 05/29/18 at 20:30 Pantoprazole (Protonix Tab) 40 mg DAILY@06 PO Last administered on 06/05/18at 05:30; Admin Dose 40 MG; Start 05/30/18 at 06:00 Enoxaparin Sodium (Lovenox) 40 mg DAILY SC Last administered on 06/05/18at 08:10; Admin Dose 40 MG; Start 05/30/18 at 09:00 Levalbuterol (Xopenex Neb) 1.25 mg Q4H RESP THERAPY HHN Last administered on 06/05/18at 09:40; Admin Dose 1.25 MG; Start 05/29/18 at 21:00 Ipratropium [place] (Atrovent 0.02% (Neb)) 0.5 mg Q4HWA RESP THERAPY HHN Last administered on 06/05/18at 09:38; Admin Dose 0.5 MG; Start 05/29/18 at 21:00 Levalbuterol (Xopenex Neb) 1.25 mg Q4H RESP THERAPY PRN HHN WHEEZING; Start 05/29/18 at 21:00 Miscellaneous Information 1 ea NOTE XX ; Start 05/29/18 at 21:00 Glucose (Glutose) 15 gm Q15M PRN PO DECREASED GLUCOSE; Start 05/29/18 at 21:00 Glucose (Glutose) 22.5 gm Q15M PRN PO DECREASED GLUCOSE; Start 05/29/18 at 21:00 Dextrose (D50w Syringe) 25 ml Q15M PRN IV DECREASED GLUCOSE; Start 05/29/18 at 21:00 Dextrose (D50w Syringe) 50 ml Q15M PRN IV DECREASED GLUCOSE; Start 05/29/18 at 21:00 Glucagon (Glucagen) 1 mg Q15M PRN IM DECREASED GLUCOSE; Start 05/29/18 at 21:00 Glucose (Glutose) 15 gm Q15M PRN BUCCAL DECREASED GLUCOSE; Start 05/29/18 at 21:00 Diagnostic Test (Pha) (Accu-Chek) 1 ea 02 XX Last administered on 06/03/18 02:24; Admin Dose 1 EA; Start 05/30/18 at 02:00 Insulin Aspart (Novolog Insulin Pen) NOVOLOG *MODERATE* ALGORITHM WITH MEALS BEDTIME SC Last administered on 06/05/18 12:23; Admin Dose 4 UNIT; Start 05/30/18 at 07:55 Enalaprilat (Vasotec Iv) 1.25 mg Q4H PRN IV ELEVATED SYSTOLIC BP Last administered on 06/03/18 04:32; Admin Dose 1.25 MG; Start 05/30/18 at 03:00 Methylprednisolone Sodium Succinate (Solu-Medrol) 30 mg Q8 IV Last administered on 06/05/18 05:30; Admin Dose 30 MG; Start 05/30/18 at 08:00 Guaifenesin/ Dextromethorphan (Robitussin Dm Liquid Cup) 5 ml Q4H PRN PO COUGH Last administered on 06/05/18 09:32; Admin Dose 5 ML; Start 05/31/18 at 00:30 Furosemide (Lasix) 40 mg DAILY IV Last administered on 06/05/18 08:07; Admin Dose 40 MG; Start 05/31/18 at 14:00 Baclofen (Lioresal) 5 mg TID PRN PO abdominal spasms Last administered on 06/04/18 11:10; Admin Dose 5 MG; Start 06/02/18 at 13:30 Insulin Aspart (Novolog Insulin Pen) 15 unit WITH MEALS SC Last administered on 06/05/18 12:23; Admin Dose 15 UNIT; Start 06/04/18 at 07:55 Insulin Glargine (Lantus) 18 units DAILY@2000 SC Last administered on 06/04/18 22:15; Admin Dose 18 UNITS; Start 06/03/18 at 20:00 Insulin Human NPH (Humulin N) 10 unit Q8 SC Last administered on 06/05/18at 05:55; Admin Dose 10 UNIT; Start 06/04/18 at 22:00 AUSTYN NAJERA MD Jun 05, 2018 13:26
[2018-06-05] MEDS: BACLOFEN 10 MG TAB PO PRN (15:03)
--- NOTE | 2018-06-05 18:04 | CONS ---
Assessment/Plan Assessment/Plan Problems: (1) Hyperglycemia Status: Acute Comment: Glucoses are coming into line. We will continue to adjust the NPH dosage. 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 Requesting Provider: MYRON HERNANDEZ MD Date/Time of Note DATE: 06/05/18 TIME: 18:03 24 HR Interval Summary Free Text/Dictation Patient without subjective change in how she feels Detailed Summary Endocrine: no complaints Exam/Review of Systems Exam Vitals Vital Signs Date Temp Pulse Resp B/P (MAP) Pulse Ox O2 O2 Flow FiO2 Time Delivery Rate 06/05/18 95 45 17:35 06/05/18 88 20 Nasal 17:34 Cannula 06/05/18 97.8 144/67 15:44 (92) Intake and Output 06/04/18 06/04/18 06/05/18 1515:00 23:00 07:00 IntakeIntake Total 500 ml 600 ml 400 ml OutputOutput Total 1200 ml BalanceBalance 500 ml -600 ml 400 ml Exam No change in exam Results Result Diagram: 06/05/18 0645 06/04/18 0620 Results 24hrs Laboratory Tests Test 06/04/18 21:57 06/05/18 03:10 06/05/18 05:32 06/05/18 06:45 Bedside Glucose 292 H 213 172 White Blood Count 10.8 Red Blood Count 4.47 Hemoglobin 13.0 Hematocrit 40.8 Mean Corpuscular 91.3 Volume Mean Corpuscular 29.1 Hemoglobin Mean Corpuscular 31.9 L Hemoglobin Concent Red Cell 14.7 H Distribution Width Platelet Count 335 Mean Platelet Volume 11.7 H Immature 0.400 Granulocytes % Neutrophils % 73.5 Lymphocytes % 21.5 Monocytes % 4.5 Eosinophils % 0.0 Basophils % 0.1 Nucleated Red Blood 0.0 Cells % Immature 0.040 H Granulocytes # Neutrophils # 8.0 H Lymphocytes # 2.3 Monocytes # 0.5 Eosinophils # 0.0 Basophils # 0.0 Nucleated Red Blood 0.0 Cells # Test 06/05/18 07:36 06/05/18 12:11 06/05/18 14:50 06/05/18 17:02 Bedside Glucose 189 208 222 H 158 Medications Medication Current Medications IV Flush (NS 3 ml) 3 ml PER PROTOCOL IV ; Start 05/29/18 at 20:30 Acetaminophen (Tylenol Tab) 650 mg Q6H PRN PO .PAIN 1-3 OR TEMP; Start 05/29/18 at 20:30 Docusate Sodium (Colace) 100 mg Q12H PRN PO .CONSTIPATION; Start 05/29/18 at 20:30 Bisacodyl (Dulcolax) 5 mg DAILY PRN PO .CONSTIPATION; Start 05/29/18 at 20:30 Pantoprazole (Protonix Tab) 40 mg DAILY@06 PO Last administered on 06/05/18at 05:30; Admin Dose 40 MG; Start 05/30/18 at 06:00 Enoxaparin Sodium (Lovenox) 40 mg DAILY SC Last administered on 06/05/18at 08:10; Admin Dose 40 MG; Start 05/30/18 at 09:00 Levalbuterol (Xopenex Neb) 1.25 mg Q4H RESP THERAPY HHN Last administered on 06/05/18at 17:32; Admin Dose 1.25 MG; Start 05/29/18 at 21:00 Ipratropium [place] (Atrovent 0.02% (Neb)) 0.5 mg Q4HWA RESP THERAPY HHN Last administered on 06/05/18at 17:32; Admin Dose 0.5 MG; Start 05/29/18 at 21:00 Levalbuterol (Xopenex Neb) 1.25 mg Q4H RESP THERAPY PRN HHN WHEEZING; Start 05/29/18 at 21:00 Miscellaneous Information 1 ea NOTE XX ; Start 05/29/18 at 21:00 Glucose (Glutose) 15 gm Q15M PRN PO DECREASED GLUCOSE; Start 05/29/18 at 21:00 Glucose (Glutose) 22.5 gm Q15M PRN PO DECREASED GLUCOSE; Start 05/29/18 at 21:00 Dextrose (D50w Syringe) 25 ml Q15M PRN IV DECREASED GLUCOSE; Start 05/29/18 at 21:00 Dextrose (D50w Syringe) 50 ml Q15M PRN IV DECREASED GLUCOSE; Start 05/29/18 at 21:00 Glucagon (Glucagen) 1 mg Q15M PRN IM DECREASED GLUCOSE; Start 05/29/18 at 21:00 Glucose (Glutose) 15 gm Q15M PRN BUCCAL DECREASED GLUCOSE; Start 05/29/18 at 21:00 Diagnostic Test (Pha) (Accu-Chek) 1 ea 02 XX Last administered on 06/03/18 02:24; Admin Dose 1 EA; Start 05/30/18 at 02:00 Insulin Aspart (Novolog Insulin Pen) NOVOLOG *MODERATE* ALGORITHM WITH MEALS BEDTIME SC Last administered on 06/05/18 17:28; Admin Dose 2 UNIT; Start 05/30/18 at 07:55 Enalaprilat (Vasotec Iv) 1.25 mg Q4H PRN IV ELEVATED SYSTOLIC BP Last administered on 06/03/18 04:32; Admin Dose 1.25 MG; Start 05/30/18 at 03:00 Methylprednisolone Sodium Succinate (Solu-Medrol) 30 mg Q8 IV Last administered on 06/05/18 15:18; Admin Dose 30 MG; Start 05/30/18 at 08:00 Guaifenesin/ Dextromethorphan (Robitussin Dm Liquid Cup) 5 ml Q4H PRN PO COUGH Last administered on 06/05/18 09:32; Admin Dose 5 ML; Start 05/31/18 at 00:30 Furosemide (Lasix) 40 mg DAILY IV Last administered on 06/05/18 08:07; Admin Dose 40 MG; Start 05/31/18 at 14:00 Baclofen (Lioresal) 5 mg TID PRN PO abdominal spasms Last administered on 06/05/18 15:03; Admin Dose 5 MG; Start 06/02/18 at 13:30 Insulin Aspart (Novolog Insulin Pen) 15 unit WITH MEALS SC Last administered on 06/05/18 17:29; Admin Dose 15 UNIT; Start 06/04/18 at 07:55 Insulin Glargine (Lantus) 18 units DAILY@2000 SC Last administered on 06/04/18 22:15; Admin Dose 18 UNITS; Start 06/03/18 at 20:00 Insulin Human NPH (Humulin N) 10 unit Q8 SC Last administered on 06/05/18 15:21; Admin Dose 10 UNIT; Start 06/04/18 at 22:00 JORDI WANG MD Jun 05, 2018 18:04
[2018-06-05] MEDS: INSULIN GLARGINE [LANTus] (100 UNITS/ML) SYG SC SCH (20:46)
[2018-06-06] VITALS (9 sets, daily range): BP systolic 120–180; BP diastolic 62–79; PULSE 58–98; RESP 20–22
[2018-06-06] MEDS: ACCU-CHEK XX SCH (01:11)
[2018-06-06] MEDS: LEVALBUTEROL (NEB) 1.25 MG/0.5 ML AMP HHN SCH ×5 (04:03→21:11)
[2018-06-06] MEDS: METHYLPREDNISOLONE 40 MG INJ IV SCH ×3 (05:21→21:47)
[2018-06-06] MEDS: PANTOPRAZOLE (EC) 40 MG TAB PO SCH (05:21)
[2018-06-06] MEDS: NPH, HUMAN INSULIN ISOPHANE 3ML VIAL SC SCH ×2 (05:39→21:47)
[2018-06-06] MEDS: FUROSEMIDE 40 MG INJ IV SCH (08:13)
[2018-06-06] MEDS: ENALAPRILAT 1.25 MG INJ IV PRN (08:14)
[2018-06-06] MEDS: INSULIN ASPART [NOVOLOG] 3 ML PEN SC SCH ×7 (08:19→20:58)
[2018-06-06] MEDS: ENOXAPARIN 40 MG/0.4 ML SYG SC SCH (08:19)
[2018-06-06] MEDS: IPRATROPIUM (NEB) 0.5 MG/2.5 ML AMP HHN SCH ×4 (09:35→21:11)
[2018-06-06] MEDS: BACLOFEN 10 MG TAB PO PRN ×2 (10:15→18:37)
--- NOTE | 2018-06-06 10:46 | CONS ---
Assessment/Plan Assessment/Plan Assessment/Plan (Daily) Assessment and recommendations; 1. Patient admitted for acute exacerbation with persistent hypercapnic and hypoxemic respiratory failure. 2. Status post treatment for presumed pneumonia. 3. History of diabetes. 4. Possibly mild CHF as well. Continue current supportive care. Wean down FiO2 as tolerated. Prognosis is poor. Consultation Date/Type/Reason Admit Date/Time May 29, 2018 at 19:47 Initial Consult Date Type of Consult Pulmonary Requesting Provider: MYRON HERNANDEZ MD Date/Time of Note DATE: 06/06/18 TIME: 10:44 24 HR Interval Summary Free Text/Dictation Patient's condition is tenuous at best. Still on fairly high FiO2 via high flow nasal cannula. Patient denies any shortness of breath at rest. But gets dyspneic on minimal exertion. General exam; elderly lady, awake and alert. Currently in no distress. Exam/Review of Systems Exam Vitals Vital Signs Date Temp Pulse Resp B/P (MAP) Pulse Ox O2 O2 Flow FiO2 Time Delivery Rate 06/06/18 66 20 94 Nasal 40 08:46 Cannula 06/06/18 97.0 180/79 07:41 (112) Intake and Output 06/05/18 06/05/18 06/06/18 1515:00 23:00 07:00 IntakeIntake Total 720 ml 280 ml OutputOutput Total 1050 ml 600 ml BalanceBalance -330 ml -320 ml Exam H ENT exam; supple neck, no JVD. No lymphadenopathy. Midline trachea. No thyromegaly. Patient is edentulous. No neck masses. Chest exam; bilateral crackles. S1-S2 audible, no murmurs. Regular rhythm. Abdomen exam; soft, nontender. No organomegaly. Bowel sound audible. Extremity exam; no peripheral edema. 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 Results Result Diagram: 06/05/18 0645 06/04/18 0620 Results 24hrs Laboratory Tests Test 06/05/18 12:11 06/05/18 14:50 06/05/18 17:02 06/05/18 20:40 Bedside Glucose 208 222 H 158 115 Test 06/06/18 07:37 Bedside Glucose 151 Medications Medication Current Medications IV Flush (NS 3 ml) 3 ml PER PROTOCOL IV ; Start 05/29/18 at 20:30 Acetaminophen (Tylenol Tab) 650 mg Q6H PRN PO .PAIN 1-3 OR TEMP; Start 05/29/18 at 20:30 Docusate Sodium (Colace) 100 mg Q12H PRN PO .CONSTIPATION; Start 05/29/18 at 20:30 Bisacodyl (Dulcolax) 5 mg DAILY PRN PO .CONSTIPATION; Start 05/29/18 at 20:30 Pantoprazole (Protonix Tab) 40 mg DAILY@06 PO Last administered on 06/06/18at 05:21; Admin Dose 40 MG; Start 05/30/18 at 06:00 Enoxaparin Sodium (Lovenox) 40 mg DAILY SC Last administered on 06/06/18at 08:19; Admin Dose 40 MG; Start 05/30/18 at 09:00 Levalbuterol (Xopenex Neb) 1.25 mg Q4H RESP THERAPY HHN Last administered on 06/05/18at 23:59; Admin Dose 1.25 MG; Start 05/29/18 at 21:00 Ipratropium [place] (Atrovent 0.02% (Neb)) 0.5 mg Q4HWA RESP THERAPY HHN Last administered on 06/05/18at 20:20; Admin Dose 0.5 MG; Start 05/29/18 at 21:00 Levalbuterol (Xopenex Neb) 1.25 mg Q4H RESP THERAPY PRN HHN WHEEZING; Start 05/29/18 at 21:00 Miscellaneous Information 1 ea NOTE XX ; Start 05/29/18 at 21:00 Glucose (Glutose) 15 gm Q15M PRN PO DECREASED GLUCOSE; Start 05/29/18 at 21:00 Glucose (Glutose) 22.5 gm Q15M PRN PO DECREASED GLUCOSE; Start 05/29/18 at 21:00 Dextrose (D50w Syringe) 25 ml Q15M PRN IV DECREASED GLUCOSE; Start 05/29/18 at 21:00 Dextrose (D50w Syringe) 50 ml Q15M PRN IV DECREASED GLUCOSE; Start 05/29/18 at 21:00 Glucagon (Glucagen) 1 mg Q15M PRN IM DECREASED GLUCOSE; Start 05/29/18 at 21:00 Glucose (Glutose) 15 gm Q15M PRN BUCCAL DECREASED GLUCOSE; Start 05/29/18 at 21:00 Diagnostic Test (Pha) (Accu-Chek) 1 ea 02 XX Last administered on 06/03/18 02:24; Admin Dose 1 EA; Start 05/30/18 at 02:00 Insulin Aspart (Novolog Insulin Pen) NOVOLOG *MODERATE* ALGORITHM WITH MEALS BEDTIME SC Last administered on 06/06/18 08:20; Admin Dose 2 UNIT; Start 05/30/18 at 07:55 Enalaprilat (Vasotec Iv) 1.25 mg Q4H PRN IV ELEVATED SYSTOLIC BP Last administered on 06/06/18 08:14; Admin Dose 1.25 MG; Start 05/30/18 at 03:00 Methylprednisolone Sodium Succinate (Solu-Medrol) 30 mg Q8 IV Last administered on 06/06/18 05:21; Admin Dose 30 MG; Start 05/30/18 at 08:00 Guaifenesin/ Dextromethorphan (Robitussin Dm Liquid Cup) 5 ml Q4H PRN PO COUGH Last administered on 06/05/18 09:32; Admin Dose 5 ML; Start 05/31/18 at 00:30 Furosemide (Lasix) 40 mg DAILY IV Last administered on 06/06/18 08:13; Admin Dose 40 MG; Start 05/31/18 at 14:00 Baclofen (Lioresal) 5 mg TID PRN PO abdominal spasms Last administered on 06/06/18 10:15; Admin Dose 5 MG; Start 06/02/18 at 13:30 Insulin Aspart (Novolog Insulin Pen) 15 unit WITH MEALS SC Last administered on 06/06/18 08:19; Admin Dose 15 UNIT; Start 06/04/18 at 07:55 Insulin Glargine (Lantus) 18 units DAILY@2000 SC Last administered on 06/05/18 20:46; Admin Dose 18 UNITS; Start 06/03/18 at 20:00 Insulin Human NPH (Humulin N) 12 unit Q8 SC Last administered on 06/06/18 05:39; Admin Dose 12 UNIT; Start 06/05/18 at 22:00 LLUVIA MARQUEZ Jun 06, 2018 10:46
--- NOTE | 2018-06-06 14:05 | CONS ---
Assessment/Plan Assessment/Plan Problems: (1) Hyperglycemia Status: Acute Comment: Is coming into line nicely. I will make further adjustment of the NPH dosing. Consultation Date/Type/Reason Admit Date/Time May 29, 2018 at 19:47 Initial Consult Date June 01 2018 Type of Consult Endocrinology Reason for Consultation Diabetes mellitus type 2 with hyperglycemia driven by high-dose steroid treatment for idiopathic pulmonary fibrosis Requesting Provider: MYRON HERNANDEZ MD Date/Time of Note DATE: 06/06/18 TIME: 14:04 24 HR Interval Summary Free Text/Dictation Patient reports still short of breath. Detailed Summary Endocrine: no complaints Exam/Review of Systems Exam Vitals Vital Signs Date Temp Pulse Resp B/P (MAP) Pulse Ox O2 O2 Flow FiO2 Time Delivery Rate 06/06/18 98.0 98 22 129/62 96 High Flow 12:08 (84) 06/06/18 40 11:54 Intake and Output 06/05/18 06/05/18 06/06/18 1515:00 23:00 07:00 IntakeIntake Total 720 ml 280 ml OutputOutput Total 1050 ml 600 ml BalanceBalance -330 ml -320 ml Constitutional: alert, oriented Cardiovascular: regular rate and rhythm, nl pulses Gastrointestinal: soft, nl liver, spleen, non-tender Results Result Diagram: 06/05/18 0645 06/04/18 0620 Results 24hrs Laboratory Tests Test 06/05/18 14:50 06/05/18 17:02 06/05/18 20:40 06/06/18 07:37 Bedside Glucose 222 H 158 115 151 Test 06/06/18 12:01 06/06/18 14:01 Bedside Glucose 218 174 Medications Medication Current Medications IV Flush (NS 3 ml) 3 ml PER PROTOCOL IV ; Start 05/29/18 at 20:30 Acetaminophen (Tylenol Tab) 650 mg Q6H PRN PO .PAIN 1-3 OR TEMP; Start 05/29/18 at 20:30 Docusate Sodium (Colace) 100 mg Q12H PRN PO .CONSTIPATION; Start 05/29/18 at 20:30 Bisacodyl (Dulcolax) 5 mg DAILY PRN PO .CONSTIPATION; Start 05/29/18 at 20:30 Pantoprazole (Protonix Tab) 40 mg DAILY@06 PO Last administered on 06/06/18at 05:21; Admin Dose 40 MG; Start 05/30/18 at 06:00 Enoxaparin Sodium (Lovenox) 40 mg DAILY SC Last administered on 06/06/18at 08:19; Admin Dose 40 MG; Start 05/30/18 at 09:00 Levalbuterol (Xopenex Neb) 1.25 mg Q4H RESP THERAPY HHN Last administered on 06/06/18at 12:06; Admin Dose 1.25 MG; Start 05/29/18 at 21:00 Ipratropium [place] (Atrovent 0.02% (Neb)) 0.5 mg Q4HWA RESP THERAPY HHN Last administered on 06/06/18at 11:54; Admin Dose 0.5 MG; Start 05/29/18 at 21:00 Levalbuterol (Xopenex Neb) 1.25 mg Q4H RESP THERAPY PRN HHN WHEEZING; Start 05/29/18 at 21:00 Miscellaneous Information 1 ea NOTE XX ; Start 05/29/18 at 21:00 Glucose (Glutose) 15 gm Q15M PRN PO DECREASED GLUCOSE; Start 05/29/18 at 21:00 Glucose (Glutose) 22.5 gm Q15M PRN PO DECREASED GLUCOSE; Start 05/29/18 at 21:00 Dextrose (D50w Syringe) 25 ml Q15M PRN IV DECREASED GLUCOSE; Start 05/29/18 at 21:00 Dextrose (D50w Syringe) 50 ml Q15M PRN IV DECREASED GLUCOSE; Start 05/29/18 at 21:00 Glucagon (Glucagen) 1 mg Q15M PRN IM DECREASED GLUCOSE; Start 05/29/18 at 21:00 Glucose (Glutose) 15 gm Q15M PRN BUCCAL DECREASED GLUCOSE; Start 05/29/18 at 21:00 Diagnostic Test (Pha) (Accu-Chek) 1 ea 02 XX Last administered on 06/03/18at 02:24; Admin Dose 1 EA; Start 05/30/18 at 02:00 Insulin Aspart (Novolog Insulin Pen) NOVOLOG *MODERATE* ALGORITHM WITH MEALS BEDTIME SC Last administered on 06/06/18at 12:36; Admin Dose 4 UNIT; Start 05/30/18 at 07:55 Enalaprilat (Vasotec Iv) 1.25 mg Q4H PRN IV ELEVATED SYSTOLIC BP Last administered on 06/06/18 08:14; Admin Dose 1.25 MG; Start 05/30/18 at 03:00 Methylprednisolone Sodium Succinate (Solu-Medrol) 30 mg Q8 IV Last administered on 06/06/18 05:21; Admin Dose 30 MG; Start 05/30/18 at 08:00 Guaifenesin/ Dextromethorphan (Robitussin Dm Liquid Cup) 5 ml Q4H PRN PO COUGH Last administered on 06/05/18 09:32; Admin Dose 5 ML; Start 05/31/18 at 00:30 Furosemide (Lasix) 40 mg DAILY IV Last administered on 06/06/18 08:13; Admin Dose 40 MG; Start 05/31/18 at 14:00 Baclofen (Lioresal) 5 mg TID PRN PO abdominal spasms Last administered on 10:15; Admin Dose 5 MG; Start 06/02/18 at 13:30 Insulin Aspart (Novolog Insulin Pen) 15 unit WITH MEALS SC Last administered on 06/06/18 12:36; Admin Dose 15 UNIT; Start 06/04/18 at 07:55 Insulin Glargine (Lantus) 18 units DAILY@2000 SC Last administered on 06/05/18 20:46; Admin Dose 18 UNITS; Start 06/03/18 at 20:00 Insulin Human NPH (Humulin N) 12 unit Q8 SC Last administered on 06/06/18 05:39; Admin Dose 12 UNIT; Start 06/05/18 at 22:00 JORDI WANG MD Jun 06, 2018 14:05
--- NOTE | 2018-06-06 14:25 | PN ---
Date/Time of Note Date/Time of Note DATE: 06/06/18 TIME: 14:23 Assessment/Plan VTE Prophylaxis Risk score (from Ns)>0 risk: 4 [place] [facility] Pharmacological prophylaxis: LMWH Lines/Catheters IV Catheter Type (from [facility]): [place] Urinary Cath still in place: No Assessment/Plan Assessment/Plan 1. Chronic respiratory failure, pulmonary fibrosis related, on 35 L/min O2 2. Pneumonia, treated 3. Pulmonary fibrosis, on steroid, chronic, poor prognosis, explained to patient through educational sign language interpreter 4. DM, on insulin 5. Hypertension, controlled 6. DVT prophylaxis: lovenox 7. CODE STATUS: DNR/DNI. 8. Discharge plan to [place] Result Diagram: 06/05/18 0645 06/04/18 0620 Results 24hrs Laboratory Tests Test 06/05/18 14:50 06/05/18 17:02 06/05/18 20:40 06/06/18 07:37 Bedside Glucose 222 H 158 115 151 Test 06/06/18 12:01 06/06/18 14:01 Bedside Glucose 218 174 Subjective 24 Hr Interval Summary Free Text/Dictation sob Exam/Review of Systems Exam Vitals Vital Signs Date Temp Pulse Resp B/P (MAP) Pulse Ox O2 O2 Flow FiO2 Time Delivery Rate 06/06/18 78 20 98 Nasal 40 14:06 Cannula 06/06/18 98.0 129/62 12:08 (84) Intake and Output 06/05/18 06/05/18 06/06/18 1414:59 22:59 06:59 IntakeIntake Total 720 ml 280 ml OutputOutput Total 1050 ml 600 ml BalanceBalance -330 ml -320 ml Constitutional: alert, oriented, well developed Head: normocephalic, atraumatic Eyes: nl conjunctiva, EOMI, nl lids, PERRL ENMT: nl external ears & nose, nl lips & teeth, nl nasal mucosa & septum Neck: supple, non-tender Respiratory: clear to auscultation, normal air movement Cardiovascular: regular rate and rhythm, nl pulses; No bruits, No diastolic murmur, No edema, No gallop, No irregular rhythm, No jugular venous distention (JVD), No murmurs/extra sounds, No rub, No systolic murmur, No S3, No S4, No other Gastrointestinal: soft, nl liver, spleen, distended Musculoskeletal: nl extremities to inspection Extremities: normal pulses; No calf tenderness, No cyanosis, No clubbing, No edema, No pitting pedal edema, No palpable cord, No tenderness, No other Neurological: HOOP CUTTER II-XII intact, nl mental status, nl speech, nl strength Results Results 24hrs Laboratory Tests Test 06/05/18 14:50 06/05/18 17:02 06/05/18 20:40 06/06/18 07:37 Bedside Glucose 222 H 158 115 151 Test 06/06/18 12:01 06/06/18 14:01 Bedside Glucose 218 174 Medications Medication Current Medications IV Flush (NS 3 ml) 3 ml PER PROTOCOL IV ; Start 05/29/18 at 20:30 Acetaminophen (Tylenol Tab) 650 mg Q6H PRN PO .PAIN 1-3 OR TEMP; Start 05/29/18 at 20:30 Docusate Sodium (Colace) 100 mg Q12H PRN PO .CONSTIPATION; Start 05/29/18 at 20:30 Bisacodyl (Dulcolax) 5 mg DAILY PRN PO .CONSTIPATION; Start 05/29/18 at 20:30 Pantoprazole (Protonix Tab) 40 mg DAILY@06 PO Last administered on 06/06/18at 05:21; Admin Dose 40 MG; Start 05/30/18 at 06:00 Enoxaparin Sodium (Lovenox) 40 mg DAILY SC Last administered on 06/06/18at 08:19; Admin Dose 40 MG; Start 05/30/18 at 09:00 Levalbuterol (Xopenex Neb) 1.25 mg Q4H RESP THERAPY HHN Last administered on 06/06/18at 12:06; Admin Dose 1.25 MG; Start 05/29/18 at 21:00 Ipratropium [place] (Atrovent 0.02% (Neb)) 0.5 mg Q4HWA RESP THERAPY HHN Last administered on 06/06/18at 11:54; Admin Dose 0.5 MG; Start 05/29/18 at 21:00 Levalbuterol (Xopenex Neb) 1.25 mg Q4H RESP THERAPY PRN HHN WHEEZING; Start 05/29/18 at 21:00 Miscellaneous Information 1 ea NOTE XX ; Start 05/29/18 at 21:00 Glucose (Glutose) 15 gm Q15M PRN PO DECREASED GLUCOSE; Start 05/29/18 at 21:00 Glucose (Glutose) 22.5 gm Q15M PRN PO DECREASED GLUCOSE; Start 05/29/18 at 21:00 Dextrose (D50w Syringe) 25 ml Q15M PRN IV DECREASED GLUCOSE; Start 05/29/18 at 21:00 Dextrose (D50w Syringe) 50 ml Q15M PRN IV DECREASED GLUCOSE; Start 05/29/18 at 21:00 Glucagon (Glucagen) 1 mg Q15M PRN IM DECREASED GLUCOSE; Start 05/29/18 at 21:00 Glucose (Glutose) 15 gm Q15M PRN BUCCAL DECREASED GLUCOSE; Start 05/29/18 at 21:00 Diagnostic Test (Pha) (Accu-Chek) 1 ea 02 XX Last administered on 06/03/18 02:24; Admin Dose 1 EA; Start 05/30/18 at 02:00 Insulin Aspart (Novolog Insulin Pen) NOVOLOG *MODERATE* ALGORITHM WITH MEALS BEDTIME SC Last administered on 06/06/18 12:36; Admin Dose 4 UNIT; Start 05/13 09/30 at 07:55 Enalaprilat (Vasotec Iv) 1.25 mg Q4H PRN IV ELEVATED SYSTOLIC BP Last administered on 06/06/18 08:14; Admin Dose 1.25 MG; Start 05/30/18 at 03:00 Methylprednisolone Sodium Succinate (Solu-Medrol) 30 mg Q8 IV Last administered on 06/06/18 14:15; Admin Dose 30 MG; Start 05/30/18 at 08:00 Guaifenesin/ Dextromethorphan (Robitussin Dm Liquid Cup) 5 ml Q4H PRN PO COUGH Last administered on 06/05/18 09:32; Admin Dose 5 ML; Start 05/31/18 at 00:30 Furosemide (Lasix) 40 mg DAILY IV Last administered on 06/06/18 08:13; Admin Dose 40 MG; Start 05/31/18 at 14:00 Baclofen (Lioresal) 5 mg TID PRN PO abdominal spasms Last administered on 06/06/18 10:15; Admin Dose 5 MG; Start 06/02/18 at 13:30 Insulin Aspart (Novolog Insulin Pen) 15 unit WITH MEALS SC Last administered on 06/06/18at 12:36; Admin Dose 15 UNIT; Start 06/04/18 at 07:55 Insulin Glargine (Lantus) 18 units DAILY@2000 SC Last administered on 06/05/18at 20:46; Admin Dose 18 UNITS; Start 06/03/18 at 20:00 Insulin Human NPH (Humulin N) 13 unit Q8 SC ; Start 06/06/18 at 22:00 AUSTYN NAJERA MD Jun 06, 2018 14:25
[2018-06-06] MEDS ORDERED: NOVO3I SC ×2 (15:46)
[2018-06-06] MEDS ORDERED: PRED20TA PO (15:46)
[2018-06-06] MEDS ORDERED: Insulin Glargine SC (15:46)
[2018-06-06] MEDS ORDERED: ENOX40DI2 SC (15:46)
--- NOTE | 2018-06-06 15:51 | DS ---
Date/Time of Note Date/Time of Note DATE: 06/06/18 TIME: 15:48 Discharge Summary Admission/Discharge Info Admit Date/Time May 29, 2018 at 19:47 Discharge Date/Time Discharge Diagnosis 1. Chronic respiratory failure, pulmonary fibrosis related, on 35 L/min O2 2. Pneumonia, treated 3. Pulmonary fibrosis, chronic, poor prognosis, taper down prednisone per pulmonology 4. DM, on insulin 5. Hypertension, controlled 6. DVT prophylaxis: lovenox 7. CODE STATUS: DNR/DNI. Patient Condition: Stable Hospital Course This is a 77-year-old female with a past medical history of pulmonary fibrosis who presented to the emergency department with complaints of shortness of breath. She states that this is been an on and off situation for the last few months. She states that she has been admitted to multiple hospitals including [facility] [place]. She apparently had a lung procedure done as well which she does not know what it was but it has not seemed to help her either. She does report having productive phlegm. She denies any chest pain or nausea vomiting or diarrhea. Patient in the emergency department was noted to have a SPO2 of 55%. She was placed on BiPAP with good response. Patientis treated with antibiotics with zosyn and steroid with SoluMedrol, patient still on O2 35 L/min. Condition, treatment and poor prognosis are discussed with patient. Patient will be transferred to [place] for further treatment. Prednisone will be tapered off per tax manager. Home Meds Active Scripts Prednisone (Prednisone) 20 Mg Tablet, 20 MG PO BID for 7 Days, TAB Prov:AUSTYN NAJERA MD 06/06/18 [Insulin Glargine] 100 UNITS/ML SOLN No Conflict Check, 18 UNITS SC DAILY@1999 for 10 Days Prov:AUSTYN NAJERA MD 06/06/18 Insulin Aspart* (Novolog Insulin Pen*) 100 Unit/Ml Soln, 0 UNIT SC WITH MEALS BEDTIME for 10 Days Prov:AUSTYN NAJERA MD 06/06/18 Insulin Aspart* (Novolog Insulin Pen*) 100 Unit/Ml Soln, 15 UNIT SC WITH MEALS for 10 Days Prov:AUSTYN NAJERA MD 06/06/18 Enoxaparin Sodium* (Enoxaparin Sodium*) 40 Mg/0.4 Ml Syringe, 40 MG SC DAILY for 10 Days Prov:AUSTYN NAJERA MD 06/06/18 Reported Medications Omeprazole* (Omeprazole*) 40 Mg Capsule.dr, 40 MG PO DAILY, #30 CAP 05/29/18 Canagliflozin (Invokana) 100 Mg Tablet, 100 MG PO DAILY, TAB 05/29/18 Aspirin* (Aspirin* EC) 81 Mg Tablet.dr, 81 MG PO DAILY, TAB 05/29/18 Ergocalciferol (Vitamin D2) (VITAMIN D2) 50,000 Unit Capsule, 77506 UNIT PO Q MON, CAP 05/29/18 Discontinued Reported Medications [Blood Pressure] No Conflict Check, 1 CAP PO DAILY 05/29/18 [Insulin] No Conflict Check, 18 UNITS SQ QAM PATIENT CAN'T REMEMBER HER INSULIN NAME,BUT IN HER EXTERNAL MEDS SHE HAS A ( TOUJEO 300UNIT/1ML AND TRULICITY 1.5MG/0.5ML) 05/29/18 Meloxicam* (Meloxicam*) 7.5 Mg Tablet, 7.5 MG PO DAILY, #30 TAB 05/29/18 Follow-up Plan PCP and pulmonology Primary Care Provider Mayra Jovel MD Pending Labs Laboratory Tests Test 06/05/18 17:02 06/05/18 20:40 06/06/18 07:37 06/06/18 12:01 Bedside 158 115 151 218 Glucose mg/dL (70-220) mg/dL (70-220) mg/dL (70-220) mg/dL (70-220) Test 06/06/18 14:01 Bedside 174 Glucose mg/dL (70-220) AUSTYN NAJERA MD Jun 06, 2018 15:51
[2018-06-06] MEDS: INSULIN GLARGINE [LANTus] (100 UNITS/ML) SYG SC SCH (19:59)
[2018-06-07] VITALS (8 sets, daily range): BP systolic 120–165; BP diastolic 68–79; PULSE 57–101; RESP 18–22
[2018-06-07] MEDS: LEVALBUTEROL (NEB) 1.25 MG/0.5 ML AMP HHN SCH ×5 (00:56→17:23)
[2018-06-07] MEDS: ACCU-CHEK XX SCH (02:00)
[2018-06-07] MEDS: PANTOPRAZOLE (EC) 40 MG TAB PO SCH (06:01)
[2018-06-07] MEDS: METHYLPREDNISOLONE 40 MG INJ IV SCH (06:02)
[2018-06-07] MEDS: NPH, HUMAN INSULIN ISOPHANE 3ML VIAL SC SCH (06:46)
[2018-06-07] MEDS: INSULIN ASPART [NOVOLOG] 3 ML PEN SC SCH ×5 (08:10→17:46)
[2018-06-07] MEDS: FUROSEMIDE 40 MG INJ IV SCH (08:42)
[2018-06-07] MEDS: ENOXAPARIN 40 MG/0.4 ML SYG SC SCH (08:48)
[2018-06-07] MEDS: IPRATROPIUM (NEB) 0.5 MG/2.5 ML AMP HHN SCH ×3 (09:33→17:23)
--- NOTE | 2018-06-07 10:36 | CONS ---
Assessment/Plan Assessment/Plan Assessment/Plan (Daily) Assessment and recommendations; 1. Patient admitted for IPF exacerbation with persistent hypoxemia. 2. Status post treatment for presumed pneumonia. 3. Mild CHF. 4. Diabetes. Continue current supportive care. Consider transfer to rehab center. Prognosis is poor. Consultation Date/Type/Reason Admit Date/Time May 29, 2018 at 19:47 Initial Consult Date Type of Consult Pulmonary Requesting Provider: MYRON HERNANDEZ MD Date/Time of Note DATE: 06/07/18 TIME: 10:34 24 HR Interval Summary Free Text/Dictation Patient's condition is tenuous at best. Still on high flow nasal cannula at 40% FiO2 30 L/min. Patient does complain of dyspnea at very minimal exertion. General exam; elderly woman, sitting in a chair by bedside currently in no distr ess. Exam/Review of Systems Exam Vitals Vital Signs Date Temp Pulse Resp B/P (MAP) Pulse Ox O2 O2 Flow FiO2 Time Delivery Rate 06/07/18 40 09:50 06/07/18 98 09:33 06/07/18 79 22 09:33 06/07/18 98.1 165/79 High Flow 07:16 (107) Intake and Output 06/06/18 06/06/18 06/07/18 1515:00 23:00 07:00 IntakeIntake Total 820 ml BalanceBalance 820 ml Exam H EENT exam; supple neck, no JVD. No lymphadenopathy. Midline trachea. No thyromegaly. Patient does have multiple carious teeth. Chest exam; bilateral crackles. S1-S2 audible, no murmurs. Regular rhythm. Abdomen exam; soft, no organomegaly. Bowel sounds are audible. Extremity exam; no peripheral edema or clubbing. UI APPLICATION DEVELOPER exam; no focal deficit. Results Result Diagram: 06/05/18 0645 06/04/18 0620 Results 24hrs Laboratory Tests Test 06/06/18 12:01 06/06/18 14:01 06/06/18 17:12 06/06/18 20:42 Bedside Glucose 218 174 138 346 H Test 06/07/18 01:59 06/07/18 07:43 Bedside Glucose 201 171 Medications Medication Current Medications IV Flush (NS 3 ml) 3 ml PER PROTOCOL IV ; Start 05/29/18 at 20:30 Acetaminophen (Tylenol Tab) 650 mg Q6H PRN PO .PAIN 1-3 OR TEMP; Start 05/29/18 at 20:30 Docusate Sodium (Colace) 100 mg Q12H PRN PO .CONSTIPATION; Start 05/29/18 at 20:30 Bisacodyl (Dulcolax) 5 mg DAILY PRN PO .CONSTIPATION; Start 05/29/18 at 20:30 Pantoprazole (Protonix Tab) 40 mg DAILY@06 PO Last administered on 06/07/18at 06:01; Admin Dose 40 MG; Start 05/30/18 at 06:00 Enoxaparin Sodium (Lovenox) 40 mg DAILY SC Last administered on 06/07/18at 08:48; Admin Dose 40 MG; Start 05/30/18 at 09:00 Levalbuterol (Xopenex Neb) 1.25 mg Q4H RESP THERAPY HHN Last administered on 06/07/18at 09:34; Admin Dose 1.25 MG; Start 05/29/18 at 21:00 Ipratropium [place] (Atrovent 0.02% (Neb)) 0.5 mg Q4HWA RESP THERAPY HHN Last administered on 06/07/18at 09:33; Admin Dose 0.5 MG; Start 05/29/18 at 21:00 Levalbuterol (Xopenex Neb) 1.25 mg Q4H RESP THERAPY PRN HHN WHEEZING; Start 05/29/18 at 21:00 Miscellaneous Information 1 ea NOTE XX ; Start 05/29/18 at 21:00 Glucose (Glutose) 15 gm Q15M PRN PO DECREASED GLUCOSE; Start 05/29/18 at 21:00 Glucose (Glutose) 22.5 gm Q15M PRN PO DECREASED GLUCOSE; Start 05/29/18 at 21:00 Dextrose (D50w Syringe) 25 ml Q15M PRN IV DECREASED GLUCOSE; Start 05/29/18 at 21:00 Dextrose (D50w Syringe) 50 ml Q15M PRN IV DECREASED GLUCOSE; Start 05/29/18 at 21:00 Glucagon (Glucagen) 1 mg Q15M PRN IM DECREASED GLUCOSE; Start 05/29/18 at 21:00 Glucose (Glutose) 15 gm Q15M PRN BUCCAL DECREASED GLUCOSE; Start 05/29/18 at 21:00 Diagnostic Test (Pha) (Accu-Chek) 1 ea 02 XX Last administered on 06/03/18 02:24; Admin Dose 1 EA; Start 05/30/18 at 02:00 Insulin Aspart (Novolog Insulin Pen) NOVOLOG *MODERATE* ALGORITHM WITH MEALS B EDTIME SC Last administered on 06/07/18 08:10; Admin Dose 2 UNIT; Start 05/30/18 at 07:55 Enalaprilat (Vasotec Iv) 1.25 mg Q4H PRN IV ELEVATED SYSTOLIC BP Last administered on 06/06/18 08:14; Admin Dose 1.25 MG; Start 05/30/18 at 03:00 Methylprednisolone Sodium Succinate (Solu-Medrol) 30 mg Q8 IV Last administered on 06/07/18 06:02; Admin Dose 30 MG; Start 05/30/18 at 08:00 Guaifenesin/ Dextromethorphan (Robitussin Dm Liquid Cup) 5 ml Q4H PRN PO COUGH Last administered on 06/05/18 09:32; Admin Dose 5 ML; Start 05/31/18 at 00:30 Furosemide (Lasix) 40 mg DAILY IV Last administered on 06/07/18 08:42; Admin Dose 40 MG; Start 05/31/18 at 14:00 Baclofen (Lioresal) 5 mg TID PRN PO abdominal spasms Last administered on 06/06/18 18:37; Admin Dose 5 MG; Start 06/02/18 at 13:30 Insulin Aspart (Novolog Insulin Pen) 15 unit WITH MEALS SC Last administered on 06/07/18 08:10; Admin Dose 15 UNIT; Start 06/04/18 at 07:55 Insulin Glargine (Lantus) 18 units DAILY@2000 SC Last administered on 06/06/18 19:59; Admin Dose 18 UNITS; Start 06/03/18 at 20:00 Insulin Human NPH (Humulin N) 13 unit Q8 SC Last administered on 06/07/18 06:46; Admin Dose 13 UNIT; Start 06/06/18 at 22:00 LLUVIA MARQUEZ Jun 07, 2018 10:36
[2018-06-07] MEDS: BACLOFEN 10 MG TAB PO PRN (11:53)
--- NOTE | 2018-06-07 14:39 | CONS ---
Assessment/Plan Assessment/Plan Problems: (1) Hyperglycemia Status: Acute Comment: Sugar control is come into line better. There is still a bit of room to work on make further adjustment of the NPH dosing. Consultation Date/Type/Reason Admit Date/Time May 29, 2018 at 19:47 Initial Consult Date June 01 2018 Type of Consult Endocrinology Reason for Consultation Diabetes mellitus type 2 with hyperglycemia induced by high-dose steroids being used to treat interstitial pulmonary fibrosis Requesting Provider: MYRON HERNANDEZ MD Date/Time of Note DATE: 06/07/18 TIME: 14:38 24 HR Interval Summary Free Text/Dictation No new changes Detailed Summary Endocrine: no complaints Exam/Review of Systems Exam Vitals Vital Signs Date Temp Pulse Resp B/P (MAP) Pulse Ox O2 O2 Flow FiO2 Time Delivery Rate 06/07/18 98 40 12:17 06/07/18 81 18 Nasal 12:17 Cannula 06/07/18 97.9 147/74 10:58 (98) Intake and Output 06/06/18 06/06/18 06/07/18 1515:00 23:00 07:00 IntakeIntake Total 820 ml BalanceBalance 820 ml Exam No change in exam Results Result Diagram: 06/05/18 0645 06/04/18 0620 Results 24hrs Laboratory Tests Test 06/06/18 17:12 06/06/18 20:42 06/07/18 01:59 06/07/18 07:43 Bedside Glucose 138 346 H 201 171 Test 06/07/18 11:44 Bedside Glucose 249 H Medications Medication Current Medications IV Flush (NS 3 ml) 3 ml PER PROTOCOL IV ; Start 05/29/18 at 20:30 Acetaminophen (Tylenol Tab) 650 mg Q6H PRN PO .PAIN 1-3 OR TEMP; Start 05/29/18 at 20:30 Docusate Sodium (Colace) 100 mg Q12H PRN PO .CONSTIPATION; Start 05/29/18 at 20:30 Bisacodyl (Dulcolax) 5 mg DAILY PRN PO .CONSTIPATION; Start 05/29/18 at 20:30 Pantoprazole (Protonix Tab) 40 mg DAILY@06 PO Last administered on 06/07/18at 06:01; Admin Dose 40 MG; Start 05/30/18 at 06:00 Enoxaparin Sodium (Lovenox) 40 mg DAILY SC Last administered on 06/07/18at 08 :48; Admin Dose 40 MG; Start 05/30/18 at 09:00 Levalbuterol (Xopenex Neb) 1.25 mg Q4H RESP THERAPY HHN Last administered on 06/07/18at 12:17; Admin Dose 1.25 MG; Start 05/29/18 at 21:00 Ipratropium [place] (Atrovent 0.02% (Neb)) 0.5 mg Q4HWA RESP THERAPY HHN Last administered on 06/07/18at 12:17; Admin Dose 0.5 MG; Start 05/29/18 at 21:00 Levalbuterol (Xopenex Neb) 1.25 mg Q4H RESP THERAPY PRN HHN WHEEZING; Start 05/29/18 at 21:00 Miscellaneous Information 1 ea NOTE XX ; Start 05/29/18 at 21:00 Glucose (Glutose) 15 gm Q15M PRN PO DECREASED GLUCOSE; Start 05/29/18 at 21:00 Glucose (Glutose) 22.5 gm Q15M PRN PO DECREASED GLUCOSE; Start 05/29/18 at 21:00 Dextrose (D50w Syringe) 25 ml Q15M PRN IV DECREASED GLUCOSE; Start 05/29/18 at 21:00 Dextrose (D50w Syringe) 50 ml Q15M PRN IV DECREASED GLUCOSE; Start 05/29/18 at 21:00 Glucagon (Glucagen) 1 mg Q15M PRN IM DECREASED GLUCOSE; Start 05/29/18 at 21:00 Glucose (Glutose) 15 gm Q15M PRN BUCCAL DECREASED GLUCOSE; Start 05/29/18 at 21:00 Diagnostic Test (Pha) (Accu-Chek) 1 ea 02 XX Last administered on 06/03/18at 02:24; Admin Dose 1 EA; Start 05/30/18 at 02:00 Insulin Aspart (Novolog Insulin Pen) NOVOLOG *MODERATE* ALGORITHM WITH MEALS BEDTIME SC Last administered on 06/07/18at 11:56; Admin Dose 6 UNIT; Start 05/30/18 at 07:55 Enalaprilat (Vasotec Iv) 1.25 mg Q4H PRN IV ELEVATED SYSTOLIC BP Last administered on 06/06/18 08:14; Admin Dose 1.25 MG; Start 05/30/18 at 03:00 Guaifenesin/ Dextromethorphan (Robitussin Dm Liquid Cup) 5 ml Q4H PRN PO COUGH Last administered on 06/05/18 09:32; Admin Dose 5 ML; Start 05/31/18 at 00:30 Furosemide (Lasix) 40 mg DAILY IV Last administered on 06/07/18 08:42; Admin Dose 40 MG; Start 05/31/18 at 14:00 Baclofen (Lioresal) 5 mg TID PRN PO abdominal spasms Last administered on 11:53; Admin Dose 5 MG; Start 06/02/18 at 13:30 Insulin Aspart (Novolog Insulin Pen) 15 unit WITH MEALS SC Last administered on 06/07/18 11:56; Admin Dose 15 UNIT; Start 06/04/18 at 07:55 Insulin Glargine (Lantus) 18 units DAILY@2000 SC Last administered on 06/06/18 19:59; Admin Dose 18 UNITS; Start 06/03/18 at 20:00 Insulin Human NPH (Humulin N) 13 unit Q8 SC Last administered on 06/07/18 06:46; Admin Dose 13 UNIT; Start 06/06/18 at 22:00 Methylprednisolone Sodium Succinate (Solu-Medrol) 30 mg BID IV ; Start 06/07/18 at 21:00 JORDI WANG MD Jun 07, 2018 14:39
--- NOTE | 2018-06-07 14:40 | PN ---
Date/Time of Note Date/Time of Note DATE: 06/07/18 TIME: 14:28 Assessment/Plan VTE Prophylaxis Risk score (from Nsg)>0 risk: 5 SCD applied (from Nsg): Yes Pharmacological prophylaxis: LMWH Lines/Catheters IV Catheter Type (from Nrsg): Saline Lock Urinary Cath still in place: No Assessment/Plan Hospital Course This is a 77-year-old female with a past medical history of pulmonary fibrosis who presented to the emergency department with complaints of shortness of breath. She states that this is been an on and off situation for the last few months. She states that she has been admitted to multiple hospitals including [facility] at [place]. She apparently had a lung procedure done as well which she does not know what it was but it has not seemed to help her either. She does report having productive phlegm. She denies any chest pain or nausea vomiting or diarrhea. Patient in the emergency department was noted to have a SPO2 of 55%. She was placed on BiPAP with good response. Patientis treated with antibiotics with zosyn and steroid with SoluMedrol, p atient still on O2 35 L/min. Condition, treatment and poor prognosis are discussed with patient. Patient will be transferred to [place] for further treatment. Prednisone will be tapered off per supervisor sewer system. Assessment/Plan 1. Chronic respiratory failure, pulmonary fibrosis related, on 25 L/min O2 2. Pneumonia, treated 3. Pulmonary fibrosis, chronic, poor prognosis, taper down prednisone per pulmonology 4. DM, on insulin 5. Hypertension, controlled 6. DVT prophylaxis: lovenox 7. CODE STATUS: DNR/DNI. 8. Awaiting for bed in [place] Result Diagram: 06/05/18 0645 06/04/18 0620 Results 24hrs Laboratory Tests Test 06/06/18 17:12 06/06/18 20:42 06/07/18 01:59 06/07/18 07:43 Bedside Glucose 138 346 H 201 171 Test 06/07/18 11:44 Bedside Glucose 249 H Subjective 24 Hr Interval Summary Free Text/Dictation shortness of breath Exam/Review of Systems Exam Vitals Vital Signs Date Temp Pulse Resp B/P (MAP) Pulse Ox O2 O2 Flow FiO2 Time Delivery Rate 06/07/18 98 40 12:17 06/07/18 81 18 Nasal 12:17 Cannula 06/07/18 97.9 147/74 10:58 (98) Intake and Output 06/06/18 06/06/18 06/07/18 1515:00 23:00 07:00 IntakeIntake Total 820 ml BalanceBalance 820 ml Constitutional: alert, oriented, well developed Psych: no complaints, nl mood/affect Head: normocephalic, atraumatic Eyes: nl conjunctiva, EOMI, nl lids ENMT: nl external ears & nose, nl lips & teeth, nl nasal mucosa & septum Neck: supple, non-tender Respiratory: clear to auscultation, normal air movement; No congested cough, No crackles/rales, No diminished breath sounds, No intercostal retraction, No labored breathing, No respirations, No tactile fremitus, No wheezing, No other Cardiovascular: regular rate and rhythm, nl pulses; No bruits, No diastolic murmur, No edema, No gallop, No irregular rhythm, No jugular venous distention (JVD), No murmurs/extra sounds, No rub, No systolic murmur, No S3, No S4, No other Gastrointestinal: soft, nl liver, spleen Musculoskeletal: nl extremities to inspection Extremities: normal pulses; No calf tenderness, No cyanosis, No clubbing, No edema, No pitting pedal edema, No palpable cord, No tenderness, No other 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, nl mental status, nl speech, nl strength Results Results 24hrs Laboratory Tests Test 06/06/18 17:12 06/06/18 20:42 06/07/18 01:59 06/07/18 07:43 Bedside Glucose 138 346 H 201 171 Test 06/07/18 11:44 Bedside Glucose 249 H Medications Medication Current Medications IV Flush (NS 3 ml) 3 ml PER PROTOCOL IV ; Start 05/29/18 at 20:30 Acetaminophen (Tylenol Tab) 650 mg Q6H PRN PO .PAIN 1-3 OR TEMP; Start 05/29/18 at 20:30 Docusate Sodium (Colace) 100 mg Q12H PRN PO .CONSTIPATION; Start 05/29/18 at 20:30 Bisacodyl (Dulcolax) 5 mg DAILY PRN PO .CONSTIPATION; Start 05/29/18 at 20:30 Pantoprazole (Protonix Tab) 40 mg DAILY@06 PO Last administered on 06/07/18at 06:01; Admin Dose 40 MG; Start 05/30/18 at 06:00 Enoxaparin Sodium (Lovenox) 40 mg DAILY SC Last administered on 06/07/18at 08:48; Admin Dose 40 MG; Start 05/30/18 at 09:00 Levalbuterol (Xopenex Neb) 1.25 mg Q4H RESP THERAPY HHN Last administered on 06/07/18at 12:17; Admin Dose 1.25 MG; Start 05/29/18 at 21:00 Ipratropium Mcclave (Atrovent 0.02% (Neb)) 0.5 mg Q4HWA RESP THERAPY HHN Last administered on 06/07/18at 12:17; Admin Dose 0.5 MG; Start 05/29/18 at 21:00 Levalbuterol (Xopenex Neb) 1.25 mg Q4H RESP THERAPY PRN HHN WHEEZING; Start 05/29/18 at 21:00 Miscellaneous Information 1 ea NOTE XX ; Start 05/29/18 at 21:00 Glucose (Glutose) 15 gm Q15M PRN PO DECREASED GLUCOSE; Start 05/29/18 at 21:00 Glucose (Glutose) 22.5 gm Q15M PRN PO DECREASED GLUCOSE; Start 05/29/18 at 21:00 Dextrose (D50w Syringe) 25 ml Q15M PRN IV DECREASED GLUCOSE; Start 05/29/18 at 21:00 Dextrose (D50w Syringe) 50 ml Q15M PRN IV DECREASED GLUCOSE; Start 05/29/18 at 21:00 Glucagon (Glucagen) 1 mg Q15M PRN IM DECREASED GLUCOSE; Start 05/29/18 at 21:00 Glucose (Glutose) 15 gm Q15M PRN BUCCAL DECREASED GLUCOSE; Start 05/29/18 at 21:00 Diagnostic Test (Pha) (Accu-Chek) 1 ea 02 XX Last administered on 06/03/18at 02:24; Admin Dose 1 EA; Start 05/30/18 at 02:00 Insulin Aspart (Novolog Insulin Pen) NOVOLOG *MODERATE* ALGORITHM WITH MEALS BEDTIME SC Last administered on 06/07/18at 11:56; Admin Dose 6 UNIT; Start 05/30/18 at 07:55 Enalaprilat (Vasotec Iv) 1.25 mg Q4H PRN IV ELEVATED SYSTOLIC BP Last administered on 06/06/18 08:14; Admin Dose 1.25 MG; Start 05/30/18 at 03:00 Methylprednisolone Sodium Succinate (Solu-Medrol) 30 mg Q8 IV Last administered on 06/07/18 06:02; Admin Dose 30 MG; Start 05/30/18 at 08:00 Guaifenesin/ Dextromethorphan (Robitussin Dm Liquid Cup) 5 ml Q4H PRN PO COUGH Last administered on 06/05/18 09:32; Admin Dose 5 ML; Start 05/31/18 at 00:30 Furosemide (Lasix) 40 mg DAILY IV Last administered on 06/07/18 08:42; Admin Dose 40 MG; Start 05/31/18 at 14:00 Baclofen (Lioresal) 5 mg TID PRN PO abdominal spasms Last administered on 06/07/18 11:53; Admin Dose 5 MG; Start 06/02/18 at 13:30 Insulin Aspart (Novolog Insulin Pen) 15 unit WITH MEALS SC Last administered on 06/07/18 11:56; Admin Dose 15 UNIT; Start 06/04/18 at 07:55 Insulin Glargine (Lantus) 18 units DAILY@2000 SC Last administered on 06/06/18 19:59; Admin Dose 18 UNITS; Start 06/03/18 at 20:00 Insulin Human NPH (Humulin N) 13 unit Q8 SC Last administered on 06/07/18 06:46; Admin Dose 13 UNIT; Start 06/06/18 at 22:00 AUSTYN NAJERA MD Jun 07, 2018 14:38
--- NOTE | 2018-06-07 15:08 | DS ---
Date/Time of Note Date/Time of Note DATE: 06/07/18 TIME: 15:08 Discharge Summary Admission/Discharge Info Admit Date/Time May 29, 2018 at 19:47 Discharge Date/Time Discharge Diagnosis 1. Chronic respiratory failure, pulmonary fibrosis related, on 35 L/min O2 2. Pneumonia, treated 3. Pulmonary fibrosis, chronic, poor prognosis, taper down prednisone per pulmonology 4. DM, on insulin 5. Hypertension, controlled 6. DVT prophylaxis: lovenox 7. CODE STATUS: DNR/DNI. Patient Condition: Stable Hospital Course This is a 77-year-old female with a past medical history of pulmonary fibrosis who presented to the emergency department with complaints of shortness of breath. She states that this is been an on and off situation for the last few months. She states that she has been admitted to multiple hospitals including [facility] at [email or web address]. She apparently had a lung procedure done as well which she does not know what it was but it has not seemed to help her either. She does report having productive phlegm. She denies any chest pain or nausea vomiting or diarrhea. Patient in the emergency department was noted to have a SPO2 of 55%. She was placed on BiPAP with good response. Patient is treated with antibiotics with zosyn and steroid with SoluMedrol, patient still on O2 25 L/min. Condition, treatment and poor prognosis are discussed with patient. Patient will be transferred to [place] for further treatment. Prednisone will be tapered off per wave solder offbearer. Home Meds Active Scripts Prednisone (Prednisone) 20 Mg Tablet, 20 MG PO BID for 7 Days, TAB Prov:AUSTYN NAJERA MD 06/06/18 [Insulin Glargine] 100 UNITS/ML SOLN No Conflict Check, 18 UNITS SC DAILY@1999 for 10 Days Prov:AUSTYN NAJERA MD 06/06/18 Insulin Aspart* (Novolog Insulin Pen*) 100 Unit/Ml Soln, 0 UNIT SC WITH MEALS BEDTIME for 10 Days Prov:AUSTYN NAJERA MD 06/06/18 Insulin Aspart* (Novolog Insulin Pen*) 100 Unit/Ml Soln, 15 UNIT SC WITH MEALS for 10 Days Prov:AUSTYN NAJERA MD 06/06/18 Enoxaparin Sodium* (Enoxaparin Sodium*) 40 Mg/0.4 Ml Syringe, 40 MG SC DAILY for 10 Days Prov:AUSTYN NAJERA MD 06/06/18 Reported Medications Omeprazole* (Omeprazole*) 40 Mg Capsule., 40 MG PO DAILY, #30 CAP 05/29/18 Canagliflozin (Invokana) 100 Mg Tablet, 100 MG PO DAILY, TAB 05/29/18 Aspirin* (Aspirin* EC) 81 Mg Tablet.dr, 81 MG PO DAILY, TAB 05/29/18 Ergocalciferol (Vitamin D2) (VITAMIN D2) 50,000 Unit Capsule, 93541 UNIT PO Q MON, CAP 05/29/18 Discontinued Reported Medications [Blood Pressure] No Conflict Check, 1 CAP PO DAILY 05/29/18 [Insulin] No Conflict Check, 18 UNITS SQ QAM PATIENT CAN'T REMEMBER HER INSULIN NAME,BUT IN HER EXTERNAL MEDS SHE HAS A ( TOUJEO 300UNIT/1ML AND TRULICITY 1.5MG/0.5ML) 05/29/18 Meloxicam* (Meloxicam*) 7.5 Mg Tablet, 7.5 MG PO DAILY, #30 TAB 05/29/18 Follow-up Plan PCP and pulmonology Primary Care Provider Mayra Jovel MD Pending Labs Laboratory Tests Test 06/06/18 17:12 06/06/18 20:42 06/07/18 01:59 06/07/18 07:43 Bedside 138 346 201 171 Glucose mg/dL (70-220) mg/dL (70-220) mg/dL (70-220) mg/dL (70-220) Test 06/07/18 11:44 Bedside 249 Glucose mg/dL (70-220) AUSTYN NAJERA MD Jun 07, 2018 15:08
[2018-06-07] MEDS: GUAIFENESIN/DM 5ML CUP PO PRN (16:41)
[2018-06-07] MEDS ORDERED: METHYLPREDNISOLONE 40 MG INJ IV SCH (21:00)
[2018-06-07] MEDS ORDERED: NPH, HUMAN INSULIN ISOPHANE 3ML VIAL SC SCH (22:00)
== END 2018-06-07 17:50 | DRG 189 ==
LOC: EDBD → E/R 17:25 → TEL 19:47
PROVIDERS: ADMIT Family Medicine; ATTEND Internal Medicine
DX: J96.21 Acute and chronic respiratory failure with hypoxia (principal); J18.9 Pneumonia, unspecified organism; J84.112 Idiopathic pulmonary fibrosis; I10 Essential (primary) hypertension; I51.7 Cardiomegaly; E11.9 Type 2 diabetes mellitus without complications; Z66 Do not resuscitate; E11.65 Type 2 diabetes mellitus with hyperglycemia; Z79.4 Long term (current) use of insulin; T38.0X5A Adverse effect of glucocorticoids and synthetic analogues, initial encounter
CPT/HCPCS: 36415; 36600; 71045; 71250; 76775; 80048; 80053; 80061; 82803; 82962; 83036; 83605; 83735; 83880; 84100; 84443; 84484; 85025; 85610; 85730; 87275; 87276; 87279; 87280; 93005; 93306; 94640; 94660; 94664; 96374; 96375; J0360; J0456; J0696; J1650; J1815; J1817; J1940; J1956; J2060; J2543; J2920; J2930; J3480; J7030

== ENCOUNTER 2018-07-17 22:08 | Inpatient (IN) | payer MEDICARE, OTHER ==
[~2018-07-17] VITALS: Ht 149.9 cm; Wt 55.1 kg
[~2018-07-17 22:08] MED LIST changes: +ASPI-817 PO; +CANA100T PO; +ENOX40DI2 SC; +ERGO500013 PO; -GUAI-637 PO; +Insulin Glargine SC; -LANT3I SC; -LEVO750T25 PO; +NOVO3I SC; +OMEP40CA6 PO; +PRED20TA PO; -SITA1TAB5 PO; -[UNRECOGNIZED DRUG - OTHER] BOTH EYES
[2018-07-17 22:19] VITALS: Ht 149.9 cm; Wt 55.1 kg
[2018-07-17] MEDS ORDERED: FUROSEMIDE 40 MG INJ IV ONE (22:30)
[2018-07-17] MEDS ORDERED: ASPIRIN 81 MG TAB PO ONE (22:30)
[2018-07-17] MEDS ORDERED: ONDANSETRON 4 MG INJ IV STA (23:26)
[2018-07-17] MEDS ORDERED: morphine 4 MG/ML VIAL IV STA (23:26)
[2018-07-17] MEDS ORDERED: NITROGLYCERIN 2% 1 GM OINT PKT TD ONE (23:30)
[2018-07-18] VITALS (43 sets, daily range): BP systolic 75–126; BP diastolic 51–85; PULSE 63–160; RESP 18–35
[2018-07-18] MEDS ORDERED: SOD CHLORIDE 0.9% 250 ML IV ONE (00:30)
[2018-07-18] MEDS ORDERED: DILTIAZEM 25 MG INJ IV ONE (00:30)
[2018-07-18] MEDS ORDERED: DILTIAZEM-D5W 125MG/125ML DRIP 125 ML IV SCH ×2 (01:00→02:30)
[2018-07-18] MEDS ORDERED: HYDROCODONE/APAP (5/325) TAB PO PRN (02:30)
[2018-07-18] MEDS ORDERED: NITROGLYCERIN (SL) 0.4 MG TAB SL PRN (02:30)
[2018-07-18] MEDS ORDERED: morphine 2 MG INJ IV PRN (02:30)
[2018-07-18] MEDS ORDERED: DEXTROSE 50% 50 ML SYRINGE IV PRN ×2 (02:30)
[2018-07-18] MEDS ORDERED: GLUCOSE GEL 15 GRAM TUBE PO PRN ×2 (02:30)
[2018-07-18] MEDS ORDERED: GLUCAGON 1 MG INJ IM PRN (02:30)
[2018-07-18] MEDS ORDERED: DOCUSATE SODIUM 100 MG CAP PO PRN (02:30)
[2018-07-18] MEDS ORDERED: MAGNESIUM HYDROXIDE 30ML CUP PO PRN (02:30)
[2018-07-18] MEDS ORDERED: ONDANSETRON 4 MG INJ IV PRN (02:30)
[2018-07-18] MEDS ORDERED: ACETAMINOPHEN 325 MG TAB PO PRN (02:30)
[2018-07-18] MEDS ORDERED: GLUCOSE GEL 15 GRAM TUBE BUCCAL PRN (02:30)
[2018-07-18] MEDS ORDERED: NACL 0.9% 3 ML SYG IV SCH (02:30)
--- NOTE | 2018-07-18 02:48 | ERD ---
ER Documentation Chief Complaint Chief Complaint bib RA from home for respiratory distress HPI This is a very pleasant 69-year-old female by rescue from respiratory distress. Patient is DNR/DNI and has history of pulmonary fibrosis. According to the daughter, she became increasing short of breath today. No fevers no chills no nausea vomiting no chest pain. No other current complaints. No sick contacts. No recent travel. ROS All systems reviewed and are negative except as per history of present illness. Medications Home Meds Active Scripts Prednisone (Prednisone) 20 Mg Tablet, 20 MG PO BID for 7 Days, TAB Prov:AUSTYN NAJERA MD 06/06/18 [Insulin Glargine] 100 UNITS/ML SOLN No Conflict Check, 18 UNITS SC DAILY@2000 for 10 Days Prov:AUSTYN NAJERA MD 06/06/18 Insulin Aspart* (Novolog Insulin Pen*) 100 Unit/Ml Soln, 0 UNIT SC WITH MEALS BEDTIME for 10 Days Prov:AUSTYN NAJERA MD 06/06/18 Insulin Aspart* (Novolog Insulin Pen*) 100 Unit/Ml Soln, 15 UNIT SC WITH MEALS for 10 Days Prov:AUSTYN NAJERA MD 06/06/18 Enoxaparin Sodium* (Enoxaparin Sodium*) 40 Mg/0.4 Ml Syringe, 40 MG SC DAILY for 10 Days Prov:AUSTYN NAJERA MD 06/06/18 Reported Medications Omeprazole* (Omeprazole*) 40 Mg Capsule.dr, 40 MG PO DAILY, #30 CAP 05/29/18 Canagliflozin (Invokana) 100 Mg Tablet, 100 MG PO DAILY, TAB 05/29/18 Aspirin* (Aspirin* EC) 81 Mg Tablet.dr, 81 MG PO DAILY, TAB 05/29/18 Ergocalciferol (Vitamin D2) (VITAMIN D2) 50,000 Unit Capsule, 28494 UNIT PO Q MON, CAP 05/29/18 Allergies Allergies: Coded Allergies: ketorolac (Verified Allergy, Severe, 06/03/18) PMhx/Soc History of Surgery: Yes (C SECTION) Anesthesia Reaction: No Hx Neurological Disorder: No Hx Respiratory Disorders: Yes Hx Cardiac Disorders: Yes (Hypertension) Hx Psychiatric Problems: No Hx Miscellaneous Medical Probl: No Hx Alcohol Use: No Hx Substance Use: No Hx Tobacco Use: No Smoking Status: Never smoker Physical Exam Vitals Vital Signs Date Temp Pulse Resp B/P (MAP) Pulse Ox O2 O2 Flow FiO2 Time Delivery Rate 07/18/18 97.7 140 30 97/63 (74) 98 BIPAP 02:14 07/18/18 97.7 160 26 97/63 (74) 98 BIPAP 02:08 07/18/18 97.7 163 26 114/67 98 BIPAP 01:51 (83) 07/18/18 97.7 160 26 98/50 (66) 98 BIPAP 01:47 07/18/18 97.7 153 26 102/67 98 BIPAP 01:33 (79) 07/18/18 97.7 156 36 85/53 (64) 97 BIPAP 01:18 07/18/18 97.7 156 29 86/59 (68) 98 BIPAP 00:32 07/17/18 97.7 160 23 106/81 92 23:35 (89) 07/17/18 109 98 40 22:30 07/17/18 Nasal 5.0 22:20 Cannula 07/17/18 97.7 107 23 151/73 92 22:19 (99) Physical Exam Const: No acute distress Head: Atraumatic Eyes: Normal Conjunctiva ENT: Normal External Ears, Nose and Mouth. Neck: Full range of motion. No meningismus. Resp: Scattered rales bilaterally Cardio: Regular rate and rhythm, no murmurs Abd: Soft, non tender, non distended. Normal bowel sounds Skin: No petechiae or rashes Back: No midline or flank tenderness Ext: No cyanosis, or edema Neur: Awake and alert Psych: Normal Mood and Affect Result Diagram: 07/17/18224307/17/182243 Results 24 hrs Laboratory Tests Test 07/17/18 22:44 07/17/18 23:40 White Blood Count 16.6 10^3/ul Red Blood Count 4.37 10^6/ul Hemoglobin 12.7 g/dl Hematocrit 41.4 % Mean Corpuscular Volume 94.7 fl Mean Corpuscular Hemoglobin 29.1 pg Mean Corpuscular Hemoglobin Concent 30.7 g/dl Red Cell Distribution Width 15.6 % Platelet Count 222 10^3/UL Mean Platelet Volume 12.0 fl Immature Granulocytes % 0.500 % Neutrophils % 73.0 % Lymphocytes % 20.3 % Monocytes % 4.2 % Eosinophils % 1.8 % Basophils % 0.2 % Nucleated Red Blood Cells % 0.1 /100WBC Immature Granulocytes # 0.080 10^3/ul Neutrophils # 12.1 10^3/ul Lymphocytes # 3.4 10^3/ul Monocytes # 0.7 10^3/ul Eosinophils # 0.3 10^3/ul Basophils # 0.0 10^3/ul Nucleated Red Blood Cells # 0.0 10^3/ul Urine Color YELLOW Urine Clarity SLIGHTLY CLOUDY Urine pH 6.0 Urine Specific [place] 1.021 Urine Ketones 1+ mg/dL Urine Nitrite NEGATIVE mg/dL Urine Bilirubin NEGATIVE mg/dL Urine Urobilinogen NEGATIVE mg/dL Urine Leukocyte Esterase 1+ Lynda/ul Urine Microscopic RBC 4 /HPF Urine Microscopic WBC 12 /HPF Urine Squamous Epithelial Cells FEW /HPF Urine Mucus FEW /HPF Urine Hemoglobin NEGATIVE mg/dL Urine Glucose 3+ mg/dL Urine Total Protein 1+ mg/dl Sodium Level 137 mmol/L Potassium Level 3.9 mmol/L Chloride Level 96 mmol/L Carbon Dioxide Level 36 mmol/L Anion Gap 5 Blood Urea Nitrogen 26 mg/dl Creatinine 0.52 mg/dl Est Glomerular Filtrat Rate mL/min mL/min Glucose Level 350 mg/dl Calcium Level 9.0 mg/dl Total Bilirubin 0.4 mg/dl Direct Bilirubin 0.00 mg/dl Indirect Bilirubin 0.4 mg/dl Aspartate Amino Transf (AST/SGOT) 60 IU/L Alanine Aminotransferase (ALT/SGPT) 51 IU/L Alkaline Phosphatase 161 IU/L Troponin I 0.079 ng/ml B-Type Natriuretic Peptide 3060 PG/ML Total Protein 7.2 g/dl Albumin 3.3 g/dl Globulin 3.90 g/dl Albumin/Globulin Ratio 0.84 Lipase 84 U/L Blood Gas Specimen Source Blood arterial Arterial Blood Date Drawn 07/17/2018 11:38:21 PM Arterial Blood pH (Temp corrected) 7.420 Arterial Blood pCO2 (Temp correct) 48.1 mmhg Arterial Blood pO2 (Temp corrected) 71.4 mmHG Arterial Blood HCO3 30.5 mmol/L Arterial Blood Base Excess 5.1 mmol/L Arterial Blood Oxygen Saturation 94.7 mmHG Reuben Test N/A Arterial Blood Gas Puncture Site Right Brachial Arterial Blood Carboxyhemoglobin 0.2 % Arterial Blood Methemoglobin 0.2 % Blood Gas A-a O2 Differential 158.5 mmHg Oxyhemoglobin Percent 94.3 % Blood Gas Temperature 37.0 C Blood Gas Respiration Rate 16.0 Blood Gas Actual Respiration Rate 39 Blood Gas Modality MASK - BIPAP FiO2 40.0 % Blood Gas IPAP/EPAP Ratio 18/5 Blood Gas Notified Whom MG Blood Gas Notified Time 07/17/2018 11:43:52 PM Current Medications Medications Dose Sig/Jannet Start Time Status Last (Trade) Ordered Route PRN Stop Time Admin Dose Reason Admin Furosemide 60 mg ONCE ONCE 07/17/18 DC 07/17/18 (Lasix) IV 22:30 07/17/18 23:16 22:31 Aspirin 162 mg ONCE ONCE 07/17/18 DC 07/17/18 (Aspirin) PO 22:30 07/17/18 23:16 22:31 Morphine 4 mg ONCE STAT 07/17/18 DC 07/17/18 Sulfate IV 23:26 07/17/18 23:43 (morphine) 23:28 Ondansetron 4 mg ONCE STAT 07/17/18 DC 07/17/18 HCl (Zofran IV 23:26 07/17/18 23:43 Inj) 23:28 2 inch ONCE ONCE 07/17/18 DC 07/17/18 Nitroglycerin TD 23:30 07/17/18 23:42 23:31 (Nitroglyceri n 2% Oint) Diltiazem 10 mg ONCE ONCE 07/18/18 DC 07/18/18 HCl IV 00:30 07/18/18 00:15 (Cardizem Iv) 00:31 Sodium 250 ml @ Q1H ONCE 07/18/18 DC 07/18/18 Chloride 250 mls/hr IV 00:30 07/18/18 00:26 01:29 Diltiazem 125 ml @ 5 TITRATE IV 07/18/18 07/18/18 HCl mls/hr 01:00 01:13 IV Flush 3 ml PER 07/18/18 (NS 3 ml) PROTOCOL IV 02:30 Ondansetron 4 mg Q6H PRN 07/18/18 HCl (Zofran IV 02:30 Inj) NAUSEA/VOMITI NG 650 mg Q6H PRN 07/18/18 Acetaminophen PO .PAIN 1-3 02:30 (Tylenol OR TEMP Tab) 1 tab Q6H PRN 07/18/18 Acetaminophen PO .MOD PAIN 02:30 / 4-6 Hydrocodone Bitart ([place] (5/325)) Morphine 2 mg Q4H PRN 07/18/18 Sulfate IV .SEVERE 02:30 (morphine) PAIN 7-10 Docusate 100 mg Q12H PRN 07/18/18 Sodium PO 02:30 (Colace) .CONSTIPATION Magnesium 30 ml DAILY PRN 07/18/18 Hydroxide PO 02:30 (Milk Of Mag) .CONSTIPATION 40 mg DAILY@06 07/18/18 Pantoprazole IV 06:00 (Protonix Iv) Lorazepam 0.5 mg Q6H PRN 07/18/18 (Ativan) IV ANXIETY 02:30 Albuterol/ 3 ml Q4H RESP 07/18/18 Ipratropium THERAPY PRN 02:30 (Duoneb) HHN SHORTNESS OF BREATH Hydralazine 10 mg Q6H PRN 07/18/18 HCl IV ELEVATED 02:30 (Apresoline) BLOOD PRESSURE 1 tab Q5M PRN 07/18/18 Nitroglycerin SL ANGINA 02:30 (Nitroglyceri n (Sl Tab) 0.4 Mg) Insulin NOVOLOG Q4 SC 07/18/18 Aspart *MILD* 05:00 (Novolog ALGORI... Insulin Pen) Discontinue ONCE ONCE 07/18/18 Miscellaneous all previ... XX 02:30 07/18/18 02:31 Information (* Miscellaneous Pharmacy Order) Aspirin 81 mg DAILY PO 07/18/18 (Halfprin) 09:00 Enoxaparin 40 mg DAILY SC 07/18/18 Sodium 09:00 (Lovenox) 40 mg DAILY PO 07/18/18 UNV Miscellaneous 09:00 Information 18 units DAILY@199907/18/18 DC Miscellaneous SC 20:00 07/18/18 Information 20:00 Diltiazem 125 ml @ 5 TITRATE IV 07/18/18 HCl mls/hr 02:30 Insulin 18 units DAILY@199907/18/18 Glargine SC 20:00 (Lantus) 1 ea NOTE XX 07/18/18 Miscellaneous 02:30 Information Glucose 15 gm Q15M PRN 07/18/18 (Glutose) PO DECREASED 02:30 GLUCOSE Glucose 22.5 gm Q15M PRN 07/18/18 (Glutose) PO DECREASED 02:30 GLUCOSE Dextrose 25 ml Q15M PRN 07/18/18 (D50w IV DECREASED 02:30 Syringe) GLUCOSE Dextrose 50 ml Q15M PRN 07/18/18 (D50w IV DECREASED 02:30 Syringe) GLUCOSE Glucagon 1 mg Q15M PRN 07/18/18 (Glucagen) IM DECREASED 02:30 GLUCOSE Glucose 15 gm Q15M PRN 07/18/18 (Glutose) BUCCAL 02:30 DECREASED GLUCOSE Procedures/MDM EKG: Rate/Rhythm: Variable rate, irregular rhythm QRS, ST, T-waves: [No changes consistent w/ acute ischemia] Impression: Atrial fibrillation rapid ventricular response Chest X-ray 1V Interpreted by me: Soft Tissue: No acute abnormalities Bones: No acute abnormalities Mediastinum/Cardiac Silhouette/Lungs: Patient is fluid markings. Impression: CHF Emergency room course: Patient seen and evaluated. Was started on BiPAP immediately. Given Lasix morphine and started on Cardene drip for A. fib. Patient improved somewhat on BiPAP. Was given small fluid bolus that she became mildly hypotensive at one point. Blood pressure normalized. Heart rate normalized with Cardene drip. Hospitalist made aware of intensive care admission Patient's heart failure symptoms is concerning for acute decompensation and will require inpatient workup and monitoring. Further w/u for ischemia, arrhythmia, PE or dissection will be deferred to the inpatient team. Accepting Care Team: Current data and ongoing care discussed. Time: 2 AM Primary Provider: Hospitalist Consulting: Deferred to inpatient team Outstanding Data: none Critical Care: Time: 45 minutes, independent of any separately billable procedural time Treatments/Evaluations: Close monitoring and treatment of unstable vital signs, cardiorespiratory, and neurologic status, while maintaining tight balance of fluid, respiratory, and cardiac interventions. Departure Diagnosis: Primary Impression: Respiratory failure Chronicity: acute Respiratory failure complication: unspecified whether with hypoxia or hypercapnia Qualified Codes: J96.00 - Acute respiratory failure, unspecified whether with hypoxia or hypercapnia Additional Impression: Atrial fibrillation with RVR Condition: Critical GAUTAM CELESTE Jul 18, 2018 02:48
[2018-07-18] MEDS ORDERED: NOVO3I SC (03:09)
[2018-07-18] MEDS ORDERED: LORA10TA3 PO (03:09)
[2018-07-18] MEDS: LORAZEPAM 2 MG INJ IV PRN (03:13)
[2018-07-18] MEDS ORDERED: DIGOXIN 500 MCG INJ IV ONE ×2 (03:30→04:00)
[2018-07-18] MEDS ORDERED: PHENYLephrine 20MG IN 250 ML 250 ML IV SCH (03:40)
--- NOTE | 2018-07-18 04:10 | HP ---
Date/Time of Note Date/Time of Note DATE: 07/18/18 TIME: 04:04 Assessment/Plan VTE Prophylaxis SCD applied (from Nsg): No SCD contraindicated: other Pharmacological prophylaxis: LMWH Lines/Catheters IV Catheter Type (from Nrsg): Peripheral IV Assessment/Plan Hospital Course Assessment and plan: 77-year-old female past medical history of pulmonary fibrosis on home oxygen, diabetes, hypertension, , who presents with shortness of breath and tachycardia signs of A. fib with RVR. 1. Shortness of breath: Signs appear to be secondary to her pulmonary fibrosis. Family states she recently got breathing treatment machine at home and did receive 1 dose of Xopenex yesterday before coming to the ER. Apparently she uses home oxygen. -For now get pulmonary consult, continue oxygen mentation with BiPAP machine and try to wean off as tolerated -DuoNebs as needed, check TSH A1c lipid panel -Get palliative care consult given patient's long-standing history point fibrosis and the fact that she is DNR/DNI, also get PT and OT and speech therapy consults 2. A. fib with RVR: This appears to be new onset, likely secondary to patient's comorbidities including long-standing pulmonary fibrosis, also possibly a component of her receiving Xopenex yesterday? -Continue monitor for now, continue Cardizem drip, we have also added digoxin for now IV push, holding off on amiodarone at this time given patient's history of primary fibrosis -We will obtain cardiology consult as well 3. Hypertension: Again patient is actually hypotensive at this time -Continue pressor support Giovany-Synephrine, try to wean off once blood pressure improves if possible Result Diagram: 07/17/184 07/17/184 Results 24hrs Laboratory Tests Test 07/17/18 22:44 07/17/18 23:40 White Blood Count 16.6 #H Red Blood Count 4.37 Hemoglobin 12.7 Hematocrit 41.4 Mean Corpuscular Volume 94.7 Mean Corpuscular Hemoglobin 29.1 Mean Corpuscular Hemoglobin Concent 30.7 L Red Cell Distribution Width 15.6 H Platelet Count 222 # Mean Platelet Volume 12.0 H Immature Granulocytes % 0.500 H Neutrophils % 73.0 Lymphocytes % 20.3 Monocytes % 4.2 Eosinophils % 1.8 Basophils % 0.2 Nucleated Red Blood Cells % 0.1 H Immature Granulocytes # 0.080 H Neutrophils # 12.1 H Lymphocytes # 3.4 H Monocytes # 0.7 Eosinophils # 0.3 Basophils # 0.0 Nucleated Red Blood Cells # 0.0 Urine Color YELLOW Urine Clarity SLIGHTLY CLOUDY A Urine pH 6.0 Urine Specific [place] 1.021 Urine Ketones 1+ H Urine Nitrite NEGATIVE Urine Bilirubin NEGATIVE Urine Urobilinogen NEGATIVE Urine Leukocyte Esterase 1+ H Urine Microscopic RBC 4 Urine Microscopic WBC 12 H Urine Squamous Epithelial Cells FEW Urine Mucus FEW A Urine Hemoglobin NEGATIVE Urine Glucose 3+ H Urine Total Protein 1+ H Sodium Level 137 Potassium Level 3.9 Chloride Level 96 L Carbon Dioxide Level 36 H Anion Gap 5 Blood Urea Nitrogen 26 H Creatinine 0.52 Est Glomerular Filtrat Rate mL/min Glucose Level 350 H Hemoglobin A1c 9.0 H Calcium Level 9.0 Total Bilirubin 0.4 Direct Bilirubin 0.00 Indirect Bilirubin 0.4 Aspartate Amino Transf (AST/SGOT) 60 H Alanine Aminotransferase (ALT/SGPT) 51 Alkaline Phosphatase 161 H Troponin I 0.079 B-Type Natriuretic Peptide 3060 H Total Protein 7.2 Albumin 3.3 Globulin 3.90 H Albumin/Globulin Ratio 0.84 Lipase 84 Free Thyroxine 1.56 Blood Gas Specimen Source Blood arterial Arterial Blood Date Drawn 07/17/2018 11:38:21 PM Arterial Blood pH (Temp corrected) 7.420 Arterial Blood pCO2 (Temp correct) 48.1 H Arterial Blood pO2 (Temp corrected) 71.4 L Arterial Blood HCO3 30.5 H Arterial Blood Base Excess 5.1 H Arterial Blood Oxygen Saturation 94.7 L Reuben Test N/A Arterial Blood Gas Puncture Site Right Brachial Arterial Blood Carboxyhemoglobin 0.2 Arterial Blood Methemoglobin 0.2 Blood Gas A-a O2 Differential 158.5 H Oxyhemoglobin Percent 94.3 Blood Gas Temperature 37.0 Blood Gas Respiration Rate 16.0 Blood Gas Actual Respiration Rate 39 Blood Gas Modality MASK - BIPAP FiO2 40.0 Blood Gas IPAP/EPAP Ratio 18/5 Blood Gas Notified Whom MG Blood Gas Notified Time 07/17/2018 11:43:52 PM HPI/ROS Admit Date/Time Admit Date/Time Jul 18, 2018 at 01:51 Hx of Present Illness 77-year-old female past medical history of pulmonary fibrosis on home oxygen, diabetes, hypertension, , who presents with shortness of breath. Daughter states the patient has been having shortness of breath for the last 12 to 18 hours. Patient was recently at the emergency room at [facility] for similar symptoms and stayed there for a few hours but was discharged home. She had some mild phlegm nonproductive, no fevers or chills no upper lower GI bleeding no nausea vomiting no diarrhea constipation. When she came in today she was in respiratory distress and required BiPAP which she is still presently on, she was also found with atrial fibrillation with RVR and started on Cardizem drip. She is also now presently hypotensive and started on pressor support. Patient was last here to hospital from May 29 to June 06, 2018 for treatment of similar episode of respiratory failure secondary to pulmonary fibrosis. PMH/Family/Social Past Medical History Medications Current Medications Diltiazem HCl 125 ml @ 5 mls/hr TITRATE IV Last administered on 07/18/18at 01:13; Admin Dose 5 MLS/HR; Start 07/18/18 at 01:00 IV Flush (NS 3 ml) 3 ml PER PROTOCOL IV ; Start 07/18/18 at 02:30 Ondansetron HCl (Zofran Inj) 4 mg Q6H PRN IV NAUSEA/VOMITING; Start 07/18/18 at 02:30 Acetaminophen (Tylenol Tab) 650 mg Q6H PRN PO .PAIN 1-3 OR TEMP; Start 07/18/18 at 02:30 Acetaminophen/ Hydrocodone Bitart ([place] (5/325)) 1 tab Q6H PRN PO .MOD PAIN 4- 6; Start 07/18/18 at 02:30 Morphine Sulfate (morphine) 2 mg Q4H PRN IV .SEVERE PAIN 7-10; Start 07/18/18 at 02:30 Docusate Sodium (Colace) 100 mg Q12H PRN PO .CONSTIPATION; Start 07/18/18 at 02:30 Magnesium Hydroxide (Milk Of Mag) 30 ml DAILY PRN PO .CONSTIPATION; Start 07/18/18 at 02:30 Pantoprazole (Protonix Iv) 40 mg DAILY@06 IV ; Start 07/18/18 at 06:00 Lorazepam (Ativan) 0.5 mg Q6H PRN IV ANXIETY Last administered on 07/18/18at 03:13; Admin Dose 0.5 MG; Start 07/18/18 at 02:30 Albuterol/ Ipratropium (Duoneb) 3 ml Q4H RESP THERAPY PRN HHN SHORTNESS OF BREATH; Start 07/18/18 at 02:30 Hydralazine HCl (Apresoline) 10 mg Q6H PRN IV ELEVATED BLOOD PRESSURE; Start 07/18/18 at 02:30 Nitroglycerin (Nitroglycerin (Sl Tab) 0.4 Mg) 1 tab Q5M PRN SL ANGINA; Start 07/18/18 at 02:30 Insulin Aspart (Novolog Insulin Pen) NOVOLOG *MILD* ALGORI... Q4 SC ; Start 07/18/18 at 05:00 Aspirin (Halfprin) 81 mg DAILY PO ; Start 07/18/18 at 09:00 Enoxaparin Sodium (Lovenox) 40 mg DAILY SC ; Start 07/18/18 at 09:00 Miscellaneous Information 40 mg DAILY PO ; Start 07/18/18 at 09:00; Status UNV Diltiazem HCl 125 ml @ 5 mls/hr TITRATE IV ; Start 07/18/18 at 02:30 Insulin Glargine (Lantus) 18 units DAILY@2000 SC ; Start 07/18/18 at 20:00 Miscellaneous Information 1 ea NOTE XX ; Start 07/18/18 at 02:30 Glucose (Glutose) 15 gm Q15M PRN PO DECREASED GLUCOSE; Start 07/18/18 at 02:30 Glucose (Glutose) 22.5 gm Q15M PRN PO DECREASED GLUCOSE; Start 07/18/18 at 02:30 Dextrose (D50w Syringe) 25 ml Q15M PRN IV DECREASED GLUCOSE; Start 07/18/18 at 02:30 Dextrose (D50w Syringe) 50 ml Q15M PRN IV DECREASED GLUCOSE; Start 07/18/18 at 02:30 Glucagon (Glucagen) 1 mg Q15M PRN IM DECREASED GLUCOSE; Start 07/18/18 at 02:30 Glucose (Glutose) 15 gm Q15M PRN BUCCAL DECREASED GLUCOSE; Start 07/18/18 at 02:30 Phenylephrine HCl 250 ml @ 75 mls/hr TITRATE IV ; Start 07/18/18 at 03:40 Coded Allergies: ketorolac (Unverified Allergy, Severe, 07/18/18) Past Surgical History Past Surgical Hx: other () Family History Significant Family History: no pertinent family hx Social History Alcohol Use: none Smoking Status: Never smoker Drug Use: none Exam/Review of Systems Vital Signs Vitals Vital Signs Date Temp Pulse Resp B/P (MAP) Pulse Ox O2 O2 Flow FiO2 Time Delivery Rate 07/18/18 153 95 40 03:10 07/18/18 98.1 33 97/68 (78) BIPAP 03:00 07/17/18 5.0 22:20 Exam Exam GENERAL: lying in bed, on BiPAP HEENT: Pupils equal, round, and reactive to light. EOMI. NECK: Supple LUNGS: Distant breath sounds bilaterally HEART: Tachycardic heart rate ABDOMEN: Soft, nontender, non-distended. Positive bowel sounds in all four quadrants. No rebound or guarding. EXTREMITIES: No lower extremity edema bilaterally NEURO: No focal deficits ANAHI VERDUGO Jul 18, 2018 04:10
[2018-07-18] MEDS ORDERED: INSULIN ASPART [NOVOLOG] 3 ML PEN SC SCH (05:00)
[2018-07-18] MEDS: INSULIN ASPART [NOVOLOG] 3 ML PEN SC SCH ×5 (05:01→20:26)
[2018-07-18] MEDS ORDERED: PANTOPRAZOLE 40 MG INJ IV SCH (06:00)
--- NOTE | 2018-07-18 08:52 | CONS ---
Assessment/Plan Assessment/Plan Assessment/Plan (Daily) Chest x-ray showing diffuse fibrotic pattern due to IPF. Patient is currently on Cardizem drip 50 mg/h. Patient also was given intravenous Lasix in the ER. Assessment and recommendations; 1. patient admitted with shortness of breath due to A. fib with RVR. 2. IPF. 3. Hypotension, likely from diuretic administration. Administered normal saline 1000 mL IV x1. Wean down pressor support as tristen ated. Wean down Cardizem drip as tolerated as well. Consultation Date/Type/Reason Admit Date/Time Jul 18, 2018 at 01:51 Date of Consultation: Jul 18, 2018 Type of Consult Pulmonary/critical care Pulmonary consult requested for evaluation of chronic hypoxemia due to IPF. Patient admitted with A. fib with RVR. Patient is a pleasant 77-year-old lady who came into the hospital with a 2-day history of shortness of breath. Upon evaluation patient was in A. fib with RVR. Patient has been started on Cardizem drip and was given digoxin with good rate control with significant improvement in dyspnea. Patient complete a chronic mild cough without any sputum production or hemoptysis. Denies any recent fever chills or any other symptoms. By the time I saw her, patient was completely awake and alert and appeared in no distress whatsoever. Past medical history; 1. History of IPF, O2 dependent. 2. Chronic atrial fibrillation. 3. Diabetes. 4. Systemic hypertension. Medications; reviewed. Allergies; as outlined above. Social history; most of any smoking. No history of drug abuse. Family history; noncontributory. Patient does have a supportive family. 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 Review of systems; denies any headache, seizures, chest pain, angina, wheezing, complains of mild chronic cough. Denies any sputum production. Denies any wheezing. Denies any fever or chills. Denies any abdominal pain, nausea vomiting any weight loss. Denies any orthopnea. General exam; elderly lady, awake alert, currently in no distress. On 2 L nasal cannula. Date/Time of Note DATE: 07/18/18 TIME: 08:48 Past Medical History Home Meds Active Scripts Prednisone (Prednisone) 20 Mg Tablet, 20 MG PO BID for 7 Days, TAB Prov:AUSTNY NAJERA MD 06/06/18 [Insulin Glargine] 100 UNITS/ML SOLN No Conflict Check, 18 UNITS SC DAILY@2000 for 10 Days Prov:AUSTYN NAJERA MD 06/06/18 Enoxaparin Sodium* (Enoxaparin Sodium*) 40 Mg/0.4 Ml Syringe, 40 MG SC DAILY for 10 Days Prov:AUSTYN NAJERA MD 06/06/18 Reported Medications Loratadine* (Loratadine*) 10 Mg Tablet, 10 MG PO DAILY for 30 Days, #30 07/18/18 Insulin Aspart* (Novolog Insulin Pen*) 100 Unit/Ml Soln, 4 UNIT SC WITH BREAKFAST, EA 07/18/18 Omeprazole* (Omeprazole*) 40 Mg Capsule.dr, 40 MG PO DAILY, #30 CAP 05/29/18 Canagliflozin (Invokana) 100 Mg Tablet, 100 MG PO DAILY, TAB 05/29/18 Aspirin* (Aspirin* EC) 81 Mg Tablet.dr, 81 MG PO DAILY, TAB 05/29/18 Ergocalciferol (Vitamin D2) (VITAMIN D2) 50,000 Unit Capsule, 03028 UNIT PO Q MON, CAP 05/29/18 Discontinued Scripts Insulin Aspart* (Novolog Insulin Pen*) 100 Unit/Ml Soln, 0 UNIT SC WITH MEALS BEDTIME for 10 Days Prov:AUSTYN NAJERA MD 06/06/18 Insulin Aspart* (Novolog Insulin Pen*) 100 Unit/Ml Soln, 15 UNIT SC WITH MEALS f or 10 Days Prov:AUSTYN NAJERA MD 06/06/18 Medications Current Medications IV Flush (NS 3 ml) 3 ml PER PROTOCOL IV ; Start 07/18/18 at 02:30 Ondansetron HCl (Zofran Inj) 4 mg Q6H PRN IV NAUSEA/VOMITING; Start 07/18/18 at 02:30 Acetaminophen (Tylenol Tab) 650 mg Q6H PRN PO .PAIN 1-3 OR TEMP; Start 07/18/18 at 02:30 Acetaminophen/ Hydrocodone Bitart ([place] (5/325)) 1 tab Q6H PRN PO .MOD PAIN 4- 6; Start 07/18/18 at 02:30 Morphine Sulfate (morphine) 2 mg Q4H PRN IV .SEVERE PAIN 7-10; Start 07/18/18 at 02:30 Docusate Sodium (Colace) 100 mg Q12H PRN PO .CONSTIPATION; Start 07/18/18 at 02:30 Magnesium Hydroxide (Milk Of Mag) 30 ml DAILY PRN PO .CONSTIPATION; Start 07/18/18 at 02:30 Pantoprazole (Protonix Iv) 40 mg DAILY@06 IV Last administered on 07/18/18at 05:22; Admin Dose 40 MG; Start 07/18/18 at 06:00 Lorazepam (Ativan) 0.5 mg Q6H PRN IV ANXIETY Last administered on 07/18/18at 03:13; Admin Dose 0.5 MG; Start 07/18/18 at 02:30 Albuterol/ Ipratropium (Duoneb) 3 ml Q4H RESP THERAPY PRN HHN SHORTNESS OF BREATH; Start 07/18/18 at 02:30 Hydralazine HCl (Apresoline) 10 mg Q6H PRN IV ELEVATED BLOOD PRESSURE; Start 07/18/18 at 02:30 Nitroglycerin (Nitroglycerin (Sl Tab) 0.4 Mg) 1 tab Q5M PRN SL ANGINA; Start 07/18/18 at 02:30 Aspirin (Halfprin) 81 mg DAILY PO ; Start 07/18/18 at 09:00 Enoxaparin Sodium (Lovenox) 40 mg DAILY SC ; Start 07/18/18 at 09:00 Miscellaneous Information 40 mg DAILY PO ; Start 07/18/18 at 09:00; Status UNV Diltiazem HCl 125 ml @ 5 mls/hr TITRATE IV ; Start 07/18/18 at 02:30 Insulin Glargine (Lantus) 18 units DAILY@2000 SC ; Start 07/18/18 at 20:00 Miscellaneous Information 1 ea NOTE XX ; Start 07/18/18 at 02:30 Glucose (Glutose) 15 gm Q15M PRN PO DECREASED GLUCOSE; Start 07/18/18 at 02:30 Glucose (Glutose) 22.5 gm Q15M PRN PO DECREASED GLUCOSE; Start 07/18/18 at 02:30 Dextrose (D50w Syringe) 25 ml Q15M PRN IV DECREASED GLUCOSE; Start 07/18/18 at 02:30 Dextrose (D50w Syringe) 50 ml Q15M PRN IV DECREASED GLUCOSE; Start 07/18/18 at 02:30 Glucagon (Glucagen) 1 mg Q15M PRN IM DECREASED GLUCOSE; Start 07/18/18 at 02:30 Glucose (Glutose) 15 gm Q15M PRN BUCCAL DECREASED GLUCOSE; Start 07/18/18 at 02:30 Phenylephrine HCl 250 ml @ 75 mls/hr TITRATE IV Last administered on 07/18/18at 03:15; Admin Dose 37.5 MLS/HR; Start 07/18/18 at 03:40 Insulin Aspart (Novolog Insulin Pen) NOVOLOG *MODERATE* ALGORI... Q4 SC Last administered on 07/18/18at 05:01; Admin Dose 12 UNIT; Start 07/18/18 at 05:00 Allergies: Coded Allergies: ketorolac (Unverified Allergy, Severe, 07/18/18) Past Surgical History Past Surgical Hx: other () Social History Alcohol Use: none Smoking Status: Never smoker Drug Use: none Exam/Review of Systems Exam Vitals Vital Signs Date Temp Pulse Resp B/P (MAP) Pulse Ox O2 O2 Flow FiO2 Time Delivery Rate 07/18/18 108 24 105/81 96 06:45 (89) 07/18/18 BIPAP 06:00 07/18/18 40 05:40 07/18/18 98.5 04:00 07/17/18 5.0 22:20 Intake and Output 07/17/18 07/17/18 07/18/18 1515:00 23:00 07:00 IntakeIntake Total 216.25 ml OutputOutput Total 180 ml BalanceBalance 36.25 ml Exam H EENT exam; supple neck, no JVD. No lymphadenopathy. Midline trachea. No thyromegaly. Patient has multiple carious teeth. No neck masses. Pupils are small bilaterally. Chest exam; bilateral crackles. S1-S2 audible, no murmurs. Irregular rhythm. Abdomen exam; soft, no organomegaly. Nontender. Bowel sounds audible. Extremity exam; no peripheral edema clubbing. INSURANCE RISK MANAGER exam; no focal deficit. Results Result Diagram: 07/18/18 0630 07/18/18 0630 Results 24hrs Laboratory Tests Test 07/17/18 22:44 07/17/18 23:40 07/18/18 04:30 07/18/18 06:30 White Blood 16.6 #H 13.5 H Count Red Blood Count 4.37 4.16 L Hemoglobin 12.7 12.0 Hematocrit 41.4 39.6 Mean Corpuscular 94.7 95.2 Volume Mean Corpuscular 29.1 28.8 L Hemoglobin Mean Corpuscular 30.7 L 30.3 L Hemoglobin [place] nt Red Cell 15.6 H 16.0 H Distribution Width Platelet Count 222 # 240 Mean Platelet 12.0 H 12.5 H Volume Immature 0.500 H 0.600 H Granulocytes % Neutrophils % 73.0 78.9 H Lymphocytes % 20.3 14.2 L Monocytes % 4.2 5.5 Eosinophils % 1.8 0.4 Basophils % 0.2 0.4 Nucleated Red 0.1 H 0.0 Blood Cells % Immature 0.080 H 0.080 H Granulocytes # Neutrophils # 12.1 H 10.6 H Lymphocytes # 3.4 H 1.9 Monocytes # 0.7 0.7 Eosinophils # 0.3 0.1 Basophils # 0.0 0.1 Nucleated Red 0.0 0.0 Blood Cells # Urine Color YELLOW Urine Clarity SLIGHTLY CLOUDY A Urine pH 6.0 Urine Specific 1.021 [place] Urine Ketones 1+ H Urine Nitrite NEGATIVE Urine Bilirubin NEGATIVE Urine NEGATIVE Urobilinogen Urine Leukocyte 1+ H Esterase Urine 4 Microscopic RBC Urine 12 H Microscopic WBC Urine Squamous FEW Epithelial Cells Urine Mucus FEW A Urine Hemoglobin NEGATIVE Urine Glucose 3+ H Urine Total 1+ H Protein Sodium Level 137 136 Potassium Level 3.9 4.1 Chloride Level 96 L 95 L Carbon Dioxide 36 H 35 H Level Anion Gap 5 6 Blood Urea 26 H 28 H Nitrogen Creatinine 0.52 0.64 Est Glomerular Filtrat Rate mL/min Glucose Level 350 H 422 *H Hemoglobin A1c 9.0 H Calcium Level 9.0 8.4 Total Bilirubin 0.4 Direct Bilirubin 0.00 Indirect 0.4 Bilirubin Aspartate Amino 60 H Transf (AST/SGOT ) Alanine 51 Aminotransferase (ALT/SGPT) Alkaline 161 H Phosphatase Troponin I 0.079 B-Type 3060 H Natriuretic Peptide Total Protein 7.2 Albumin 3.3 Globulin 3.90 H Albumin/Globulin 0.84 Ratio Lipase 84 Free Thyroxine 1.56 Blood Gas Blood arterial Specimen Source Arterial Blood 07/17/2018 11:38:2 Date Drawn 1 PM Arterial Blood 7.420 pH (Temp corrected) Arterial Blood 48.1 H pCO2 (Temp correct) Arterial Blood 71.4 L pO2 (Temp corrected) Arterial Blood 30.5 H HCO3 Arterial Blood 5.1 H Base Excess Arterial Blood 94.7 L Oxygen Saturatio n Reuben Test N/A Arterial Blood Right Brachial Gas Puncture Site Arterial 0.2 Blood Carboxyhem oglobin Arterial Blood 0.2 Methemoglobin Blood Gas A-a O2 158.5 H Differential Oxyhemoglobin 94.3 Percent Blood Gas 37.0 Temperature Blood Gas 16.0 Respiration Rate Blood Gas Actual 39 Respiration Rate Blood Gas MASK - BIPAP Modality FiO2 40.0 Blood Gas 18/5 IPAP/EPAP Ratio Blood Gas MG Notified Whom Blood Gas 07/17/2018 11:43:5 Notified Time 2 PM Bedside Glucose 360 H Phosphorus Level 4.6 Magnesium Level 1.7 Medications Medication Current Medications IV Flush (NS 3 ml) 3 ml PER PROTOCOL IV ; Start 07/18/18 at 02:30 Ondansetron HCl (Zofran Inj) 4 mg Q6H PRN IV NAUSEA/VOMITING; Start 07/18/18 at 02:30 Acetaminophen (Tylenol Tab) 650 mg Q6H PRN PO .PAIN 1-3 OR TEMP; Start 07/18/18 at 02:30 Acetaminophen/ Hydrocodone Bitart ([place] (5/325)) 1 tab Q6H PRN PO .MOD PAIN 4- 6; Start 07/18/18 at 02:30 Morphine Sulfate (morphine) 2 mg Q4H PRN IV .SEVERE PAIN 7-10; Start 07/18/18 at 02:30 Docusate Sodium (Colace) 100 mg Q12H PRN PO .CONSTIPATION; Start 07/18/18 at 02:30 Magnesium Hydroxide (Milk Of Mag) 30 ml DAILY PRN PO .CONSTIPATION; Start 07/18/18 at 02:30 Pantoprazole (Protonix Iv) 40 mg DAILY@06 IV Last administered on 07/18/18at 05:22; Admin Dose 40 MG; Start 07/18/18 at 06:00 Lorazepam (Ativan) 0.5 mg Q6H PRN IV ANXIETY Last administered on 07/18/18at 03:13; Admin Dose 0.5 MG; Start 07/18/18 at 02:30 Albuterol/ Ipratropium (Duoneb) 3 ml Q4H RESP THERAPY PRN HHN SHORTNESS OF BREATH; Start 07/18/18 at 02:30 Hydralazine HCl (Apresoline) 10 mg Q6H PRN IV ELEVATED BLOOD PRESSURE; Start 07/18/18 at 02:30 Nitroglycerin (Nitroglycerin (Sl Tab) 0.4 Mg) 1 tab Q5M PRN SL ANGINA; Start 07/18/18 at 02:30 Aspirin (Halfprin) 81 mg DAILY PO ; Start 07/18/18 at 09:00 Enoxaparin Sodium (Lovenox) 40 mg DAILY SC ; Start 07/18/18 at 09:00 Miscellaneous Information 40 mg DAILY PO ; Start 07/18/18 at 09:00; Status UNV Diltiazem HCl 125 ml @ 5 mls/hr TITRATE IV ; Start 07/18/18 at 02:30 Insulin Glargine (Lantus) 18 units DAILY@2000 SC ; Start 07/18/18 at 20:00 Miscellaneous Information 1 ea NOTE XX ; Start 07/18/18 at 02:30 Glucose (Glutose) 15 gm Q15M PRN PO DECREASED GLUCOSE; Start 07/18/18 at 02:30 Glucose (Glutose) 22.5 gm Q15M PRN PO DECREASED GLUCOSE; Start 07/18/18 at 02:30 Dextrose (D50w Syringe) 25 ml Q15M PRN IV DECREASED GLUCOSE; Start 07/18/18 at 02:30 Dextrose (D50w Syringe) 50 ml Q15M PRN IV DECREASED GLUCOSE; Start 07/18/18 at 02:30 Glucagon (Glucagen) 1 mg Q15M PRN IM DECREASED GLUCOSE; Start 07/18/18 at 02:30 Glucose (Glutose) 15 gm Q15M PRN BUCCAL DECREASED GLUCOSE; Start 07/18/18 at 02: 30 Phenylephrine HCl 250 ml @ 75 mls/hr TITRATE IV Last administered on 07/18/18at 03:15; Admin Dose 37.5 MLS/HR; Start 07/18/18 at 03:40 Insulin Aspart (Novolog Insulin Pen) NOVOLOG *MODERATE* ALGORI... Q4 SC Last administered on 07/18/18at 05:01; Admin Dose 12 UNIT; Start 07/18/18 at 05:00 LLUVIA MARQUEZ Jul 18, 2018 08:52
[2018-07-18] MEDS: ASPIRIN (EC) 81 MG TAB PO SCH (08:54)
[2018-07-18] MEDS: ENOXAPARIN 40 MG/0.4 ML SYG SC SCH (08:55)
[2018-07-18] MEDS ORDERED: SOD CHLORIDE 0.9% 500 ML IV ONE (09:00)
[2018-07-18] MEDS ORDERED: NON-FORMULARY/PATIENT OWN MED (Omeprazole* 40 MG) PO SCH (09:00)
--- NOTE | 2018-07-18 16:15 | PN ---
Date/Time of Note Date/Time of Note DATE: 07/18/18 TIME: 16:00 Assessment/Plan VTE Prophylaxis Risk score (from Nsg)>0 risk: 5 SCD applied (from Nsg): Yes Pharmacological prophylaxis: LMWH Lines/Catheters IV Catheter Type (from [facility]): Peripheral IV Assessment/Plan Hospital Course Assessment and plan: 77-year-old female past medical history of pulmonary fibrosis on home oxygen, diabetes, hypertension, , who presents with shortness of breath and tachycardia signs of A. fib with RVR. 1. Acute on chronic hypoxemic and hypercapnic respiratory failure secondary to pulmonary fibrosis and mild pulmonary edema Status post diuresis Patient now saturating well on 2 L nasal cannula Pulmonology following Downgrade Patient with recent diagnosis of pulmonary fibrosis several months ago 2. A. fib with RVR-resolved Patient now in sinus DC Cardizem drip 3. Septic shock likely secondary to UTI Empiric Rocephin Follow-up cultures Now weaned off pressors 4. History of hypertension Hold home meds secondary to recent shock 5. Debility with dysphasia secondary to comorbidities Speech therapy evaluation appreciated, pills crushed and n.p.o. for now Prophylaxis: Lovenox DC planning: Downgrade to telemetry Result Diagram: 07/18/18 0630 07/18/18 0630 Results 24hrs Laboratory Tests Test 07/17/18 22:44 07/17/18 23:40 07/18/18 04:30 07/18/18 06:30 White Blood 16.6 #H 13.5 H Count Red Blood Count 4.37 4.16 L Hemoglobin 12.7 12.0 Hematocrit 41.4 39.6 Mean Corpuscular 94.7 95.2 Volume Mean Corpuscular 29.1 28.8 L Hemoglobin Mean Corpuscular 30.7 L 30.3 L Hemoglobin Yoli nt Red Cell 15.6 H 16.0 H Distribution Width Platelet Count 222 # 240 Mean Platelet 12.0 H 12.5 H Volume Immature 0.500 H 0.600 H Granulocytes % Neutrophils % 73.0 78.9 H Lymphocytes % 20.3 14.2 L Monocytes % 4.2 5.5 Eosinophils % 1.8 0.4 Basophils % 0.2 0.4 Nucleated Red 0.1 H 0.0 Blood Cells % Immature 0.080 H 0.080 H Granulocytes # Neutrophils # 12.1 H 10.6 H Lymphocytes # 3.4 H 1.9 Monocytes # 0.7 0.7 Eosinophils # 0.3 0.1 Basophils # 0.0 0.1 Nucleated Red 0.0 0.0 Blood Cells # Urine Color YELLOW Urine Clarity SLIGHTLY CLOUDY A Urine pH 6.0 Urine Specific 1.021 [place] Urine Ketones 1+ H Urine Nitrite NEGATIVE Urine Bilirubin NEGATIVE Urine NEGATIVE Urobilinogen Urine Leukocyte 1+ H Esterase Urine 4 Microscopic RBC Urine 12 H Microscopic WBC Urine Squamous FEW Epithelial Cells Urine Mucus FEW A Urine Hemoglobin NEGATIVE Urine Glucose 3+ H Urine Total 1+ H Protein Sodium Level 137 136 Potassium Level 3.9 4.1 Chloride Level 96 L 95 L Carbon Dioxide 36 H 35 H Level Anion Gap 5 6 Blood Urea 26 H 28 H Nitrogen Creatinine 0.52 0.64 Est Glomerular Filtrat Rate mL/min Glucose Level 350 H 422 *H Hemoglobin A1c 9.0 H Calcium Level 9.0 8.4 Total Bilirubin 0.4 Direct Bilirubin 0.00 Indirect 0.4 Bilirubin Aspartate Amino 60 H Transf (AST/SGOT ) Alanine 51 Aminotransferase (ALT/SGPT) Alkaline 161 H Phosphatase Troponin I 0.079 B-Type 3060 H Natriuretic Peptide Total Protein 7.2 Albumin 3.3 Globulin 3.90 H Albumin/Globulin 0.84 Ratio Lipase 84 Free Thyroxine 1.56 Blood Gas Blood arterial Specimen Source Arterial Blood 07/17/2018 11:38:2 Date Drawn 1 PM Arterial Blood 7.420 pH (Temp corrected) Arterial Blood 48.1 H pCO2 (Temp correct) Arterial Blood 71.4 L pO2 (Temp corrected) Arterial Blood 30.5 H HCO3 Arterial Blood 5.1 H Base Excess Arterial Blood 94.7 L Oxygen Saturatio n Reuben Test N/A Arterial Blood Right Brachial Gas Puncture Site Arterial 0.2 Blood Carboxyhem oglobin Arterial Blood 0.2 Methemoglobin Blood Gas A-a O2 158.5 H Differential Oxyhemoglobin 94.3 Percent Blood Gas 37.0 Temperature Blood Gas 16.0 Respiration Rate Blood Gas Actual 39 Respiration Rate Blood Gas MASK - BIPAP Modality FiO2 40.0 Blood Gas 18/5 IPAP/EPAP Ratio Blood Gas MG Notified Whom Blood Gas 07/17/2018 11:43:5 Notified Time 2 PM Bedside Glucose 360 H Phosphorus Level 4.6 Magnesium Level 1.7 Test 07/18/18 08:58 07/18/18 14:10 Bedside Glucose 292 H 241 H Subjective 24 Hr Interval Summary Constitutional: no complaints Exam/Review of Systems Exam Vitals Vital Signs Date Temp Pulse Resp B/P (MAP) Pulse Ox O2 O2 Flow FiO2 Time Delivery Rate 07/18/18 69 20 108/53 98 15:00 (71) 07/18/18 2.0 12:00 07/18/18 97.5 Nasal 12:00 Cannula 07/18/18 40 05:40 Intake and Output 07/17/18 07/17/18 07/18/18 1515:00 23:00 07:00 IntakeIntake Total 216.25 ml OutputOutput Total 240 ml BalanceBalance -23.75 ml Constitutional: alert Respiratory: clear to auscultation Cardiovascular: regular rate and rhythm Gastrointestinal: soft; No distended Musculoskeletal: nl extremities to inspection Results Results 24hrs Laboratory Tests Test 07/17/18 22:44 07/17/18 23:40 07/18/18 04:30 07/18/18 06:30 White Blood 16.6 #H 13.5 H Count Red Blood Count 4.37 4.16 L Hemoglobin 12.7 12.0 Hematocrit 41.4 39.6 Mean Corpuscular 94.7 95.2 Volume Mean Corpuscular 29.1 28.8 L Hemoglobin Mean Corpuscular 30.7 L 30.3 L Hemoglobin Yoli nt Red Cell 15.6 H 16.0 H Distribution Width Platelet Count 222 # 240 Mean Platelet 12.0 H 12.5 H Volume Immature 0.500 H 0.600 H Granulocytes % Neutrophils % 73.0 78.9 H Lymphocytes % 20.3 14.2 L Monocytes % 4.2 5.5 Eosinophils % 1.8 0.4 Basophils % 0.2 0.4 Nucleated Red 0.1 H 0.0 Blood Cells % Immature 0.080 H 0.080 H Granulocytes # Neutrophils # 12.1 H 10.6 H Lymphocytes # 3.4 H 1.9 Monocytes # 0.7 0.7 Eosinophils # 0.3 0.1 Basophils # 0.0 0.1 Nucleated Red 0.0 0.0 Blood Cells # Urine Color YELLOW Urine Clarity SLIGHTLY CLOUDY A Urine pH 6.0 Urine Specific 1.021 [place] Urine Ketones 1+ H Urine Nitrite NEGATIVE Urine Bilirubin NEGATIVE Urine NEGATIVE Urobilinogen Urine Leukocyte 1+ H Esterase Urine 4 Microscopic RBC Urine 12 H Microscopic WBC Urine Squamous FEW Epithelial Cells Urine Mucus FEW A Urine Hemoglobin NEGATIVE Urine Glucose 3+ H Urine Total 1+ H Protein Sodium Level 137 136 Potassium Level 3.9 4.1 Chloride Level 96 L 95 L Carbon Dioxide 36 H 35 H Level Anion Gap 5 6 Blood Urea 26 H 28 H Nitrogen Creatinine 0.52 0.64 Est Glomerular Filtrat Rate mL/min Glucose Level 350 H 422 *H Hemoglobin A1c 9.0 H Calcium Level 9.0 8.4 Total Bilirubin 0.4 Direct Bilirubin 0.00 Indirect 0.4 Bilirubin Aspartate Amino 60 H Transf (AST/SGOT ) Alanine 51 Aminotransferase (ALT/SGPT) Alkaline 161 H Phosphatase Troponin I 0.079 B-Type 3060 H Natriuretic Peptide Total Protein 7.2 Albumin 3.3 Globulin 3.90 H Albumin/Globulin 0.84 Ratio Lipase 84 Free Thyroxine 1.56 Blood Gas Blood arterial Specimen Source Arterial Blood 07/17/2018 11:38:2 Date Drawn 1 PM Arterial Blood 7.420 pH (Temp corrected) Arterial Blood 48.1 H pCO2 (Temp correct) Arterial Blood 71.4 L pO2 (Temp corrected) Arterial Blood 30.5 H HCO3 Arterial Blood 5.1 H Base Excess Arterial Blood 94.7 L Oxygen Saturatio n Reuben Test N/A Arterial Blood Right Brachial Gas Puncture Site Arterial 0.2 Blood Carboxyhem oglobin Arterial Blood 0.2 Methemoglobin Blood Gas A-a O2 158.5 H Differential Oxyhemoglobin 94.3 Percent Blood Gas 37.0 Temperature Blood Gas 16.0 Respiration Rate Blood Gas Actual 39 Respiration Rate Blood Gas MASK - BIPAP Modality FiO2 40.0 Blood Gas 18/5 IPAP/EPAP Ratio Blood Gas MG Notified Whom Blood Gas 07/17/2018 11:43:5 Notified Time 2 PM Bedside Glucose 360 H Phosphorus Level 4.6 Magnesium Level 1.7 Test 07/18/18 08:58 07/18/18 14:10 Bedside Glucose 292 H 241 H Medications Medication Current Medications IV Flush (NS 3 ml) 3 ml PER PROTOCOL IV ; Start 07/18/18 at 02:30 Ondansetron HCl (Zofran Inj) 4 mg Q6H PRN IV NAUSEA/VOMITING; Start 07/18/18 at 02:30 Acetaminophen (Tylenol Tab) 650 mg Q6H PRN PO .PAIN 1-3 OR TEMP; Start 07/18/18 at 02:30 Acetaminophen/ Hydrocodone Bitart ([place] (5/325)) 1 tab Q6H PRN PO .MOD PAIN 4- 6; Start 07/18/18 at 02:30 Morphine Sulfate (morphine) 2 mg Q4H PRN IV .SEVERE PAIN 7-10; Start 07/18/18 at 02:30 Docusate Sodium (Colace) 100 mg Q12H PRN PO .CONSTIPATION; Start 07/18/18 at 02:30 Magnesium Hydroxide (Milk Of Mag) 30 ml DAILY PRN PO .CONSTIPATION; Start 07/18/18 at 02:30 Lorazepam (Ativan) 0.5 mg Q6H PRN IV ANXIETY Last administered on 07/18/18at 03:13; Admin Dose 0.5 MG; Start 07/18/18 at 02:30 Albuterol/ Ipratropium (Duoneb) 3 ml Q4H RESP THERAPY PRN HHN SHORTNESS OF BREATH; Start 07/18/18 at 02:30 Hydralazine HCl (Apresoline) 10 mg Q6H PRN IV ELEVATED BLOOD PRESSURE; Start 07/18/18 at 02:30 Nitroglycerin (Nitroglycerin (Sl Tab) 0.4 Mg) 1 tab Q5M PRN SL ANGINA; Start 07/18/18 at 02:30 Aspirin (Halfprin) 81 mg DAILY PO Last administered on 07/18/18at 08:54; Admin Dose 81 MG; Start 07/18/18 at 09:00 Enoxaparin Sodium (Lovenox) 40 mg DAILY SC Last administered on 07/18/18at 08:55; Admin Dose 40 MG; Start 07/18/18 at 09:00 Miscellaneous Information 1 ea NOTE XX ; Start 07/18/18 at 02:30 Glucose (Glutose) 15 gm Q15M PRN PO DECREASED GLUCOSE; Start 07/18/18 at 02:30 Glucose (Glutose) 22.5 gm Q15M PRN PO DECREASED GLUCOSE; Start 07/18/18 at 02:30 Dextrose (D50w Syringe) 25 ml Q15M PRN IV DECREASED GLUCOSE; Start 07/18/18 at 02:30 Dextrose (D50w Syringe) 50 ml Q15M PRN IV DECREASED GLUCOSE; Start 07/18/18 at 02:30 Glucagon (Glucagen) 1 mg Q15M PRN IM DECREASED GLUCOSE; Start 07/18/18 at 02:30 Glucose (Glutose) 15 gm Q15M PRN BUCCAL DECREASED GLUCOSE; Start 07/18/18 at 02:30 Insulin Aspart (Novolog Insulin Pen) NOVOLOG *MODERATE* ALGORI... Q4 SC Last administered on 07/18/18at 14:17; Admin Dose 6 UNIT; Start 07/18/18 at 05:00 Pantoprazole (Protonix Tab) 40 mg DAILY@06 PO ; Start 07/19/18 at 06:00 Insulin Glargine (Lantus) 18 units DAILY@2000 SC ; Start 07/18/18 at 16:00; Stop 07/27/18 at 15:59 LUIS GOODMAN Jul 18, 2018 16:10
[2018-07-18] MEDS: CEFTRIAXONE 1 GM/50 ML (PMX) 50 ML IVPB SCH (16:40)
[2018-07-18] MEDS: INSULIN GLARGINE [LANTus] (100 UNITS/ML) SYG SC SCH (17:18)
--- NOTE | 2018-07-18 18:15 | CONS ---
Assessment/Plan Assessment/Plan Hospital Course (Demo Recall) Paroxysmal atrial fibrillation: CHADSVASC is 4 but with pt's frail condition and likely palliative/hospice, will defer anticoagulation. Now back in sinus. Acute on chronic respiratory failure: Underlying pulmonary fibrosis exacerbated by afib with RVR. Agree that she does not have CHF Shock: transient and possibly from volume depletion and afib with RVR. Resolved Pulmonary fibrosis -no cardiac meds necessary at this time -if back in afib with RVR and BP low, can give digoxin load 500mcg followed by 250mcg x 2 6 hours apart -ok for tele Consultation Date/Type/Reason Admit Date/Time Jul 18, 2018 at 01:51 Date of Consultation: Jul 18, 2018 Type of Consult Cardiology Reason for Consultation Cardiology Requesting Provider: ANAHI VERDUGO Date/Time of Note DATE: 07/18/18 TIME: 18:08 Hx of Present Illness 77 yo F with a h/o pulmonary fibrosis, DM, who presented with dyspnea and was found to have respiratory failure requiring BiPAP, afib with RVR, and hypo tension requiring pressor support. Overnight she was placed on diltiazem drip, given one dose of IV digoxin, and was on phenylephrine. She was also given lasix in the ED but then IVF today. This am she converted to sinus. At bedside, the pt is very comfortable and down to 2L NC. She remains in sinus. Friend is at bedside unable to assess Past Medical History per hPI Home Meds Active Scripts Prednisone (Prednisone) 20 Mg Tablet, 20 MG PO BID for 7 Days, TAB Prov:AUSTYN NAJERA MD 06/06/18 [Insulin Glargine] 100 UNITS/ML SOLN No Conflict Check, 18 UNITS SC DAILY@1999 for 10 Days Prov:AUSTYN NAJERA MD 06/06/18 Enoxaparin Sodium* (Enoxaparin Sodium*) 40 Mg/0.4 Ml Syringe, 40 MG SC DAILY for 10 Days Prov:AUSTYN NAJERA MD 06/06/18 Reported Medications Loratadine* (Loratadine*) 10 Mg Tablet, 10 MG PO DAILY for 30 Days, #30 07/18/18 Insulin Aspart* (Novolog Insulin Pen*) 100 Unit/Ml Soln, 4 UNIT SC WITH BREAKFAST, EA 07/18/18 Omeprazole* (Omeprazole*) 40 Mg Capsule.dr, 40 MG PO DAILY, #30 CAP 05/29/18 Canagliflozin (Invokana) 100 Mg Tablet, 100 MG PO DAILY, TAB 05/29/18 Aspirin* (Aspirin* EC) 81 Mg Tablet.dr, 81 MG PO DAILY, TAB 05/29/18 Ergocalciferol (Vitamin D2) (VITAMIN D2) 50,000 Unit Capsule, 94490 UNIT PO Q MON, CAP 05/29/18 Discontinued Scripts Insulin Aspart* (Novolog Insulin Pen*) 100 Unit/Ml Soln, 0 UNIT SC WITH MEALS BEDTIME for 10 Days Prov:AUSTYN NAJERA MD 06/06/18 Insulin Aspart* (Novolog Insulin Pen*) 100 Unit/Ml Soln, 15 UNIT SC WITH MEALS for 10 Days Prov:AUSTYN NAJERA MD 06/06/18 Medications Current Medications IV Flush (NS 3 ml) 3 ml PER PROTOCOL IV ; Start 07/18/18 at 02:30 Ondansetron HCl (Zofran Inj) 4 mg Q6H PRN IV NAUSEA/VOMITING; Start 07/18/18 at 02:30 Acetaminophen (Tylenol Tab) 650 mg Q6H PRN PO .PAIN 1-3 OR TEMP; Start 07/18/18 at 02:30 Acetaminophen/ Hydrocodone Bitart ([place] (5/325)) 1 tab Q6H PRN PO .MOD PAIN 4- 6; Start 07/18/18 at 02:30 Morphine Sulfate (morphine) 2 mg Q4H PRN IV .SEVERE PAIN 7-10; Start 07/18/18 at 02:30 Docusate Sodium (Colace) 100 mg Q12H PRN PO .CONSTIPATION; Start 07/18/18 at 02:30 Magnesium Hydroxide (Milk Of Mag) 30 ml DAILY PRN PO .CONSTIPATION; Start 07/18/18 at 02:30 Lorazepam (Ativan) 0.5 mg Q6H PRN IV ANXIETY Last administered on 07/18/18at 03:13; Admin Dose 0.5 MG; Start 07/18/18 at 02:30 Albuterol/ Ipratropium (Duoneb) 3 ml Q4H RESP THERAPY PRN HHN SHORTNESS OF BREATH; Start 07/18/18 at 02:30 Hydralazine HCl (Apresoline) 10 mg Q6H PRN IV ELEVATED BLOOD PRESSURE; Start 07/18/18 at 02:30 Nitroglycerin (Nitroglycerin (Sl Tab) 0.4 Mg) 1 tab Q5M PRN SL ANGINA; Start 07/18/18 at 02:30 Aspirin (Halfprin) 81 mg DAILY PO Last administered on 07/18/18at 08:54; Admin Dose 81 MG; Start 07/18/18 at 09:00 Enoxaparin Sodium (Lovenox) 40 mg DAILY SC Last administered on 07/18/18at 08:55; Admin Dose 40 MG; Start 07/18/18 at 09:00 Miscellaneous Information 1 ea NOTE XX ; Start 07/18/18 at 02:30 Glucose (Glutose) 15 gm Q15M PRN PO DECREASED GLUCOSE; Start 07/18/18 at 02:30 Glucose (Glutose) 22.5 gm Q15M PRN PO DECREASED GLUCOSE; Start 07/18/18 at 02:30 Dextrose (D50w Syringe) 25 ml Q15M PRN IV DECREASED GLUCOSE; Start 07/18/18 at 02:30 Dextrose (D50w Syringe) 50 ml Q15M PRN IV DECREASED GLUCOSE; Start 07/18/18 at 02:30 Glucagon (Glucagen) 1 mg Q15M PRN IM DECREASED GLUCOSE; Start 07/18/18 at 02:30 Glucose (Glutose) 15 gm Q15M PRN BUCCAL DECREASED GLUCOSE; Start 07/18/18 at 02:30 Insulin Aspart (Novolog Insulin Pen) NOVOLOG *MODERATE* ALGORI... Q4 SC Last administered on 07/18/18at 14:17; Admin Dose 6 UNIT; Start 07/18/18 at 05:00 Pantoprazole (Protonix Tab) 40 mg DAILY@06 PO ; Start 07/19/18 at 06:00 Insulin Glargine (Lantus) 18 units DAILY@2000 SC Last administered on 07/18/18at 17:18; Admin Dose 18 UNITS; Start 07/18/18 at 16:00; Stop 07/27/18 at 15:59 Ceftriaxone Sodium 50 ml @ 100 mls/hr Q24H IVPB Last administered on 07/18/18at 16:40; Admin Dose 100 MLS/HR; Start 07/18/18 at 16:30 Allergies: Coded Allergies: ketorolac (Unverified Allergy, Severe, 07/18/18) Past Surgical History Past Surgical Hx: other () Social History Alcohol Use: none Smoking Status: Never smoker Drug Use: none Exam/Review of Systems Vital Signs Vitals Vital Signs Date Temp Pulse Resp B/P (MAP) Pulse Ox O2 O2 Flow FiO2 Time Delivery Rate 07/18/18 97 2.0 17:29 07/18/18 68 22 104/55 17:00 (71) 07/18/18 98.0 Nasal 16:00 Cannula 07/18/18 40 05:40 Intake and Output 07/17/18 07/17/18 07/18/18 1515:00 23:00 07:00 IntakeIntake Total 216.25 ml OutputOutput Total 240 ml BalanceBalance -23.75 ml Exam Constitutional: alert Head: normocephalic, atraumatic Neck: No jvd Respiratory: crackles/rales (throughout); No clear to auscultation Cardiovascular: regular rate and rhythm, systolic murmur (2/6 MYKE); No edema Gastrointestinal: soft, non-tender; No distended Neurological: nl mental status Labs Result Diagram: 07/18/18 0630 07/18/18 0630 Results 24hrs Laboratory Tests Test 07/17/18 22:44 07/17/18 23:40 07/18/18 04:30 07/18/18 06:30 White Blood 16.6 #H 13.5 H Count Red Blood Count 4.37 4.16 L Hemoglobin 12.7 12.0 Hematocrit 41.4 39.6 Mean Corpuscular 94.7 95.2 Volume Mean Corpuscular 29.1 28.8 L Hemoglobin Mean Corpuscular 30.7 L 30.3 L Hemoglobin Yoli nt Red Cell 15.6 H 16.0 H Distribution Width Platelet Count 222 # 240 Mean Platelet 12.0 H 12.5 H Volume Immature 0.500 H 0.600 H Granulocytes % Neutrophils % 73.0 78.9 H Lymphocytes % 20.3 14.2 L Monocytes % 4.2 5.5 Eosinophils % 1.8 0.4 Basophils % 0.2 0.4 Nucleated Red 0.1 H 0.0 Blood Cells % Immature 0.080 H 0.080 H Granulocytes # Neutrophils # 12.1 H 10.6 H Lymphocytes # 3.4 H 1.9 Monocytes # 0.7 0.7 Eosinophils # 0.3 0.1 Basophils # 0.0 0.1 Nucleated Red 0.0 0.0 Blood Cells # Urine Color YELLOW Urine Clarity SLIGHTLY CLOUDY A Urine pH 6.0 Urine Specific 1.021 [place] Urine Ketones 1+ H Urine Nitrite NEGATIVE Urine Bilirubin NEGATIVE Urine NEGATIVE Urobilinogen Urine Leukocyte 1+ H Esterase Urine 4 Microscopic RBC Urine 12 H Microscopic WBC Urine Squamous FEW Epithelial Cells Urine Mucus FEW A Urine Hemoglobin NEGATIVE Urine Glucose 3+ H Urine Total 1+ H Protein Sodium Level 137 136 Potassium Level 3.9 4.1 Chloride Level 96 L 95 L Carbon Dioxide 36 H 35 H Level Anion Gap 5 6 Blood Urea 26 H 28 H Nitrogen Creatinine 0.52 0.64 Est Glomerular Filtrat Rate mL/min Glucose Level 350 H 422 *H Hemoglobin A1c 9.0 H Calcium Level 9.0 8.4 Total Bilirubin 0.4 Direct Bilirubin 0.00 Indirect 0.4 Bilirubin Aspartate Amino 60 H Transf (AST/SGOT ) Alanine 51 Aminotransferase (ALT/SGPT) Alkaline 161 H Phosphatase Troponin I 0.079 B-Type 3060 H Natriuretic Peptide Total Protein 7.2 Albumin 3.3 Globulin 3.90 H Albumin/Globulin 0.84 Ratio Lipase 84 Free Thyroxine 1.56 Blood Gas Blood arterial Specimen Source Arterial Blood 07/17/2018 11:38:2 Date Drawn 1 PM Arterial Blood 7.420 pH (Temp corrected) Arterial Blood 48.1 H pCO2 (Temp correct) Arterial Blood 71.4 L pO2 (Temp corrected) Arterial Blood 30.5 H HCO3 Arterial Blood 5.1 H Base Excess Arterial Blood 94.7 L Oxygen Saturatio n [place]uben Test N/A Arterial Blood Right Brachial Gas Puncture Site Arterial 0.2 Blood Carboxyhem oglobin Arterial Blood 0.2 Methemoglobin Blood Gas A-a O2 158.5 H Differential Oxyhemoglobin 94.3 Percent Blood Gas 37.0 Temperature Blood Gas 16.0 Respiration Rate Blood Gas Actual 39 Respiration Rate Blood Gas MASK - BIPAP Modality FiO2 40.0 Blood Gas 18/5 IPAP/EPAP Ratio Blood Gas MG Notified Whom Blood Gas 07/17/2018 11:43:5 Notified Time 2 PM Bedside Glucose 360 H Phosphorus Level 4.6 Magnesium Level 1.7 Test 07/18/18 08:58 07/18/18 14:10 07/18/18 17:14 Bedside Glucose 292 H 241 H 113 Medications Medications Current Medications IV Flush (NS 3 ml) 3 ml PER PROTOCOL IV ; Start 07/18/18 at 02:30 Ondansetron HCl (Zofran Inj) 4 mg Q6H PRN IV NAUSEA/VOMITING; Start 07/18/18 at 02:30 Acetaminophen (Tylenol Tab) 650 mg Q6H PRN PO .PAIN 1-3 OR TEMP; Start 07/18/18 at 02:30 Acetaminophen/ Hydrocodone Bitart ([place] (5/325)) 1 tab Q6H PRN PO .MOD PAIN 4- 6; Start 07/18/18 at 02:30 Morphine Sulfate (morphine) 2 mg Q4H PRN IV .SEVERE PAIN 7-10; Start 07/18/18 at 02:30 Docusate Sodium (Colace) 100 mg Q12H PRN PO .CONSTIPATION; Start 07/18/18 at 02:30 Magnesium Hydroxide (Milk Of Mag) 30 ml DAILY PRN PO .CONSTIPATION; Start 07/18/18 at 02:30 Lorazepam (Ativan) 0.5 mg Q6H PRN IV ANXIETY Last administered on 07/18/18at 03:13; Admin Dose 0.5 MG; Start 07/18/18 at 02:30 Albuterol/ Ipratropium (Duoneb) 3 ml Q4H RESP THERAPY PRN HHN SHORTNESS OF BREATH; Start 07/18/18 at 02:30 Hydralazine HCl (Apresoline) 10 mg Q6H PRN IV ELEVATED BLOOD PRESSURE; Start at 02:30 Nitroglycerin (Nitroglycerin (Sl Tab) 0.4 Mg) 1 tab Q5M PRN SL ANGINA; Start 07/18/18 at 02:30 Aspirin (Halfprin) 81 mg DAILY PO Last administered on 07/18/18at 08:54; Admin Dose 81 MG; Start 07/18/18 at 09:00 Enoxaparin Sodium (Lovenox) 40 mg DAILY SC Last administered on 07/18/18at 08:55; Admin Dose 40 MG; Start 07/18/18 at 09:00 Miscellaneous Information 1 ea NOTE XX ; Start 07/18/18 at 02:30 Glucose (Glutose) 15 gm Q15M PRN PO DECREASED GLUCOSE; Start 07/18/18 at 02:30 Glucose (Glutose) 22.5 gm Q15M PRN PO DECREASED GLUCOSE; Start 07/18/18 at 02:30 Dextrose (D50w Syringe) 25 ml Q15M PRN IV DECREASED GLUCOSE; Start 07/18/18 at 02:30 Dextrose (D50w Syringe) 50 ml Q15M PRN IV DECREASED GLUCOSE; Start 07/18/18 at 02:30 Glucagon (Glucagen) 1 mg Q15M PRN IM DECREASED GLUCOSE; Start 07/18/18 at 02:30 Glucose (Glutose) 15 gm Q15M PRN BUCCAL DECREASED GLUCOSE; Start 07/18/18 at 02:30 Insulin Aspart (Novolog Insulin Pen) NOVOLOG *MODERATE* ALGORI... Q4 SC Last administered on 07/18/18at 14:17; Admin Dose 6 UNIT; Start 07/18/18 at 05:00 Pantoprazole (Protonix Tab) 40 mg DAILY@06 PO ; Start 07/19/18 at 06:00 Insulin Glargine (Lantus) 18 units DAILY@2000 SC Last administered on 07/18/18at 17:18; Admin Dose 18 UNITS; Start 07/18/18 at 16:00; Stop 07/27/18 at 15:59 Ceftriaxone Sodium 50 ml @ 100 mls/hr Q24H IVPB Last administered on 07/18/18at 16:40; Admin Dose 100 MLS/HR; Start 07/18/18 at 16:30 ARMANDO SANCHEZ Jul 18, 2018 18:15
[2018-07-18] MEDS ORDERED: INSULIN GLARGINE [LANTus] (100 UNITS/ML) SYG SC SCH (20:00)
[2018-07-18] MEDS ORDERED: NON-FORMULARY/PATIENT OWN MED ([Insulin Glargine] 18 UNITS) SC SCH (20:00)
[2018-07-19] VITALS (15 sets, daily range): BP systolic 109–155; BP diastolic 51–97; PULSE 75–106; RESP 21–29
[2018-07-19] MEDS: INSULIN ASPART [NOVOLOG] 3 ML PEN SC SCH ×6 (00:55→21:00)
[2018-07-19] MEDS: PANTOPRAZOLE (EC) 40 MG TAB PO SCH (07:01)
[2018-07-19] MEDS: ASPIRIN (EC) 81 MG TAB PO SCH (09:09)
[2018-07-19] MEDS: ENOXAPARIN 40 MG/0.4 ML SYG SC SCH (09:21)
--- NOTE | 2018-07-19 10:43 | CONS ---
Assessment/Plan Assessment/Plan Assessment/Plan (Daily) Assessment and recommendations; 1. patient admitted with shortness of breath due to A. fib with RVR with rate well controlled now. 2. Advanced pulmonary fibrosis. 3. Hypoxemia. 4. Possibly some element of CHF. 5. History of systemic hypertension. 6. History of diabetes. 7. Interval resolution of hypotension. Continue current supportive care. Administer Lasix 40 mg IV x1. Prognosis is very poor. Consultation Date/Type/Reason Admit Date/Time Jul 18, 2018 at 01:51 Initial Consult Date 07/18/18 Type of Consult Pulmonary/critical care Pulmonary consult requested for evaluation of chronic hypoxemia due to IPF. Patient admitted with A. fib with RVR. Patient is a pleasant 77-year-old lady who came into the hospital with a 2-day history of shortness of breath. Upon evaluation patient was in A. fib with RVR. Patient has been started on Cardizem drip and was given digoxin with good rate control with significant improvement in dyspnea. Patient complete a chronic mild cough without any sputum production or hemoptysis. Denies any recent fever chills or any other symptoms. By the time I saw her, patient was completely awake and alert and appeared in no distress whatsoever. Past medical history; 1. History of IPF, O2 dependent. 2. Chronic atrial fibrillation. 3. Diabetes. 4. Systemic hypertension. Medications; reviewed. Allergies; as outlined above. Social history; most of any smoking. No history of drug abuse. Family history; noncontributory. Patient does have a supportive family. 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 Review of systems; denies any headache, seizures, chest pain, angina, wheezing, complains of mild chronic cough. Denies any sputum production. Denies any wh eezing. Denies any fever or chills. Denies any abdominal pain, nausea vomiting any weight loss. Denies any orthopnea. General exam; elderly lady, awake alert, currently in no distress. On 2 L nasal cannula. Requesting Provider: ANAHI VERDUGO Date/Time of Note DATE: 07/19/18 TIME: 10:41 24 HR Interval Summary Free Text/Dictation Patient's condition is tenuous at best. On BiPAP at 40% FiO2. Patient does complain of shortness of breath. General exam; elderly woman, on BiPAP. Appears anxious. Exam/Review of Systems Exam Vitals Vital Signs Date Temp Pulse Resp B/P (MAP) Pulse Ox O2 O2 Flow FiO2 Time Delivery Rate 07/19/18 97.4 78 22 145/76 96 BIPAP 07:10 (99) 07/19/18 40 06:45 07/19/18 4.0 02:45 Intake and Output 07/18/18 07/18/18 07/19/18 1515:00 23:00 07:00 IntakeIntake Total 217.5 ml 0 ml OutputOutput Total 525 ml 400 ml 130 ml BalanceBalance -307.5 ml -400 ml -130 ml Exam H EENT exam; supple neck, positive JVD. No lymphadenopathy. Midline trachea. No thyromegaly. Patient does have multiple carious teeth. Chest exam; diminished breath sounds bilaterally with bilateral crackles. S1-S2 audible, no murmurs. Irregular rhythm. Abdomen exam; soft, scaphoid. No organomegaly. Bowel sounds audible. Extremity exam; no peripheral edema or clubbing. Patient does have patchy ecchymosis. [employer] SHE[employer] exam; no focal deficit. Results Result Diagram: 07/19/18 0519 07/19/18 0520 Results 24hrs Laboratory Tests Test 07/18/18 14:10 07/18/18 17:14 07/18/18 20:26 07/19/18 00:54 Bedside Glucose 241 H 113 111 96 Test 07/19/18 05:19 07/19/18 05:20 07/19/18 05:23 07/19/18 08:23 White Blood Count 13.9 H Red Blood Count 4.06 L Hemoglobin 11.8 L Hematocrit 38.5 Mean Corpuscular 94.8 Volume Mean Corpuscular 29.1 Hemoglobin Mean Corpuscular 30.6 L Hemoglobin Concent Red Cell 16.0 H Distribution Width Platelet Count 218 Mean Platelet 12.6 H Volume Immature 0.400 Granulocytes % Neutrophils % 67.2 Lymphocytes % 20.5 Monocytes % 5.3 Eosinophils % 6.2 Basophils % 0.4 Nucleated Red 0.0 Blood Cells % Immature 0.050 H Granulocytes # Neutrophils # 9.3 H Lymphocytes # 2.9 Monocytes # 0.7 Eosinophils # 0.9 H Basophils # 0.1 Nucleated Red 0.0 Blood Cells # Hemoglobin A1c 9.0 H Sodium Level 140 Potassium Level 3.6 Chloride Level 97 Carbon Dioxide 41 *H Level Anion Gap 2 L Blood Urea 17 # Nitrogen Creatinine 0.45 Est Glomerular Filtrat Rate mL/min Glucose Level 102 # Calcium Level 8.7 Phosphorus Level 3.7 Magnesium Level 1.7 Triglycerides 84 Level Cholesterol Level 128 LDL Cholesterol, 65 Calculated HDL Cholesterol 46 Cholesterol/HDL 2.7 Ratio Thyroid 1.650 Stimulating Hormone (TSH) Bedside Glucose 104 77 Test 07/19/18 09:04 Blood Gas Specimen Blood arterial Source Arterial Blood 07/19/2018 9:36:54 Date Drawn AM Arterial Blood pH 7.420 (Temp corrected) Arterial Blood 64.1 H pCO2 (Temp correct) Arterial Blood pO2 77.7 L (Temp corrected) Arterial Blood 40.6 *H HCO3 Arterial Blood 13.4 H Base Excess Arterial Blood 95.8 Oxygen Saturation Reuben Test N/A Arterial Blood Gas Right Brachial Puncture Site Arterial 0.3 Blood Carboxyhemog lobin Arterial Blood 0.4 Methemoglobin Blood Gas A-a O2 133.8 H Differential Oxyhemoglobin 95.1 Percent Blood Gas 37.0 Temperature Blood Gas 16.0 Respiration Rate Blood Gas Actual 28 Respiration Rate Blood Gas Modality MASK - BIPAP FiO2 40.0 Blood Gas Pressure 13 Support Blood Gas 18/5 IPAP/EPAP Ratio Blood Gas Critical DR MOTLEY Value Read Back Blood Gas Notified RT Whom Blood Gas Notified 07/19/2018 9:36:59 Time AM Medications Medication Current Medications IV Flush (NS 3 ml) 3 ml PER PROTOCOL IV ; Start 07/18/18 at 02:30 Ondansetron HCl (Zofran Inj) 4 mg Q6H PRN IV NAUSEA/VOMITING; Start 07/18/18 at 02:30 Acetaminophen (Tylenol Tab) 650 mg Q6H PRN PO .PAIN 1-3 OR TEMP; Start 07/18/18 at 02:30 Acetaminophen/ Hydrocodone Bitart ([place] (5/325)) 1 tab Q6H PRN PO .MOD PAIN 4- 6; Start 07/18/18 at 02:30 Morphine Sulfate (morphine) 2 mg Q4H PRN IV .SEVERE PAIN 7-10; Start 07/18/18 at 02:30 Docusate Sodium (Colace) 100 mg Q12H PRN PO .CONSTIPATION; Start 07/18/18 at 02:30 Magnesium Hydroxide (Milk Of Mag) 30 ml DAILY PRN PO .CONSTIPATION; Start 07/18/18 at 02:30 Lorazepam (Ativan) 0.5 mg Q6H PRN IV ANXIETY Last administered on 07/18/18at 03:13; Admin Dose 0.5 MG; Start 07/18/18 at 02:30 Albuterol/ Ipratropium (Duoneb) 3 ml Q4H RESP THERAPY PRN HHN SHORTNESS OF BREATH; Start 07/18/18 at 02:30 Hydralazine HCl (Apresoline) 10 mg Q6H PRN IV ELEVATED BLOOD PRESSURE; Start 07/18/18 at 02:30 Nitroglycerin (Nitroglycerin (Sl Tab) 0.4 Mg) 1 tab Q5M PRN SL ANGINA; Start 07/18/18 at 02:30 Aspirin (Halfprin) 81 mg DAILY PO Last administered on 07/19/18at 09:09; Admin Dose 81 MG; Start 07/18/18 at 09:00 Enoxaparin Sodium (Lovenox) 40 mg DAILY SC Last administered on 07/19/18at 09:21; Admin Dose 40 MG; Start 07/18/18 at 09:00 Miscellaneous Information 1 ea NOTE XX ; Start 07/18/18 at 02:30 Glucose (Glutose) 15 gm Q15M PRN PO DECREASED GLUCOSE; Start 07/18/18 at 02:30 Glucose (Glutose) 22.5 gm Q15M PRN PO DECREASED GLUCOSE; Start 07/18/18 at 02:30 Dextrose (D50w Syringe) 25 ml Q15M PRN IV DECREASED GLUCOSE; Start 07/18/18 at 02:30 Dextrose (D50w Syringe) 50 ml Q15M PRN IV DECREASED GLUCOSE; Start 07/18/18 at 02:30 Glucagon (Glucagen) 1 mg Q15M PRN IM DECREASED GLUCOSE; Start 07/18/18 at 02:30 Glucose (Glutose) 15 gm Q15M PRN BUCCAL DECREASED GLUCOSE; Start 07/18/18 at 02:30 Insulin Aspart (Novolog Insulin Pen) NOVOLOG *MODERATE* ALGORI... Q4 SC Last administered on 07/18/18at 14:17; Admin Dose 6 UNIT; Start 07/18/18 at 05:00 Pantoprazole (Protonix Tab) 40 mg DAILY@06 PO Last administered on 07/19/18at 07:01; Admin Dose 40 MG; Start 07/19/18 at 06:00 Insulin Glargine (Lantus) 18 units DAILY@2000 SC Last administered on 07/18/18at 17:18; Admin Dose 18 UNITS; Start 07/18/18 at 16:00; Stop 07/27/18 at 15:59 Ceftriaxone Sodium 50 ml @ 100 mls/hr Q24H IVPB Last administered on 07/18/18at 16:40; Admin Dose 100 MLS/HR; Start 07/18/18 at 16:30 LLUVIA MARQUEZ Jul 19, 2018 10:43
[2018-07-19] MEDS ORDERED: FUROSEMIDE 40 MG INJ IV ONE (11:00)
--- NOTE | 2018-07-19 11:06 | PDOCDIS ---
Discharge Instructions CONDITION [id number] Patient Condition: [id number] Good HOME CARE INSTRUCTIONS: [id number] Diet Instructions: [id number] Regular ACTIVITY: [id number] Activity Restrictions: [id number] No Restrictions FOLLOW UP/APPOINTMENTS Follow-up Plan FOLLOW UP WITH YOUR PCP IN 1-2 WEEKS LUIS GOODMAN Jul 19, 2018 11:06
--- NOTE | 2018-07-19 11:58 | CONS ---
Assessment/Plan Assessment/Plan Hospital Course (Demo Recall) Paroxysmal atrial fibrillation: CHADSVASC is 4 but with pt's frail condition and likely palliative/hospice, will defer anticoagulation. Now back in sinus. Acute on chronic respiratory failure: Underlying pulmonary fibrosis exacerbated by afib with RVR. JVP remains flat on exam today Shock: transient and possibly from volume depletion and afib with RVR. Resolved Pulmonary fibrosis -no cardiac meds necessary at this time -if back in afib with RVR and BP low, can give digoxin load 500mcg followed by 250mcg x 2 6 hours apart -further management per pulm Consultation Date/Type/Reason Admit Date/Time Jul 18, 2018 at 01:51 Initial Consult Date 07/18/18 Type of Consult Cardiology Requesting Provider: ANAHI VERDUGO Date/Time of Note DATE: 07/19/18 TIME: 11:57 24 HR Interval Summary Free Text/Dictation Transferred to [facility]. Remains in sinus. Mild tachypnea. Given one dose of lasix Exam/Review of Systems Vital Signs Vitals Vital Signs Date Temp Pulse Resp B/P (MAP) Pulse Ox O2 O2 Flow FiO2 Time Delivery Rate 07/19/18 97.6 81 21 155/73 96 Nasal 3.0 11:18 (100) Cannula 07/19/18 40 08:56 Intake and Output 07/18/18 07/18/18 07/19/18 1515:00 23:00 07:00 IntakeIntake Total 217.5 ml 0 ml OutputOutput Total 525 ml 400 ml 130 ml BalanceBalance -307.5 ml -400 ml -130 ml Exam Constitutional: alert Psych: no complaints Head: normocephalic, atraumatic Neck: No jvd Respiratory: crackles/rales; No clear to auscultation Cardiovascular: regular rate and rhythm; No edema Gastrointestinal: soft, non-tender; No distended Neurological: nl mental status, nl speech Labs Result Diagram: 07/19/18 0519 07/19/18 0520 Results 24hrs Laboratory Tests Test 07/18/18 14:10 07/18/18 17:14 07/18/18 20:26 07/19/18 00:54 Bedside Glucose 241 H 113 111 96 Test 07/19/18 05:19 07/19/18 05:20 6/7/19 05:23 07/19/18 08:23 White Blood Count 13.9 H Red Blood Count 4.06 L Hemoglobin 11.8 L Hematocrit 38.5 Mean Corpuscular 94.8 Volume Mean Corpuscular 29.1 Hemoglobin Mean Corpuscular 30.6 L Hemoglobin Concent Red Cell 16.0 H Distribution Width Platelet Count 218 Mean Platelet 12.6 H Volume Immature 0.400 Granulocytes % Neutrophils % 67.2 Lymphocytes % 20.5 Monocytes % 5.3 Eosinophils % 6.2 Basophils % 0.4 Nucleated Red 0.0 Blood Cells % Immature 0.050 H Granulocytes # Neutrophils # 9.3 H Lymphocytes # 2.9 Monocytes # 0.7 Eosinophils # 0.9 H Basophils # 0.1 Nucleated Red 0.0 Blood Cells # Hemoglobin A1c 9.0 H Sodium Level 140 Potassium Level 3.6 Chloride Level 97 Carbon Dioxide 41 *H Level Anion Gap 2 L Blood Urea 17 # Nitrogen Creatinine 0.45 Est Glomerular Filtrat Rate mL/min Glucose Level 102 # Calcium Level 8.7 Phosphorus Level 3.7 Magnesium Level 1.7 Triglycerides 84 Level Cholesterol Level 128 LDL Cholesterol, 65 Calculated HDL Cholesterol 46 Cholesterol/HDL 2.7 Ratio Thyroid 1.650 Stimulating Hormone (TSH) Bedside Glucose 104 77 Test 07/19/18 09:04 Blood Gas Specimen Blood arterial Source Arterial Blood 07/19/2018 9:36:54 Date Drawn AM Arterial Blood pH 7.420 (Temp corrected) Arterial Blood 64.1 H pCO2 (Temp correct) Arterial Blood pO2 77.7 L (Temp corrected) Arterial Blood 40.6 *H HCO3 Arterial Blood 13.4 H Base Excess Arterial Blood 95.8 Oxygen Saturation Reuben Test N/A Arterial Blood Gas Right Brachial Puncture Site Arterial 0.3 Blood Carboxyhemog lobin Arterial Blood 0.4 Methemoglobin Blood Gas A-a O2 133.8 H Differential Oxyhemoglobin 95.1 Percent Blood Gas 37.0 Temperature Blood Gas 16.0 Respiration Rate Blood Gas Actual 28 Respiration Rate Blood Gas Modality MASK - BIPAP FiO2 40.0 Blood Gas Pressure 13 Support Blood Gas 18/5 IPAP/EPAP Ratio Blood Gas Critical DR MOTLEY Value Read Back Blood Gas Notified RT Whom Blood Gas Notified 07/19/2018 9:36:59 Time AM Medications Medications Current Medications IV Flush (NS 3 ml) 3 ml PER PROTOCOL IV ; Start 07/18/18 at 02:30 Ondansetron HCl (Zofran Inj) 4 mg Q6H PRN IV NAUSEA/VOMITING; Start 07/18/18 at 02:30 Acetaminophen (Tylenol Tab) 650 mg Q6H PRN PO .PAIN 1-3 OR TEMP; Start 07/18/18 at 02:30 Acetaminophen/ Hydrocodone Bitart ([place] (5/325)) 1 tab Q6H PRN PO .MOD PAIN 4- 6; Start 07/18/18 at 02:30 Morphine Sulfate (morphine) 2 mg Q4H PRN IV .SEVERE PAIN 7-10; Start 07/18/18 at 02:30 Docusate Sodium (Colace) 100 mg Q12H PRN PO .CONSTIPATION; Start 07/18/18 at 02:30 Magnesium Hydroxide (Milk Of Mag) 30 ml DAILY PRN PO .CONSTIPATION; Start 07/18/18 at 02:30 Lorazepam (Ativan) 0.5 mg Q6H PRN IV ANXIETY Last administered on 07/18/18at 03:13; Admin Dose 0.5 MG; Start 07/18/18 at 02:30 Albuterol/ Ipratropium (Duoneb) 3 ml Q4H RESP THERAPY PRN HHN SHORTNESS OF BREATH; Start 07/18/18 at 02:30 Hydralazine HCl (Apresoline) 10 mg Q6H PRN IV ELEVATED BLOOD PRESSURE; Start 07/18/18 at 02:30 Nitroglycerin (Nitroglycerin (Sl Tab) 0.4 Mg) 1 tab Q5M PRN SL ANGINA; Start 07/18/18 at 02:30 Aspirin (Halfprin) 81 mg DAILY PO Last administered on 07/19/18at 09:09; Admin Dose 81 MG; Start 07/18/18 at 09:00 Enoxaparin Sodium (Lovenox) 40 mg DAILY SC Last administered on 07/19/18at 09:21; Admin Dose 40 MG; Start 07/18/18 at 09:00 Miscellaneous Information 1 ea NOTE XX ; Start 07/18/18 at 02:30 Glucose (Glutose) 15 gm Q15M PRN PO DECREASED GLUCOSE; Start 07/18/18 at 02:30 Glucose (Glutose) 22.5 gm Q15M PRN PO DECREASED GLUCOSE; Start 07/18/18 at 02:30 Dextrose (D50w Syringe) 25 ml Q15M PRN IV DECREASED GLUCOSE; Start 07/18/18 at 02:30 Dextrose (D50w Syringe) 50 ml Q15M PRN IV DECREASED GLUCOSE; Start 07/18/18 at 02:30 Glucagon (Glucagen) 1 mg Q15M PRN IM DECREASED GLUCOSE; Start 07/18/18 at 02:30 Glucose (Glutose) 15 gm Q15M PRN BUCCAL DECREASED GLUCOSE; Start 07/18/18 at 02:30 Insulin Aspart (Novolog Insulin Pen) NOVOLOG *MODERATE* ALGORI... Q4 SC Last administered on 07/18/18at 14:17; Admin Dose 6 UNIT; Start 07/18/18 at 05:00 Pantoprazole (Protonix Tab) 40 mg DAILY@06 PO Last administered on 07/19/18at 07:01; Admin Dose 40 MG; Start 07/19/18 at 06:00 Insulin Glargine (Lantus) 18 units DAILY@2000 SC Last administered on 07/18/18at 17:18; Admin Dose 18 UNITS; Start 07/18/18 at 16:00; Stop 07/27/18 at 15:59 Ceftriaxone Sodium 50 ml @ 100 mls/hr Q24H IVPB Last administered on 07/18/18at 16:40; Admin Dose 100 MLS/HR; Start 07/18/18 at 16:30 ARMANDO SANCHEZ Jul 19, 2018 11:58
--- NOTE | 2018-07-19 14:58 | PN ---
Date/Time of Note Date/Time of Note DATE: 07/19/18 TIME: 14:56 Assessment/Plan VTE Prophylaxis Risk score (from Ns)>0 risk: 8 SCD applied (from Nsg): Yes Pharmacological prophylaxis: LMWH Lines/Catheters IV Catheter Type (from Nrs): Peripheral IV Assessment/Plan Hospital Course Assessment and plan: 77-year-old female past medical history of pulmonary fibrosis on home oxygen, diabetes, hypertension, , who presents with shortness of breath and tachycardia signs of A. fib with RVR. 1. Acute on chronic hypoxemic and hypercapnic respiratory failure secondary to pulmonary fibrosis and mild pulmonary edema Status post diuresis Patient now saturating well on 2 L nasal cannula Pulmonology following Patient with recent diagnosis of pulmonary fibrosis several months ago, patient has oxygen at home 2. A. fib with RVR-resolved Patient now in sinus DC Cardizem drip 3. Septic shock likely secondary to UTI Empiric Rocephin Follow-up cultures Now weaned off pressors 4. History of hypertension Hold home meds secondary to recent shock 5. Debility with dysphasia secondary to comorbidities Speech therapy evaluation appreciated, pills crushed and n.p.o. for now 6. Chronic intermittent abdominal pain It is described as though somebody is jumping in her stomach, recent ultrasound of the abdominal aorta was negative for aneurysm Carafate and simethicone Prophylaxis: Lovenox DC planning: Anticipate DC home tomorrow, family is adamant about not placing in a facility even though patient is having trouble ambulating Result Diagram: 07/19/18 0519 07/19/18 0520 Results 24hrs Laboratory Tests Test 07/18/18 17:14 07/18/18 20:26 07/19/18 00:54 07/19/18 05:19 Bedside Glucose 113 111 96 White Blood Count 13.9 H Red Blood Count 4.06 L Hemoglobin 11.8 L Hematocrit 38.5 Mean Corpuscular 94.8 Volume Mean Corpuscular 29.1 Hemoglobin Mean Corpuscular 30.6 L Hemoglobin Concent Red Cell 16.0 H Distribution Width Platelet Count 218 Mean Platelet 12.6 H Volume Immature 0.400 Granulocytes % Neutrophils % 67.2 Lymphocytes % 20.5 Monocytes % 5.3 Eosinophils % 6.2 Basophils % 0.4 Nucleated Red 0.0 Blood Cells % Immature 0.050 H Granulocytes # Neutrophils # 9.3 H Lymphocytes # 2.9 Monocytes # 0.7 Eosinophils # 0.9 H Basophils # 0.1 Nucleated Red 0.0 Blood Cells # Hemoglobin A1c 9.0 H Test 07/19/18 05:20 07/19/18 05:23 07/19/18 08:23 07/19/18 09:04 Sodium Level 140 Potassium Level 3.6 Chloride Level 97 Carbon Dioxide 41 *H Level Anion Gap 2 L Blood Urea 17 # Nitrogen Creatinine 0.45 Est Glomerular Filtrat Rate mL/min Glucose Level 102 # Calcium Level 8.7 Phosphorus Level 3.7 Magnesium Level 1.7 Triglycerides 84 Level Cholesterol Level 128 LDL Cholesterol, 65 Calculated HDL Cholesterol 46 Cholesterol/HDL 2.7 Ratio Thyroid 1.650 Stimulating Hormone (TSH) Bedside Glucose 104 77 Blood Gas Specimen Blood arterial Source Arterial Blood 07/19/2018 9:36:54 Date Drawn AM Arterial Blood pH 7.420 (Temp corrected) Arterial Blood 64.1 H pCO2 (Temp correct) Arterial Blood pO2 77.7 L (Temp corrected) Arterial Blood 40.6 *H HCO3 Arterial Blood 13.4 H Base Excess Arterial Blood 95.8 Oxygen Saturation Reuben Test N/A Arterial Blood Gas Right Brachial Puncture Site Arterial 0.3 Blood Carboxyhemog lobin Arterial Blood 0.4 Methemoglobin Blood Gas A-a O2 133.8 H Differential Oxyhemoglobin 95.1 Percent Blood Gas 37.0 Temperature Blood Gas 16.0 Respiration Rate Blood Gas Actual 28 Respiration Rate Blood Gas Modality MASK - BIPAP FiO2 40.0 Blood Gas Pressure 13 Support Blood Gas 18/5 IPAP/EPAP Ratio Blood Gas Critical DR MOTLEY Value Read Back Blood Gas Notified RT Whom Blood Gas Notified 07/19/2018 9:36:59 Time AM Test 07/19/18 12:18 Bedside Glucose 106 Subjective 24 Hr Interval Summary Gastrointestinal: pain Exam/Review of Systems Exam Vitals Vital Signs Date Temp Pulse Resp B/P (MAP) Pulse Ox O2 O2 Flow FiO2 Time Delivery Rate 07/19/18 Nasal 2.0 13:50 Cannula 07/19/18 97.6 81 21 155/73 96 11:18 (100) 07/19/18 40 08:56 Intake and Output 07/18/18 07/18/18 07/19/18 1515:00 23:00 07:00 IntakeIntake Total 217.5 ml 0 ml OutputOutput Total 525 ml 400 ml 130 ml BalanceBalance -307.5 ml -400 ml -130 ml Constitutional: alert, oriented Respiratory: clear to auscultation Cardiovascular: regular rate and rhythm Gastrointestinal: soft; No distended Musculoskeletal: nl extremities to inspection Results Results 24hrs Laboratory Tests Test 07/18/18 17:14 07/18/18 20:26 07/19/18 00:54 07/19/18 05:19 Bedside Glucose 113 111 96 White Blood Count 13.9 H Red Blood Count 4.06 L Hemoglobin 11.8 L Hematocrit 38.5 Mean Corpuscular 94.8 Volume Mean Corpuscular 29.1 Hemoglobin Mean Corpuscular 30.6 L Hemoglobin Concent Red Cell 16.0 H Distribution Width Platelet Count 218 Mean Platelet 12.6 H Volume Immature 0.400 Granulocytes % Neutrophils % 67.2 Lymphocytes % 20.5 Monocytes % 5.3 Eosinophils % 6.2 Basophils % 0.4 Nucleated Red 0.0 Blood Cells % Immature 0.050 H Granulocytes # Neutrophils # 9.3 H Lymphocytes # 2.9 Monocytes # 0.7 Eosinophils # 0.9 H Basophils # 0.1 Nucleated Red 0.0 Blood Cells # Hemoglobin A1c 9.0 H Test 07/19/18 05:20 07/19/18 05:23 07/19/18 08:23 07/19/18 09:04 Sodium Level 140 Potassium Level 3.6 Chloride Level 97 Carbon Dioxide 41 *H Level Anion Gap 2 L Blood Urea 17 # Nitrogen Creatinine 0.45 Est Glomerular Filtrat Rate mL/min Glucose Level 102 # Calcium Level 8.7 Phosphorus Level 3.7 Magnesium Level 1.7 Triglycerides 84 Level Cholesterol Level 128 LDL Cholesterol, 65 Calculated HDL Cholesterol 46 Cholesterol/HDL 2.7 Ratio Thyroid 1.650 Stimulating Hormone (TSH) Bedside Glucose 104 77 Blood Gas Specimen Blood arterial Source Arterial Blood 07/19/2018 9:36:54 Date Drawn AM Arterial Blood pH 7.420 (Temp corrected) Arterial Blood 64.1 H pCO2 (Temp correct) Arterial Blood pO2 77.7 L (Temp corrected) Arterial Blood 40.6 *H HCO3 Arterial Blood 13.4 H Base Excess Arterial Blood 95.8 Oxygen Saturation Reuben Test N/A Arterial Blood Gas Right Brachial Puncture Site Arterial 0.3 Blood Carboxyhemog lobin Arterial Blood 0.4 Methemoglobin Blood Gas A-a O2 133.8 H Differential Oxyhemoglobin 95.1 Percent Blood Gas 37.0 Temperature Blood Gas 16.0 Respiration Rate Blood Gas Actual 28 Respiration Rate Blood Gas Modality MASK - BIPAP FiO2 40.0 Blood Gas Pressure 13 Support Blood Gas 18/5 IPAP/EPAP Ratio Blood Gas Critical DR MOTLEY Value Read Back Blood Gas Notified RT Whom Blood Gas Notified 07/19/2018 9:36:59 Time AM Test 07/19/18 12:18 Bedside Glucose 106 Medications Medication Current Medications IV Flush (NS 3 ml) 3 ml PER PROTOCOL IV ; Start 07/18/18 at 02:30 Ondansetron HCl (Zofran Inj) 4 mg Q6H PRN IV NAUSEA/VOMITING; Start 07/18/18 at 02:30 Acetaminophen (Tylenol Tab) 650 mg Q6H PRN PO .PAIN 1-3 OR TEMP; Start 07/18/18 at 02:30 Acetaminophen/ Hydrocodone Bitart ([place] (5/325)) 1 tab Q6H PRN PO .MOD PAIN 4- 6; Start 07/18/18 at 02:30 Morphine Sulfate (morphine) 2 mg Q4H PRN IV .SEVERE PAIN 7-10; Start 07/18/18 at 02:30 Docusate Sodium (Colace) 100 mg Q12H PRN PO .CONSTIPATION; Start 07/18/18 at 02:30 Magnesium Hydroxide (Milk Of Mag) 30 ml DAILY PRN PO .CONSTIPATION; Start 07/18/18 at 02:30 Lorazepam (Ativan) 0.5 mg Q6H PRN IV ANXIETY Last administered on 07/18/18at 03:13; Admin Dose 0.5 MG; Start 07/18/18 at 02:30 Albuterol/ Ipratropium (Duoneb) 3 ml Q4H RESP THERAPY PRN HHN SHORTNESS OF BREATH; Start 07/18/18 at 02:30 Hydralazine HCl (Apresoline) 10 mg Q6H PRN IV ELEVATED BLOOD PRESSURE; Start 07/18/18 at 02:30 Nitroglycerin (Nitroglycerin (Sl Tab) 0.4 Mg) 1 tab Q5M PRN SL ANGINA; Start 07/18/18 at 02:30 Aspirin (Halfprin) 81 mg DAILY PO Last administered on 07/19/18at 09:09; Admin Dose 81 MG; Start 07/18/18 at 09:00 Enoxaparin Sodium (Lovenox) 40 mg DAILY SC Last administered on 07/19/18at 09:21; Admin Dose 40 MG; Start 07/18/18 at 09:00 Miscellaneous Information 1 ea NOTE XX ; Start 07/18/18 at 02:30 Glucose (Glutose) 15 gm Q15M PRN PO DECREASED GLUCOSE; Start 07/18/18 at 02:30 Glucose (Glutose) 22.5 gm Q15M PRN PO DECREASED GLUCOSE; Start 07/18/18 at 02:30 Dextrose (D50w Syringe) 25 ml Q15M PRN IV DECREASED GLUCOSE; Start 07/18/18 at 02:30 Dextrose (D50w Syringe) 50 ml Q15M PRN IV DECREASED GLUCOSE; Start 07/18/18 at 02:30 Glucagon (Glucagen) 1 mg Q15M PRN IM DECREASED GLUCOSE; Start 07/18/18 at 02:30 Glucose (Glutose) 15 gm Q15M PRN BUCCAL DECREASED GLUCOSE; Start 07/18/18 at 02:30 Insulin Aspart (Novolog Insulin Pen) NOVOLOG *MODERATE* ALGORI... Q4 SC Last administered on 07/18/18at 14:17; Admin Dose 6 UNIT; Start 07/18/18 at 05:00 Pantoprazole (Protonix Tab) 40 mg DAILY@06 PO Last administered on 07/19/18at 07:01; Admin Dose 40 MG; Start 07/19/18 at 06:00 Insulin Glargine (Lantus) 18 units DAILY@2000 SC Last administered on 07/18/18at 17:18; Admin Dose 18 UNITS; Start 07/18/18 at 16:00; Stop 07/27/18 at 15:59 Ceftriaxone Sodium 50 ml @ 100 mls/hr Q24H IVPB Last administered on 07/18/18at 16:40; Admin Dose 100 MLS/HR; Start 07/18/18 at 16:30 Simethicone (Mylicon) 80 mg TID PO ; Start 07/19/18 at 21:00 Sucralfate (Carafate) 1 gm TID PO ; Start 07/19/18 at 21:00 LUIS GOODMAN Jul 19, 2018 14:58
[2018-07-19] MEDS ORDERED: MAGNESIUM SULFATE 2 GM/50 ML 50 ML IVPB ONE (15:00)
[2018-07-19] MEDS: CEFTRIAXONE 1 GM/50 ML (PMX) 50 ML IVPB SCH (15:34)
[2018-07-19] MEDS: SUCRALFATE 1 GM TAB PO SCH (20:09)
[2018-07-19] MEDS: INSULIN GLARGINE [LANTus] (100 UNITS/ML) SYG SC SCH (21:49)
[2018-07-20] VITALS (11 sets, daily range): BP systolic 134–179; BP diastolic 59–87; PULSE 77–97; RESP 17–22
[2018-07-20] MEDS: INSULIN ASPART [NOVOLOG] 3 ML PEN SC SCH ×3 (01:00→09:00)
[2018-07-20] MEDS ORDERED: METOPROLOL 5 MG INJ IV ONE (03:00)
[2018-07-20] MEDS: PANTOPRAZOLE (EC) 40 MG TAB PO SCH (06:28)
[2018-07-20] MEDS: SUCRALFATE 1 GM TAB PO SCH ×3 (09:00→20:46)
[2018-07-20] MEDS: ASPIRIN (EC) 81 MG TAB PO SCH ×2 (09:00→12:12)
[2018-07-20] MEDS: ENOXAPARIN 40 MG/0.4 ML SYG SC SCH (09:54)
--- NOTE | 2018-07-20 09:56 | CONS ---
Assessment/Plan Assessment/Plan Assessment/Plan (Daily) Assessment and recommendations; next 1. Patient admitted with shortness of breath due to A. fib with RVR with rate well controlled now. 2. Advanced pulmonary fibrosis. 3. Chronic anemia. 4. Interval resolution of hypotension. Patient responded to fluid bolus. 5. Improving hypoxemia. 6. Currently there is no evidence to suggest any infective process. Discontinue Rocephin. Consider [facility] prison. Consultation Date/Type/Reason Admit Date/Time Jul 18, 2018 at 01:51 Initial Consult Date 07/18/18 Type of Consult Pulmonary/critical care Pulmonary consult requested for evaluation of chronic hypoxemia due to IPF. Patient admitted with A. fib with RVR. Patient is a pleasant 77-year-old lady who came into the hospital with a 2-day history of shortness of breath. Upon evaluation patient was in A. fib with RVR. Patient has been started on Cardizem drip and was given digoxin with good rate control with significant improvement in dyspnea. Patient complete a chronic mild cough without any sputum production or hemoptysis. Denies any recent fever chills or any other symptoms. By the time I saw her, patient was completely awake and alert and appeared in no distress whatsoever. Past medical history; 1. History of IPF, O2 dependent. 2. Chronic atrial fibrillation. 3. Diabetes. 4. Systemic hypertension. Medications; reviewed. Allergies; as outlined above. Social history; most of any smoking. No history of drug abuse. Family history; noncontributory. Patient does have a supportive family. 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 Review of systems; denies any headache, seizures, chest pain, angina, wheezing, complains of mild chronic cough. Denies any sputum production. Denies any wheezing. Denies any fever or chills. Denies any abdominal pain, nausea vomiting any weight loss. Denies any orthopnea. General exam; elderly lady, awake alert, currently in no distress. On 2 L nasal cannula. Requesting Provider: ANAHI VERDUGO Date/Time of Note DATE: 07/20/18 TIME: 09:54 24 HR Interval Summary Free Text/Dictation Patient's condition is stable. Hypoxemia is improving. Patient currently on 2 L nasal cannula with stable pulmonary status. Denies any coughing, wheezing, chest congestion. General exam; elderly woman, awake alert, currently in no distress. Exam/Review of Systems Exam Vitals Vital Signs Date Temp Pulse Resp B/P (MAP) Pulse Ox O2 O2 Flow FiO2 Time Delivery Rate 07/20/18 77 08:02 07/20/18 97.8 22 176/87 96 Room Air 07:23 (116) 07/19/18 2.0 13:50 07/19/18 40 08:56 Intake and Output 07/19/18 07/19/18 07/20/18 1515:00 23:00 07:00 IntakeIntake Total 100 ml OutputOutput Total 65 ml 1800 ml BalanceBalance -65 ml -1700 ml Exam H EENT exam; supple neck, no JVD. No lymphadenopathy. Midline trachea. No thyromegaly. Patient has multiple carious teeth. No neck masses. Chest exam; diminished but clear breath sounds. S1-S2 audible, no murmurs. Irregular rhythm. Abdomen exam; soft, no organomegaly. Nontender. Bowel sounds audible. Extremity exam; no peripheral edema clubbing. QUALITY ASSURANCE CALIBRATOR exam; no focal deficit. Results Result Diagram: 07/19/18 0519 07/20/18 0558 Results 24hrs Laboratory Tests Test 07/19/18 12:18 07/19/18 15:00 07/19/18 17:12 07/19/18 20:07 Bedside Glucose 106 286 H 165 Blood Gas Specimen Blood arterial Source Arterial Blood 07/19/2018 3:14:39 Date Drawn PM Arterial Blood pH 7.424 (Temp corrected) Arterial Blood 68.1 H pCO2 (Temp correct) Arterial Blood pO2 61.4 L (Temp corrected) Arterial Blood 43.6 *H HCO3 Arterial Blood 15.7 H Base Excess Arterial Blood 91.7 L Oxygen Saturation Reuben Test N/A Arterial Blood Gas Right Brachial Puncture Site Arterial 0.8 Blood Carboxyhemog lobin Arterial Blood 0.2 Methemoglobin Blood Gas A-a O2 72.5 H Differential Oxyhemoglobin 90.8 L Percent Blood Gas 37.0 Temperature Blood Gas Modality NASAL CANNULA FiO2 30.0 Blood Gas Critical Susi Cox RN Value Read Back Blood Gas Notified PVR Whom Blood Gas Notified 07/19/2018 3:26:53 Time PM Test 07/19/18 21:13 07/20/18 01:36 07/20/18 02:06 07/20/18 02:49 Bedside Glucose 123 62 L 74 134 Test 07/20/18 03:29 07/20/18 05:25 07/20/18 05:58 07/20/18 09:40 Bedside Glucose 124 75 75 Sodium Level 141 Potassium Level 3.7 Chloride Level 92 L Carbon Dioxide 45 *H Level Anion Gap 4 L Blood Urea 13 Nitrogen Creatinine 0.40 L Est Glomerular Filtrat Rate mL/min Glucose Level 68 #L Calcium Level 8.7 Magnesium Level 2.1 Medications Medication Current Medications IV Flush (NS 3 ml) 3 ml PER PROTOCOL IV ; Start 07/18/18 at 02:30 Ondansetron HCl (Zofran Inj) 4 mg Q6H PRN IV NAUSEA/VOMITING; Start 07/18/18 at 02:30 Acetaminophen (Tylenol Tab) 650 mg Q6H PRN PO .PAIN 1-3 OR TEMP; Start 07/18/18 at 02:30 Acetaminophen/ Hydrocodone Bitart ([place] (5/325)) 1 tab Q6H PRN PO .MOD PAIN 4- 6; Start 07/18/18 at 02:30 Morphine Sulfate (morphine) 2 mg Q4H PRN IV .SEVERE PAIN 7-10; Start 07/18/18 at 02:30 Docusate Sodium (Colace) 100 mg Q12H PRN PO .CONSTIPATION; Start 07/18/18 at 02:30 Magnesium Hydroxide (Milk Of Mag) 30 ml DAILY PRN PO .CONSTIPATION; Start 07/18/18 at 02:30 Lorazepam (Ativan) 0.5 mg Q6H PRN IV ANXIETY Last administered on 07/18/18at 03:13; Admin Dose 0.5 MG; Start 07/18/18 at 02:30 Albuterol/ Ipratropium (Duoneb) 3 ml Q4H RESP THERAPY PRN HHN SHORTNESS OF BREATH; Start 07/18/18 at 02:30 Hydralazine HCl (Apresoline) 10 mg Q6H PRN IV ELEVATED BLOOD PRESSURE; Start 07/18/18 at 02:30 Nitroglycerin (Nitroglycerin (Sl Tab) 0.4 Mg) 1 tab Q5M PRN SL ANGINA; Start 07/18/18 at 02:30 Aspirin (Halfprin) 81 mg DAILY PO Last administered on 07/19/18at 09:09; Admin Dose 81 MG; Start 07/18/18 at 09:00 Enoxaparin Sodium (Lovenox) 40 mg DAILY SC Last administered on 07/19/18 09:21; Admin Dose 40 MG; Start 07/18/18 at 09:00 Miscellaneous Information 1 ea NOTE XX ; Start 07/18/18 at 02:30 Glucose (Glutose) 15 gm Q15M PRN PO DECREASED GLUCOSE; Start 07/18/18 at 02:30 Glucose (Glutose) 22.5 gm Q15M PRN PO DECREASED GLUCOSE; Start 07/18/18 at 02:30 Dextrose (D50w Syringe) 25 ml Q15M PRN IV DECREASED GLUCOSE; Start 07/18/18 at 02:30 Dextrose (D50w Syringe) 50 ml Q15M PRN IV DECREASED GLUCOSE; Start 07/18/18 at 02:30 Glucagon (Glucagen) 1 mg Q15M PRN IM DECREASED GLUCOSE; Start 07/18/18 at 02:30 Glucose (Glutose) 15 gm Q15M PRN BUCCAL DECREASED GLUCOSE; Start 07/18/18 at 02:30 Insulin Aspart (Novolog Insulin Pen) NOVOLOG *MODERATE* ALGORI... Q4 SC Last administered on 07/19/18 17:21; Admin Dose 8 UNIT; Start 07/18/18 at 05:00 Pantoprazole (Protonix Tab) 40 mg DAILY@06 PO Last administered on 07/20/18 06:28; Admin Dose 40 MG; Start 07/19/18 at 06:00 Insulin Glargine (Lantus) 18 units DAILY@2000 SC Last administered on 07/19/18 21:49; Admin Dose 18 UNITS; Start 07/18/18 at 16:00; Stop 07/27/18 at 15:59 Ceftriaxone Sodium 50 ml @ 100 mls/hr Q24H IVPB Last administered on 07/19/18 15:34; Admin Dose 100 MLS/HR; Start 07/18/18 at 16:30 Simethicone (Mylicon) 80 mg TID PO Last administered on 07/19/18 20:09; Admin Dose 80 MG; Start 07/19/18 at 21:00 Sucralfate (Carafate) 1 gm TID PO Last administered on 6/7/19at 20:09; Admin Dose 1 GM; Start 07/19/18 at 21:00 LLUVIA MARQUEZ Jul 20, 2018 09:56
[2018-07-20] MEDS: hydrALAzine 20 MG INJ IV PRN (12:13)
[2018-07-20] MEDS: LORAZEPAM 2 MG INJ IV PRN (13:47)
[2018-07-20] MEDS: ALBUTEROL/IPRATROPIUM (NEB) 3 ML AMP HHN PRN (13:57)
[2018-07-20] MEDS ORDERED: SIME80TA60 PO (15:49)
[2018-07-20] MEDS ORDERED: SUCR1TAB35 PO (15:49)
[2018-07-20] MEDS ORDERED: SENN-120 PO (15:49)
[2018-07-20] MEDS ORDERED: DOCU-144 PO (15:49)
--- NOTE | 2018-07-20 16:38 | CONS ---
Assessment/Plan Assessment/Plan Hospital Course (Demo Recall) Paroxysmal atrial fibrillation: CHADSVASC is 4 but with pt's frail condition and likely palliative/hospice, will defer anticoagulation. Now back in sinus. Acute on chronic respiratory failure: Underlying pulmonary fibrosis exacerbated by afib with RVR. JVP remains flat on exam today Shock: transient and possibly from volume depletion and afib with RVR. Resolved Pulmonary fibrosis -no cardiac meds necessary at this time -if back in afib with RVR and BP low, can give digoxin load 500mcg followed by 250mcg x 2 6 hours apart -further management per pulm Consultation Date/Type/Reason Admit Date/Time Jul 18, 2018 at 01:51 Initial Consult Date 07/18/18 Type of Consult Cardiology Date/Time of Note DATE: 07/20/18 TIME: 16:36 24 HR Interval Summary Free Text/Dictation Had atrial fibrillation with rapid ventricular rates overnight, given metoprolol 5mg IV x1. Currently sinus rhythm. Detailed Summary Additional Comments 14 point review of systems without changes. Exam/Review of Systems Vital Signs Vitals Vital Signs Date Temp Pulse Resp B/P (MAP) Pulse Ox O2 O2 Flow FiO2 Time Delivery Rate 07/20/18 6.0 15:55 07/20/18 97.6 97 22 134/69 96 Nasal 15:07 (90) Cannula 07/19/18 40 08:56 Intake and Output 07/19/18 07/19/18 07/20/18 1414:59 22:59 06:59 IntakeIntake Total 100 ml OutputOutput Total 65 ml 1800 ml BalanceBalance -65 ml -1700 ml Exam Exam Constitutional: alert Psych: no complaints Head: normocephalic, atraumatic Neck: No jvd Respiratory: crackles/rales; No clear to auscultation Cardiovascular: regular rate and rhythm; No edema Gastrointestinal: soft, non-tender; No distended Neurological: nl mental status, nl speech Labs Result Diagram: 07/19/18 0519 07/20/18 0558 Results 24hrs Laboratory Tests Test 07/19/18 17:12 07/19/18 20:07 07/19/18 21:13 07/20/18 01:36 Bedside Glucose 286 H 165 123 62 L Test 07/20/18 02:06 07/20/18 02:49 07/20/18 03:29 07/20/18 05:25 Bedside Glucose 74 134 124 75 Test 07/20/18 05:58 07/20/18 09:40 07/20/18 12:11 Sodium Level 141 Potassium Level 3.7 Chloride Level 92 L Carbon Dioxide Level 45 *H Anion Gap 4 L Blood Urea Nitrogen 13 Creatinine 0.40 L Est Glomerular Filtrat Rate mL/min Glucose Level 68 #L Calcium Level 8.7 Magnesium Level 2.1 Bedside Glucose 75 91 Medications Medications Current Medications IV Flush (NS 3 ml) 3 ml PER PROTOCOL IV ; Start 07/18/18 at 02:30 Ondansetron HCl (Zofran Inj) 4 mg Q6H PRN IV NAUSEA/VOMITING; Start 07/18/18 at 02:30 Acetaminophen (Tylenol Tab) 650 mg Q6H PRN PO .PAIN 1-3 OR TEMP; Start 07/18/18 at 02:30 Acetaminophen/ Hydrocodone Bitart ([place] (5/325)) 1 tab Q6H PRN PO .MOD PAIN 4- 6; Start 07/18/18 at 02:30 Morphine Sulfate (morphine) 2 mg Q4H PRN IV .SEVERE PAIN 7-10; Start 07/18/18 at 02:30 Docusate Sodium (Colace) 100 mg Q12H PRN PO .CONSTIPATION; Start 07/18/18 at 02:30 Magnesium Hydroxide (Milk Of Mag) 30 ml DAILY PRN PO .CONSTIPATION Last administered on 07/20/18 13:38; Admin Dose 30 ML; Start 07/18/18 at 02:30 Lorazepam (Ativan) 0.5 mg Q6H PRN IV ANXIETY Last administered on 07/20/18 13:47; Admin Dose 0.5 MG; Start 07/18/18 at 02:30 Albuterol/ Ipratropium (Duoneb) 3 ml Q4H RESP THERAPY PRN HHN SHORTNESS OF BREATH Last administered on 07/20/18 13:57; Admin Dose 3 ML; Start 07/18/18 at 02:30 Hydralazine HCl (Apresoline) 10 mg Q6H PRN IV ELEVATED BLOOD PRESSURE Last administered on 07/20/18 12:13; Admin Dose 10 MG; Start 07/18/18 at 02:30 Nitroglycerin (Nitroglycerin (Sl Tab) 0.4 Mg) 1 tab Q5M PRN SL ANGINA; Start 07/18/18 at 02:30 Aspirin (Halfprin) 81 mg DAILY PO Last administered on 07/20/18at 12:12; Admin Dose 81 MG; Start 07/18/18 at 09:00 Enoxaparin Sodium (Lovenox) 40 mg DAILY SC Last administered on 07/20/18at 09:54; Admin Dose 40 MG; Start 07/18/18 at 09:00 Miscellaneous Information 1 ea NOTE XX ; Start 07/18/18 at 02:30 Glucose (Glutose) 15 gm Q15M PRN PO DECREASED GLUCOSE; Start 07/18/18 at 02:30 Glucose (Glutose) 22.5 gm Q15M PRN PO DECREASED GLUCOSE; Start 07/18/18 at 02:30 Dextrose (D50w Syringe) 25 ml Q15M PRN IV DECREASED GLUCOSE; Start 07/18/18 at 02:30 Dextrose (D50w Syringe) 50 ml Q15M PRN IV DECREASED GLUCOSE; Start 07/18/18 at 02:30 Glucagon (Glucagen) 1 mg Q15M PRN IM DECREASED GLUCOSE; Start 07/18/18 at 02:30 Glucose (Glutose) 15 gm Q15M PRN BUCCAL DECREASED GLUCOSE; Start 07/18/18 at 02:30 Pantoprazole (Protonix Tab) 40 mg DAILY@06 PO Last administered on 07/20/18at 06:28; Admin Dose 40 MG; Start 07/19/18 at 06:00 Insulin Glargine (Lantus) 18 units DAILY@2000 SC Last administered on 07/19/18at 21:49; Admin Dose 18 UNITS; Start 07/18/18 at 16:00; Stop 07/27/18 at 15:59 Simethicone (Mylicon) 80 mg TID PO Last administered on 07/20/18at 12:12; Admin Dose 80 MG; Start 07/19/18 at 21:00 Sucralfate (Carafate) 1 gm TID PO Last administered on 07/20/18at 12:12; Admin Dose 1 GM; Start 07/19/18 at 21:00 Insulin Aspart (Novolog Insulin Pen) (Adult SC Insulin - Moder... WITH MEALS BEDTIME SC ; Start 07/20/18 at 18:00 MOSES BALL MD Jul 20, 2018 16:38
[2018-07-20] MEDS ORDERED: INSULIN ASPART [NOVOLOG] 3 ML PEN SC SCH (17:30)
--- NOTE | 2018-07-20 17:49 | PN ---
Date/Time of Note Date/Time of Note DATE: 07/20/18 TIME: 17:45 Assessment/Plan VTE Prophylaxis Risk score (from Nsg)>0 risk: 7 Pharmacological prophylaxis: LMWH Lines/Catheters IV Catheter Type (from Nrsg): [place]ine Lock Assessment/Plan Hospital Course Assessment and plan: 77-year-old female past medical history of pulmonary fibros is on home oxygen, diabetes, hypertension, , who presents with shortness of breath and tachycardia signs of A. fib with RVR. 1. Acute on chronic hypoxemic and hypercapnic respiratory failure secondary to pulmonary fibrosis and mild pulmonary edema Status post diuresis Patient now saturating well on 2 L nasal cannula Pulmonology following Patient with recent diagnosis of pulmonary fibrosis several months ago, patient has oxygen at home 2. A. fib with RVR-resolved Patient now in sinus Status post Cardizem drip 3. Septic shock likely secondary to UTI-resolved Status post course of Rocephin Now weaned off pressors 4. History of hypertension Hold home meds secondary to recent shock 5. Debility with dysphasia secondary to comorbidities Speech therapy evaluation appreciated, advance diet per speech therapy 6. Chronic intermittent abdominal pain It is described as though somebody is jumping in her stomach, recent ultrasound of the abdominal aorta was negative for aneurysm Pain has improved with initiation of Carafate and simethicone Colace and senna for constipation Prophylaxis: Lovenox DC planning: Patient is appropriate for long-term facility but family is refusing and yet they are refusing for patient to go home today, reevaluate tomorrow Result Diagram: 07/19/18 0519 07/20/18 0558 Results 24hrs Laboratory Tests Test 07/19/18 20:07 07/19/18 21:13 07/20/18 01:36 07/20/18 02:06 Bedside Glucose 165 123 62 L 74 Test 07/20/18 02:49 07/20/18 03:29 07/20/18 05:25 07/20/18 05:58 Bedside Glucose 134 124 75 Sodium Level 141 Potassium Level 3.7 Chloride Level 92 L Carbon Dioxide Level 45 *H Anion Gap 4 L Blood Urea Nitrogen 13 Creatinine 0.40 L Est Glomerular Filtrat Rate mL/min Glucose Level 68 #L Calcium Level 8.7 Magnesium Level 2.1 Test 07/20/18 09:40 07/20/18 12:11 07/20/18 17:23 Bedside Glucose 75 91 283 H Subjective 24 Hr Interval Summary Constitutional: no complaints Exam/Review of Systems Exam Vitals Vital Signs Date Temp Pulse Resp B/P (MAP) Pulse Ox O2 O2 Flow FiO2 Time Delivery Rate 07/20/18 96 16:01 07/20/18 6.0 15:55 07/20/18 97.6 22 134/69 96 Nasal 15:07 (90) Cannula 07/19/18 40 08:56 Intake and Output 07/19/18 07/19/18 07/20/18 1515:00 23:00 07:00 IntakeIntake Total 100 ml OutputOutput Total 65 ml 1800 ml BalanceBalance -65 ml -1700 ml Constitutional: alert Respiratory: clear to auscultation Cardiovascular: regular rate and rhythm Gastrointestinal: soft; No distended Musculoskeletal: nl extremities to inspection Results Results 24hrs Laboratory Tests Test 07/19/18 20:07 07/19/18 21:13 07/20/18 01:36 07/20/18 02:06 Bedside Glucose 165 123 62 L 74 Test 07/20/18 02:49 07/20/18 03:29 07/20/18 05:25 07/20/18 05:58 Bedside Glucose 134 124 75 Sodium Level 141 Potassium Level 3.7 Chloride Level 92 L Carbon Dioxide Level 45 *H Anion Gap 4 L Blood Urea Nitrogen 13 Creatinine 0.40 L Est Glomerular Filtrat Rate mL/min Glucose Level 68 #L Calcium Level 8.7 Magnesium Level 2.1 Test 07/20/18 09:40 07/20/18 12:11 07/20/18 17:23 Bedside Glucose 75 91 283 H Medications Medication Current Medications IV Flush (NS 3 ml) 3 ml PER PROTOCOL IV ; Start 07/18/18 at 02:30 Ondansetron HCl (Zofran Inj) 4 mg Q6H PRN IV NAUSEA/VOMITING; Start 07/18/18 at 02:30 Acetaminophen (Tylenol Tab) 650 mg Q6H PRN PO .PAIN 1-3 OR TEMP; Start 07/18/18 at 02:30 Acetaminophen/ Hydrocodone Bitart ([place] (5/325)) 1 tab Q6H PRN PO .MOD PAIN 4- 6; Start 07/18/18 at 02:30 Morphine Sulfate (morphine) 2 mg Q4H PRN IV .SEVERE PAIN 7-10; Start 07/18/18 at 02:30 Docusate Sodium (Colace) 100 mg Q12H PRN PO .CONSTIPATION; Start 07/18/18 at 02:30 Magnesium Hydroxide (Milk Of Mag) 30 ml DAILY PRN PO .CONSTIPATION Last administered on 07/20/18 13:38; Admin Dose 30 ML; Start 07/18/18 at 02:30 Lorazepam (Ativan) 0.5 mg Q6H PRN IV ANXIETY Last administered on 07/20/18 13:47; Admin Dose 0.5 MG; Start 07/18/18 at 02:30 Albuterol/ Ipratropium (Duoneb) 3 ml Q4H RESP THERAPY PRN HHN SHORTNESS OF BREATH Last administered on 07/20/18 13:57; Admin Dose 3 ML; Start 07/18/18 at 02:30 Hydralazine HCl (Apresoline) 10 mg Q6H PRN IV ELEVATED BLOOD PRESSURE Last administered on 07/20/18 12:13; Admin Dose 10 MG; Start 07/18/18 at 02:30 Nitroglycerin (Nitroglycerin (Sl Tab) 0.4 Mg) 1 tab Q5M PRN SL ANGINA; Start 07/18/18 at 02:30 Aspirin (Halfprin) 81 mg DAILY PO Last administered on 07/20/18 12:12; Admin Dose 81 MG; Start 07/18/18 at 09:00 Enoxaparin Sodium (Lovenox) 40 mg DAILY SC Last administered on 07/20/18 09:54; Admin Dose 40 MG; Start 07/18/18 at 09:00 Miscellaneous Information 1 ea NOTE XX ; Start 07/18/18 at 02:30 Glucose (Glutose) 15 gm Q15M PRN PO DECREASED GLUCOSE; Start 07/18/18 at 02:30 Glucose (Glutose) 22.5 gm Q15M PRN PO DECREASED GLUCOSE; Start 07/18/18 at 02:30 Dextrose (D50w Syringe) 25 ml Q15M PRN IV DECREASED GLUCOSE; Start 07/18/18 at 02:30 Dextrose (D50w Syringe) 50 ml Q15M PRN IV DECREASED GLUCOSE; Start 07/18/18 at 02:30 Glucagon (Glucagen) 1 mg Q15M PRN IM DECREASED GLUCOSE; Start 07/18/18 at 02:30 Glucose (Glutose) 15 gm Q15M PRN BUCCAL DECREASED GLUCOSE; Start 07/18/18 at 02:30 Pantoprazole (Protonix Tab) 40 mg DAILY@06 PO Last administered on 07/20/18at 06:28; Admin Dose 40 MG; Start 07/19/18 at 06:00 Insulin Glargine (Lantus) 18 units DAILY@2000 SC Last administered on 07/19/18at 21:49; Admin Dose 18 UNITS; Start 07/18/18 at 16:00; Stop 07/27/18 at 15:59 Simethicone (Mylicon) 80 mg TID PO Last administered on 07/20/18at 12:12; Admin Dose 80 MG; Start 07/19/18 at 21:00 Sucralfate (Carafate) 1 gm TID PO Last administered on 07/20/18 12:12; Admin Dose 1 GM; Start 07/19/18 at 21:00 Insulin Aspart (Novolog Insulin Pen) (Adult SC Insulin - Moder... WITH MEALS BEDTIME SC ; Start 07/20/18 at 18:00 LUIS GOODMAN Jul 20, 2018 17:49
[2018-07-20] MEDS ORDERED: SENNA TAB PO ONE (18:00)
[2018-07-20] MEDS: Insulin NOVOLOG SS MODERATE Algorithm (SS with meals and bedtime) SC SCH ×2 (18:00→21:04)
[2018-07-20] MEDS: DOCUSATE SODIUM 100 MG CAP PO SCH (20:46)
[2018-07-20] MEDS: INSULIN GLARGINE [LANTus] (100 UNITS/ML) SYG SC SCH (21:04)
[2018-07-21] VITALS (10 sets, daily range): BP systolic 139–161; BP diastolic 65–81; PULSE 78–98; RESP 17–40
[2018-07-21] MEDS: LANSOPRAZOLE 30 MG CAP PO SCH (05:46)
[2018-07-21] MEDS: Insulin NOVOLOG SS MODERATE Algorithm (SS with meals and bedtime) SC SCH ×4 (08:20→22:18)
[2018-07-21] MEDS ORDERED: morphine 2 MG INJ IV STA (08:54)
[2018-07-21] MEDS ORDERED: FUROSEMIDE 40 MG INJ IV ONE (09:00)
[2018-07-21] MEDS: ENOXAPARIN 40 MG/0.4 ML SYG SC SCH (09:29)
[2018-07-21] MEDS: ASPIRIN (EC) 81 MG TAB PO SCH (09:31)
[2018-07-21] MEDS: SUCRALFATE 1 GM TAB PO SCH ×3 (09:31→22:36)
[2018-07-21] MEDS: DOCUSATE SODIUM 100 MG CAP PO SCH ×2 (09:31→22:36)
--- NOTE | 2018-07-21 11:55 | CONS ---
Assessment/Plan Assessment/Plan Assessment/Plan (Daily) Chest x-ray showing diffuse fibrotic changes. ABG showing mild hypercapnia with severe hypoxemia. Assessment and recommendations; 1. Patient with end-stage primary fibrosis admitted with hypoxemic and hypercapnic respiratory failure with progressive clinical decline. Continue current supportive care. Consider hospice. Prognosis appears very poor. Consultation Date/Type/Reason Admit Date/Time Jul 18, 2018 at 01:51 Initial Consult Date 07/18/18 Type of Consult Pulmonary/critical care Pulmonary consult requested for evaluation of chronic hypoxemia due to IPF. Patient admitted with A. fib with RVR. Patient is a pleasant 77-year-old lady who came into the hospital with a 2-day history of shortness of breath. Upon evaluation patient was in A. fib with RVR. Patient has been started on Cardizem drip and was given digoxin with good rate control with significant improvement in dyspnea. Patient complete a chronic m ild cough without any sputum production or hemoptysis. Denies any recent fever chills or any other symptoms. By the time I saw her, patient was completely awake and alert and appeared in no distress whatsoever. Past medical history; 1. History of IPF, O2 dependent. 2. Chronic atrial fibrillation. 3. Diabetes. 4. Systemic hypertension. Medications; reviewed. Allergies; as outlined above. Social history; most of any smoking. No history of drug abuse. Family history; noncontributory. Patient does have a supportive family. 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 Review of systems; denies any headache, seizures, chest pain, angina, wheezing, complains of mild chronic cough. Denies any sputum production. Denies any wheezing. Denies any fever or chills. Denies any abdominal pain, nausea vomiting any weight loss. Denies any orthopnea. General exam; elderly lady, awake alert, currently in no distress. On 2 L nasal cannula. Date/Time of Note DATE: 07/21/18 TIME: 11:54 24 HR Interval Summary Free Text/Dictation Patient's condition is tenuous. Patient getting progressively more tachypneic. Also getting progressively more lethargic. General exam; elderly female, tachypneic. H EENT exam; supple neck, no JVD. There is use of accessory muscles of respiration. No neck masses. Chest exam; bilateral crackles. S1-S2 audible, no murmurs. Abdomen exam; soft, scaphoid. Nontender. No organomegaly. Bowel sounds audible. Extremity exam; peripheral edema. SECURITIES ATTORNEY exam; patient is lethargic. Exam/Review of Systems Exam Vitals Vital Signs Date Temp Pulse Resp B/P (MAP) Pulse Ox O2 O2 Flow FiO2 Time Delivery Rate 07/21/18 28 95 Nasal 2.0 09:00 Cannula 07/21/18 97.8 95 143/65 08:24 (91) 07/19/18 40 08:56 Intake and Output 07/20/18 07/20/18 07/21/18 1515:00 23:00 07:00 IntakeIntake Total 930 ml 100 ml OutputOutput Total 600 ml 400 ml BalanceBalance 330 ml -300 ml Results Result Diagram: 07/19/18 0519 07/21/18 0457 Results 24hrs Laboratory Tests Test 07/20/18 12:11 07/20/18 17:23 07/20/18 20:57 07/21/18 03:33 Bedside Glucose 91 283 H 234 H 106 Test 07/21/18 04:57 07/21/18 07:30 07/21/18 08:18 Sodium Level 140 Potassium Level 3.6 Chloride Level 92 L Carbon Dioxide 48 *H Level Anion Gap 0 L Blood Urea 15 Nitrogen Creatinine 0.44 Est Glomerular Filtrat Rate mL/min Glucose Level 93 Calcium Level 8.6 Blood Gas Specimen Blood arterial Source Arterial Blood 07/21/2018 8:29:37 Date Drawn AM Arterial Blood pH 7.441 (Temp corrected) Arterial Blood 64.7 H pCO2 (Temp correct) Arterial Blood pO2 53.7 *L (Temp corrected) Arterial Blood 43.1 *H HCO3 Arterial Blood 15.7 H Base Excess Arterial Blood 88.5 L Oxygen Saturation Reuben Test ACCEPTAB Arterial Blood Gas Right Radial Puncture Site Arterial 0.7 Blood Carboxyhemog lobin Arterial Blood 0.2 Methemoglobin Blood Gas A-a O2 106.1 H Differential Oxyhemoglobin 87.7 L Percent Blood Gas 37.0 Temperature Blood Gas Modality NASAL CANNULA FiO2 33.0 Blood Gas Critical Martha JARQUIN RCP Value Read Back Blood Gas Notified Brendan CASTELLANOS RCP Whom Blood Gas Notified 07/21/2018 8:37:53 Time AM Bedside Glucose 121 Medications Medication Current Medications IV Flush (NS 3 ml) 3 ml PER PROTOCOL IV ; Start 07/18/18 at 02:30 Ondansetron HCl (Zofran Inj) 4 mg Q6H PRN IV NAUSEA/VOMITING; Start 07/18/18 at 02:30 Acetaminophen (Tylenol Tab) 650 mg Q6H PRN PO .PAIN 1-3 OR TEMP; Start 07/18/18 at 02:30 Acetaminophen/ Hydrocodone Bitart ([place] (5/325)) 1 tab Q6H PRN PO .MOD PAIN 4- 6; Start 07/18/18 at 02:30 Morphine Sulfate (morphine) 2 mg Q4H PRN IV .SEVERE PAIN 7-10; Start 07/18/18 at 02:30 Docusate Sodium (Colace) 100 mg Q12H PRN PO .CONSTIPATION; Start 07/18/18 at 02:30 Magnesium Hydroxide (Milk Of Mag) 30 ml DAILY PRN PO .CONSTIPATION Last administered on 07/20/18 13:38; Admin Dose 30 ML; Start 07/18/18 at 02:30 Lorazepam (Ativan) 0.5 mg Q6H PRN IV ANXIETY Last administered on 07/20/18 13:47; Admin Dose 0.5 MG; Start 07/18/18 at 02:30 Albuterol/ Ipratropium (Duoneb) 3 ml Q4H RESP THERAPY PRN HHN SHORTNESS OF BREATH Last administered on 07/20/18 13:57; Admin Dose 3 ML; Start 07/18/18 at 02:30 Hydralazine HCl (Apresoline) 10 mg Q6H PRN IV ELEVATED BLOOD PRESSURE Last administered on 07/20/18 12:13; Admin Dose 10 MG; Start 07/18/18 at 02:30 Nitroglycerin (Nitroglycerin (Sl Tab) 0.4 Mg) 1 tab Q5M PRN SL ANGINA; Start 07/18/18 at 02:30 Aspirin (Halfprin) 81 mg DAILY PO Last administered on 07/21/18 09:31; Admin Dose 81 MG; Start 07/18/18 at 09:00 Enoxaparin Sodium (Lovenox) 40 mg DAILY SC Last administered on 07/21/18 09:29; Admin Dose 40 MG; Start 07/18/18 at 09:00 Miscellaneous Information 1 ea NOTE XX ; Start 07/18/18 at 02:30 Glucose (Glutose) 15 gm Q15M PRN PO DECREASED GLUCOSE; Start 07/18/18 at 02:30 Glucose (Glutose) 22.5 gm Q15M PRN PO DECREASED GLUCOSE; Start 07/18/18 at 02:30 Dextrose (D50w Syringe) 25 ml Q15M PRN IV DECREASED GLUCOSE; Start 07/18/18 at 02:30 Dextrose (D50w Syringe) 50 ml Q15M PRN IV DECREASED GLUCOSE; Start 07/18/18 at 02:30 Glucagon (Glucagen) 1 mg Q15M PRN IM DECREASED GLUCOSE; Start 07/18/18 at 02:30 Glucose (Glutose) 15 gm Q15M PRN BUCCAL DECREASED GLUCOSE; Start 07/18/18 at 02:30 Insulin Glargine (Lantus) 18 units DAILY@2000 SC Last administered on 07/20/18 21:04; Admin Dose 18 UNITS; Start 07/18/18 at 16:00; Stop 07/27/18 at 15:59 Simethicone (Mylicon) 80 mg TID PO Last administered on 07/21/18 09:31; Admin Dose 80 MG; Start 07/19/18 at 21:00 Sucralfate (Carafate) 1 gm TID PO Last administered on 07/21/18 09:31; Admin Dose 1 GM; Start 07/19/18 at 21:00 Insulin Aspart (Novolog Insulin Pen) (Adult SC Insulin - Moder... WITH MEALS BEDTIME SC Last administered on 07/20/18 21:04; Admin Dose 2 UNIT; Start 07/20/18 at 18:00 Docusate Sodium (Colace) 200 mg BID PO Last administered on 07/21/18 09:31; Admin Dose 200 MG; Start 07/20/18 at 21:00 Lansoprazole (Prevacid) 30 mg DAILY@06 PO Last administered on 07/21/18 05:46; Admin Dose 30 MG; Start 07/21/18 at 06:00 LLUVIA MARQUEZ Jul 21, 2018 11:55
--- NOTE | 2018-07-21 11:58 | PN ---
Date/Time of Note Date/Time of Note DATE: 07/21/18 TIME: 11:54 Assessment/Plan VTE Prophylaxis Risk score (from Nsg)>0 risk: 7 Pharmacological prophylaxis: LMWH Lines/Catheters IV Catheter Type (from Nrsg): Peripheral IV Assessment/Plan Hospital Course Assessment and plan: 77-year-old female past medical history of pulmonary fibr osis on home oxygen, diabetes who presents with shortness of breath and tachycardia signs of A. fib with RVR. 1. Acute on chronic hypoxemic and hypercapnic respiratory failure secondary to pulmonary fibrosis and mild pulmonary edema Status post diuresis once again today for acute worsening of shortness of breath Chest x-ray is unchanged Patient now saturating well on 2 L nasal cannula Pulmonology following Patient with recent diagnosis of pulmonary fibrosis several months ago, patient has oxygen at home 2. A. fib with RVR-resolved Patient now in sinus Status post Cardizem drip 3. Septic shock likely secondary to UTI-resolved Status post course of Rocephin Now weaned off pressors 4. Chronic intermittent abdominal pain It is described as though somebody is jumping in her stomach, recent ultrasound of the abdominal aorta was negative for aneurysm Pain has improved with initiation of Carafate and simethicone Colace and senna for constipation 5. Debility with dysphasia secondary to comorbidities Speech therapy evaluation appreciated, advance diet per speech therapy 6. Anxiety Prophylaxis: Lovenox DC planning: Patient is appropriate for care home facility but family is refusing and yet they are refusing for patient to go home yet, patient reported increased redness of breath but chest x-ray is unchanged and patient without any significant acute clinical changes, patient with anxiety that is exacerbating respiratory status, possible DC home tomorrow Result Diagram: 07/19/18 0519 07/21/18 0457 Results 24hrs Laboratory Tests Test 07/20/18 12:11 07/20/18 17:23 07/20/18 20:57 07/21/18 03:33 Bedside Glucose 91 283 H 234 H 106 Test 07/21/18 04:57 07/21/18 07:30 07/21/18 08:18 Sodium Level 140 Potassium Level 3.6 Chloride Level 92 L Carbon Dioxide 48 *H Level Anion Gap 0 L Blood Urea 15 Nitrogen Creatinine 0.44 Est Glomerular Filtrat Rate mL/min Glucose Level 93 Calcium Level 8.6 Blood Gas Specimen Blood arterial Source Arterial Blood 07/21/2018 8:29:37 Date Drawn AM Arterial Blood pH 7.441 (Temp corrected) Arterial Blood 64.7 H pCO2 (Temp correct) Arterial Blood pO2 53.7 *L (Temp corrected) Arterial Blood 43.1 *H HCO3 Arterial Blood 15.7 H Base Excess Arterial Blood 88.5 L Oxygen Saturation Reuben Test ACCEPTAB Arterial Blood Gas Right Radial Puncture Site Arterial 0.7 Blood Carboxyhemog lobin Arterial Blood 0.2 Methemoglobin Blood Gas A-a O2 106.1 H Differential Oxyhemoglobin 87.7 L Percent Blood Gas 37.0 Temperature Blood Gas Modality NASAL CANNULA FiO2 33.0 Blood Gas Critical SusiJovany JARQUIN GOLF BALL INSPECTOR Value Read Back Blood Gas Notified Brendan CASTELLANOS RCP Whom Blood Gas Notified 07/21/2018 8:37:53 Time AM Bedside Glucose 121 Subjective 24 Hr Interval Summary Respiratory: shortness of breath Exam/Review of Systems Exam Vitals Vital Signs Date Temp Pulse Resp B/P (MAP) Pulse Ox O2 O2 Flow FiO2 Time Delivery Rate 07/21/18 28 95 Nasal 2.0 09:00 Cannula 07/21/18 97.8 95 143/65 08:24 (91) 07/19/18 40 08:56 Intake and Output 07/20/18 07/20/18 07/21/18 1515:00 23:00 07:00 IntakeIntake Total 930 ml 100 ml OutputOutput Total 600 ml 400 ml BalanceBalance 330 ml -300 ml Constitutional: alert, oriented Respiratory: clear to auscultation Cardiovascular: regular rate and rhythm Gastrointestinal: soft; No distended Musculoskeletal: nl extremities to inspection Results Results 24hrs Laboratory Tests Test 07/20/18 12:11 07/20/18 17:23 07/20/18 20:57 07/21/18 03:33 Bedside Glucose 91 283 H 234 H 106 Test 07/21/18 04:57 07/21/18 07:30 07/21/18 08:18 Sodium Level 140 Potassium Level 3.6 Chloride Level 92 L Carbon Dioxide 48 *H Level Anion Gap 0 L Blood Urea 15 Nitrogen Creatinine 0.44 Est Glomerular Filtrat Rate mL/min Glucose Level 93 Calcium Level 8.6 Blood Gas Specimen Blood arterial Source Arterial Blood 07/21/2018 8:29:37 Date Drawn AM Arterial Blood pH 7.441 (Temp corrected) Arterial Blood 64.7 H pCO2 (Temp correct) Arterial Blood pO2 53.7 *L (Temp corrected) Arterial Blood 43.1 *H HCO3 Arterial Blood 15.7 H Base Excess Arterial Blood 88.5 L Oxygen Saturation Reuben Test ACCEPTAB Arterial Blood Gas Right Radial Puncture Site Arterial 0.7 Blood Carboxyhemog lobin Arterial Blood 0.2 Methemoglobin Blood Gas A-a O2 106.1 H Differential Oxyhemoglobin 87.7 L Percent Blood Gas 37.0 Temperature Blood Gas Modality NASAL CANNULA FiO2 33.0 Blood Gas Critical Martha JARQUIN GOLF BALL INSPECTOR Value Read Back Blood Gas Notified Brendan CASTELLANOS GOLF BALL INSPECTOR Whom Blood Gas Notified 07/21/2018 8:37:53 Time AM Bedside Glucose 121 Medications Medication Current Medications IV Flush (NS 3 ml) 3 ml PER PROTOCOL IV ; Start 07/18/18 at 02:30 Ondansetron HCl (Zofran Inj) 4 mg Q6H PRN IV NAUSEA/VOMITING; Start 07/18/18 at 02:30 Acetaminophen (Tylenol Tab) 650 mg Q6H PRN PO .PAIN 1-3 OR TEMP; Start 07/18/18 at 02:30 Acetaminophen/ Hydrocodone Bitart ([place] (5/325)) 1 tab Q6H PRN PO .MOD PAIN 4- 6; Start 07/18/18 at 02:30 Morphine Sulfate (morphine) 2 mg Q4H PRN IV .SEVERE PAIN 7-10; Start 07/18/18 at 02:30 Docusate Sodium (Colace) 100 mg Q12H PRN PO .CONSTIPATION; Start 07/18/18 at 02:30 Magnesium Hydroxide (Milk Of Mag) 30 ml DAILY PRN PO .CONSTIPATION Last administered on 07/20/18at 13:38; Admin Dose 30 ML; Start 07/18/18 at 02:30 Lorazepam (Ativan) 0.5 mg Q6H PRN IV ANXIETY Last administered on 07/20/18at 13:47; Admin Dose 0.5 MG; Start 07/18/18 at 02:30 Albuterol/ Ipratropium (Duoneb) 3 ml Q4H RESP THERAPY PRN HHN SHORTNESS OF BREATH Last administered on 07/20/18 13:57; Admin Dose 3 ML; Start 07/18/18 at 02:30 Hydralazine HCl (Apresoline) 10 mg Q6H PRN IV ELEVATED BLOOD PRESSURE Last administered on 07/20/18at 12:13; Admin Dose 10 MG; Start 07/18/18 at 02:30 Nitroglycerin (Nitroglycerin (Sl Tab) 0.4 Mg) 1 tab Q5M PRN SL ANGINA; Start 07/18/18 at 02:30 Aspirin (Halfprin) 81 mg DAILY PO Last administered on 07/21/18 09:31; Admin Dose 81 MG; Start 07/18/18 at 09:00 Enoxaparin Sodium (Lovenox) 40 mg DAILY SC Last administered on 07/21/18at 09:29; Admin Dose 40 MG; Start 07/18/18 at 09:00 Miscellaneous Information 1 ea NOTE XX ; Start 07/18/18 at 02:30 Glucose (Glutose) 15 gm Q15M PRN PO DECREASED GLUCOSE; Start 07/18/18 at 02:30 Glucose (Glutose) 22.5 gm Q15M PRN PO DECREASED GLUCOSE; Start 07/18/18 at 02:30 Dextrose (D50w Syringe) 25 ml Q15M PRN IV DECREASED GLUCOSE; Start 07/18/18 at 02:30 Dextrose (D50w Syringe) 50 ml Q15M PRN IV DECREASED GLUCOSE; Start 07/18/18 at 02:30 Glucagon (Glucagen) 1 mg Q15M PRN IM DECREASED GLUCOSE; Start 07/18/18 at 02:30 Glucose (Glutose) 15 gm Q15M PRN BUCCAL DECREASED GLUCOSE; Start 07/18/18 at 02:30 Insulin Glargine (Lantus) 18 units DAILY@2000 SC Last administered on 07/20/18at 21:04; Admin Dose 18 UNITS; Start 07/18/18 at 16:00; Stop 07/27/18 at 15:59 Simethicone (Mylicon) 80 mg TID PO Last administered on 07/21/18 09:31; Admin Dose 80 MG; Start 07/19/18 at 21:00 Sucralfate (Carafate) 1 gm TID PO Last administered on 07/21/18 09:31; Admin Dose 1 GM; Start 07/19/18 at 21:00 Insulin Aspart (Novolog Insulin Pen) (Adult SC Insulin - Moder... WITH MEALS BEDTIME SC Last administered on 07/20/18at 21:04; Admin Dose 2 UNIT; Start 07/20/18 at 18:00 Docusate Sodium (Colace) 200 mg BID PO Last administered on 07/21/18at 09:31; Admin Dose 200 MG; Start 07/20/18 at 21:00 Lansoprazole (Prevacid) 30 mg DAILY@06 PO Last administered on 07/21/18at 05:46; Admin Dose 30 MG; Start 07/21/18 at 06:00 LUIS GOODMAN Jul 21, 2018 11:58
--- NOTE | 2018-07-21 16:15 | CONS ---
Assessment/Plan Assessment/Plan Hospital Course (Demo Recall) Paroxysmal atrial fibrillation: CHADSVASC is 4 but with pt's frail condition and likely palliative/hospice, will defer anticoagulation. Now back in sinus. Acute on chronic respiratory failure: Underlying pulmonary fibrosis exacerbated by afib with RVR. JVP remains flat on exam today Shock: transient and possibly from volume depletion and afib with RVR. Resolved Pulmonary fibrosis -no cardiac meds necessary at this time -if back in afib with RVR and BP low, can give digoxin load 500mcg followed by 250mcg x 2 6 hours apart -further management per pulm Consultation Date/Type/Reason Admit Date/Time Jul 18, 2018 at 01:51 Initial Consult Date 07/18/18 Type of Consult Cardiology Date/Time of Note DATE: 07/21/18 TIME: 16:14 24 HR Interval Summary Free Text/Dictation Transferred to med/surg. Heart rates controlled. Shortness of breath. Detailed Summary Additional Comments 14 point review of systems without changes. Exam/Review of Systems Vital Signs Vitals Vital Signs Date Temp Pulse Resp B/P (MAP) Pulse Ox O2 O2 Flow FiO2 Time Delivery Rate 07/21/18 97.8 93 19 143/70 98 14:47 (94) 07/21/18 Nasal 2.0 14:07 Cannula 07/19/18 40 08:56 Intake and Output 07/20/18 07/20/18 07/21/18 1515:00 23:00 07:00 IntakeIntake Total 930 ml 100 ml OutputOutput Total 600 ml 400 ml BalanceBalance 330 ml -300 ml Exam Exam Constitutional: alert Psych: no complaints Head: normocephalic, atraumatic Neck: No jvd Respiratory: crackles/rales; No clear to auscultation Cardiovascular: regular rate and rhythm; No edema Gastrointestinal: soft, non-tender; No distended Neurological: nl mental status, nl speech Labs Result Diagram: 07/19/18 0519 07/21/18 0457 Results 24hrs Laboratory Tests Test 07/20/18 17:23 07/20/18 20:57 07/21/18 03:33 07/21/18 04:57 Bedside Glucose 283 H 234 H 106 Sodium Level 140 Potassium Level 3.6 Chloride Level 92 L Carbon Dioxide 48 *H Level Anion Gap 0 L Blood Urea 15 Nitrogen Creatinine 0.44 Est Glomerular Filtrat Rate mL/min Glucose Level 93 Calcium Level 8.6 Test 07/21/18 07:30 07/21/18 08:18 07/21/18 12:23 Blood Gas Specimen Blood arterial Source Arterial Blood 07/21/2018 8:29:37 Date Drawn AM Arterial Blood pH 7.441 (Temp corrected) Arterial Blood 64.7 H pCO2 (Temp correct) Arterial Blood pO2 53.7 *L (Temp corrected) Arterial Blood 43.1 *H HCO3 Arterial Blood 15.7 H Base Excess Arterial Blood 88.5 L Oxygen Saturation Reuben Test ACCEPTAB Arterial Blood Gas Right Radial Puncture Site Arterial 0.7 Blood Carboxyhemog lobin Arterial Blood 0.2 Methemoglobin Blood Gas A-a O2 106.1 H Differential Oxyhemoglobin 87.7 L Percent Blood Gas 37.0 Temperature Blood Gas Modality NASAL CANNULA FiO2 33.0 Blood Gas Critical Martha JARQUIN EVENT DECORATOR Value Read Back Blood Gas Notified Brendan RICHMONDP Whom Blood Gas Notified 07/21/2018 8:37:53 Time AM Bedside Glucose 121 210 Medications Medications Current Medications IV Flush (NS 3 ml) 3 ml PER PROTOCOL IV ; Start 07/18/18 at 02:30 Ondansetron HCl (Zofran Inj) 4 mg Q6H PRN IV NAUSEA/VOMITING; Start 07/18/18 at 02:30 Acetaminophen (Tylenol Tab) 650 mg Q6H PRN PO .PAIN 1-3 OR TEMP; Start 07/18/18 at 02:30 Acetaminophen/ Hydrocodone Bitart ([place] (5/325)) 1 tab Q6H PRN PO .MOD PAIN 4- 6; Start 07/18/18 at 02:30 Morphine Sulfate (morphine) 2 mg Q4H PRN IV .SEVERE PAIN 7-10; Start 07/18/18 at 02:30 Docusate Sodium (Colace) 100 mg Q12H PRN PO .CONSTIPATION; Start 07/18/18 at 02:30 Magnesium Hydroxide (Milk Of Mag) 30 ml DAILY PRN PO .CONSTIPATION Last administered on 07/20/18at 13:38; Admin Dose 30 ML; Start 07/18/18 at 02:30 Lorazepam (Ativan) 0.5 mg Q6H PRN IV ANXIETY Last administered on 07/20/18at 13:47; Admin Dose 0.5 MG; Start 07/18/18 at 02:30 Albuterol/ Ipratropium (Duoneb) 3 ml Q4H RESP THERAPY PRN HHN SHORTNESS OF BREATH Last administered on 07/20/18 13:57; Admin Dose 3 ML; Start 07/18/18 at 02:30 Hydralazine HCl (Apresoline) 10 mg Q6H PRN IV ELEVATED BLOOD PRESSURE Last administered on 07/20/18 12:13; Admin Dose 10 MG; Start 07/18/18 at 02:30 Nitroglycerin (Nitroglycerin (Sl Tab) 0.4 Mg) 1 tab Q5M PRN SL ANGINA; Start 07/18/18 at 02:30 Aspirin (Halfprin) 81 mg DAILY PO Last administered on 07/21/18 09:31; Admin Dose 81 MG; Start 07/18/18 at 09:00 Enoxaparin Sodium (Lovenox) 40 mg DAILY SC Last administered on 07/21/18 09:29; Admin Dose 40 MG; Start 07/18/18 at 09:00 Miscellaneous Information 1 ea NOTE XX ; Start 07/18/18 at 02:30 Glucose (Glutose) 15 gm Q15M PRN PO DECREASED GLUCOSE; Start 07/18/18 at 02:30 Glucose (Glutose) 22.5 gm Q15M PRN PO DECREASED GLUCOSE; Start 07/18/18 at 02:30 Dextrose (D50w Syringe) 25 ml Q15M PRN IV DECREASED GLUCOSE; Start 07/18/18 at 02:30 Dextrose (D50w Syringe) 50 ml Q15M PRN IV DECREASED GLUCOSE; Start 07/18/18 at 02:30 Glucagon (Glucagen) 1 mg Q15M PRN IM DECREASED GLUCOSE; Start 07/18/18 at 02:30 Glucose (Glutose) 15 gm Q15M PRN BUCCAL DECREASED GLUCOSE; Start 07/18/18 at 02:30 Insulin Glargine (Lantus) 18 units DAILY@2000 SC Last administered on 07/20/18at 21:04; Admin Dose 18 UNITS; Start 07/18/18 at 16:00; Stop 07/27/18 at 15:59 Simethicone (Mylicon) 80 mg TID PO Last administered on 07/21/18at 12:49; Admin Dose 80 MG; Start 07/19/18 at 21:00 Sucralfate (Carafate) 1 gm TID PO Last administered on 07/21/18at 12:48; Admin Dose 1 GM; Start 07/19/18 at 21:00 Insulin Aspart (Novolog Insulin Pen) (Adult SC Insulin - Moder... WITH MEALS BEDTIME SC Last administered on 07/21/18at 12:25; Admin Dose 4 UNIT; Start 07/20/18 at 18:00 Docusate Sodium (Colace) 200 mg BID PO Last administered on 07/21/18at 09:31; Admin Dose 200 MG; Start 07/20/18 at 21:00 Lansoprazole (Prevacid) 30 mg DAILY@06 PO Last administered on 07/21/18at 05:46; Admin Dose 30 MG; Start 07/21/18 at 06:00 MOSES BALL MD Jul 21, 2018 16:15
[2018-07-21] MEDS: INSULIN GLARGINE [LANTus] (100 UNITS/ML) SYG SC SCH (22:20)
[2018-07-22] VITALS (7 sets, daily range): BP systolic 124–168; BP diastolic 70–88; PULSE 71–104; RESP 18–20
[2018-07-22] MEDS: LANSOPRAZOLE 30 MG CAP PO SCH (05:36)
[2018-07-22] MEDS: Insulin NOVOLOG SS MODERATE Algorithm (SS with meals and bedtime) SC SCH ×4 (08:00→20:43)
[2018-07-22] MEDS: ASPIRIN (EC) 81 MG TAB PO SCH (08:54)
[2018-07-22] MEDS: DOCUSATE SODIUM 100 MG CAP PO SCH ×2 (08:54→20:35)
[2018-07-22] MEDS: SUCRALFATE 1 GM TAB PO SCH ×3 (08:54→20:35)
--- NOTE | 2018-07-22 11:52 | CONS ---
Assessment/Plan Assessment/Plan Assessment/Plan (Daily) Assessment and recommendations; 1. Patient with history of end-stage pulmonary fibrosis admitted with severe hypoxemic respiratory failure. 2. Episode of hemoptysis. Lovenox discontinued for DVT prophylaxis. 3. Chronic hypoxemia. Continue current supportive care. Consider hospice. Prognosis is very poor. Consultation Date/Type/Reason Admit Date/Time Jul 18, 2018 at 01:51 Initial Consult Date 07/18/18 Type of Consult Pulmonary/critical care Pulmonary consult requested for evaluation of chronic hypoxemia due to IPF. Patient admitted with A. fib with RVR. Patient is a pleasant 77-year-old lady who came into the hospital with a 2-day history of shortness of breath. Upon evaluation patient was in A. fib with RVR. Patient has been started on Cardizem drip and was given digoxin with good rate control with significant improvement in dyspnea. Patient complete a chronic mild cough without any sputum production or hemoptysis. Denies any recent fever chills or any other symptoms. By the time I saw her, patient was completely awake and alert and appeared in no distress whatsoever. Past medical history; 1. History of IPF, O2 dependent. 2. Chronic atrial fibrillation. 3. Diabetes. 4. Systemic hypertension. Medications; reviewed. Allergies; as outlined above. Social history; most of any smoking. No history of drug abuse. Family history; noncontributory. Patient does have a supportive family. 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 Review of systems; denies any headache, seizures, chest pain, angina, wheezing, complains of mild chronic cough. Denies any sputum production. Denies any wheezing. Denies any fever or chills. Denies any abdominal pain, nausea vomiting any weight loss. Denies any orthopnea. General exam; elderly lady, awake alert, currently in no distress. On 2 L nasal cannula. Date/Time of Note DATE: 07/22/18 TIME: 11:50 24 HR Interval Summary Free Text/Dictation Patient's condition is tenuous. Patient did have the episode of hemoptysis last night with severe shortness of breath. That has improved over the last few hours. General exam; elderly woman, awake and alert, fairly responsive. Complaining of shortness of breath. Exam/Review of Systems Exam Vitals Vital Signs Date Temp Pulse Resp B/P (MAP) Pulse Ox O2 O2 Flow FiO2 Time Delivery Rate 07/22/18 98.1 71 20 168/77 100 07:35 (107) 07/22/18 3.0 06:22 07/21/18 Nasal 20:02 Cannula 07/19/18 40 08:56 Intake and Output 07/21/18 07/21/18 07/22/18 1515:00 23:00 07:00 IntakeIntake Total 220 ml 120 ml OutputOutput Total 650 ml 150 ml BalanceBalance 220 ml -530 ml -150 ml Exam HEENT exam; supple neck, no JVD. No lymphadenopathy. Midline trachea. No thyromegaly. Patient does have carious teeth. Chest exam; bilateral crackles. S1-S2 audible, no murmurs. Regular rhythm. Abdomen exam; soft, no organomegaly. Bowel sounds audible. Extremity exam; no peripheral edema. SHUTTLE INSPECTOR exam; patient awake and appropriately responsive. Exhibiting generalized weakness. Results Result Diagram: 07/22/18 0531 07/22/18 0531 Results 24hrs Laboratory Tests Test 07/21/18 12:23 07/21/18 17:51 07/21/18 22:10 07/22/18 02:35 Bedside Glucose 210 255 H 332 H 193 Test 07/22/18 05:31 07/22/18 08:38 White Blood Count 10.8 # Red Blood Count 4.14 L Hemoglobin 12.2 Hematocrit 40.0 Mean Corpuscular 96.6 Volume Mean Corpuscular 29.5 Hemoglobin Mean Corpuscular 30.5 L Hemoglobin Concent Red Cell Distribution 15.9 H Width Platelet Count 205 Mean Platelet Volume 12.7 H Immature Granulocytes 0.300 % Neutrophils % 53.9 Lymphocytes % 32.8 Monocytes % 6.3 Eosinophils % 6.0 Basophils % 0.7 Nucleated Red Blood 0.0 Cells % Immature Granulocytes 0.030 # Neutrophils # 5.8 Lymphocytes # 3.5 H Monocytes # 0.7 Eosinophils # 0.7 H Basophils # 0.1 Nucleated Red Blood 0.0 Cells # Sodium Level 141 Potassium Level 3.9 Chloride Level 91 L Carbon Dioxide Level 47 *H Anion Gap 3 L Blood Urea Nitrogen 13 Creatinine 0.41 L Est Glomerular Filtrat Rate mL/min Glucose Level 132 Calcium Level 8.3 L Phosphorus Level 3.1 Magnesium Level 2.0 Bedside Glucose 132 Medications Medication Current Medications IV Flush (NS 3 ml) 3 ml PER PROTOCOL IV ; Start 07/18/18 at 02:30 Ondansetron HCl (Zofran Inj) 4 mg Q6H PRN IV NAUSEA/VOMITING; Start 07/18/18 at 02:30 Acetaminophen (Tylenol Tab) 650 mg Q6H PRN PO .PAIN 1-3 OR TEMP; Start 07/18/18 at 02:30 Acetaminophen/ Hydrocodone Bitart ([place] (5/325)) 1 tab Q6H PRN PO .MOD PAIN 4- 6; Start 07/18/18 at 02:30 Morphine Sulfate (morphine) 2 mg Q4H PRN IV .SEVERE PAIN 7-10; Start 07/18/18 at 02:30 Docusate Sodium (Colace) 100 mg Q12H PRN PO .CONSTIPATION; Start 07/18/18 at 02:30 Magnesium Hydroxide (Milk Of Mag) 30 ml DAILY PRN PO .CONSTIPATION Last administered on 07/20/18 13:38; Admin Dose 30 ML; Start 07/18/18 at 02:30 Lorazepam (Ativan) 0.5 mg Q6H PRN IV ANXIETY Last administered on 07/20/18 13:47; Admin Dose 0.5 MG; Start 07/18/18 at 02:30 Albuterol/ Ipratropium (Duoneb) 3 ml Q4H RESP THERAPY PRN HHN SHORTNESS OF BREATH Last administered on 07/20/18 13:57; Admin Dose 3 ML; Start 07/18/18 at 02:30 Hydralazine HCl (Apresoline) 10 mg Q6H PRN IV ELEVATED BLOOD PRESSURE Last administered on 07/20/18 12:13; Admin Dose 10 MG; Start 07/18/18 at 02:30 Nitroglycerin (Nitroglycerin (Sl Tab) 0.4 Mg) 1 tab Q5M PRN SL ANGINA; Start 07/18/18 at 02:30 Aspirin (Halfprin) 81 mg DAILY PO Last administered on 07/22/18 08:54; Admin Dose 81 MG; Start 07/18/18 at 09:00 Miscellaneous Information 1 ea NOTE XX ; Start 07/18/18 at 02:30 Glucose (Glutose) 15 gm Q15M PRN PO DECREASED GLUCOSE; Start 07/18/18 at 02:30 Glucose (Glutose) 22.5 gm Q15M PRN PO DECREASED GLUCOSE; Start 07/18/18 at 02:30 Dextrose (D50w Syringe) 25 ml Q15M PRN IV DECREASED GLUCOSE; Start 07/18/18 at 02:30 Dextrose (D50w Syringe) 50 ml Q15M PRN IV DECREASED GLUCOSE; Start 07/18/18 at 02:30 Glucagon (Glucagen) 1 mg Q15M PRN IM DECREASED GLUCOSE; Start 07/18/18 at 02:30 Glucose (Glutose) 15 gm Q15M PRN BUCCAL DECREASED GLUCOSE; Start 07/18/18 at 0 2:30 Insulin Glargine (Lantus) 18 units DAILY@2000 SC Last administered on 07/21/18 22:20; Admin Dose 18 UNITS; Start 07/18/18 at 16:00; Stop 07/27/18 at 15:59 Simethicone (Mylicon) 80 mg TID PO Last administered on 07/22/18 08:54; Admin Dose 80 MG; Start 07/19/18 at 21:00 Sucralfate (Carafate) 1 gm TID PO Last administered on 07/22/18 08:54; Admin Dose 1 GM; Start 07/19/18 at 21:00 Insulin Aspart (Novolog Insulin Pen) (Adult SC Insulin - Moder... WITH MEALS BEDTIME SC Last administered on 07/21/18 22:18; Admin Dose 4 UNIT; Start 07/20/18 at 18:00 Docusate Sodium (Colace) 200 mg BID PO Last administered on 07/22/18 08:54; Admin Dose 200 MG; Start 07/20/18 at 21:00 Lansoprazole (Prevacid) 30 mg DAILY@06 PO Last administered on 07/22/18 05:36; Admin Dose 30 MG; Start 07/21/18 at 06:00 LLUVIA MARQUEZ Jul 22, 2018 11:52
--- NOTE | 2018-07-22 12:26 | PN ---
Date/Time of Note Date/Time of Note DATE: 07/22/18 TIME: 12:26 Assessment/Plan VTE Prophylaxis Risk score (from Ns)>0 risk: 4 SCD applied (from Ns): No SCD contraindicated: other Pharmacological prophylaxis: NA/contraindicated Pharm contraindication: other Lines/Catheters IV [facility]ter Type (from [facility]): Peripheral IV Urinary Cath still in place: Yes Reason Cath still needed: other (indicate) Assessment/Plan Hospital Course SUBJECTIVE: Complains of cough and dyspnea. OBJECTIVE: Physical Exam General: Adequately build 77 year-old female lying in bed in mild to moderate distress. HEENT: Normocephalic, atraumatic. Eyes: Anicteric sclerae, conjunctivae clear. ENT: Nasal septum midline, oral mucosa moist. Neck supple. Respiratory: Bilaterally diminished breath sounds. Use of accessory muscles of respiration. B/L rales. On O2 via NC. Cardiovascular: S1, S2 heard. Regular rate and rhythm. Abdomen: Soft, nontender, and nondistended. Bowel sounds positive in all 4 quadrants. Genitourinary: Deferred. Extremities: No cyanosis, no clubbing, no edema. Peripheral pulses palpable. Neurologic: Cranial nerves II through XII grossly intact. The patient is awake, alert, and oriented. Labs & Vitals per chart ASSESSMENT & PLAN 77-year-old female with comorbidities including idiopathic pulmonary fibrosis dependent on home oxygen, hypertension, and diabetes mellitus who came to the ER with respiratory distress, who was found to have acute on chronic hypoxic and hypercapnic respiratory failure and was admitted to inpatient setting. 1. Acute on chronic respiratory failure. Hypoxic and hypercapnic. Continue supplemental oxygen. Continue inhaled bronchodilators. Being followed by pulmonology. Poor prognosis. Patient remains a DNR. 2. Atrial fibrillation with rapid ventricular response. Currently in sinus rhythm. Status post cardiology evaluation. Not an appropriate candidate for cardiac medications including amiodarone because of underlying pulmonary fibrosis. Not an appropriate candidate for anticoagulation because the patient is fragile. 3. Diabetes mellitus. Hemoglobin A1c 9.0. Continue sliding scale insulin along with basal insulin. 4. Dysphagia. Continue speech therapy. Continue aspiration precautions. 5. Fluids, electrolytes, and nutrition. Pured diet. 6. DVT prophylaxis. Bilateral SCDs. 7. Plan. Continue supplemental oxygen and inhaled bronchodilators. Await clinical improvement. Patient may benefit from hospice evaluation if the patient/family agrees. The patient was seen in collaboration with Dr. Kaiser. Result Diagram: 07/22/18 0531 07/22/18 0531 Results 24hrs Laboratory Tests Test 07/21/18 17:51 07/21/18 22:10 07/22/18 02:35 07/22/18 05:31 Bedside Glucose 255 H 332 H 193 White Blood Count 10.8 # Red Blood Count 4.14 L Hemoglobin 12.2 Hematocrit 40.0 Mean Corpuscular 96.6 Volume Mean Corpuscular 29.5 Hemoglobin Mean Corpuscular 30.5 L Hemoglobin Concent Red Cell Distribution 15.9 H Width Platelet Count 205 Mean Platelet Volume 12.7 H Immature Granulocytes 0.300 % Neutrophils % 53.9 Lymphocytes % 32.8 Monocytes % 6.3 Eosinophils % 6.0 Basophils % 0.7 Nucleated Red Blood 0.0 Cells % Immature Granulocytes 0.030 # Neutrophils # 5.8 Lymphocytes # 3.5 H Monocytes # 0.7 Eosinophils # 0.7 H Basophils # 0.1 Nucleated Red Blood 0.0 Cells # Sodium Level 141 Potassium Level 3.9 Chloride Level 91 L Carbon Dioxide Level 47 *H Anion Gap 3 L Blood Urea Nitrogen 13 Creatinine 0.41 L Est Glomerular Filtrat Rate mL/min Glucose Level 132 Calcium Level 8.3 L Phosphorus Level 3.1 Magnesium Level 2.0 Test 07/22/18 08:38 Bedside Glucose 132 Exam/Review of Systems Exam Vitals Vital Signs Date Temp Pulse Resp B/P (MAP) Pulse Ox O2 O2 Flow FiO2 Time Delivery Rate 07/22/18 Nasal 4.0 08:40 Cannula 07/22/18 98.1 71 20 168/77 100 07:35 (107) 07/19/18 40 08:56 Intake and Output 07/21/18 07/21/18 07/22/18 1515:00 23:00 07:00 IntakeIntake Total 220 ml 120 ml OutputOutput Total 650 ml 150 ml BalanceBalance 220 ml -530 ml -150 ml Results Results 24hrs Laboratory Tests Test 07/21/18 17:51 07/21/18 22:10 07/22/18 02:35 07/22/18 05:31 Bedside Glucose 255 H 332 H 193 White Blood Count 10.8 # Red Blood Count 4.14 L Hemoglobin 12.2 Hematocrit 40.0 Mean Corpuscular 96.6 Volume Mean Corpuscular 29.5 Hemoglobin Mean Corpuscular 30.5 L Hemoglobin Concent Red Cell Distribution 15.9 H Width Platelet Count 205 Mean Platelet Volume 12.7 H Immature Granulocytes 0.300 % Neutrophils % 53.9 Lymphocytes % 32.8 Monocytes % 6.3 Eosinophils % 6.0 Basophils % 0.7 Nucleated Red Blood 0.0 Cells % Immature Granulocytes 0.030 # Neutrophils # 5.8 Lymphocytes # 3.5 H Monocytes # 0.7 Eosinophils # 0.7 H Basophils # 0.1 Nucleated Red Blood 0.0 Cells # Sodium Level 141 Potassium Level 3.9 Chloride Level 91 L Carbon Dioxide Level 47 *H Anion Gap 3 L Blood Urea Nitrogen 13 Creatinine 0.41 L Est Glomerular Filtrat Rate mL/min Glucose Level 132 Calcium Level 8.3 L Phosphorus Level 3.1 Magnesium Level 2.0 Test 07/22/18 08:38 Bedside Glucose 132 Medications Medication Current Medications IV Flush (NS 3 ml) 3 ml PER PROTOCOL IV ; Start 07/18/18 at 02:30 Ondansetron HCl (Zofran Inj) 4 mg Q6H PRN IV NAUSEA/VOMITING; Start 07/18/18 at 02:30 Acetaminophen (Tylenol Tab) 650 mg Q6H PRN PO .PAIN 1-3 OR TEMP; Start 07/18/18 at 02:30 Acetaminophen/ Hydrocodone Bitart ([place] (5/325)) 1 tab Q6H PRN PO .MOD PAIN 4- 6; Start 07/18/18 at 02:30 Morphine Sulfate (morphine) 2 mg Q4H PRN IV .SEVERE PAIN 7-10; Start 07/18/18 at 02:30 Docusate Sodium (Colace) 100 mg Q12H PRN PO .CONSTIPATION; Start 07/18/18 at 02:30 Magnesium Hydroxide (Milk Of Mag) 30 ml DAILY PRN PO .CONSTIPATION Last administered on 07/20/18at 13:38; Admin Dose 30 ML; Start 07/18/18 at 02:30 Lorazepam (Ativan) 0.5 mg Q6H PRN IV ANXIETY Last administered on 07/20/18at 13:47; Admin Dose 0.5 MG; Start 07/18/18 at 02:30 Albuterol/ Ipratropium (Duoneb) 3 ml Q4H RESP THERAPY PRN HHN SHORTNESS OF BREATH Last administered on 07/20/18 13:57; Admin Dose 3 ML; Start 07/18/18 at 02:30 Hydralazine HCl (Apresoline) 10 mg Q6H PRN IV ELEVATED BLOOD PRESSURE Last administered on 07/20/18 12:13; Admin Dose 10 MG; Start 07/18/18 at 02:30 Nitroglycerin (Nitroglycerin (Sl Tab) 0.4 Mg) 1 tab Q5M PRN SL ANGINA; Start 07/18/18 at 02:30 Aspirin (Halfprin) 81 mg DAILY PO Last administered on 07/22/18 08:54; Admin Dose 81 MG; Start 07/18/18 at 09:00 Miscellaneous Information 1 ea NOTE XX ; Start 07/18/18 at 02:30 Glucose (Glutose) 15 gm Q15M PRN PO DECREASED GLUCOSE; Start 07/18/18 at 02:30 Glucose (Glutose) 22.5 gm Q15M PRN PO DECREASED GLUCOSE; Start 07/18/18 at 02:30 Dextrose (D50w Syringe) 25 ml Q15M PRN IV DECREASED GLUCOSE; Start 07/18/18 at 02:30 Dextrose (D50w Syringe) 50 ml Q15M PRN IV DECREASED GLUCOSE; Start 07/18/18 at 02:30 Glucagon (Glucagen) 1 mg Q15M PRN IM DECREASED GLUCOSE; Start 07/18/18 at 02:30 Glucose (Glutose) 15 gm Q15M PRN BUCCAL DECREASED GLUCOSE; Start 07/18/18 at 0 2:30 Insulin Glargine (Lantus) 18 units DAILY@2000 SC Last administered on 07/21/18 22:20; Admin Dose 18 UNITS; Start 07/18/18 at 16:00; Stop 07/27/18 at 15:59 Simethicone (Mylicon) 80 mg TID PO Last administered on 07/22/18 08:54; Admin Dose 80 MG; Start 07/19/18 at 21:00 Sucralfate (Carafate) 1 gm TID PO Last administered on 07/22/18 08:54; Admin Dose 1 GM; Start 07/19/18 at 21:00 Insulin Aspart (Novolog Insulin Pen) (Adult SC Insulin - Moder... WITH MEALS BEDTIME SC Last administered on 6/9/19at 22:18; Admin Dose 4 UNIT; Start 07/20/18 at 18:00 Docusate Sodium (Colace) 200 mg BID PO Last administered on 07/22/18at 08:54; Admin Dose 200 MG; Start 07/20/18 at 21:00 Lansoprazole (Prevacid) 30 mg DAILY@06 PO Last administered on 07/22/18at 05:36; Admin Dose 30 MG; Start 07/21/18 at 06:00 SILVIA SERVIN NP Jul 22, 2018 12:26
[2018-07-22] MEDS: hydrALAzine 20 MG INJ IV PRN (19:49)
[2018-07-22] MEDS: BALSAM PERU/CASTOR OIL 60 GM TUBE TOP SCH (20:36)
[2018-07-22] MEDS: INSULIN GLARGINE [LANTus] (100 UNITS/ML) SYG SC SCH (20:58)
[2018-07-22] MEDS: LORAZEPAM 2 MG INJ IV PRN (22:21)
[2018-07-22] MEDS: ALBUTEROL/IPRATROPIUM (NEB) 3 ML AMP HHN PRN (23:04)
[2018-07-23 03:35] VITALS: BP 122/70; PULSE 93; RESP 18
[2018-07-23] MEDS: LANSOPRAZOLE 30 MG CAP PO SCH (05:46)
--- NOTE | 2018-07-23 05:55 | PN ---
Date/Time of Note Date/Time of Note DATE: 07/23/18 TIME: 05:55 Assessment/Plan VTE Prophylaxis Risk score (from Ns)>0 risk: 4 SCD applied (from [facility] [place]): No SCD contraindicated: other Pharmacological prophylaxis: LMWH Lines/Catheters IV Catheter Type (from [facility]): [place] Lock Urinary Cath still in place: Yes Reason Cath still needed: other (indicate) Assessment/Plan Hospital Course SUBJECTIVE: Complains of cough and dyspnea. OBJECTIVE: Physical Exam General: Adequately build 77 year-old female lying in bed in mild to moderate distress. HEENT: Normocephalic, atraumatic. Eyes: Anicteric sclerae, conjunctivae clear. ENT: Nasal septum midline, oral mucosa moist. Neck supple. Respiratory: Bilaterally diminished breath sounds. Use of accessory muscles of respiration. B/L rales. On O2 via NC. Cardiovascular: S1, S2 heard. Regular rate and rhythm. Abdomen: Soft, nontender, and nondistended. Bowel sounds positive in all 4 quadrants. Genitourinary: Deferred. Extremities: No cyanosis, no clubbing, no edema. Peripheral pulses palpable. Neurologic: Cranial nerves II through XII grossly intact. The patient is awake, alert, and oriented. Labs & Vitals per chart ASSESSMENT & PLAN 77-year-old female with comorbidities including idiopathic pulmonary fibrosis dependent on home oxygen, hypertension, and diabetes mellitus who came to the ER with respiratory distress, who was found to have acute on chronic hypoxic and hypercapnic respiratory failure and was admitted to inpatient setting. 1. Acute on chronic respiratory failure. Hypoxic and hypercapnic. Continue supplemental oxygen. Continue inhaled bronchodilators. Being followed by pulmonology. Poor prognosis. Patient remains a DNR. 2. Atrial fibrillation with rapid ventricular response. Currently in sinus rhythm. Status post cardiology evaluation. Not an appropriate candidate for cardiac medications including amiodarone because of underlying pulmonary fibrosis. Not an appropriate candidate for anticoagulation because the patient is fragile. 3. Diabetes mellitus. Hemoglobin A1c 9.0. Continue sliding scale insulin along with basal insulin. 4. Dysphagia. Continue speech therapy. Continue aspiration precautions. 5. Fluids, electrolytes, and nutrition. Pured diet. 6. DVT prophylaxis. Bilateral SCDs. 7. Plan. Continue supplemental oxygen and inhaled bronchodilators. Await clinical improvement. Patient may benefit from hospice evaluation if the patient/family agrees. The patient was seen in collaboration with Dr. Kaiser. Result Diagram: 07/22/18 0531 07/22/18 0531 Results 24hrs Laboratory Tests Test 07/22/18 08:38 07/22/18 13:25 07/22/18 17:33 07/22/18 20:40 Bedside Glucose 132 336 H 188 157 Test 07/22/18 22:15 Bedside Glucose 188 Exam/Review of Systems Exam Vitals Vital Signs Date Temp Pulse Resp B/P (MAP) Pulse Ox O2 O2 Flow FiO2 Time Delivery Rate 07/23/18 4.0 04:59 07/23/18 97.8 93 18 122/70 97 03:35 (87) 07/22/18 40 23:20 07/22/18 Nasal 23:04 Cannula Intake and Output 07/22/18 07/22/18 07/23/18 1515:00 23:00 07:00 IntakeIntake Total 1080 ml 480 ml OutputOutput Total 1000 ml BalanceBalance 1080 ml -520 ml Results Results 24hrs Laboratory Tests Test 07/22/18 08:38 07/22/18 13:25 07/22/18 17:33 07/22/18 20:40 Bedside Glucose 132 336 H 188 157 Test 07/22/18 22:15 Bedside Glucose 188 Medications Medication Current Medications IV Flush (NS 3 ml) 3 ml PER PROTOCOL IV ; Start 07/18/18 at 02:30 Ondansetron HCl (Zofran Inj) 4 mg Q6H PRN IV NAUSEA/VOMITING; Start 07/18/18 at 02:30 Acetaminophen (Tylenol Tab) 650 mg Q6H PRN PO .PAIN 1-3 OR TEMP; Start 07/18/18 at 02:30 Acetaminophen/ Hydrocodone Bitart ([place] (5/325)) 1 tab Q6H PRN PO .MOD PAIN 4- 6; Start 07/18/18 at 02:30 Morphine Sulfate (morphine) 2 mg Q4H PRN IV .SEVERE PAIN 7-10; Start 07/18/18 at 02:30 Docusate Sodium (Colace) 100 mg Q12H PRN PO .CONSTIPATION; Start 07/18/18 at 02:30 Magnesium Hydroxide (Milk Of Mag) 30 ml DAILY PRN PO .CONSTIPATION Last administered on 07/20/18at 13:38; Admin Dose 30 ML; Start 07/18/18 at 02:30 Lorazepam (Ativan) 0.5 mg Q6H PRN IV ANXIETY Last administered on 07/22/18at 2 2:21; Admin Dose 0.5 MG; Start 07/18/18 at 02:30 Albuterol/ Ipratropium (Duoneb) 3 ml Q4H RESP THERAPY PRN HHN SHORTNESS OF BREATH Last administered on 07/22/18at 23:04; Admin Dose 3 ML; Start 07/18/18 at 02:30 Hydralazine HCl (Apresoline) 10 mg Q6H PRN IV ELEVATED BLOOD PRESSURE Last administered on 07/22/18at 19:49; Admin Dose 10 MG; Start 07/18/18 at 02:30 Nitroglycerin (Nitroglycerin (Sl Tab) 0.4 Mg) 1 tab Q5M PRN SL ANGINA; Start 07/18/18 at 02:30 Aspirin (Halfprin) 81 mg DAILY PO Last administered on 07/22/18at 08:54; Admin Dose 81 MG; Start 07/18/18 at 09:00 Miscellaneous Information 1 ea NOTE XX ; Start 07/18/18 at 02:30 Glucose (Glutose) 15 gm Q15M PRN PO DECREASED GLUCOSE; Start 07/18/18 at 02:30 Glucose (Glutose) 22.5 gm Q15M PRN PO DECREASED GLUCOSE; Start 07/18/18 at 02:30 Dextrose (D50w Syringe) 25 ml Q15M PRN IV DECREASED GLUCOSE; Start 07/18/18 at 02:30 Dextrose (D50w Syringe) 50 ml Q15M PRN IV DECREASED GLUCOSE; Start 07/18/18 at 02:30 Glucagon (Glucagen) 1 mg Q15M PRN IM DECREASED GLUCOSE; Start 07/18/18 at 02:30 Glucose (Glutose) 15 gm Q15M PRN BUCCAL DECREASED GLUCOSE; Start 07/18/18 at 02:30 Insulin Glargine (Lantus) 18 units DAILY@2000 SC Last administered on 07/22/18at 20:58; Admin Dose 18 UNITS; Start 07/18/18 at 16:00; Stop 07/27/18 at 15:59 Simethicone (Mylicon) 80 mg TID PO Last administered on 07/22/18at 20:35; Admin Dose 80 MG; Start 07/19/18 at 21:00 Sucralfate (Carafate) 1 gm TID PO Last administered on 07/22/18at 20:35; Admin Dose 1 GM; Start 07/19/18 at 21:00 Insulin Aspart (Novolog Insulin Pen) (Adult SC Insulin - Moder... WITH MEALS BEDTIME SC Last administered on 07/22/18at 17:35; Admin Dose 4 UNIT; Start 07/20/18 at 18:00 Docusate Sodium (Colace) 200 mg BID PO Last administered on 07/22/18at 20:35; Admin Dose 200 MG; Start 07/20/18 at 21:00 Lansoprazole (Prevacid) 30 mg DAILY@06 PO Last administered on 07/23/18at 05:46; Admin Dose 30 MG; Start 07/21/18 at 06:00 SILVIA SERVIN NP Jul 23, 2018 05:55
[2018-07-23 07:31] VITALS: BP 138/62; PULSE 84; RESP 18
[2018-07-23] MEDS: Insulin NOVOLOG SS MODERATE Algorithm (SS with meals and bedtime) SC SCH ×4 (08:00→21:30)
[2018-07-23] MEDS: ASPIRIN (EC) 81 MG TAB PO SCH (09:10)
[2018-07-23] MEDS: DOCUSATE SODIUM 100 MG CAP PO SCH ×2 (09:10→21:25)
[2018-07-23] MEDS: SUCRALFATE 1 GM TAB PO SCH ×3 (09:10→21:25)
[2018-07-23] MEDS: BALSAM PERU/CASTOR OIL 60 GM TUBE TOP SCH ×2 (09:11→21:41)
--- NOTE | 2018-07-23 10:50 | CONS ---
Consultation Date/Type/Reason Admit Date/Time Jul 18, 2018 at 01:51 Initial Consult Date 07/18/18 Type of Consult Pulmonary/critical care Pulmonary consult requested for evaluation of chronic hypoxemia due to IPF. Patient admitted with A. fib with RVR. Patient is a pleasant 77-year-old lady who came into the hospital with a 2-day history of shortness of breath. Upon evaluation patient was in A. fib with RVR. Patient has been started on Cardizem drip and was given digoxin with good rate control with significant improvement in dyspnea. Patient complete a chronic mild cough without any sputum production or hemoptysis. Denies any recent fever chills or any other symptoms. By the time I saw her, patient was completely awake and alert and appeared in no distress whatsoever. Past medical history; 1. History of IPF, O2 dependent. 2. Chronic atrial fibrillation. 3. Diabetes. 4. Systemic hypertension. Medications; reviewed. Allergies; as outlined above. Social history; most of any smoking. No history of drug abuse. Family history; noncontributory. Patient does have a supportive family. 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 Review of systems; denies any headache, seizures, chest pain, angina, wheezing, complains of mild chronic cough. Denies any sputum production. Denies any wheezing. Denies any fever or chills. Denies any abdominal pain, nausea vomiting any weight loss. Denies any orthopnea. General exam; elderly lady, awake alert, currently in no distress. On 2 L nasal cannula. Date/Time of Note DATE: 07/23/18 TIME: 10:49 24 HR Interval Summary Free Text/Dictation Patient's condition has improved. Patient does not appear to be in any distress now. Has remained hemodynamically stable. General exam; elderly woman, awake, currently in no distress. H EENT exam; supple neck, no JVD. No lymphadenopathy. Midline trachea. No thyromegaly. Patient has multiple carious teeth. Chest exam; bilateral crackles. S1-S2 audible, no murmurs. Regular rhythm. Abdomen exam; soft, nontender. No organomegaly. Bowel sounds audible. Extremity exam; no peripheral edema clubbing. WATERFRONT DIRECTOR exam; no focal deficit. Assessment and recommendations; 1. Patient with history of end-stage primary fibrosis admitted with what appears to be acute bronchitis with waxing and waning clinical status with episodes of acute hypoxemia and respiratory distress, patient however currently is doing well on 4 L nasal cannula. 2. Diabetes. Continue current supportive care. Consider discharge [facility] jail. Prognosis is poor. Exam/Review of Systems Exam Vitals Vital Signs Date Temp Pulse Resp B/P (MAP) Pulse Ox O2 O2 Flow FiO2 Time Delivery Rate 07/23/18 97.9 84 18 138/62 100 07:31 (87) 07/23/18 4.0 04:59 07/22/18 40 23:20 07/22/18 Nasal 23:04 Cannula Intake and Output 07/22/18 07/22/18 07/23/18 1515:00 23:00 07:00 IntakeIntake Total 1080 ml 480 ml OutputOutput Total 1000 ml BalanceBalance 1080 ml -520 ml Results Result Diagram: 07/23/18 0437 07/23/18 0437 Results 24hrs Laboratory Tests Test 07/22/18 13:25 07/22/18 17:33 07/22/18 20:40 07/22/18 22:15 Bedside Glucose 336 H 188 157 188 Test 07/23/18 04:37 07/23/18 08:23 07/23/18 09:23 White Blood Count 11.5 H Red Blood Count 4.24 Hemoglobin 12.5 Hematocrit 40.4 Mean Corpuscular 95.3 Volume Mean Corpuscular 29.5 Hemoglobin Mean Corpuscular 30.9 L Hemoglobin Concent Red Cell 16.1 H Distribution Width Platelet Count 185 Mean Platelet Volume 12.4 H Immature 0.300 Granulocytes % Neutrophils % 63.0 Lymphocytes % 26.2 Monocytes % 5.9 Eosinophils % 4.1 Basophils % 0.5 Nucleated Red Blood 0.0 Cells % Immature 0.030 Granulocytes # Neutrophils # 7.2 Lymphocytes # 3.0 H Monocytes # 0.7 Eosinophils # 0.5 Basophils # 0.1 Nucleated Red Blood 0.0 Cells # Sodium Level 140 Potassium Level 3.6 Chloride Level 91 L Carbon Dioxide Level 46 *H Anion Gap 3 L Blood Urea Nitrogen 12 Creatinine 0.37 L Est Glomerular Filtrat Rate mL/min Glucose Level 105 Calcium Level 8.5 Phosphorus Level 3.5 Magnesium Level 2.0 Bedside Glucose 67 L 301 H Medications Medication Current Medications IV Flush (NS 3 ml) 3 ml PER PROTOCOL IV ; Start 07/18/18 at 02:30 Ondansetron HCl (Zofran Inj) 4 mg Q6H PRN IV NAUSEA/VOMITING; Start 07/18/18 at 02:30 Acetaminophen (Tylenol Tab) 650 mg Q6H PRN PO .PAIN 1-3 OR TEMP; Start 07/18/18 at 02:30 Acetaminophen/ Hydrocodone Bitart ([place] (5/325)) 1 tab Q6H PRN PO .MOD PAIN 4- 6; Start 07/18/18 at 02:30 Morphine Sulfate (morphine) 2 mg Q4H PRN IV .SEVERE PAIN 7-10; Start 07/18/18 at 02:30 Docusate Sodium (Colace) 100 mg Q12H PRN PO .CONSTIPATION; Start 07/18/18 at 02:30 Magnesium Hydroxide (Milk Of Mag) 30 ml DAILY PRN PO .CONSTIPATION Last administered on 07/20/18at 13:38; Admin Dose 30 ML; Start 07/18/18 at 02:30 Lorazepam (Ativan) 0.5 mg Q6H PRN IV ANXIETY Last administered on 07/22/18at 22:21; Admin Dose 0.5 MG; Start 07/18/18 at 02:30 Albuterol/ Ipratropium (Duoneb) 3 ml Q4H RESP THERAPY PRN HHN SHORTNESS OF BREATH Last administered on 07/22/18at 23:04; Admin Dose 3 ML; Start 07/18/18 at 02:30 Hydralazine HCl (Apresoline) 10 mg Q6H PRN IV ELEVATED BLOOD PRESSURE Last administered on 07/22/18at 19:49; Admin Dose 10 MG; Start 07/18/18 at 02:30 Nitroglycerin (Nitroglycerin (Sl Tab) 0.4 Mg) 1 tab Q5M PRN SL ANGINA; Start 07/18/18 at 02:30 Aspirin (Halfprin) 81 mg DAILY PO Last administered on 07/23/18at 09:10; Admin Dose 81 MG; Start 07/18/18 at 09:00 Miscellaneous Information 1 ea NOTE XX ; Start 07/18/18 at 02:30 Glucose (Glutose) 15 gm Q15M PRN PO DECREASED GLUCOSE; Start 07/18/18 at 02:30 Glucose (Glutose) 22.5 gm Q15M PRN PO DECREASED GLUCOSE; Start 07/18/18 at 02:30 Dextrose (D50w Syringe) 25 ml Q15M PRN IV DECREASED GLUCOSE; Start 07/18/18 at 02:30 Dextrose (D50w Syringe) 50 ml Q15M PRN IV DECREASED GLUCOSE; Start 07/18/18 at 02:30 Glucagon (Glucagen) 1 mg Q15M PRN IM DECREASED GLUCOSE; Start 07/18/18 at 02:30 Glucose (Glutose) 15 gm Q15M PRN BUCCAL DECREASED GLUCOSE; Start 07/18/18 at 02:30 Insulin Glargine (Lantus) 18 units DAILY@2000 SC Last administered on 07/22/18 20:58; Admin Dose 18 UNITS; Start 07/18/18 at 16:00; Stop 07/27/18 at 15:59 Simethicone (Mylicon) 80 mg TID PO Last administered on 07/23/18 09:11; Admin Dose 80 MG; Start 07/19/18 at 21:00 Sucralfate (Carafate) 1 gm TID PO Last administered on 07/23/18 09:10; Admin Dose 1 GM; Start 07/19/18 at 21:00 Insulin Aspart (Novolog Insulin Pen) (Adult SC Insulin - Moder... WITH MEALS BEDTIME SC Last administered on 07/22/18 17:35; Admin Dose 4 UNIT; Start 07/20/18 at 18:00 Docusate Sodium (Colace) 200 mg BID PO Last administered on 07/23/18 09:10; A dmin Dose 200 MG; Start 07/20/18 at 21:00 Lansoprazole (Prevacid) 30 mg DAILY@06 PO Last administered on 07/23/18at 05:46; Admin Dose 30 MG; Start 07/21/18 at 06:00 LLUVIA MARUQEZ Jul 23, 2018 10:50
--- NOTE | 2018-07-23 13:56 | CONS ---
Assessment/Plan Assessment/Plan Hospital Course (Demo Recall) Paroxysmal atrial fibrillation: CHADSVASC is 4 but with pt's frail condition and likely palliative/hospice, will defer anticoagulation. Has remained in sinus. Acute on chronic respiratory failure: Underlying pulmonary fibrosis exacerbated by afib with RVR. JVP remains flat on exam Shock: transient and possibly from volume depletion and afib with RVR. Resolved Pulmonary fibrosis -further management per pulm -will see PRN Consultation Date/Type/Reason Admit Date/Time Jul 18, 2018 at 01:51 Initial Consult Date 07/18/18 Type of Consult Cardiology Date/Time of Note DATE: 07/23/18 TIME: 13:55 24 HR Interval Summary Free Text/Dictation No events. Respiratory status stable. complains of trouble swallowing. Plan is for placement Exam/Review of Systems Vital Signs Vitals Vital Signs Date Temp Pulse Resp B/P (MAP) Pulse Ox O2 O2 Flow FiO2 Time Delivery Rate 07/23/18 97.9 84 18 138/62 100 07:31 (87) 07/23/18 4.0 04:59 07/22/18 40 23:20 07/22/18 Nasal 23:04 Cannula Intake and Output 07/22/18 07/22/18 07/23/18 1515:00 23:00 07:00 IntakeIntake Total 1080 ml 480 ml OutputOutput Total 1000 ml BalanceBalance 1080 ml -520 ml Exam Constitutional: alert, oriented; No distress Head: normocephalic, atraumatic Neck: No jvd Respiratory: crackles/rales; No clear to auscultation Cardiovascular: regular rate and rhythm; No edema Gastrointestinal: soft, non-tender; No distended Neurological: nl mental status, nl speech Labs Result Diagram: 07/23/18 0437 07/23/18 0437 Results 24hrs Laboratory Tests Test 07/22/18 17:33 07/22/18 20:40 07/22/18 22:15 07/23/18 04:37 Bedside Glucose 188 157 188 White Blood Count 11.5 H Red Blood Count 4.24 Hemoglobin 12.5 Hematocrit 40.4 Mean Corpuscular 95.3 Volume Mean Corpuscular 29.5 Hemoglobin Mean Corpuscular 30.9 L Hemoglobin Concent Red Cell 16.1 H Distribution Width Platelet Count 185 Mean Platelet Volume 12.4 H Immature 0.300 Granulocytes % Neutrophils % 63.0 Lymphocytes % 26.2 Monocytes % 5.9 Eosinophils % 4.1 Basophils % 0.5 Nucleated Red Blood 0.0 Cells % Immature 0.030 Granulocytes # Neutrophils # 7.2 Lymphocytes # 3.0 H Monocytes # 0.7 Eosinophils # 0.5 Basophils # 0.1 Nucleated Red Blood 0.0 Cells # Sodium Level 140 Potassium Level 3.6 Chloride Level 91 L Carbon Dioxide Level 46 *H Anion Gap 3 L Blood Urea Nitrogen 12 Creatinine 0.37 L Est Glomerular Filtrat Rate mL/min Glucose Level 105 Calcium Level 8.5 Phosphorus Level 3.5 Magnesium Level 2.0 Test 07/23/18 08:23 07/23/18 09:23 07/23/18 13:01 Bedside Glucose 67 L 301 H 230 H Medications Medications Current Medications IV Flush (NS 3 ml) 3 ml PER PROTOCOL IV ; Start 07/18/18 at 02:30 Ondansetron HCl (Zofran Inj) 4 mg Q6H PRN IV NAUSEA/VOMITING; Start 07/18/18 at 02:30 Acetaminophen (Tylenol Tab) 650 mg Q6H PRN PO .PAIN 1-3 OR TEMP; Start 07/18/18 at 02:30 Acetaminophen/ Hydrocodone Bitart ([place] (5/325)) 1 tab Q6H PRN PO .MOD PAIN 4- 6; Start 07/18/18 at 02:30 Morphine Sulfate (morphine) 2 mg Q4H PRN IV .SEVERE PAIN 7-10; Start 07/18/18 at 02:30 Docusate Sodium (Colace) 100 mg Q12H PRN PO .CONSTIPATION; Start 07/18/18 at 02:30 Magnesium Hydroxide (Milk Of Mag) 30 ml DAILY PRN PO .CONSTIPATION Last administered on 07/20/18at 13:38; Admin Dose 30 ML; Start 07/18/18 at 02:30 Lorazepam (Ativan) 0.5 mg Q6H PRN IV ANXIETY Last administered on 07/22/18at 22:21; Admin Dose 0.5 MG; Start 07/18/18 at 02:30 Albuterol/ Ipratropium (Duoneb) 3 ml Q4H RESP THERAPY PRN HHN SHORTNESS OF BREATH Last administered on 07/22/18at 23:04; Admin Dose 3 ML; Start 07/18/18 at 02:30 Hydralazine HCl (Apresoline) 10 mg Q6H PRN IV ELEVATED BLOOD PRESSURE Last administered on 07/22/18at 19:49; Admin Dose 10 MG; Start 07/18/18 at 02:30 Nitroglycerin (Nitroglycerin (Sl Tab) 0.4 Mg) 1 tab Q5M PRN SL ANGINA; Start 07/18/18 at 02:30 Aspirin (Halfprin) 81 mg DAILY PO Last administered on 07/23/18at 09:10; Admin Dose 81 MG; Start 07/18/18 at 09:00 Miscellaneous Information 1 ea NOTE XX ; Start 07/18/18 at 02:30 Glucose (Glutose) 15 gm Q15M PRN PO DECREASED GLUCOSE; Start 07/18/18 at 02:30 Glucose (Glutose) 22.5 gm Q15M PRN PO DECREASED GLUCOSE; Start 07/18/18 at 02:30 Dextrose (D50w Syringe) 25 ml Q15M PRN IV DECREASED GLUCOSE; Start 07/18/18 at 02:30 Dextrose (D50w Syringe) 50 ml Q15M PRN IV DECREASED GLUCOSE; Start 07/18/18 at 02:30 Glucagon (Glucagen) 1 mg Q15M PRN IM DECREASED GLUCOSE; Start 07/18/18 at 02:30 Glucose (Glutose) 15 gm Q15M PRN BUCCAL DECREASED GLUCOSE; Start 07/18/18 at 02:30 Insulin Glargine (Lantus) 18 units DAILY@2000 SC Last administered on 07/22/18at 20:58; Admin Dose 18 UNITS; Start 07/18/18 at 16:00; Stop 07/27/18 at 15:59 Simethicone (Mylicon) 80 mg TID PO Last administered on 07/23/18at 13:07; Admin Dose 80 MG; Start 07/19/18 at 21:00 Sucralfate (Carafate) 1 gm TID PO Last administered on 07/23/18at 13:07; Admin Dose 1 GM; Start 07/19/18 at 21:00 Insulin Aspart (Novolog Insulin Pen) (Adult SC Insulin - Moder... WITH MEALS BEDTIME SC Last administered on 07/23/18at 13:04; Admin Dose 6 UNIT; Start 07/20/18 at 18:00 Docusate Sodium (Colace) 200 mg BID PO Last administered on 07/23/18at 09:10; Admin Dose 200 MG; Start 07/20/18 at 21:00 Lansoprazole (Prevacid) 30 mg DAILY@06 PO Last administered on 07/23/18at 05:46; Admin Dose 30 MG; Start 07/21/18 at 06:00 Enoxaparin Sodium (Lovenox) 30 mg DAILY SC ; Start 07/24/18 at 09:00 ARMANDO SANCHEZ Jul 23, 2018 13:56
[2018-07-23 14:42] VITALS: BP 147/71; PULSE 86; RESP 20
[2018-07-23 19:54] VITALS: BP 152/70; PULSE 93; RESP 18
[2018-07-23] MEDS: INSULIN GLARGINE [LANTus] (100 UNITS/ML) SYG SC SCH (21:28)
[2018-07-23] MEDS: LORAZEPAM 2 MG INJ IV PRN (21:38)
[2018-07-23] MEDS ORDERED: ACCU-CHEK XX ONE (22:00)
[2018-07-23] MEDS ORDERED: INSULIN ASPART [NOVOLOG] 3 ML PEN SC ONE (22:15)
[2018-07-24 01:17] VITALS: BP 142/67; PULSE 77; RESP 18
[2018-07-24] MEDS: LANSOPRAZOLE 30 MG CAP PO SCH (05:58)
[2018-07-24 07:31] VITALS: BP 133/69; PULSE 81; RESP 20
[2018-07-24] MEDS: ASPIRIN (EC) 81 MG TAB PO SCH (08:35)
[2018-07-24] MEDS: SUCRALFATE 1 GM TAB PO SCH ×3 (08:35→21:00)
[2018-07-24] MEDS: DOCUSATE SODIUM 100 MG CAP PO SCH ×2 (08:35→21:09)
[2018-07-24] MEDS: ENOXAPARIN 30 MG/0.3 ML SYG SC SCH (08:38)
[2018-07-24] MEDS: Insulin NOVOLOG SS MODERATE Algorithm (SS with meals and bedtime) SC SCH ×4 (08:39→21:05)
[2018-07-24] MEDS: BALSAM PERU/CASTOR OIL 60 GM TUBE TOP SCH ×3 (09:00→21:08)
--- NOTE | 2018-07-24 11:44 | CONS ---
Assessment/Plan Assessment/Plan Assessment/Plan (Daily) Patient is currently on 4 L nasal cannula. Assessment and recommendations; 1. Patient admitted with shortness of breath due to A. fib with RVR with rate well controlled now. 2. End-stage lung disease from IPF. 3. History of diabetes. Continue current supportive care. Consider palliative care. Prognosis is poor. Consider discharge to half-way. I did have a detailed discussion with the patient's grandson at bedside and answered all his questions. Consultation Date/Type/Reason Admit Date/Time Jul 18, 2018 at 01:51 Initial Consult Date 07/18/18 Type of Consult Pulmonary/critical care Pulmonary consult requested for evaluation of chronic hypoxemia due to IPF. Patient admitted with A. fib with RVR. Patient is a pleasant 77-year-old lady who came into the hospital with a 2-day history of shortness of breath. Upon evaluation patient was in A. fib with RVR. Patient has been started on Cardizem drip and was given digoxin with good rate control with significant improvement in dyspnea. Patient complete a chronic mild cough without any sputum production or hemoptysis. Denies any recent fever chills or any other symptoms. By the time I saw her, patient was completely awake and alert and appeared in no distress whatsoever. Past medical history; 1. History of IPF, O2 dependent. 2. Chronic atrial fibrillation. 3. Diabetes. 4. Systemic hypertension. Medications; reviewed. Allergies; as outlined above. Social history; most of any smoking. No history of drug abuse. Family history; noncontributory. Patient does have a supportive family. 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 Review of systems; denies any headache, seizures, chest pain, angina, wheezing, complains of mild chronic cough. Denies any sputum production. Denies any wheezing. Denies any fever or chills. Denies any abdominal pain, nausea vomiting any weight loss. Denies any orthopnea. General exam; elderly lady, awake alert, currently in no distress. On 2 L nasal cannula. Date/Time of Note DATE: 07/24/18 TIME: 11:42 24 HR Interval Summary Free Text/Dictation Patient's condition is stable now. Still exhibiting tachypnea. General exam; elderly woman, laying comfortably in bed. Mildly tachypneic. Exam/Review of Systems Exam Vitals Vital Signs Date Temp Pulse Resp B/P (MAP) Pulse Ox O2 O2 Flow FiO2 Time Delivery Rate 07/24/18 Nasal 4.0 08:00 Cannula 07/24/18 98.4 81 20 133/69 100 07:31 (90) 07/22/18 40 23:20 Intake and Output 07/23/18 07/23/18 07/24/18 1515:00 23:00 07:00 IntakeIntake Total 720 ml 480 ml OutputOutput Total 700 ml 200 ml BalanceBalance 720 ml -220 ml -200 ml Exam H EENT exam; supple neck, no JVD. No lymphadenopathy. Midline trachea. No thyromegaly. Patient has a multiple carious teeth. Chest exam; bilateral diffuse crackles. S1-S2 audible, no murmurs. Irregular rhythm. Abdomen exam; soft, no organomegaly. Bowel sounds audible. Extremity exam; no peripheral edema. METALLURGICAL ENGINEERING TECHNICIAN exam; no focal motor deficit. Results Result Diagram: 07/24/18 0621 07/24/18 0621 Results 24hrs Laboratory Tests Test 07/23/18 13:01 07/23/18 17:32 07/23/18 21:22 07/23/18 22:17 Bedside Glucose 230 H 144 376 H 301 H Test 07/24/18 00:25 07/24/18 06:21 07/24/18 08:08 07/24/18 08:36 Bedside Glucose 210 62 L 142 White Blood Count 10.7 Red Blood Count 4.14 L Hemoglobin 12.1 Hematocrit 39.4 Mean Corpuscular 95.2 Volume Mean Corpuscular 29.2 Hemoglobin Mean Corpuscular 30.7 L Hemoglobin Concent Red Cell 16.0 H Distribution Width Platelet Count 193 Mean Platelet Volume 12.1 H Immature 0.200 Granulocytes % Neutrophils % 56.0 Lymphocytes % 28.8 Monocytes % 6.5 Eosinophils % 7.9 H Basophils % 0.6 Nucleated Red Blood 0.0 Cells % Immature 0.020 Granulocytes # Neutrophils # 6.0 Lymphocytes # 3.1 H Monocytes # 0.7 Eosinophils # 0.8 H Basophils # 0.1 Nucleated Red Blood 0.0 Cells # Sodium Level 138 Potassium Level 4.0 Chloride Level 93 L Carbon Dioxide Level 41 *H Anion Gap 4 L Blood Urea Nitrogen 13 Creatinine 0.40 L Est Glomerular Filtrat Rate mL/min Glucose Level 62 #L Calcium Level 8.6 Phosphorus Level 3.9 Magnesium Level 2.0 Medications Medication Current Medications IV Flush (NS 3 ml) 3 ml PER PROTOCOL IV Last administered on 07/23/18 21:40; Admin Dose 3 ML; Start 07/18/18 at 02:30 Ondansetron HCl (Zofran Inj) 4 mg Q6H PRN IV NAUSEA/VOMITING; Start 07/18/18 at 02:30 Acetaminophen (Tylenol Tab) 650 mg Q6H PRN PO .PAIN 1-3 OR TEMP; Start 07/18/18 at 02:30 Acetaminophen/ Hydrocodone Bitart ([place] (5/325)) 1 tab Q6H PRN PO .MOD PAIN 4- 6; Start 07/18/18 at 02:30 Morphine Sulfate (morphine) 2 mg Q4H PRN IV .SEVERE PAIN 7-10; Start 07/18/18 at 02:30 Docusate Sodium (Colace) 100 mg Q12H PRN PO .CONSTIPATION; Start 07/18/18 at 02:30 Magnesium Hydroxide (Milk Of Mag) 30 ml DAILY PRN PO .CONSTIPATION Last administered on 07/20/18 13:38; Admin Dose 30 ML; Start 07/18/18 at 02:30 Lorazepam (Ativan) 0.5 mg Q6H PRN IV ANXIETY Last administered on 07/23/18 21:38; Admin Dose 0.5 MG; Start 07/18/18 at 02:30 Albuterol/ Ipratropium (Duoneb) 3 ml Q4H RESP THERAPY PRN HHN SHORTNESS OF BREATH Last administered on 07/22/18 23:04; Admin Dose 3 ML; Start 07/18/18 at 02:30 Hydralazine HCl (Apresoline) 10 mg Q6H PRN IV ELEVATED BLOOD PRESSURE Last administered on 07/22/18 19:49; Admin Dose 10 MG; Start 07/18/18 at 02:30 Nitroglycerin (Nitroglycerin (Sl Tab) 0.4 Mg) 1 tab Q5M PRN SL ANGINA; Start 07/18/18 at 02:30 Aspirin (Halfprin) 81 mg DAILY PO Last administered on 07/24/18 08:35; Admin Dose 81 MG; Start 07/18/18 at 09:00 Miscellaneous Information 1 ea NOTE XX ; Start 07/18/18 at 02:30 Glucose (Glutose) 15 gm Q15M PRN PO DECREASED GLUCOSE; Start 07/18/18 at 02:30 Glucose (Glutose) 22.5 gm Q15M PRN PO DECREASED GLUCOSE; Start 07/18/18 at 02:30 Dextrose (D50w Syringe) 25 ml Q15M PRN IV DECREASED GLUCOSE; Start 07/18/18 at 02:30 Dextrose (D50w Syringe) 50 ml Q15M PRN IV DECREASED GLUCOSE; Start 07/18/18 at 02:30 Glucagon (Glucagen) 1 mg Q15M PRN IM DECREASED GLUCOSE; Start 07/18/18 at 02:30 Glucose (Glutose) 15 gm Q15M PRN BUCCAL DECREASED GLUCOSE; Start 07/18/18 at 02:30 Insulin Glargine (Lantus) 18 units DAILY@2000 SC Last administered on 07/23/18 21:28; Admin Dose 18 UNITS; Start 07/18/18 at 16:00; Stop 07/27/18 at 15:59 Simethicone (Mylicon) 80 mg TID PO Last administered on 07/24/18 08:35; Admin Dose 80 MG; Start 07/19/18 at 21:00 Sucralfate (Carafate) 1 gm TID PO Last administered on 07/24/18 08:35; Admin Dose 1 GM; Start 07/19/18 at 21:00 Insulin Aspart (Novolog Insulin Pen) (Adult SC Insulin - Moder... WITH MEALS BEDTIME SC Last administered on 07/24/18 08:39; Admin Dose 1 UNIT; Start 07/20/18 at 18:00 Docusate Sodium (Colace) 200 mg BID PO Last administered on 07/24/18 08:35; Admin Dose 200 MG; Start 07/20/18 at 21:00 Lansoprazole (Prevacid) 30 mg DAILY@06 PO Last administered on 07/24/18 05:58; Admin Dose 30 MG; Start 07/21/18 at 06:00 Enoxaparin Sodium (Lovenox) 30 mg DAILY SC Last administered on 07/24/18 08:38; Admin Dose 30 MG; Start 07/24/18 at 09:00 LLUVIA MARQUEZ 12, 2019 11:44
--- NOTE | 2018-07-24 12:31 | PN ---
Date/Time of Note Date/Time of Note DATE: 07/24/18 TIME: 12:31 Assessment/Plan VTE Prophylaxis Risk score (from Nsg)>0 risk: 4 SCD applied (from Nsg): Yes Pharmacological prophylaxis: NA/contraindicated Pharm contraindication: anticoag not tolerated Lines/Catheters IV Catheter Type (from Nrsg): Saline Lock Urinary Cath still in place: Yes Reason Cath still needed: terminal illness/intractable pain Assessment/Plan Hospital Course SUBJECTIVE: Complains of cough and dyspnea. OBJECTIVE: Physical Exam General: Adequately build 77 year-old female lying in bed in mild to moderate distress. HEENT: Normocephalic, atraumatic. Eyes: Anicteric sclerae, conjunctivae clear. ENT: Nasal septum midline, oral mucosa moist. Neck supple. Respiratory: Bilaterally diminished breath sounds. Use of accessory muscles of respiration. B/L rales. On O2 via NC. Cardiovascular: S1, S2 heard. Regular rate and rhythm. Abdomen: Soft, nontender, and nondistended. Bowel sounds positive in all 4 quadrants. Genitourinary: Deferred. Extremities: No cyanosis, no clubbing, no edema. Peripheral pulses palpable. Neurologic: Cranial nerves II through XII grossly intact. The patient is awake, alert, and oriented. Labs & Vitals per chart ASSESSMENT & PLAN 77-year-old female with comorbidities including idiopathic pulmonary fibrosis dependent on home oxygen, hypertension, and diabetes mellitus who came to the ER with respiratory distress, who was found to have acute on chronic hypoxic and hypercapnic respiratory failure and was admitted to inpatient setting. 1. Acute on chronic respiratory failure. Hypoxic and hypercapnic. Continue supplemental oxygen. Continue inhaled bronchodilators. Sputum culture showing polymicrobial's including Klebsiella pneumoniae and Tosha albicans. Status post antimicrobial therapy. Being followed by pulmonology. Poor prognosis. Patient remains a DNR. 2. Atrial fibrillation with rapid ventricular response. Currently in sinus rhythm. Status post cardiology evaluation. Not an appropriate candidate for cardiac medications including amiodarone because of underlying pulmonary fibrosis. Not an appropriate candidate for anticoagulation because the patient is fragile. 3. Diabetes mellitus. Hemoglobin A1c 9.0. Continue sliding scale insulin along with basal insulin. 4. Dysphagia. Continue speech therapy. Continue aspiration precautions. 5. Fluids, electrolytes, and nutrition. Pured diet. 6. DVT prophylaxis. Bilateral SCDs. 7. Plan. Continue supplemental oxygen and inhaled bronchodilators. Await clinical improvement. Patient may benefit from hospice evaluation if the patient/family agrees. At 1600 had a family meeting in the presence of floor manager social and all the family members including 3 daughters and 2 sons regarding the patient's poor prognosis and the irreversibility of the underlying clinical condition. The family agreed on making the patient hospice. dairy worker will coordinate family meeting with the hospice of choice. The patient was seen in collaboration with Dr. Kaiser. Result Diagram: 07/24/18 0621 07/24/18 0621 Results 24hrs Laboratory Tests Test 07/23/18 13:01 07/23/18 17:32 07/23/18 21:22 07/23/18 22:17 Bedside Glucose 230 H 144 376 H 301 H Test 07/24/18 00:25 07/24/18 06:21 07/24/18 08:08 07/24/18 08:36 Bedside Glucose 210 62 L 142 White Blood Count 10.7 Red Blood Count 4.14 L Hemoglobin 12.1 Hematocrit 39.4 Mean Corpuscular 95.2 Volume Mean Corpuscular 29.2 Hemoglobin Mean Corpuscular 30.7 L Hemoglobin Concent Red Cell 16.0 H Distribution Width Platelet Count 193 Mean Platelet Volume 12.1 H Immature 0.200 Granulocytes % Neutrophils % 56.0 Lymphocytes % 28.8 Monocytes % 6.5 Eosinophils % 7.9 H Basophils % 0.6 Nucleated Red Blood 0.0 Cells % Immature 0.020 Granulocytes # Neutrophils # 6.0 Lymphocytes # 3.1 H Monocytes # 0.7 Eosinophils # 0.8 H Basophils # 0.1 Nucleated Red Blood 0.0 Cells # Sodium Level 138 Potassium Level 4.0 Chloride Level 93 L Carbon Dioxide Level 41 *H Anion Gap 4 L Blood Urea Nitrogen 13 Creatinine 0.40 L Est Glomerular Filtrat Rate mL/min Glucose Level 62 #L Calcium Level 8.6 Phosphorus Level 3.9 Magnesium Level 2.0 Test 07/24/18 12:27 Bedside Glucose 332 H Exam/Review of Systems Exam Vitals Vital Signs Date Temp Pulse Resp B/P (MAP) Pulse Ox O2 O2 Flow FiO2 Time Delivery Rate 07/24/18 Nasal 4.0 08:00 Cannula 07/24/18 98.4 81 20 133/69 100 07:31 (90) 07/22/18 40 23:20 Intake and Output 07/23/18 07/23/1807/24/19 1515:00 23:00 07:00 IntakeIntake Total 720 ml 480 ml OutputOutput Total 700 ml 200 ml BalanceBalance 720 ml -220 ml -200 ml Results Results 24hrs Laboratory Tests Test 07/23/18 13:01 07/23/18 17:32 07/23/18 21:22 07/23/18 22:17 Bedside Glucose 230 H 144 376 H 301 H Test 07/24/18 00:25 07/24/18 06:21 07/24/18 08:08 07/24/18 08:36 Bedside Glucose 210 62 L 142 White Blood Count 10.7 Red Blood Count 4.14 L Hemoglobin 12.1 Hematocrit 39.4 Mean Corpuscular 95.2 Volume Mean Corpuscular 29.2 Hemoglobin Mean Corpuscular 30.7 L Hemoglobin Concent Red Cell 16.0 H Distribution Width Platelet Count 193 Mean Platelet Volume 12.1 H Immature 0.200 Granulocytes % Neutrophils % 56.0 Lymphocytes % 28.8 Monocytes % 6.5 Eosinophils % 7.9 H Basophils % 0.6 Nucleated Red Blood 0.0 Cells % Immature 0.020 Granulocytes # Neutrophils # 6.0 Lymphocytes # 3.1 H Monocytes # 0.7 Eosinophils # 0.8 H Basophils # 0.1 Nucleated Red Blood 0.0 Cells # Sodium Level 138 Potassium Level 4.0 Chloride Level 93 L Carbon Dioxide Level 41 *H Anion Gap 4 L Blood Urea Nitrogen 13 Creatinine 0.40 L Est Glomerular Filtrat Rate mL/min Glucose Level 62 #L Calcium Level 8.6 Phosphorus Level 3.9 Magnesium Level 2.0 Test 07/24/18 12:27 Bedside Glucose 332 H Medications Medication Current Medications IV Flush (NS 3 ml) 3 ml PER PROTOCOL IV Last administered on 07/23/18at 21:40; Admin Dose 3 ML; Start 07/18/18 at 02:30 Ondansetron HCl (Zofran Inj) 4 mg Q6H PRN IV NAUSEA/VOMITING; Start 07/18/18 at 02:30 Acetaminophen (Tylenol Tab) 650 mg Q6H PRN PO .PAIN 1-3 OR TEMP; Start 07/18/18 at 02:30 Acetaminophen/ Hydrocodone Bitart ([place] (5/325)) 1 tab Q6H PRN PO .MOD PAIN 4- 6; Start 07/18/18 at 02:30 Morphine Sulfate (morphine) 2 mg Q4H PRN IV .SEVERE PAIN 7-10; Start 07/18/18 at 02:30 Docusate Sodium (Colace) 100 mg Q12H PRN PO .CONSTIPATION; Start 07/18/18 at 02: 30 Magnesium Hydroxide (Milk Of Mag) 30 ml DAILY PRN PO .CONSTIPATION Last administered on 07/20/18at 13:38; Admin Dose 30 ML; Start 07/18/18 at 02:30 Lorazepam (Ativan) 0.5 mg Q6H PRN IV ANXIETY Last administered on 07/23/18at 21:38; Admin Dose 0.5 MG; Start 07/18/18 at 02:30 Albuterol/ Ipratropium (Duoneb) 3 ml Q4H RESP THERAPY PRN HHN SHORTNESS OF BREATH Last administered on 07/22/18at 23:04; Admin Dose 3 ML; Start 07/18/18 at 02:30 Hydralazine HCl (Apresoline) 10 mg Q6H PRN IV ELEVATED BLOOD PRESSURE Last administered on 07/22/18at 19:49; Admin Dose 10 MG; Start 07/18/18 at 02:30 Nitroglycerin (Nitroglycerin (Sl Tab) 0.4 Mg) 1 tab Q5M PRN SL ANGINA; Start 07/18/18 at 02:30 Aspirin (Halfprin) 81 mg DAILY PO Last administered on 07/24/18at 08:35; Admin Dose 81 MG; Start 07/18/18 at 09:00 Miscellaneous Information 1 ea NOTE XX ; Start 07/18/18 at 02:30 Glucose (Glutose) 15 gm Q15M PRN PO DECREASED GLUCOSE; Start 07/18/18 at 02:30 Glucose (Glutose) 22.5 gm Q15M PRN PO DECREASED GLUCOSE; Start 07/18/18 at 02:30 Dextrose (D50w Syringe) 25 ml Q15M PRN IV DECREASED GLUCOSE; Start 07/18/18 at 02:30 Dextrose (D50w Syringe) 50 ml Q15M PRN IV DECREASED GLUCOSE; Start 07/18/18 at 02:30 Glucagon (Glucagen) 1 mg Q15M PRN IM DECREASED GLUCOSE; Start 07/18/18 at 02:30 Glucose (Glutose) 15 gm Q15M PRN BUCCAL DECREASED GLUCOSE; Start 07/18/18 at 02:30 Insulin Glargine (Lantus) 18 units DAILY@2000 SC Last administered on 07/23/18 21:28; Admin Dose 18 UNITS; Start 07/18/18 at 16:00; Stop 07/27/18 at 15:59 Simethicone (Mylicon) 80 mg TID PO Last administered on 07/24/18 12:24; Admin Dose 80 MG; Start 07/19/18 at 21:00 Sucralfate (Carafate) 1 gm TID PO Last administered on 07/24/18 12:24; Admin Dose 1 GM; Start 07/19/18 at 21:00 Insulin Aspart (Novolog Insulin Pen) (Adult SC Insulin - Moder... WITH MEALS BEDTIME SC Last administered on 07/24/18 12:29; Admin Dose 10 UNIT; Start 07/20/18 at 18:00 Docusate Sodium (Colace) 200 mg BID PO Last administered on 07/24/18 08:35; Admin Dose 200 MG; Start 07/20/18 at 21:00 Lansoprazole (Prevacid) 30 mg DAILY@06 PO Last administered on 07/24/18 05:58; Admin Dose 30 MG; Start 07/21/18 at 06:00 Enoxaparin Sodium (Lovenox) 30 mg DAILY SC Last administered on 07/24/18 08:38; Admin Dose 30 MG; Start 07/24/18 at 09:00 SILVIA SERVIN NP Jul 24, 2018 12:31
[2018-07-24] MEDS: ALBUTEROL/IPRATROPIUM (NEB) 3 ML AMP HHN PRN ×2 (12:55→20:08)
[2018-07-24] MEDS ORDERED: FUROSEMIDE 20 MG INJ IV ONE (14:00)
[2018-07-24 14:27] VITALS: BP 154/75; PULSE 100
[2018-07-24] MEDS: LORAZEPAM 2 MG INJ IV PRN (15:24)
[2018-07-24 20:20] VITALS: BP 127/61; PULSE 108; RESP 19
[2018-07-24] MEDS: BETAMETHASONE/CLOTRIMAZOLE 15 GM CR TOP SCH (21:06)
[2018-07-24] MEDS: INSULIN GLARGINE [LANTus] (100 UNITS/ML) SYG SC SCH (21:06)
[2018-07-25 01:20] VITALS: BP 141/67; PULSE 84; RESP 18
[2018-07-25] MEDS: LANSOPRAZOLE 30 MG CAP PO SCH (05:43)
[2018-07-25 07:46] VITALS: BP 133/66; PULSE 77; RESP 22
[2018-07-25] MEDS: Insulin NOVOLOG SS MODERATE Algorithm (SS with meals and bedtime) SC SCH ×2 (08:00→12:39)
[2018-07-25] MEDS: SUCRALFATE 1 GM TAB PO SCH ×2 (08:45→12:46)
[2018-07-25] MEDS: DOCUSATE SODIUM 100 MG CAP PO SCH (08:45)
[2018-07-25] MEDS: ASPIRIN (EC) 81 MG TAB PO SCH (08:45)
[2018-07-25] MEDS: BETAMETHASONE/CLOTRIMAZOLE 15 GM CR TOP SCH (08:48)
[2018-07-25] MEDS: ENOXAPARIN 30 MG/0.3 ML SYG SC SCH (08:48)
[2018-07-25] MEDS: BALSAM PERU/CASTOR OIL 60 GM TUBE TOP SCH (08:48)
--- NOTE | 2018-07-25 11:42 | CONS ---
Consultation Date/Type/Reason Admit Date/Time Jul 18, 2018 at 01:51 Initial Consult Date 07/18/18 Type of Consult Pulmonary/critical care Pulmonary consult requested for evaluation of chronic hypoxemia due to IPF. Patient admitted with A. fib with RVR. Patient is a pleasant 77-year-old lady who came into the hospital with a 2-day history of shortness of breath. Upon evaluation patient was in A. fib with RVR. Patient has been started on Cardizem drip and was given digoxin with good rate control with significant improvement in dyspnea. Patient complete a chronic mild cough without any sputum production or hemoptysis. Denies any recent fever chills or any other symptoms. By the time I saw her, patient was completely awake and alert and appeared in no distress whatsoever. Past medical history; 1. History of IPF, O2 dependent. 2. Chronic atrial fibrillation. 3. Diabetes. 4. Systemic hypertension. Medications; reviewed. Allergies; as outlined above. Social history; most of any smoking. No history of drug abuse. Family history; noncontributory. Patient does have a supportive family. 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 Review of systems; denies any headache, seizures, chest pain, angina, wheezing, complains of mild chronic cough. Denies any sputum production. Denies any wheezing. Denies any fever or chills. Denies any abdominal pain, nausea vomiting any weight loss. Denies any orthopnea. General exam; elderly lady, awake alert, currently in no distress. On 2 L nasal cannula. Date/Time of Note DATE: 07/25/18 TIME: 11:40 24 HR Interval Summary Free Text/Dictation Patient's condition is still tenuous. On intermittent BiPAP as well as nasal cannula at 5 L/min. Complains of shortness of breath at rest. General exam; elderly woman, awake, currently in no distress. Appears anxious and mildly tachypneic. H EENT exam; supple neck, positive JVD. No lymphadenopathy. Midline trachea. No thyromegaly. Patient has a multiple carious teeth. Chest exam; diffuse bilateral crackles. S1-S2 audible, no murmurs. Irregular rhythm. Abdomen exam; soft, nondistended. Nontender. Bowel sounds audible. Extremity exam; no peripheral edema. Patient does have patchy ecchymosis. SURVEY METHODOLOGIST exam; no focal deficit. Assessment and recommendations; 1. Patient admitted with IPF exacerbation without any interval improvement. 2. History of chronic atrial fibrillation. Continue current supportive care. Patient to be enrolled in hospice. I did have a very detailed discussion with the patient's daughter at bedside. Prognosis is very poor. Exam/Review of Systems Exam Vitals Vital Signs Date Temp Pulse Resp B/P (MAP) Pulse Ox O2 O2 Flow FiO2 Time Delivery Rate 07/25/18 96.7 77 22 133/66 96 07:46 (88) 07/25/18 Nasal 4.0 07:36 Cannula 07/25/18 50 04:18 Intake and Output 07/24/18 07/24/18 07/25/18 1515:00 23:00 07:00 IntakeIntake Total 620 ml 360 ml OutputOutput Total 2300 ml 350 ml BalanceBalance 620 ml -1940 ml -350 ml Results Result Diagram: 07/25/18 0520 07/25/18 0520 Results 24hrs Laboratory Tests Test 07/24/18 12:27 07/24/18 17:32 07/24/18 21:02 07/25/18 01:58 Bedside Glucose 332 H 174 295 H 217 Test 07/25/18 05:20 07/25/18 07:47 White Blood Count 10.9 H Red Blood Count 4.17 L Hemoglobin 12.0 Hematocrit 39.7 Mean Corpuscular 95.2 Volume Mean Corpuscular 28.8 L Hemoglobin Mean Corpuscular 30.2 L Hemoglobin Concent Red Cell 16.1 H Distribution Width Platelet Count 194 Mean Platelet Volume 12.4 H Immature 0.300 Granulocytes % Neutrophils % 54.4 Lymphocytes % 31.6 Monocytes % 6.8 Eosinophils % 6.2 Basophils % 0.7 Nucleated Red Blood 0.0 Cells % Immature 0.030 Granulocytes # Neutrophils # 5.9 Lymphocytes # 3.4 H Monocytes # 0.7 Eosinophils # 0.7 H Basophils # 0.1 Nucleated Red Blood 0.0 Cells # Sodium Level 139 Potassium Level 4.1 Chloride Level 92 L Carbon Dioxide Level 44 *H Anion Gap 3 L Blood Urea Nitrogen 9 Creatinine 0.40 L Est Glomerular Filtrat Rate mL/min Glucose Level 150 Calcium Level 8.4 Phosphorus Level 3.6 Magnesium Level 1.9 Bedside Glucose 118 Medications Medication Current Medications IV Flush (NS 3 ml) 3 ml PER PROTOCOL IV Last administered on 07/23/18 21:40; Admin Dose 3 ML; Start 07/18/18 at 02:30 Ondansetron HCl (Zofran Inj) 4 mg Q6H PRN IV NAUSEA/VOMITING; Start 07/18/18 at 02:30 Acetaminophen (Tylenol Tab) 650 mg Q6H PRN PO .PAIN 1-3 OR TEMP; Start 07/18/18 at 02:30 Acetaminophen/ Hydrocodone Bitart ([place] (5/325)) 1 tab Q6H PRN PO .MOD PAIN 4- 6; Start 07/18/18 at 02:30 Morphine Sulfate (morphine) 2 mg Q4H PRN IV .SEVERE PAIN 7-10; Start 07/18/18 at 02:30 Docusate Sodium (Colace) 100 mg Q12H PRN PO .CONSTIPATION; Start 07/18/18 at 02:30 Magnesium Hydroxide (Milk Of Mag) 30 ml DAILY PRN PO .CONSTIPATION Last administered on 07/20/18at 13:38; Admin Dose 30 ML; Start 07/18/18 at 02:30 Lorazepam (Ativan) 0.5 mg Q6H PRN IV ANXIETY Last administered on 07/24/18at 15:24; Admin Dose 0.5 MG; Start 07/18/18 at 02:30 Albuterol/ Ipratropium (Duoneb) 3 ml Q4H RESP THERAPY PRN HHN SHORTNESS OF BREATH Last administered on 07/24/18 20:08; Admin Dose 3 ML; Start 07/18/18 at 02:30 Hydralazine HCl (Apresoline) 10 mg Q6H PRN IV ELEVATED BLOOD PRESSURE Last administered on 07/22/18at 19:49; Admin Dose 10 MG; Start 07/18/18 at 02:30 Nitroglycerin (Nitroglycerin (Sl Tab) 0.4 Mg) 1 tab Q5M PRN SL ANGINA; Start 07/18/18 at 02:30 Aspirin (Halfprin) 81 mg DAILY PO Last administered on 07/25/18at 08:45; Admin Dose 81 MG; Start 07/18/18 at 09:00 Miscellaneous Information 1 ea NOTE XX ; Start 07/18/18 at 02:30 Glucose (Glutose) 15 gm Q15M PRN PO DECREASED GLUCOSE; Start 07/18/18 at 02:30 Glucose (Glutose) 22.5 gm Q15M PRN PO DECREASED GLUCOSE; Start 07/18/18 at 02:30 Dextrose (D50w Syringe) 25 ml Q15M PRN IV DECREASED GLUCOSE; Start 07/18/18 at 02:30 Dextrose (D50w Syringe) 50 ml Q15M PRN IV DECREASED GLUCOSE; Start 07/18/18 at 02:30 Glucagon (Glucagen) 1 mg Q15M PRN IM DECREASED GLUCOSE; Start 07/18/18 at 02:30 Glucose (Glutose) 15 gm Q15M PRN BUCCAL DECREASED GLUCOSE; Start 07/18/18 at 02:30 Insulin Glargine (Lantus) 18 units DAILY@2000 SC Last administered on 07/24/18 21:06; Admin Dose 18 UNITS; Start 07/18/18 at 16:00; Stop 07/27/18 at 15:59 Simethicone (Mylicon) 80 mg TID PO Last administered on 07/25/18 08:45; Admin Dose 80 MG; Start 07/19/18 at 21:00 Sucralfate (Carafate) 1 gm TID PO Last administered on 07/25/18 08:45; Admin Dose 1 GM; Start 07/19/18 at 21:00 Insulin Aspart (Novolog Insulin Pen) (Adult SC Insulin - Moder... WITH MEALS BEDTIME SC Last administered on 07/24/18 21:05; Admin Dose 3 UNIT; Start 07/20/18 at 18:00 Docusate Sodium (Colace) 200 mg BID PO Last administered on 07/25/18 08:45; Admin Dose 200 MG; Start 07/20/18 at 21:00 Lansoprazole (Prevacid) 30 mg DAILY@06 PO Last administered on 07/25/18 05:43; Admin Dose 30 MG; Start 07/21/18 at 06:00 Enoxaparin Sodium (Lovenox) 30 mg DAILY SC Last administered on 07/25/18 08:48; Admin Dose 30 MG; Start 07/24/18 at 09:00 Betamethasone/ Clotrimazole (Lotrisone Cr) 1 applic BID TOP Last administered on 07/25/18 08:48; Admin Dose 1 APPLIC; Start 07/24/18 at 21:00 LLUVIA MARQUEZ Jul 25, 2018 11:42
[2018-07-25] MEDS ORDERED: ACETAMINOPHEN 650 MG SUPP PR PRN (13:30)
[2018-07-25] MEDS ORDERED: BISACODYL 10 MG SUPP PR PRN (13:30)
[2018-07-25] MEDS ORDERED: ATROPINE 1% 5 ML OPH SL PRN (13:30)
[2018-07-25] MEDS ORDERED: ONDANSETRON 4 MG INJ IV PRN (13:30)
--- NOTE | 2018-07-25 14:36 | QN ---
Documentation Comment The patient was evaluated by [facility] and the patient is officially on hospice currently. The care of the patient will be transferred to the medical provider under the hospice agency. Case discussed with Dr. Kaiser. SILVIA SERVIN NP Jul 25, 2018 14:36
[2018-07-25] MEDS: LORAZEPAM 2 MG INJ IV PRN (22:50)
--- NOTE | 2018-07-25 23:00 | HP ---
DATE OF ADMISSION: 07/18/2018 CHIEF COMPLAINT: Shortness of breath. HISTORY OF PRESENT ILLNESS: The patient is a 71-year-old female with history of idiopathic pulmonary fibrosis, hypertension, on home O2. The patient also has history of diabetes, hypertension. The ginny bejarano came to ER with shortness of breath and tachycardia. The patient was seen in the ER and was no saeed to have exacerbation of pulmonary fibrosis. The patient was put on BiPAP due to acute respirator y failure. The patient also was noted to be atrial fibrillation with RVR. The patient initially in the ER was also hypertensive and needed vasopressor support. The patient was seen by Dr. Llanes from pulmonary standpoint and he recommended palliative care. The prognosis was guarded. She spoke with the patient's grandson. The patient was requiring high flow oxygen at FIO2 of 40%. The patient was still tachypneic and today the family decided to put her under hospice care. The patient was in fact requiring FIO2 of 50% to maintain adequate saturation. The patient did not have any fever today. N o reported chest pain. No reported abdominal pain. There is no leg edema. No reported bleeding fro m any site. No reported seizures. No reported vomiting. The patient is short of breath at rest and has occasional dry cough. PAST MEDICAL HISTORY: As stated above. PAST SURGICAL HISTORY: The patient is status post . ALLERGIES: TORADOL. FAMILY HISTORY: Negative. SOCIAL HISTORY: No smoking, no alcohol. PHYSICAL EXAMINATION: GENERAL: She is awake, alert. VITAL SIGNS: Temperature 98.3, pulse 84, respiration 18, blood pressure 140/67, O2 97% on FIO2 of 15 %, early in the morning. HEENT: Atraumatic, normocephalic. Conjunctivae are normal. NECK: Neck veins are engorged. No lymphadenopathy, no thyromegaly. CHEST: Revealed bibasilar rales. CARDIOVASCULAR: Irregular rhythm. S1, S2 normal. No murmur. ABDOMEN: Soft, nondistended, nontender. No mass. EXTREMITIES: No edema, clubbing, cyanosis. NEUROLOGIC: The patient is weak and frail. No gross focal deficit. LABORATORY DATA: Done today, WBC is 10.5, hemoglobin 12, platelet 194. Sodium 139, potassium 4.1, b icarbonate 44, BUN 9, creatinine 0.4, glucose 150, calcium 8.4. IMPRESSION: 1. Acute hypoxemic respiratory failure due to pulmonary fibrosis. 2. Atrial fibrillation. 3. Diabetes. PLAN: The patient will be admitted under hospice care and will be started on comfort care only. The patient will be started on DuoNeb q.6h p.r.n. The patient will also be given IV morphine 2 mg q.12h . p.r.n. An IV Ativan will be started at 1 mg q.4 hours p.r.n. for terminal anxiety but nausea, vom iting. The patient will be given Zofran 4 mg q.6h. p.r.n. The patient currently does not have any s ecretion, so will add atropine drops only on p.r.n. basis for terminal congestion. We will also put her on Tylenol for mild fever, pain and Dulcolax suppository for constipation. Plan of care discusse d with the [facility] nurse, Allie. We will continue to optimize comfort care as necessary. Dictated By: RENETTA CANSECO/REGAN Conf#: [id number] DID#: [id number] CC: ANAHI VERDUGO;*EndCC*
[2018-07-26] MEDS: LORAZEPAM 2 MG INJ IV PRN (12:23)
[2018-07-27] MEDS: morphine 2 MG INJ IV PRN ×3 (09:10→22:45)
--- NOTE | 2018-07-27 10:54 | PN ---
DATE: 07/26/2018 LEVEL OF CARE: [facility]. PRIMARY DIAGNOSIS: Acute respiratory failure due to pulmonary fibrosis. Comorbid atrial fibrillatio n and diabetes. Since yesterday patient has had declining p.o. intake. The patient in fact was leth argic earlier after received a dose of Ativan due to agitation. The patient is short of breath even at rest with a respiratory rate of 33. No reported chest pain, abdominal pain. No reported fever or chills. PHYSICAL EXAMINATION: GENERAL: The patient is lethargic but arousable. HEENT: No eye discharge or redness. Nose and ears normal. Oropharynx grossly negative. NECK: No mass. CHEST: Diminished air entry bilaterally. CARDIOVASCULAR: Irregularly irregular rhythm. ABDOMEN: Soft, nondistended, nontender. EXTREMITIES: No edema. NEUROLOGIC: The patient is lethargic but arousable. IMPRESSION: 1. Acute respiratory failure due to fibrosis. 2. Atrial fibrillation. 3. History of diabetes. PLAN: The patient will be continued on: 1. DuoNeb q.6h. p.r.n. 2. Morphine sulfate 2 mg IV q.12h. p.r.n. 3. Patient did receive a dose of IV Ativan at 12:25 today. 4. Meanwhile will also continue atropine drops for secretions, IV Zofran for vomiting and Tylenol fo r mild pain and fever. Plan of care discussed with desk nurse as well as [facility] nurse Miky. Dictated By: RENETTA CANSECO/REGAN Conf#: [id number] DID#: [id number] CC: ANAHI VERDUGO;*EndCC*
--- NOTE | 2018-07-27 11:44 | PN ---
Date/Time of Note Date/Time of Note DATE: 07/27/18 TIME: 11:43 Assessment/Plan VTE Prophylaxis Risk score (from Nsg)>0 risk: 4 SCD applied (from Nsg): Yes Pharmacological prophylaxis: LMWH Lines/Catheters IV Catheter Type (from Nrsg): Saline Lock Urinary Cath still in place: Yes Reason Cath still needed: skin wounds contaminated by urine Assessment/Plan Hospital Course Patient currently on hospice but family may decide to stop hospice service 1. DuoNeb q.6h. p.r.n. 2. Morphine sulfate 2 mg IV q.12h. p.r.n. 3. Patient did receive a dose of IV Ativan at 12:25 today. 4. Meanwhile will also continue atropine drops for secretions, IV Zofran for vomiting and Tylenol for mild pain and fever. Result Diagram: 07/25/1851907/25/18519 Subjective 24 Hr Interval Summary Free Text/Dictation Family not happy with hospice services. They want to continue with DNR/DNI but off hospice and to restart medications such as for diabetes Exam/Review of Systems Exam Vitals Vital Signs Date Temp Pulse Resp B/P (MAP) Pulse Ox O2 O2 Flow FiO2 Time Delivery Rate 07/27/18 4.0 02:47 07/27/18 Nasal 00:38 Cannula 07/25/18 96.7 77 22 133/66 96 07:46 (88) 07/25/18 50 04:18 Intake and Output 07/26/18 07/26/18 07/27/18 1515:00 23:00 07:00 IntakeIntake Total 480 ml 780 ml 200 ml OutputOutput Total 550 ml 1000 ml BalanceBalance 480 ml 230 ml -800 ml Constitutional: well developed Head: normocephalic, atraumatic Neck: supple Respiratory: diminished breath sounds Cardiovascular: regular rate and rhythm Gastrointestinal: soft, non-tender Extremities: normal pulses Medications Medication Current Medications Albuterol/ Ipratropium (Duoneb) 3 ml Q6H RESP THERAPY PRN HHN SHORTNESS OF SAV TH; Start 07/25/18 at 13:30 Morphine Sulfate (morphine) 2 mg Q2H PRN IV PAIN/DYSPNEA Last administered on 07/27/18at 09:10; Admin Dose 2 MG; Start 07/25/18 at 13:30 Lorazepam (Ativan) 1 mg Q4H PRN IV ANXIETY/SEIZURES Last administered on 07/26/18at 12:23; Admin Dose 1 MG; Start 07/25/18 at 13:30 Ondansetron HCl (Zofran Inj) 4 mg Q6H PRN IV NAUSEA AND/OR VOMITING; Start 07/25/18 at 13:30 Atropine Sulfate (Atropine 1% Oph) 2 drop Q4H PRN SL TERMINAL CONGESTION; Start 07/25/18 at 13:30 Acetaminophen (Tylenol Supp) 650 mg Q6H PRN IA FEVER; Start 07/25/18 at 13:30 Bisacodyl (Dulcolax Supp) 10 mg DAILY PRN [place] CONSTIPATION; Start 07/25/18 at 13:30 KYRA ROSALES Jul 27, 2018 11:44
[2018-07-27 20:00] VITALS: BP 146/69; PULSE 94; RESP 20
[2018-07-27] MEDS ORDERED: hydrALAzine 20 MG INJ IV PRN ×2 (20:00→22:00)
[2018-07-27] MEDS: ALBUTEROL/IPRATROPIUM (NEB) 3 ML AMP HHN PRN (20:50)
[2018-07-27] MEDS: LORAZEPAM 2 MG INJ IV PRN (21:07)
[2018-07-27] MEDS: DOCUSATE SODIUM 100 MG CAP PO SCH (22:00)
[2018-07-27] MEDS: Insulin NOVOLOG SS MODERATE Algorithm (SS with meals and bedtime) SC SCH (22:27)
[2018-07-27] MEDS ORDERED: INSULIN ASPART [NOVOLOG] 3 ML PEN SC ONE (23:00)
[2018-07-28 02:00] VITALS: BP 122/57; PULSE 106; RESP 22
[2018-07-28] MEDS: ACCUCHECK AT 2AM (Patients on SS coverage) XX SCH (02:00)
[2018-07-28] MEDS: LORAZEPAM 2 MG INJ IV PRN ×2 (03:11→09:43)
[2018-07-28] MEDS: morphine 2 MG INJ IV PRN ×2 (06:07→09:46)
[2018-07-28] MEDS: DOCUSATE SODIUM 100 MG CAP PO SCH ×2 (08:36→21:00)
[2018-07-28] MEDS: AMLODIPINE 5 MG TAB PO SCH (08:36)
[2018-07-28] MEDS: Insulin NOVOLOG SS MODERATE Algorithm (SS with meals and bedtime) SC SCH ×2 (08:41→12:40)
[2018-07-28 09:34] VITALS: BP 119/63; PULSE 97; RESP 20
[2018-07-28] MEDS: ALBUTEROL/IPRATROPIUM (NEB) 3 ML AMP HHN PRN (09:59)
--- NOTE | 2018-07-28 11:43 | PN ---
Date/Time of Note Date/Time of Note DATE: 07/28/18 TIME: 11:42 Assessment/Plan VTE Prophylaxis Risk score (from Ns)>0 risk: 8 SCD applied (from [facility]): No SCD contraindicated: other Pharmacological prophylaxis: LMWH Lines/Catheters IV Catheter Type (from [facility]): Saline Lock Urinary Cath still in place: Yes Reason Cath still needed: skin wounds contaminated by urine Assessment/Plan Hospital Course Patient currently on hospice but family may decide to stop hospice service 1. DuoNeb q.6h. p.r.n. 2. Morphine sulfate 2 mg IV q.12h. p.r.n. 3. Patient did receive a dose of IV Ativan at 12:25 today. 4. Meanwhile will also continue atropine drops for secretions, IV Zofran for vomiting and Tylenol for mild pain and fever. Result Diagram: 07/25/1820 07/25/18519 Results 24hrs Laboratory Tests Test 07/27/18 22:15 07/28/18 02:36 07/28/18 08:34 Bedside Glucose 396 H 349 H 343 H Subjective 24 Hr Interval Summary Free Text/Dictation Patient doing ok, on face mask oxygen, no evidence of shortness of breath Exam/Review of Systems Exam Vitals Vital Signs Date Temp Pulse Resp B/P (MAP) Pulse Ox O2 O2 Flow FiO2 Time Delivery Rate 07/28/18 15.0 10:56 07/28/18 97.6 97 20 119/63 99 09:34 (81) 07/28/18 50 04:36 07/28/18 Nasal 02:00 Cannula Intake and Output 07/27/18 07/27/18 07/28/18 1515:00 23:00 07:00 IntakeIntake Total 540 ml OutputOutput Total 1000 ml 350 ml BalanceBalance 540 ml -1000 ml -350 ml Constitutional: well developed, frail Head: normocephalic, atraumatic Neck: supple Respiratory: diminished breath sounds Cardiovascular: regular rate and rhythm Gastrointestinal: soft, non-tender Extremities: normal pulses Results Results 24hrs Laboratory Tests Test 07/27/18 22:15 07/28/18 02:36 07/28/18 08:34 Bedside Glucose 396 H 349 H 343 H Medications Medication Current Medications Albuterol/ Ipratropium (Duoneb) 3 ml Q6H RESP THERAPY PRN HHN SHORTNESS OF BREATH Last administered on 07/28/18at 09:59; Admin Dose 3 ML; Start 07/25/18 at 13:30 Morphine Sulfate (morphine) 2 mg Q2H PRN IV PAIN/DYSPNEA Last administered on 07/28/18at 09:46; Admin Dose 2 MG; Start 07/25/18 at 13:30 Lorazepam (Ativan) 1 mg Q4H PRN IV ANXIETY/SEIZURES Last administered on 07/28/18at 09:43; Admin Dose 1 MG; Start 07/25/18 at 13:30 Ondansetron HCl (Zofran Inj) 4 mg Q6H PRN IV NAUSEA AND/OR VOMITING; Start 07/25/18 at 13:30 Atropine Sulfate (Atropine 1% Oph) 2 drop Q4H PRN SL TERMINAL CONGESTION; Start 07/25/18 at 13:30 Acetaminophen (Tylenol Supp) 650 mg Q6H PRN NC FEVER; Start 07/25/18 at 13:30 Bisacodyl (Dulcolax Supp) 10 mg DAILY PRN NC CONSTIPATION; Start 07/25/18 at 13:30 Hydralazine HCl (Apresoline) 10 mg Q6H PRN IV ELEVATED SYSTOLIC BP Last administered on 07/27/18at 20:11; Admin Dose 10 MG; Start 07/27/18 at 20:00 Docusate Sodium (Colace) 100 mg BID PO ; Start 07/27/18 at 22:00 Amlodipine Besylate (Norvasc) 5 mg DAILY PO ; Start 07/28/18 at 09:00 Insulin Aspart (Novolog Insulin Pen) (Adult SC Insulin - Moder... WITH MEALS B EDTIME SC Last administered on 07/28/18at 08:41; Admin Dose 12 UNIT; Start 07/27/18 at 22:00 Diagnostic Test (Pha) (Accu-Chek) 1 ea 02 XX ; Start 07/28/18 at 02:00 Morphine Sulfate (morphine) 2 mg Q6 IV ; Start 07/28/18 at 12:00 KYRA ROSALES Jul 28, 2018 11:43
[2018-07-28] MEDS: morphine 2 MG INJ IV SCH ×3 (12:46→23:36)
[2018-07-28 14:14] VITALS: BP 124/65; PULSE 98; RESP 16
[2018-07-28] MEDS: INSULIN ASPART [NOVOLOG] 3 ML PEN SC SCH ×2 (17:41→21:20)
[2018-07-28 19:36] VITALS: BP 154/71; PULSE 88; RESP 19
[2018-07-28] MEDS ORDERED: INSULIN ASPART [NOVOLOG] 3 ML PEN SC ONE (21:30)
[2018-07-28] MEDS ORDERED: ACCU-CHEK XX ONE (21:30)
[2018-07-28] MEDS ORDERED: GLUCOSE GEL 15 GRAM TUBE BUCCAL PRN (22:00)
[2018-07-28] MEDS ORDERED: GLUCOSE GEL 15 GRAM TUBE PO PRN ×2 (22:00)
[2018-07-28] MEDS ORDERED: DEXTROSE 50% 50 ML SYRINGE IV PRN ×2 (22:00)
[2018-07-28] MEDS ORDERED: GLUCAGON 1 MG INJ IM PRN (22:00)
[2018-07-29 02:00] VITALS: BP 142/74; PULSE 94; RESP 18
[2018-07-29] MEDS: ACCUCHECK AT 2AM (Patients on SS coverage) XX SCH (02:00)
[2018-07-29] MEDS: morphine 2 MG INJ IV SCH ×3 (05:25→20:59)
--- NOTE | 2018-07-29 07:31 | PN ---
DATE: 07/27/2018 SUBJECTIVE: The patient is currently slightly sedated after receiving Ativan 1 mg earlier today around 9:07 p.m. for anxiety. She has been having episodes of shortness of breath even at rest, currently breathing at about 32 to 35. She is currently on a facemask up to 15 liters, which has been increased earlier today. Earlier today she was on 6 liters nasal cannula. As per the family members, brother Alon and sister Mari, patient has had a very good p.o. intake today and she ate well and family is requesting for her to be put back on diabetic medications as well as the blood pressure medications. Her blood pressure earlier today around 8:00 p.m. was 183/85 and she did receive Hydralazine 10 mg orally at 11:00 p.m. Blood pressure at around 8:20 p.m. was about 146/81 currently at around 9:55 p.m. blood pressure is 122/69. As per the family members, she was able to interact with them today and also ate a good amount of pureed diet and thickened liquids, PHYSICAL EXAMINATION: VITAL SIGNS: Temperature of 98.4, heart rate 108 per minute and tachycardic and regular, respiratory rate 34 to 35 per minute. GENERAL: The patient is very lethargic and is currently on a facemask and is slightly sedated from the Ativan she received 1 hour ago. HEENT: PERRL. No pallor or icterus noted. No oral lesions or erythema noted. NECK: Supple without any jugular venous distention or lymphadenopathy. CARDIOVASCULAR: S1, S2+ and tachycardic. RESPIRATORY: Scattered crackles bilaterally. ABDOMEN: Soft, nontender. Bowel sounds are normal. EXTREMITIES: No pedal edema. SKIN: As per the nursing notes, patient with a stage II decubitus ulcer, on the right buttock which is currently being dressed with Allevyn dressing, which is to be changed every 3 days. MEDICATIONS: The patient is currently on the following medications: 1. Amlodipine 5 mg a day, which will be started tomorrow. 2. Docusate sodium 100 mg twice a day. 3. Hydralazine 10 mg every 6 hours as needed for systolic blood pressure greater than 160. 4. Patient with moderate insulin sliding scale, which was placed earlier today with q.a.c. and at bedtime. 5. Albuterol every 6 hours as needed. 6. Morphine 2 mg IV every 2 hours as needed. 7. Lorazepam 1 mg every 4 hours as needed. 8. Zofran 4 mg every 6 hours as needed. 9. Atropine sulfate 1%, 2 drops every 4 hours as needed. 10. Tylenol 650 mg suppository every 6 hours as needed. 11. Bisacodyl 10 mg daily as needed. ASSESSMENT: Ms. Bradley is a 77-year-old female with past medical history significant for idiopathic pulmonary fibrosis, hypertension, diabetes mellitus on home oxygen, who was admitted to the hospital with shortness of breath and tachycardia. She was initially placed on a BiPAP due to acute respiratory failure. She was also in atrial fibrillation with rapid ventricular rate. Palliative care was recommended for her and she has since been admitted to the inpatient hospice unit. The patient's family wished for her to be placed on her regular medications such as antihypertensive medications as well as diabetic medications as the patient had a good day today and she ate all of her meals which included a pureed diet, thickened liquids, and also she has been restarted on hydralazine 10 mg IV q.6 hours as needed for systolic blood pressure more than 160. Also, moderate sliding scale insulin has also been reinstated in place with blood sugar checks q.a.c. and at bedtime. PLAN: Shortness of breath. The patient does appear to be having episodes of shortness of breath. Currently, she is on a facemask which has been increased to about 15 liters and currently saturating at about 94%. She was given morphine 2 mg IV every 2 hours as needed earlier today as well as 5:45 p.m. so recommend to continue to monitor. For anxiety the patient also has been having episodes of anxiety for which she is currently on Ativan 1 mg every 4 hours as needed, of which she did receive 1 dose around 9:07 p.m. and so would recommend to continue to monitor. The patient also received albuterol inhalation around 8:50 p.m. Currently, several family members at bedside including brother Alon and sister Mari. I also called and left a message for the patient's daughter and PUNEET Small, discussed the patient's poor prognosis. The patient currently is having shortness of breath and that we would administer morphine as needed for that, for which the son Alon was agreeable with that. Dictated By: HENRY TINOCO MD PK/REGAN Conf#: [id number] DID#: [id number] CC: ANAHI VERDUGO;*EndCC* MTDD
--- NOTE | 2018-07-29 07:31 | PN ---
DATE: 07/28/2018 SUBJECTIVE: The patient currently is very lethargic, minimally responsive to verbal stimuli, opens her eyes, but unable to state her name or answer any of the questions. As per the staff, Ebonie, the patient has not had anything to eat today. She does appear slightly anxious at times, as well as short of breath, resting respiratory rate around 30 to 33 per minute. Morphine has been scheduled today at 2 mg IV every 6 hours [facility] She has not had anything to eat today, though she did eat well yesterday. PHYSICAL EXAMINATION: VITAL SIGNS: Temperature 97.6, heart rate 112 per minute and tachycardic. Respirations 32 per minute and tachypneic. Blood pressure 119/63, saturating 99% on 15 liters Ventimask. GENERAL: The patient is an elderly female who is lying in bed in mild respiratory distress. HEENT: PERRL. No pallor or icterus noted. Mouth with no oral lesions or erythema noted. NECK: Supple without any jugular venous distention or lymphadenopathy. CARDIOVASCULAR: S1, S2, tachycardic without any murmurs, rubs, or gallops. CHEST: Scattered crackles both upper lobes. ABDOMEN: Soft, nontender, bowel sounds present normally. EXTREMITIES: No pedal edema. GENITOURINARY: Lynn catheter draining clear urine. Total output about 1350 mL in the last 24 hours in the Lynn catheter. SKIN: The patient with a stage II decubitus ulcer on the right buttocks for which Allevyn dressing is being provided, which is changed every 3 days. NEUROLOGIC: The patient is currently lethargic and with her eyes closed, but is minimally responsive to verbal stimuli,. ASSESSMENT: Ms. Bradley is a 77-year-old female with past medical history significant for idiopathic pulmonary fibrosis, hypertension, diabetes mellitus who was admitted to the hospital with shortness of breath and tachycardia who was also placed on BiPAP for acute respiratory failure and also had atrial fibrillation with rapid ventricular rate. Currently the patient has since been admitted to the inpatient hospice unit and currently has been having issues with shortness of breath and pain and occasional anxiety. PLAN: 1. For dyspnea, the patient is currently on morphine 2 mg every 6 hours around the clock, which was scheduled a couple of hours ago. She did have about 5 doses in the last 24 hours. I would recommend to continue the morphine as needed at 2 mg every 2 hours as needed. The patient does appear to be declining since last night. 3. Occasional anxiety. The patient also appears to be having issues with occasional anxiety for which she is currently on Ativan 1 mg every 4 hours as needed of which she received 3 doses since yesterday. Currently, the patient appears to be calm, so recommend to continue to monitor. No family at bedside today, but as per the [facility] nurse, Annamarie, who spoke to the family, they are agreeable to the plan of care of scheduling the morphine at 2 mg every 6 hours around the clock and continue the current plan of care. The patient does appear to be appropriate GIP today with a significant decline since yesterday. We will continue to evaluate and make any changes as needed. Dictated By: HENRY TINOCO MD PK/NTS Conf#: [id number] DID#: [id number] CC: ANAHI VERDUGO;*Louisa* MTDEnid
[2018-07-29] MEDS: DOCUSATE SODIUM 100 MG CAP PO SCH ×2 (08:30→20:55)
[2018-07-29] MEDS: AMLODIPINE 5 MG TAB PO SCH (08:30)
[2018-07-29] MEDS: INSULIN ASPART [NOVOLOG] 3 ML PEN SC SCH ×4 (08:30→21:02)
[2018-07-29] MEDS: BALSAM PERU/CASTOR OIL 60 GM TUBE TOP SCH ×2 (08:31→21:00)
[2018-07-29] MEDS: BETAMETHASONE/CLOTRIMAZOLE 15 GM CR TOP SCH ×2 (08:31→21:00)
[2018-07-29] MEDS: LORAZEPAM 2 MG INJ IV PRN (10:33)
[2018-07-29] MEDS: morphine 2 MG INJ IV PRN (18:40)
[2018-07-29] MEDS: ALBUTEROL/IPRATROPIUM (NEB) 3 ML AMP HHN SCH (20:12)
--- NOTE | 2018-07-29 20:23 | PN ---
DATE: 07/29/2018 SUBJECTIVE: Follow up on acute respiratory failure, pulmonary fibrosis, atrial fibrillation, and diabetes. The patient was seen by Dr. Abreu yesterday from a hospice standpoint and was started on morphine 2 mg around the clock due to shortness of breath. The patient does get episode of anxiety which leads to increasing shortness of breath and the patient's family request. Face mask; however, the patient is saturating 100% between 5 to 6 liters of nasal cannula. The patient just received a dose of Ativan. The patient looks less anxious and is breathing comfortably at rest. Denies any chest pain or abdominal pain. PHYSICAL EXAMINATION: GENERAL: Awake. VITAL SIGNS: Temperature 98, pulse 94, respiration 18, blood pressure 142/74, O2 saturation 100% on 6 liters nasal cannula. HEENT: No eye discharge or redness. Conjunctivae are normal. Oropharynx revealed dry oral mucosa. Nose and ears normal. NECK: No mass. CHEST: Diminished air entry at bases. No use of accessory muscles. CARDIOVASCULAR: S1, S2 normal, no murmur. ABDOMEN: Soft, nondistended, nontender. EXTREMITIES: Trace edema. NEUROLOGIC: The patient is awake with generalized weakness. LABORATORY DATA: Glucose between 161 to 328. IMPRESSION: 1. Acute respiratory failure. Continue oxygen and breathing treatment a needed. 2. Pulmonary fibrosis. Continue supplemental oxygen and for shortness of breath the patient remains on IV Morphine. 3. Diabetes. The patient has been resumed on insulin as requested by family. 4. History of hypertension and atrial fibrillation. The patient will discontinue Norvasc and start metoprolol succinate. Plan of care discussed with the patient's nurse, Jonathan and with Gary([facility] nurse). Will discuss with family when available Dictated By: RENETTA CANSECO/NTS Conf#: [id number] DID#: [id number] CC: ANAHI VERDUGO;*EndANGELA* MTDD
[2018-07-30] MEDS: morphine 2 MG INJ IV SCH ×4 (01:00→13:37)
[2018-07-30] MEDS: ALBUTEROL/IPRATROPIUM (NEB) 3 ML AMP HHN SCH ×5 (01:55→20:13)
[2018-07-30] MEDS: ACCUCHECK AT 2AM (Patients on SS coverage) XX SCH (02:00)
[2018-07-30 08:00] VITALS: BP 153/70; PULSE 90; RESP 22
[2018-07-30] MEDS: INSULIN ASPART [NOVOLOG] 3 ML PEN SC SCH ×4 (08:00→20:59)
[2018-07-30] MEDS: LORAZEPAM 2 MG INJ IV PRN ×3 (08:22→22:03)
[2018-07-30] MEDS: morphine 2 MG INJ IV PRN (08:23)
[2018-07-30] MEDS: METOPROLOL (XL) 25 MG TAB PO SCH (09:00)
[2018-07-30] MEDS: DOCUSATE SODIUM 100 MG CAP PO SCH ×2 (09:00→21:02)
[2018-07-30] MEDS: BALSAM PERU/CASTOR OIL 60 GM TUBE TOP SCH ×2 (13:36→21:00)
[2018-07-30] MEDS: BETAMETHASONE/CLOTRIMAZOLE 15 GM CR TOP SCH ×2 (13:37→21:02)
[2018-07-30 14:00] VITALS: BP 140/77; PULSE 99; RESP 24
[2018-07-30] MEDS ORDERED: morphine (DRIP) 100 MG/100 ML 100 ML IV SCH (15:00)
[2018-07-30 18:33] VITALS: BP 149/79; PULSE 95; RESP 22
[2018-07-30 20:26] VITALS: BP 176/86
--- NOTE | 2018-07-30 22:30 | PN ---
DATE: 07/30/2018 SUBJECTIVE: Follow up on acute respiratory failure due to pulmonary fibrosis, diabetes and atrial fibrillation. The patient had increasing shortness of breath and her morphine dose was increased to 2 mg q. 4 hours around the clock. The patient still seems symptomatic and intermittently moans. However, patient's family is reluctant in increasing the dose of morphine. I was able to speak with the patient's daughter, Ca, who makes medical decisions for her and she agreed for a morphine drip to be started at 0.5 mg every hour, which can be titrated up for comfort care. The patient remains responsive and awake; however, tachypneic. Last respiratory rate was 30. PHYSICAL EXAMINATION VITAL SIGNS: The patient is saturating 100% on 6 liter nasal cannula. Heart rate is around 99. T-max 98. HEENT: No eye discharge or redness. Skin has normal. Oropharynx revealed dry oral mucosa. The patient is bleeding from mouth. NECK: no mass CHEST: Diminished air entry bilaterally. CARDIOVASCULAR: Irregular rhythm. ABDOMEN: Soft. EXTREMITIES: No edema, no cyanosis. NEUROLOGIC: The patient is awake and follows simple commands. IMPRESSION: 1. Acute respiratory failure. 2. Atrial fibrillation. 3. Diabetes mellitus. PLAN: As mentioned, the patient was started on morphine drip which will be titrated up for comfort care. We will continue IV Ativan 1 mg q.4 hours p.r.n. for tremor and anxiety. Continue DuoNeb for chest congestion. Plan of care discussed with patient's family, nursing staff, [facility] Dictated By: RENETTA CANSECO/REGAN Conf#: [id number] DID#: [id number] CC: ANAHI VERDUGO;*Louisa* MTDD
[2018-07-30] MEDS: INSULIN GLARGINE [LANTus] (100 UNITS/ML) SYG SC SCH (23:16)
[2018-07-31] MEDS: ALBUTEROL/IPRATROPIUM (NEB) 3 ML AMP HHN SCH ×4 (01:27→19:54)
[2018-07-31] MEDS: ACCUCHECK AT 2AM (Patients on SS coverage) XX SCH (01:40)
[2018-07-31 08:02] VITALS: BP 143/67; PULSE 91; RESP 21
[2018-07-31] MEDS: METOPROLOL (XL) 25 MG TAB PO SCH (09:00)
[2018-07-31] MEDS: DOCUSATE SODIUM 100 MG CAP PO SCH ×2 (09:00→20:54)
[2018-07-31] MEDS: BETAMETHASONE/CLOTRIMAZOLE 15 GM CR TOP SCH ×2 (09:05→21:13)
[2018-07-31] MEDS: BALSAM PERU/CASTOR OIL 60 GM TUBE TOP SCH ×2 (09:06→21:13)
[2018-07-31] MEDS: INSULIN ASPART [NOVOLOG] 3 ML PEN SC SCH ×4 (09:20→21:00)
[2018-07-31] MEDS: LORAZEPAM 2 MG INJ IV PRN ×2 (13:27→22:08)
[2018-07-31 15:02] VITALS: BP 141/65; PULSE 99; RESP 21
[2018-07-31 20:00] VITALS: PULSE 86; RESP 22
[2018-07-31 22:03] VITALS: PULSE 100; RESP 22
--- NOTE | 2018-07-31 23:13 | PN ---
DATE: 07/31/2018 SUBJECTIVE AND INTERVAL HISTORY: Followup on acute respiratory failure due to pulmonary fibrosis, AF ib, and diabetes. The patient since yesterday has continued to decline and her morphine drip has bee n increased to 1 mg an hour. The patient seems more comfortable, although does get short of breath e mine while attempting to talk or with minimal movement. The patient is slightly lethargic but easily arousable. No reported temperature spike. No reported bleeding from any site. No reported vomiting . PHYSICAL EXAMINATION: GENERAL: The patient had been lethargic but arousable and attempts to follow simple commands. VITAL SIGNS: Temperature 97.6, pulse 91, respirations 24, blood pressure 143/67, O2 saturation 100% on 20 liters of oxygen with FIO2 of 100%. HEENT: No eye discharge or redness. Conjunctivae and lids normal. Nose normal. Oropharynx reveale d dry oral mucosa. NECK: No mass. CHEST: Diminished air entry bilaterally. CARDIOVASCULAR: Irregular rhythm. ABDOMEN: Soft, nondistended, nontender. EXTREMITIES: No edema, clubbing, or cyanosis. NEUROLOGIC: The patient is lethargic but arousable and attempts to follow simple command, does have generalized weakness. The patient's family had requested Accu-Chek and last blood sugar was 229. The patient's p.o. intake is only minimal since yesterday. IMPRESSION: 1. Acute respiratory failure. 2. Pulmonary fibrosis. 3. Atrial fibrillation. 4. Diabetes mellitus. PLAN: The patient will be continued on morphine drip at 1 mg an hour which will be titrated up for c omfort care. The patient does have elevated blood sugar; however, p.o. intake is poor. The patient' s family has been educated about unpredicted p.o. intake and risk for insulin. For terminal an xiety, patient remains on IV Ativan 1 mg q.4 p.r.n. The patient received 3 doses in last 24 hours. Continue atropine drops for secretions and DuoNeb for chest congestion. The patient remains appropri ate for hospice care. I spoke with the patient's son, Bryson Gonzalez, and updated him regarding ginny bejarano's condition and plan of care. I also spoke with the staff nurse, Jamison, and updated her arielle benitez plan of care. Dictated By: RENETTA CHRISTIANSEN MD AB/NTS Conf#: [id number] DID#: [id number] CC: ANAHI VERDUGO;*End*
[2018-07-31] MEDS: INSULIN GLARGINE [LANTus] (100 UNITS/ML) SYG SC SCH (23:53)
[2018-07-31 23:56] VITALS: PULSE 100; RESP 30
[2018-08-01] MEDS: ALBUTEROL/IPRATROPIUM (NEB) 3 ML AMP HHN SCH ×2 (01:18→07:37)
[2018-08-01] MEDS: ACCUCHECK AT 2AM (Patients on SS coverage) XX SCH (01:41)
[2018-08-01 02:00] VITALS: PULSE 102; RESP 25
[2018-08-01 03:57] VITALS: PULSE 97; RESP 25
[2018-08-01 06:10] VITALS: PULSE 65; RESP 25
[2018-08-01] MEDS: LORAZEPAM 2 MG INJ IV PRN ×3 (07:29→23:29)
[2018-08-01] MEDS: DOCUSATE SODIUM 100 MG CAP PO SCH (08:42)
[2018-08-01] MEDS: METOPROLOL (XL) 25 MG TAB PO SCH (08:42)
[2018-08-01] MEDS: INSULIN ASPART [NOVOLOG] 3 ML PEN SC SCH ×2 (09:00→12:40)
[2018-08-01] MEDS: BETAMETHASONE/CLOTRIMAZOLE 15 GM CR TOP SCH ×2 (09:00→22:18)
[2018-08-01] MEDS: BALSAM PERU/CASTOR OIL 60 GM TUBE TOP SCH ×2 (09:01→22:18)
[2018-08-01] MEDS ORDERED: ALBUTEROL/IPRATROPIUM (NEB) 3 ML AMP HHN PRN (13:00)
--- NOTE | 2018-08-01 15:47 | PN ---
DATE: 08/01/2018 SUBJECTIVE: Follow up on acute respiratory failure, atrial fibrillation, diabetes and pulmonary fibr osis. The patient since yesterday has continued to decline. The patient is more lethargic. The pat shona has not had any p.o. intake since yesterday. The patient was anxious this morning and received 1 mg of Ativan. Due to terminal anxiety, the patient has received 3 doses of IV Ativan since yesterd ay afternoon. The patient is unable to swallow safely; therefore all her p.o. medications will be di scontinued. The patient also will be made n.p.o. PHYSICAL EXAMINATION: VITAL SIGNS: Pulse 106, respirations 30, blood pressure 141/65. The patient is on 20 liters at FiO2 of 100% and still satting only 92%. GENERAL: Revealed the patient to be lethargic but arousable. No useful communication possible. NECK: No mass. CHEST: Diminished air entry bilaterally. Occasional coarse breath sounds. CARDIOVASCULAR: Irregular rhythm. ABDOMEN: Soft, nondistended, nontender. EXTREMITIES: Trace edema. NEUROLOGIC: The patient is noncommunicative. IMPRESSION: Acute respiratory failure due to pulmonary fibrosis. Continue supplemental oxygen. We will change breathing treatment to p.r.n. Since patient is unable to take anything p.o., all her ora l medications will be discontinued. The patient will be made n.p.o. We will also discontinue Accu-C heks and sliding scale insulin. Plan of care was discussed with the patient's nurse at [facility] and famil y members. The patient will be kept on air loss mattress to prevent decubitus and also, we will cont inmiguelangel Lynn. The patient remains appropriate for [facility] level of care. Dictated By: RENETTA CHRISTIANSEN MD AB/NTS Conf#: [id number] DID#: [id number] CC: DIANE LR MD; ANAHI VERDUGO;*EndCC*
--- NOTE | 2018-08-03 02:18 | DES ---
DATE OF ADMISSION: 07/18/2018 DATE OF : 08/02/2018 TIME OF : 1:32 a.m. CAUSE OF : Acute respiratory failure due to pulmonary fibrosis, comorbid conditions, atrial fib rillation and diabetes. REASON FOR ADMISSION AND HOSPITAL COURSE: The patient is a 77-year-old female with idiopathic pulmon farzana fibrosis, diabetes, atrial fibrillation and hypertension. The patient was on home O2. The trixie abraham was brought to [facility] because of atrial fibrillation with RVR and shortness of breath. The patient was found to be in acute on chronic respiratory failure and was started on hi gh flow oxygen. 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 The michelle nagel was admitted under hospice care on 07/25/2018 for respiratory distress and pain. The patient's family initially only wanted p.r.n. morphine. The patient was requiring almost 12 mg of IV morphine for pain control and family was suggested to start her on morphine drip at 0.5 mg an hour. The trixie abraham's family agreed and the patient was also given IV Ativan for terminal anxiety. The patient was pu t on atropine drops for secretion and DuoNeb for chest congestion. Morphine dose was optimized. I h ad multiple meetings with the patient's family including daughter Staci Gonzalez and son, Bryson Gonzalez. Both were updated regarding patient's condition. The patient continued to decline and h ad to be kept n.p.o. due to progressive decline in her alertness. Urine output also continued to dec line and she became progressively more tachycardic and on 08/02/2018 at 1:32 a.m., the patient was fo und to be unresponsive to all stimuli. Pupils were fixed and dilated. The patient did not have any heart sound and respiration and was pronounced . Dictated By: RENETTA CANSCEO/REGAN Conf#: [id number] DID#: [id number]
== END 2018-08-02 01:32 | disposition expired | DRG 871 ==
LOC: E/R 22:08 → ICU 07-18 01:51 → 6WM 07-19 02:50 → 2NE 07-21 01:23 → MS1 07-30 16:28
PROVIDERS: ADMIT Hospitalist; ATTEND Internal Medicine
PROC: 5A09357 Assistance with Respiratory Ventilation, Less than 24 Consecutive Hours, Continuous Positive Airway Pressure (ICD-10-PCS; principal; 2018-07-17)
DX: A41.9 Sepsis, unspecified organism (principal); R65.21 Severe sepsis with septic shock; J96.22 Acute and chronic respiratory failure with hypercapnia; J96.21 Acute and chronic respiratory failure with hypoxia; N39.0 Urinary tract infection, site not specified; J81.1 Chronic pulmonary edema; R04.2 Hemoptysis; I48.91 Unspecified atrial fibrillation; Z66 Do not resuscitate; D64.9 Anemia, unspecified; E11.9 Type 2 diabetes mellitus without complications; F41.9 Anxiety disorder, unspecified; I10 Essential (primary) hypertension; J84.112 Idiopathic pulmonary fibrosis; L89.312 Pressure ulcer of right buttock, stage 2; I95.2 Hypotension due to drugs; T50.2X5A Adverse effect of carbonic-anhydrase inhibitors, benzothiadiazides and other diuretics, initial encounter; R13.10 Dysphagia, unspecified; R53.81 Other malaise; R10.9 Unspecified abdominal pain; Z51.5 Encounter for palliative care; Z99.81 Dependence on supplemental oxygen; Z79.4 Long term (current) use of insulin; Z79.01 Long term (current) use of anticoagulants; Z79.82 Long term (current) use of aspirin
CPT/HCPCS: 36415; 36600; 71045; 80048; 80053; 80061; 81001; 82803; 82962; 83036; 83690; 83735; 83880; 84100; 84439; 84443; 84484; 85025; 87070; 87081; 87086; 92526; 92610; 93005; 94640; 94660; 94664; 96374; 96375; 97110; 97163; 97167; C9113; J0360; J0696; J1650; J1815; J1940; J2060; J2270; J2370; J2405; J3475; J7040